=== PATIENT | male | born 1950 | race Caucasian/White ===

== ENCOUNTER 2017-11-21 12:42 | Inpatient (IN) | payer MEDICARE ==
[2017-11-21] VITALS (9 sets, daily range): BP systolic 96–111; BP diastolic 55–67; PULSE 65–100; RESP 16–19; TEMP 97–98.9; O2SAT 97–100
[~2017-11-21] VITALS: Ht 175.3 cm; Wt 94.5 kg
[2017-11-21] MEDS ORDERED: ATOR20TA15 PO (12:55)
[2017-11-21] MEDS ORDERED: HYDR25TA5 PO (12:55)
[2017-11-21] MEDS ORDERED: PRAZ2CAP PO (12:55)
[2017-11-21] MEDS ORDERED: ENAL20TA PO (12:55)
[2017-11-21] MEDS ORDERED: [UNRECOGNIZED DRUG - CODE] PO (12:55)
[2017-11-21] MEDS ORDERED: LOSA100T PO (12:55)
[2017-11-21] MEDS ORDERED: ASPI-516 CHEW (12:55)
[2017-11-21] MEDS ORDERED: ONDANSETRON HCL 4 MG/2 ML VIAL IV ONE (13:00)
[2017-11-21] MEDS ORDERED: SODIUM CHLOR 0.9% 1000 ML INJ 1,000 ML IV ONE (13:00)
--- NOTE | 2017-11-21 13:16 | PD ---
HPI Chief Complaint: Abnormal Results Time Seen by Provider: 12:49 Travel History International Travel<30 days: No Contact w/Intl Traveler<30days: No Traveled to known affect area: No History of Present Illness HPI This patient complains of lightheadedness and generalized weakness. He normally has history of hypertension and takes 4 separate antihypertensives. However his blood pressures have been running on the low side. He took his medications yesterday but not today. Denies fever or vomiting or diarrhea. He is a diet controlled diabetic, Accu-Chek 203. Not having any chest pain or shortness of breath. Severity is moderate. No alleviating factors. Symptoms exacerbated by lower than normal blood pressures PFSH Past Medical History Cardiovascular Problems: Yes High Cholesterol: Yes Diabetes: Yes Patient Takes Glucophage: No Diminished Hearing: No Hypertension: Yes Tetanus Vaccination: > 5 Years Influenza Vaccination: Yes Past Surgical History Genitourinary Surgery: Yes (prostate) Social History Alcohol Use: No (quit) Tobacco Use: No Substance Use: No Allergies-Medications (Allergen,Severity, Reaction): Coded Allergies: No Known Allergies (Unverified , 11/21/17) Reported Meds & Prescriptions Reported Meds & Active Scripts Active Reported Stendra (Avanafil) 100 Mg Tab 100 Mg PO DAILY PRN Take approximately 15 minutes before sexual intercourse, no more than once per day. Prazosin (Prazosin HCl) 2 Mg Cap 2 Mg PO DAILY Losartan (Losartan Potassium) 100 Mg Tab 100 Mg PO DAILY Hydrochlorothiazide 25 Mg Tab 25 Mg PO DAILY Enalapril (Enalapril Maleate) 20 Mg Tab 20 Mg PO DAILY Atorvastatin (Atorvastatin Calcium) 20 Mg Tab 20 Mg PO HS Aspirin 81 Mg Chew 81 Mg CHEW DAILY Review of Systems General / Constitutional: No: Fever Eyes: No: Visual changes HENT: Positive: Lightheadedness, No: Headaches Cardiovascular: No: Chest Pain or Discomfort Respiratory: No: Shortness of Breath Gastrointestinal: Positive: Nausea, No: Abdominal Pain Genitourinary: No: Dysuria Musculoskeletal: Positive: Weakness, No: Pain Skin: No Rash Neurologic: Positive: Weakness, Dizziness Psychiatric: No: Depression Endocrine: No: Polydipsia Hematologic/Lymphatic: No: Easy Bruising Physical Exam Narrative GENERAL: Well-nourished, well-developed patient in no apparent distress. SKIN: Focused skin assessment reveals no rash and nodules. Skin is Warm and dry. HEAD: Atraumatic. Normocephalic. EYES: Pupils equal and round. No scleral icterus. No injection or drainage. ENT: No nasal bleeding or discharge. Mucous membranes pink and moist. NECK: Trachea midline. No JVD. CARDIOVASCULAR: Regular rate and rhythm. No murmur appreciated. RESPIRATORY: No accessory muscle use. Clear to auscultation. Breath sounds equal bilaterally. GASTROINTESTINAL: Abdomen soft, non-tender, nondistended. Hepatic and splenic margins not palpable. MUSCULOSKELETAL: No obvious deformities. No clubbing. No cyanosis. No edema. NEUROLOGICAL: Awake and alert. No obvious cranial nerve deficits. Motor grossly within normal limits. Normal speech. PSYCHIATRIC: Appropriate mood and affect; insight and judgment normal. Data Data Last Documented VS Vital Signs Date Time Temp Pulse Resp B/P (MAP) Pulse Ox O2 Delivery O2 Flow Rate FiO2 11/21/17 13:57 90 18 101/56 (71) 97 Room Air 11/21/17 12:44 98.6 Orders Orders Sodium Chlor 0.9% 1000 Ml Inj (Ns 1000 M (11/21/17 13:00) Ondansetron Inj (Zofran Inj) (11/21/17 13:00) Complete Blood Count With Diff (11/21/17 12:58) Basic Metabolic Panel (Bmp) (11/21/17 12:58) Diversified Crops Farmer / Telemetry ADDISON.Q8H (11/21/17 12:58) Electrocardiogram (11/21/17 ) Troponin I (11/21/17 12:58) Ckmb (Isoenzyme) Profile (11/21/17 12:58) Labs Laboratory Tests Test 11/21/17 13:00 White Blood Count 25.2 TH/MM3 Red Blood Count 2.72 MIL/MM3 Hemoglobin 6.9 GM/DL Hematocrit 21.6 % Mean Corpuscular Volume 79.5 FL Mean Corpuscular Hemoglobin 25.4 PG Mean Corpuscular Hemoglobin Concent 32.0 % Red Cell Distribution Width 14.4 % Platelet Count 295 TH/MM3 Mean Platelet Volume 9.0 FL Neutrophils (%) (Auto) 88.3 % Lymphocytes (%) (Auto) 5.7 % Monocytes (%) (Auto) 5.2 % Eosinophils (%) (Auto) 0.6 % Basophils (%) (Auto) 0.2 % Neutrophils # (Auto) 22.2 TH/MM3 Lymphocytes # (Auto) 1.4 TH/MM3 Monocytes # (Auto) 1.3 TH/MM3 Eosinophils # (Auto) 0.2 TH/MM3 Basophils # (Auto) 0.1 TH/MM3 CBC Comment AUTO DIFF Differential Comment Blood Urea Nitrogen 26 MG/DL Creatinine 1.11 MG/DL Random Glucose 177 MG/DL Calcium Level 8.2 MG/DL Sodium Level 129 MEQ/L Potassium Level 4.0 MEQ/L Chloride Level 94 MEQ/L Carbon Dioxide Level 25.1 MEQ/L Anion Gap 10 MEQ/L Estimat Glomerular Filtration Rate 66 ML/MIN Total Creatine Kinase 23 U/L Troponin I LESS THAN 0.02 NG/ML MDM Medical Decision Making Medical Screen Exam Complete: Yes Emergency Medical Condition: Yes Medical Record Reviewed: Yes Differential Diagnosis Medication side effect, vasovagal episode, cardiac arrhythmia Narrative Course I have reviewed the patient's electronic medical record. IV placed CBC shows hemoglobin of 6.9 Metabolic profile shows some hyponatremia I reviewed his EKG which shows sinus rhythm without ST elevation or ectopy Extended cardiac monitoring reveals sinus rhythm without ectopy CK is normal Troponin is normal I gave him 1 L normal saline IV and IV Zofran Blood pressure reassessment after IV fluid is 101 systolic Rectal exam reveals no stool in the vault. Mucus is Hemoccult negative but not a good sample Patient has history of alcoholism but quit drinking 3 months ago. He had a colonoscopy 1 year ago he reports as normal other than a couple of polyps He denies any melena or rectal bleeding However he is lightheaded and hypotensive with symptomatic anemia I discussed with the medical residents . He will require admission and transfusion and further evaluation HemaPrompt Point of Care Internal Pos. & Neg. Controls: Passed Fecal Specimen Occult Blood: Negative Diagnosis Primary Impression: Symptomatic anemia Additional Impression: Hypotension Qualified Codes: I95.9 - Hypotension, unspecified Admitting Information Admitting Physician Requests: Admit Kyle Navarrete MD Nov 21, 2017 13:16
[2017-11-21 13:20] LABS: AUTOMATED NEUTROPHIL # 22.2 TH/MM3 (1.8-7.7); BASOPHIL # 0.1 TH/MM3 (0-0.2); BASOPHIL % 0.2 % (0.0-2.0); EOSINOPHIL # 0.2 TH/MM3 (0-0.4); EOSINOPHIL % 0.6 % (0.0-4.0); LYMPH % 5.7 % (9.0-44.0); LYMPHOCYTE # 1.4 TH/MM3 (1.0-4.8); MEAN CELL VOLUME 79.5 FL (80.0-100.0); MEAN CORPUSCULAR HEMOGLOBIN 25.4 PG (27.0-34.0); MONO % 5.2 % (0.0-8.0); MONOCYTE # 1.3 TH/MM3 (0-0.9); NEUT % 88.3 % (16.0-70.0); PLATELET COUNT 295 TH/MM3 (150-450); RED BLOOD COUNT 2.72 MIL/MM3 (4.50-5.90); RED CELL DISTRIBUTION WIDTH 14.4 % (11.6-17.2); WHITE BLOOD COUNT 25.2 TH/MM3 (4.0-11.0)
[2017-11-21 13:36] LABS: BICARBONATE 25.1 MEQ/L (21.0-32.0); BLOOD UREA NITROGEN 26 MG/DL (7-18); CALCIUM 8.2 MG/DL (8.5-10.1); CHLORIDE 94 MEQ/L (98-107); CREATININE 1.11 MG/DL (0.60-1.30); GLOMERULAR FILTRATION RATE 66 ML/MIN (>89); GLUCOSE,RANDOM 177 MG/DL (74-106); SODIUM (NA) 129 MEQ/L (136-145)
[2017-11-21 13:37] LABS: HEMATOCRIT 21.6 % (39.0-51.0); HEMOGLOBIN 6.9 GM/DL (13.0-17.0)
[2017-11-21 13:40] LABS: TROPONIN I LESS THAN 0.02 NG/ML (0.02-0.05)
--- NOTE | 2017-11-21 15:48 | HHI.HP ---
HPI Service Family Medicine Primary Care Physician No Primary Care Physician Admission Diagnosis symptomatic anemia,hypotension,gen weakness Diagnoses: International Travel<30 Days: No Contact w/Intl Traveler<30days: No Known Affected Area: No History of Present Illness 67 y/o M , hx of DM, prostate cancer and alcoholism, presents complaining of generalized fatigue, weakness, and lightheadedness since September 2017. He states he has felt increasingly fatigued over the last few months and has had a decreased appetite. He has lost 30 pounds within this time frame. He has had occasional nausea and vomiting. Which was worse in September. When all these symptoms began in September he quit drinking. He also complains of GERD and he thinks this may have contributed to his nausea and vomiting. Over the last week he has felt constantly nauseous and has been producing some phlegm which he thinks is acid. The patient states Prilosec has helped his symptoms. He continues to complain of chronic constipation and abdominal pain along with his constipation. He had abdominal pain yesterday before a bowel movement. Otherwise he does not currently have any abdominal pain or any pain elsewhere. On review of systems patient admits to pain in the rectal area and rectal itching. He does think he has been told he has hemorrhoids before. For his history of prostate cancer, status post prostatectomy, he has been following with a doctor at the [facility] in [place] and he recently had a PET scan which was negative for metastases. (Kely Noriega MD R2) Review of Systems Constitutional: DENIES: Weight gain Eyes: COMPLAINS OF: Blurred vision (+ blurred vision) Ears, nose, mouth, throat: COMPLAINS OF: Vertigo (+ vertigo), Throat pain ( trouble swalling food, dysphagia) Respiratory: DENIES: Wheezing, Sputum production Cardiovascular: COMPLAINS OF: Orthopnea (sometimes yes), DENIES: Syncope Gastrointestinal: DENIES: Black stools, Bloody stools Genitourinary: DENIES: Hematuria Musculoskeletal: DENIES: Muscle aches, Stiffness Integumentary: DENIES: Nail changes, Rash Neurologic: DENIES: Headache, Paresthesias Psychiatric: DENIES: Confusion, Mood changes (Kely Noriega MD R2) Past Family Social History Past Medical History Diabetes (diet controlled) - BS 200-350 HTN Saw PCP in 07/2017 Saw oncologist as mentioned in history of present illness Past Surgical History Prostectomy (5 years ago) Knee surgery (6 years ago) (Kely Noriega MD R2) Allergies: Coded Allergies: No Known Allergies (Unverified , 11/21/17) Family History parents - mom : lung ca - dad: bone and brain, lung ca grandparents - prostate ca - unknown ca Social History Here in [facility] until 05/02, [employer] vet Both him and his retired, active generally smoking before 1971, was a heavy beer drinker (20 + beers/day) until 10/01, marijuana occasional (Kely Noriega MD R2) Physical Exam Vital Signs Vital Signs Date Time Temp Pulse Resp B/P (MAP) Pulse Ox O2 Delivery O2 Flow Rate FiO2 11/21/17 13:57 90 18 101/56 (71) 97 Room Air 11/21/17 13:01 100 17 96/59 (71) 97 Room Air 11/21/17 12:59 101 97 Room Air 11/21/17 12:44 98.6 98 16 107/55 (72) 99 Physical Exam GENERAL: This is a well-nourished, well-developed patient, in no apparent distress. SKIN: No rashes, ecchymoses or lesions. Cool and dry. HEAD: Atraumatic. Normocephalic. No temporal or scalp tenderness. EYES: Pupils equal round and reactive. Extraocular motions intact. No scleral icterus. No injection or drainage. ENT: Nose without bleeding, purulent drainage or septal hematoma. Throat without erythema, tonsillar hypertrophy or exudate. Uvula midline. Airway patent. NECK: Trachea midline. No JVD or lymphadenopathy. Supple, nontender, no meningeal signs. CARDIOVASCULAR: Regular rate and rhythm without murmurs, gallops, or rubs. RESPIRATORY: Mild wheezing and coarse breath sounds, Breath sounds equal bilaterally. No wheezes, rales, or rhonchi. GASTROINTESTINAL: non-tender, slightly distended. No hepato-splenomegaly, or palpable masses. No guarding. MUSCULOSKELETAL: Extremities without clubbing, cyanosis, or edema. No joint tenderness, effusion, or edema noted. No calf tenderness. Negative Homans sign bilaterally. NEUROLOGICAL: Awake and alert. Cranial nerves II through XII intact. Motor and sensory grossly within normal limits. Five out of 5 muscle strength in all muscle groups. Normal speech. Laboratory Laboratory Tests Test 11/21/17 13:00 White Blood Count 25.2 Red Blood Count 2.72 Hemoglobin 6.9 Hematocrit 21.6 Mean Corpuscular Volume 79.5 Mean Corpuscular Hemoglobin 25.4 Mean Corpuscular Hemoglobin Concent 32.0 Red Cell Distribution Width 14.4 Platelet Count 295 Mean Platelet Volume 9.0 Neutrophils (%) (Auto) 88.3 Lymphocytes (%) (Auto) 5.7 Monocytes (%) (Auto) 5.2 Eosinophils (%) (Auto) 0.6 Basophils (%) (Auto) 0.2 Neutrophils # (Auto) 22.2 Lymphocytes # (Auto) 1.4 Monocytes # (Auto) 1.3 Eosinophils # (Auto) 0.2 Basophils # (Auto) 0.1 CBC Comment AUTO DIFF Differential Comment Blood Urea Nitrogen 26 Creatinine 1.11 Random Glucose 177 Calcium Level 8.2 Sodium Level 129 Potassium Level 4.0 Chloride Level 94 Carbon Dioxide Level 25.1 Anion Gap 10 Estimat Glomerular Filtration Rate 66 Total Creatine Kinase 23 Troponin I LESS THAN 0.02 (Kely Noriega MD R2) Result Diagram: 11/21/17 1300 11/21/17 1300 Septic Shock Reassessment Septic shock perfusion: reassessment completed (Kely Norigea MD R2) Caprini VTE Risk Assessment Caprini VTE Risk Assessment: No/Low Risk (score <= 1) Caprini Risk Assessment Model Point Value = 1 Point Value = 2 Point Value = 3 Point Value = 5 Age 41-60 Minor surgery BMI > 25 kg/m2 Swollen legs Varicose veins or History of unexplained or recurrent spontaneous Oral contraceptives or hormone replacement Sepsis (< 1 month) Serious lung disease, including pneumonia (< 1 month) Abnormal pulmonary function Acute myocardial infarction Congestive heart failure (< 1 month) History of inflammatory bowel disease Medical patient at bed rest Age 61-74 Arthroscopic surgery Major open surgery (> 45 min) Laparoscopic surgery (> 45 min) Malignancy Confined to bed (> 72 hours) Immobilizing plaster cast Central venous access Age >= 75 History of VTE Family history of VTE Factor V Leiden Prothrombin [id number] Lupus anticoagulant Anticardiolipin antibodies Elevated serum homocysteine Heparin-induced thrombocytopenia Other congenital or acquired thrombophilia Stroke (< 1 month) Elective arthroplasty Hip, pelvis, or leg fracture Acute spinal cord injury (< 1 month) Prophylaxis Regimen Total Risk Factor Score Risk Level Prophylaxis Regimen 0-1 Low Early ambulation 2 Moderate Order ONE of the following: *Sequential Compression Device (SCD) *Heparin 5000 units SQ BID 3-4 Higher Order ONE of the following medications: *Heparin 5000 units SQ TID *Enoxaparin/Lovenox 40 mg SQ daily (WT < 150 kg, CrCl > 30 mL/min) *Enoxaparin/Lovenox 30 mg SQ daily (WT < 150 kg, CrCl > 10-29 mL/min) *Enoxaparin/Lovenox 30 mg SQ BID (WT < 150 kg, CrCl > 30 mL/min) AND/OR *Sequential Compression Device (SCD) 5 or more Highest Order ONE of the following medications: *Heparin 5000 units SQ TID (Preferred with Epidurals) *Enoxaparin/Lovenox 40 mg SQ daily (WT < 150 kg, CrCl > 30 mL/min) *Enoxaparin/Lovenox 30 mg SQ daily (WT < 150 kg, CrCl > 10-29 mL/min) *Enoxaparin/Lovenox 30 mg SQ BID (WT < 150 kg, CrCl > 30 mL/min) AND *Sequential Compression Device (SCD) (Kely Noriega MD R2) Assessment and Plan Assessment and Plan 67-year-old male with history of diabetes, prostate cancer, and generalized fatigue and weight loss 2 months presents for workup. Initial workup reveals anemia. Code Status Full code (Kely Noriega MD R2) Problem List: (1) Symptomatic anemia ICD Codes: D64.9 - Anemia, unspecified Status: Acute Plan: Chronic anemia versus acute anemia/GI bleed Hemoglobin 6.9 on admission Transfuse 1 unit PRBCs stat Follow up posttransfusion H and H and transfuse accordingly at less than 7.0 Continuous pulse ox Vital signs every 4 Follow-up Hemoccult Consider follow-up with GI tomorrow Protonix 40 mg twice a day IV (2) Alcoholism ICD Codes: F10.20 - Alcohol dependence, uncomplicated Status: Chronic Plan: Check LFTs Abdominal ultrasound for cirrhosis (3) Diabetes ICD Codes: E11.9 - Type 2 diabetes mellitus without complications Plan: Poorly controlled per patient Follow-up blood glucose levels before meals at bedtime and alter accordingly Low Dose sliding scale (4) Weight loss ICD Codes: R63.4 - Abnormal weight loss Status: Chronic Plan: Weight loss 2 months, history of prostate cancer Follow-up abdominal ultrasound Pending results consider consultation oncology (5) fen/ppx Status: Acute Plan: Fluids: Continue maintenance fluids Electrolytes: Monitor BMP and supplement accordingly Nutrition: Regular diet Prophylaxis: Protonix twice a day DVT prophylaxis: SCDs, teds (Kely Noriega MD R2) Problem List: (1) Symptomatic anemia ICD Codes: D64.9 - Anemia, unspecified Status: Acute Plan: Chronic anemia versus acute anemia/GI bleed Hemoglobin 6.9 on admission Transfuse 1 unit PRBCs stat Follow up posttransfusion H and H and transfuse accordingly at less than 7.0 Continuous pulse ox Vital signs every 4 Follow-up Hemoccult Consider follow-up with GI tomorrow Protonix 40 mg twice a day IV (2) Alcoholism ICD Codes: F10.20 - Alcohol dependence, uncomplicated Status: Chronic Plan: Check LFTs Abdominal ultrasound for cirrhosis (3) Diabetes ICD Codes: E11.9 - Type 2 diabetes mellitus without complications Plan: Poorly controlled per patient Follow-up blood glucose levels before meals at bedtime and alter accordingly Low Dose sliding scale (4) Weight loss ICD Codes: R63.4 - Abnormal weight loss Status: Chronic Plan: Weight loss 2 months, history of prostate cancer Follow-up abdominal ultrasound Pending results consider consultation oncology (5) fen/ppx Status: Acute Plan: Fluids: Continue maintenance fluids Electrolytes: Monitor BMP and supplement accordingly Nutrition: Regular diet Prophylaxis: Protonix twice a day DVT prophylaxis: SCDs, teds See the residents documentation for details. I saw and evaluated the patient regarding the mercado portions of this evaluation and agree with the residents findings and plans as written. Parts of this note were created using [employer] voice recognition software program. While efforts were made to correct any mistakes made by this software, some mistakes, errors, and omissions may remain in the final note that were not caught when the note was originally created. Plan of care was discussed and agreed upon with the patient as specifically documented in the above note. An opportunity to ask questions with explanation was provided. Patient voiced understanding on all information reviewed and discussed. (Jimmy Mccurdy MD) Physician Certification 2 Midnight Certification Type: Admission for Inpatient Services Order for Inpatient Services The services are ordered in accordance with Medicare regulations or non- Medicare payer requirements, as applicable. In the case of services not specified as inpatient-only, they are appropriately provided as inpatient services in accordance with the 2-midnight benchmark. Estimated LOS (days): 2 days is the estimated time the patient will need to remain in the hospital, assuming treatment plan goals are met and no additional complications. Post-Hospital Plan: Home (Kely Noriega MD R2) Kely Noriega MD R2 Nov 21, 2017 15:48 Jimmy Mccurdy MD Nov 23, 2017 16:19
[2017-11-21] MEDS ORDERED: NALOXONE HCL 0.4 MG/ML AMP IV PUSH PRN (16:30)
[2017-11-21] MEDS ORDERED: MAGNESIUM HYDROXIDE SUSP 30 ML CUP PO PRN (16:30)
[2017-11-21] MEDS ORDERED: ONDANSETRON HCL 4 MG/2 ML VIAL IVP PRN (16:30)
[2017-11-21] MEDS ORDERED: SENNOSIDES 8.6 MG TAB PO PRN (16:30)
[2017-11-21] MEDS ORDERED: BISACODYL 10 MG SUPP RECTAL PRN (16:30)
[2017-11-21] MEDS ORDERED: LACTULOSE SYRUP 20 GM/30 ML CUP PO PRN (16:30)
[2017-11-21] MEDS ORDERED: SODIUM CHLORIDE 0.9% FLUSH 10 ML FLUSH IV FLUSH PRN ×2 (16:30)
[2017-11-21] MEDS ORDERED: SODIUM CHLOR 0.9% 250 ML INJ 250 ML IV ONE (16:45)
[2017-11-21 17:28] LABS: INTERNATIONAL NORMALIZED RATIO 1.2 RATIO; PROTHROMBIN TIME - PATIENT 11.9 SEC (9.8-11.6)
--- NOTE | 2017-11-21 17:45 | RADRPT ---
EXAM DATE/TIME: 11/21/2017 16:23 [facility] COMPARISON: No previous studies available for comparison. INDICATIONS : Cough, lightheaded, and dizzy. MEDICAL HISTORY : Hypertension. SURGICAL HISTORY : None. ENCOUNTER: Initial ACUITY: 2 months PAIN SCORE: 0/10 LOCATION: Bilateral chest FINDINGS: PA and lateral views of the chest demonstrate the lungs to be symmetrically aerated without evidence of mass, infiltrate or effusion. The cardiomediastinal contours are unremarkable. Osseous structure s are intact. Calcified granuloma is present in the right lung. CONCLUSION: 1. No acute cardiopulmonary disease. Mata Jaeger MD on November 21, 2017 at 17:42 Board Certified Radiologist. This report was verified electronically.
[2017-11-21] MEDS: SODIUM CHLOR 0.9% 1000 ML INJ 1,000 ML IV SCH (17:55)
[2017-11-21] MEDS: SODIUM CHLORIDE 0.9% FLUSH 10 ML FLUSH IV FLUSH SCH ×2 (21:00)
--- NOTE | 2017-11-21 21:08 | RADRPT ---
EXAM DATE/TIME: 11/21/2017 20:14 [facility] COMPARISON: No previous studies available for comparison. INDICATIONS : Abdominal pain. MEDICAL HISTORY : Hypercholesterolemia. Hypertension. SURGICAL HISTORY : Prostate surgery. Right knee surgery. ENCOUNTER: Initial ACUITY: 2 days PAIN SCORE: 3/10 LOCATION: Abdomen. MEASUREMENTS: LIVER: 26.6 cm length COMMON DUCT: 5 mm RIGHT KIDNEY: 12.5 x 5.8 x 6.0 cm LEFT KIDNEY: 11.5 x 6.2 x 6.3 cm SPLEEN: 15.4 cm length AORTA: 2.7cm maximal FINDINGS: LIVER: The liver is markedly enlarged and has a heterogeneous texture. There is several space-occupying lesi ons especially in the right hepatic lobe which range in size up to 2.8 cm. Portal vein is patent. The re is no evidence of biliary duct dilatation. COMMON DUCT: No intraluminal mass or stone visualized. GALLBLADDER: Debris is identified within the gallbladder. Gallbladder wall is thickened PANCREAS: The visualized portions are within normal limits. RIGHT KIDNEY: No hydronephrosis, stone or mass. LEFT KIDNEY: No hydronephrosis, stone or mass. SPLEEN: No focal lesion. AORTA: Non aneurysmal. IVC: Within normal limits. CONCLUSION: 1. Hepatomegaly with multiple complex space-occupying lesions. Metastatic disease needs to be exclude d. 2. Gallbladder wall thickening associated with debris in the gallbladder. 3. No evidence of biliary obstructive disease. Roc Martinez MD on November 21, 2017 at 21:00 Board Certified Radiologist. This report was verified electronically.
[2017-11-21 21:39] LABS: HEMOGLOBIN 5.7 GM/DL (13.0-17.0)
[2017-11-21] MEDS: DOCUSATE SODIUM 50 MG/SENNA 8.6 MG TAB PO SCH (22:17)
[2017-11-21] MEDS: ATORVASTATIN 20 MG TAB PO SCH (22:17)
[2017-11-21] MEDS: PANTOPRAZOLE SODIUM 40 MG VIAL IV PUSH SCH (22:17)
[2017-11-21] MEDS: ACETAMINOPHEN 325 MG TAB PO PRN (22:32)
[2017-11-21 23:43] LABS: ALBUMIN 1.7 GM/DL (3.4-5.0); DIRECT BILIRUBIN ADULT 0.2 MG/DL (0.0-0.2)
[2017-11-21 23:45] LABS: INDIRECT BILIRUBIN 0.1 MG/DL (0.0-0.8); TOTAL BILIRUBIN ADULT 0.3 MG/DL (0.2-1.0)
[2017-11-22] VITALS (12 sets, daily range): BP systolic 98–117; BP diastolic 55–71; PULSE 67–86; RESP 16–18; TEMP 96.6–97.5; O2SAT 95–99
[2017-11-22] MEDS: ACETAMINOPHEN 325 MG TAB PO PRN ×4 (03:11→20:58)
[2017-11-22] MEDS ORDERED: GLUCAGON 1 MG/ML VIAL OTHER PRN (04:00)
[2017-11-22] MEDS ORDERED: DEXTROSE 50% IN WATER 50 ML VIAL(D50) IV PUSH PRN (04:00)
[2017-11-22] MEDS: INSULIN ASPART SUPPLEMENTAL SCALE SQ SCH ×4 (08:00→21:01)
[2017-11-22] MEDS: PANTOPRAZOLE SODIUM 40 MG VIAL IV PUSH SCH ×2 (08:15→21:01)
[2017-11-22] MEDS: DOCUSATE SODIUM 50 MG/SENNA 8.6 MG TAB PO SCH ×2 (08:15→21:00)
[2017-11-22] MEDS: SODIUM CHLORIDE 0.9% FLUSH 10 ML FLUSH IV FLUSH SCH ×3 (08:16→21:01)
[2017-11-22] MEDS: SODIUM CHLOR 0.9% 1000 ML INJ 1,000 ML IV SCH ×2 (08:30→16:30)
[2017-11-22] MEDS ORDERED: ASPIRIN 81 MG CHEW TAB CHEW SCH (09:00)
--- NOTE | 2017-11-22 09:24 | HHI.FPPN ---
Subjective Remarks Pt seen and examined this morning. Pt has been afebrile, vital signs have been stable. Pt completed transfusion of 3 units of RBCs. Denies any active bleeding. No recent hematemesis, he denies black or blood stools. No acute abdominal pain. He has been constipated, no diarrhea. PET scan in September showed abnormality of lymph nodes of the groin, but was otherwise normal per patient and his . His notes that his abdomen does appear to be distended. Pt was to transferred to the ICU due to acutely low hemoglobin with no bleeding source identified, concern for acute GI bleed. Case was discussed with the computer salesperson retail and the decision was made to keep the patient on a med/surg floor with close monitoring. Assistant Baseball Coach is to be notified if there are any acute changes in pts status. (Rochelle Aburto MD R3) Objective Vitals Vital Signs Date Time Temp Pulse Resp B/P (MAP) Pulse Ox O2 Delivery O2 Flow Rate FiO2 11/22/17 07:50 96.9 82 18 114/68 97 11/22/17 05:10 97.3 80 17 108/62 99 11/22/17 04:55 97.3 79 18 113/66 97 11/22/17 04:15 97.0 82 18 106/70 98 11/22/17 01:31 97.4 72 18 110/60 99 11/22/17 01:16 97.5 67 18 109/66 98 11/22/17 00:52 97.0 70 17 98/55 98 11/22/17 00:21 81 11/21/17 22:21 97.0 84 18 104/56 97 11/21/17 22:06 97.1 84 18 105/59 100 11/21/17 21:31 65 11/21/17 20:10 98.9 91 18 111/60 (77) 98 11/21/17 18:30 11/21/17 18:00 82 19 111/67 (82) 97 Room Air 11/21/17 17:00 80 18 111/56 (74) 97 Room Air 11/21/17 13:57 90 18 101/56 (71) 97 Room Air 11/21/17 13:01 100 17 96/59 (71) 97 Room Air 11/21/17 12:59 101 97 Room Air 11/21/17 12:44 98.6 98 16 107/55 (07) 99 I/O 11/21/17 11/21/17 11/21/17 11/22/17 11/22/17 11/22/17 07:00 15:00 23:00 07:00 15:00 23:00 Intake Total 1000 ml 240 ml 691 ml 400 ml Output Total 350 ml Balance 1000 ml 240 ml 341 ml 400 ml Intake Oral 240 ml 0 ml IV Total 1000 ml Packed Cells 691 ml 400 ml Output Urine Total 350 ml (Rochelle Aburto MD R3) Result Diagram: 11/21/17195811/21/17 1300 Objective Remarks GENERAL: This is a well-developed patient, in no acute cardiopulmonary distress. SKIN: No rashes, ecchymoses or lesions. Cool and dry. HEAD: Atraumatic. Normocephalic. No temporal or scalp tenderness. EYES: Extraocular motions intact. No scleral icterus. No injection or drainage. ENT: Nose without bleeding, purulent drainage or septal hematoma. Uvula midline. Airway patent. NECK: Trachea midline. CARDIOVASCULAR: Regular rate and rhythm. RESPIRATORY: Mild wheezing and coarse breath sounds, more pronounced in the left lower lung field. Good air movement. GASTROINTESTINAL: Non-tender, distended. No guarding. MUSCULOSKELETAL: Extremities without clubbing, cyanosis, or edema. No joint tenderness, effusion, or edema noted. No calf tenderness. Negative Homans sign bilaterally. NEUROLOGICAL: Awake and alert. Cranial nerves II through XII intact. Motor and sensory grossly within normal limits. Normal speech. (Rochelle Aburto MD R3) A/P Assessment and Plan 67-year-old male with history of diabetes, prostate cancer, and generalized fatigue and weight loss 2 months presents for workup. Initial workup reveals anemia. Discharge Planning Anticipate discharge once H&H remains stable, pt has been evaluated by GI and oncology, timeframe unclear. (Rochelle Aburto MD R3) Problem List: (1) Symptomatic anemia ICD Codes: D64.9 - Anemia, unspecified Status: Acute Plan: At time of admission pt with hemoglobin of 6.9, no bleeding source identified. Continue to monitor H&H Q6H Patient transfused a total of 3 units of packed red blood cells, hemodynamically stable, vitals within normal limits. Post transfusion H&H 8.3 GI bleed scan significant for probable sigmoid colon hemorrhage. Hemorrhage of the bladder cannot be excluded. Stat H&H ordered Stat UA ordered to evaluate for possible hematuria Hemoccult performed in the ED negative Follow-up results of stool Hemoccult GI consulted. Patient discussed with Dr. Nassar, appreciate recommendations and intervention. Abdomen/Pelvis CT ordered, priority changed to STAT Protonix 40mg IV BID (2) History of prostate cancer ICD Codes: Z85.46 - Personal history of malignant neoplasm of prostate Plan: Patient with history of prostate cancer reports that his PSA has recently been increasing. PET scan completed in September of this year significant for abnormal lymph node findings of the groin. There were no indications of metastasis. -We'll further evaluate with a CT of the abdomen/pelvis as well as a chest CT -Oncology consulted Imagin11/21/16: Abdomen ultrasound significant for hepatomegaly with multiple complex space-occupying lesions. Metastatic disease needs to be excluded. Gallbladder wall thickening associated with debris in the gallbladder. No evidence of biliary obstructive disease. (3) Diabetes ICD Codes: E11.9 - Type 2 diabetes mellitus without complications Plan: Poorly controlled per patient Change to monitor blood glucose levels Low Dose sliding scale (4) fen/ppx Status: Acute Plan: Fluids: Continue maintenance fluids Electrolytes: Monitor BMP and supplement accordingly Nutrition: NPO Prophylaxis: Protonix DVT prophylaxis: SCDs, teds, holds chemoprophylaxis due to acute bleeding (Rochelle Aburto MD R3) Problem List: (1) Symptomatic anemia ICD Codes: D64.9 - Anemia, unspecified Status: Acute Plan: At time of admission pt with hemoglobin of 6.9, no bleeding source identified. Continue to monitor H&H Q6H Patient transfused a total of 3 units of packed red blood cells, hemodynamically stable, vitals within normal limits. Post transfusion H&H 8.3 GI bleed scan significant for probable sigmoid colon hemorrhage. Hemorrhage of the bladder cannot be excluded. Stat H&H ordered Stat UA ordered to evaluate for possible hematuria Hemoccult performed in the ED negative Follow-up results of stool Hemoccult GI consulted. Patient discussed with Dr. Nassar, appreciate recommendations and intervention. Abdomen/Pelvis CT ordered, priority changed to STAT Protonix 40mg IV BID (2) History of prostate cancer ICD Codes: Z85.46 - Personal history of malignant neoplasm of prostate Plan: Patient with history of prostate cancer reports that his PSA has recently been increasing. PET scan completed in November of this year significant for abnormal lymph node findings of the groin. There were no indications of metastasis. -We'll further evaluate with a CT of the abdomen/pelvis as well as a chest CT -Oncology consulted Imagin11/21/16: Abdomen ultrasound significant for hepatomegaly with multiple complex space-occupying lesions. Metastatic disease needs to be excluded. Gallbladder wall thickening associated with debris in the gallbladder. No evidence of biliary obstructive disease. (3) Diabetes ICD Codes: E11.9 - Type 2 diabetes mellitus without complications Plan: Poorly controlled per patient Change to monitor blood glucose levels Low Dose sliding scale (4) fen/ppx Status: Acute Plan: Fluids: Continue maintenance fluids Electrolytes: Monitor BMP and supplement accordingly Nutrition: NPO Prophylaxis: Protonix DVT prophylaxis: SCDs, teds, holds chemoprophylaxis due to acute bleeding See the residents documentation for details. I saw and evaluated the patient regarding the mercado portions of this evaluation and agree with the residents findings and plans as written. Parts of this note were created using [employer] voice recognition software program. While efforts were made to correct any mistakes made by this software, some mistakes, errors, and omissions may remain in the final note that were not caught when the note was originally created. Plan of care was discussed and agreed upon with the patient as specifically documented in the above note. An opportunity to ask questions with explanation was provided. Patient voiced understanding on all information reviewed and discussed. (Jimmy Mccurdy MD) Rochelle Aburto MD R3 Nov 22, 2017 09:24 Jimmy Mccurdy MD Nov 23, 2017 16:25
[2017-11-22] MEDS ORDERED: DIATRIZOATE MEGLUM/DIATRIZOATE SOD 9 ML CUP PO ONE (11:00)
[2017-11-22 11:16] LABS: BASOPHIL # 0.1 TH/MM3 (0-0.2); BASOPHIL % 0.3 % (0.0-2.0); EOSINOPHIL # 0.2 TH/MM3 (0-0.4); EOSINOPHIL % 1.1 % (0.0-4.0); HEMATOCRIT 24.9 % (39.0-51.0); HEMOGLOBIN 8.3 GM/DL (13.0-17.0); LYMPH % 4.7 % (9.0-44.0); LYMPHOCYTE # 1.1 TH/MM3 (1.0-4.8); MEAN CELL VOLUME 80.2 FL (80.0-100.0); MEAN CORPUSCULAR HEMOGLOBIN 26.6 PG (27.0-34.0); MEAN CORPUSCULAR HGB CONC 33.2 % (32.0-36.0); MEAN PLATELET VOLUME 8.6 FL (7.0-11.0); MONO % 5.9 % (0.0-8.0); MONOCYTE # 1.3 TH/MM3 (0-0.9); PLATELET COUNT 243 TH/MM3 (150-450); RED BLOOD COUNT 3.11 MIL/MM3 (4.50-5.90); RED CELL DISTRIBUTION WIDTH 14.6 % (11.6-17.2); RETIC # 46.5 MIL/L (20.0-150.0); RETIC % 1.5 % (0.4-3.0); WHITE BLOOD COUNT 22.7 TH/MM3 (4.0-11.0)
[2017-11-22 12:12] LABS: ALBUMIN 1.5 GM/DL (3.4-5.0); ALT (GPT) 12 U/L (12-78); AST (GOT) 20 U/L (15-37); IRON (FE) 36 MCG/DL (65-175); LIPASE 76 U/L (73-393)
[2017-11-22 12:38] LABS: ALKALINE PHOSPHATASE 150 U/L (45-117); FERRITIN 1298 NG/ML (26-388); FOLATE 3.4 NG/ML (3.1-17.5); INDIRECT BILIRUBIN 0.8 MG/DL (0.0-0.8); LDH SERUM 232 U/L (87-241); TOTAL BILIRUBIN ADULT 1.8 MG/DL (0.2-1.0); TOTAL IRON BINDING CAPACITY 157 MCG/DL (250-450); TOTAL PROTEIN 6.2 GM/DL (6.4-8.2)
--- NOTE | 2017-11-22 14:13 | PD.CONS ---
HPI History of Present Illness This is a 67 year old male who came into the hospital on 11/21/17 with generalized fatigue, decreased appetite to the point that he had lost 30 pounds , nausea vomiting, and abdominal pain. Patient has a history of prostate cancer and was evaluated at the [facility] approximately 1 month ago and received a hormone shot. Patient also complains of dyspepsia and a full feeling when he is trying to eat or drink anything. On 2016 he did show an abnormal PET scan with lymph nodes enlarged in the groin area. Patient denies any fever, does note some mild rectal itching but states that he has had hemorrhoids before. Patient's abdominal pain is right upper quadrant, semi- firm to touch. Patient's initial hemoglobin was 6.9, decreased to 5.7, patient received 3 units packed RBCs, hemoglobin now 8.3. Alkaline phosphatase 150, bilirubin 1.8, normal LFTs (Leanna Mann) PFSH Past Medical History EtOH usage up until 2 months ago Previous tobacco user quit 1972 Prostate cancer Diabetes Hypertension Past Surgical History Prostatectomy 5-6 years ago Knee surgery (Leanna Mann) Coded Allergies: No Known Allergies (Unverified , 11/21/17) Medications Administered Medications Medications (Trade) Dose Ordered Sig/Tiffany Route PRN Reason Start Time Stop Time Status Last Admin Dose Admin Atorvastatin Calcium (Lipitor) 20 mg HS PO 11/21/17 21:00 11/21/17 22:17 Sodium Chloride 1,000 ml @ 125 mls/hr Q8H IV 11/21/17 16:30 11/21/17 17:55 Acetaminophen (Tylenol) 650 mg Q4H PRN PO TEMP > 100.4 11/21/17 16:30 11/22/17 08:24 Senna/Docusate Sodium (Tina-Colace) 1 tab BID PO 11/21/17 21:00 11/22/17 08:15 Pantoprazole Sodium (Protonix Inj) 40 mg BID IV PUSH 11/21/17 21:00 11/22/17 08:15 Family History Positive family history mom lung cancer dad long bone and brain cancer Grandparent prostate cancer Social History EtOH up until 2 months ago, according to the record 20 beers a day occasional marijuana (Leanna Mann) Review of Systems Constitutional: COMPLAINS OF: Fatigue, Weight loss (30 pounds) Gastrointestinal: COMPLAINS OF: Abdominal pain, Nausea, Vomiting, Anorexia ( Leanna Mann) GI Exam Vitals I&O Vital Signs Date Time Temp Pulse Resp B/P (MAP) Pulse Ox O2 Delivery O2 Flow Rate FiO2 11/22/17 10:21 97 11/22/17 08:00 96.9 82 18 114/68 (83) 97 11/22/17 07:50 96.9 82 18 114/68 97 11/22/17 05:10 97.3 80 17 108/62 99 11/22/17 04:55 97.3 79 18 113/66 97 11/22/17 04:15 97.0 82 18 106/70 98 11/22/17 01:31 97.4 72 18 110/60 99 11/22/17 01:16 97.5 67 18 109/66 98 11/22/17 00:52 97.0 70 17 98/55 98 11/22/17 00:21 81 11/21/17 22:21 97.0 84 18 104/56 97 11/21/17 22:06 97.1 84 18 105/59 100 11/21/17 21:31 65 11/21/17 20:10 98.9 91 18 111/60 (77) 98 11/21/17 18:30 11/21/17 18:00 82 19 111/67 (82) 97 Room Air 11/21/17 17:00 80 18 111/56 (74) 97 Room Air I/O 11/21/17 11/21/17 11/21/17 11/22/17 11/22/17 11/22/17 07:00 15:00 23:00 07:00 15:00 23:00 Intake Total 1000 ml 240 ml 691 ml 400 ml Output Total 350 ml Balance 1000 ml 240 ml 341 ml 400 ml Intake Oral 240 ml 0 ml IV Total 1000 ml Packed Cells 691 ml 400 ml Output Urine Total 350 ml Imaging Last Impressions Abdomen Ultrasound 11/21/17 0484 Signed Impressions: Service Date/Time: Tuesday, November 21, 2017 20:14 - CONCLUSION: 1. Hepatomegaly with multiple complex space-occupying lesions. Metastatic disease needs to be excluded. 2. Gallbladder wall thickening associated with debris in the gallbladder. 3. No evidence of biliary obstructive disease. Roc Martinez MD Chest X-Ray 11/21/17 1604 Signed Impressions: Service Date/Time: Tuesday, November 21, 2017 16:23 - CONCLUSION: 1. No acute cardiopulmonary disease. Mata Jaeger MD Laboratory Test 11/21/17 17:00 11/21/17 19:59 11/22/17 10:36 Prothrombin Time 11.9 SEC Prothromb Time International Ratio 1.2 RATIO Activated Partial Thromboplast Time 31.7 SEC Fibrinogen 586 mg/dL Hemoglobin 5.7 GM/DL 8.3 GM/DL Hematocrit 18.0 % 24.9 % White Blood Count 22.7 TH/MM3 Red Blood Count 3.11 MIL/MM3 Mean Corpuscular Volume 80.2 FL Mean Corpuscular Hemoglobin 26.6 PG Mean Corpuscular Hemoglobin Concent 33.2 % Red Cell Distribution Width 14.6 % Platelet Count 243 TH/MM3 Mean Platelet Volume 8.6 FL Neutrophils (%) (Auto) 88.0 % Lymphocytes (%) (Auto) 4.7 % Monocytes (%) (Auto) 5.9 % Eosinophils (%) (Auto) 1.1 % Basophils (%) (Auto) 0.3 % Neutrophils # (Auto) 20.0 TH/MM3 Lymphocytes # (Auto) 1.1 TH/MM3 Monocytes # (Auto) 1.3 TH/MM3 Eosinophils # (Auto) 0.2 TH/MM3 Basophils # (Auto) 0.1 TH/MM3 CBC Comment DIFF FINAL Differential Comment Reticulocyte Count 1.5 % Absolute Reticulocyte Count 46.5 MIL/L Iron Level 36 MCG/DL Total Iron Binding Capacity 157 MCG/DL Percent Iron Saturation 23.0 % Ferritin 1298 NG/ML Total Bilirubin 1.8 MG/DL Direct Bilirubin 1.0 MG/DL Indirect Bilirubin 0.8 MG/DL Aspartate Amino Transf (AST/SGOT) 20 U/L Alanine Aminotransferase (ALT/SGPT) 12 U/L Alkaline Phosphatase 150 U/L Lactate Dehydrogenase 232 U/L C-Reactive Protein 18.90 MG/DL Total Protein 6.2 GM/DL Albumin 1.5 GM/DL Lipase 76 U/L Tumor Marker Alpha Fetoprotein 1.2 NG/ML Vitamin B12 Level GREATER THAN 2000 PG/ML Folate 3.4 NG/ML Physical Examination HEENT: Pupils round and reactive to light; normocephalic; atraumatic; oral cavity dry NECK: Neck is supple CHEST: Chest is clear no audible rhonchi CARDIAC: Regular rate ABDOMEN: Soft left upper and lower quadrant, right lower quadrant, right upper quadrant semifirm bowel sounds are present in all four quadrants. EXTREMITIES: No edema. SKIN: Normal; no rash; possible mild jaundice. 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 Urinary, dark tea-colored urine (Leanna Mann) Assessment and Plan Assessment: (1) Nausea & vomiting ICD Codes: R11.2 - Nausea with vomiting, unspecified (2) Right upper quadrant abdominal pain ICD Codes: R10.11 - Right upper quadrant pain (3) Anemia ICD Codes: D64.9 - Anemia, unspecified (4) Weight loss ICD Codes: R63.4 - Abnormal weight loss Status: Chronic Plan Abdominal ultrasound shows the liver is markedly enlarged and has a heterogeneous texture. There is several space-occupying lesions especially in the right hepatic lobe which range in size up to 2.8 cm. Portal vein is patent. There is no evidence of biliary duct dilatation. Bleeding scan completed 11/22/17 shows sigmoid hemorrhage. No obvious rectal bleeding for now. CT abdomen, chest pending, NPO for now pending more testing. Patient wetting his mouth with a few ice chips otherwise nothing by mouth PPI IV Probable colonoscopy in the morning, will discuss with Dr. Nassar TBA Consider IR for liver biopsy Bowel regimen meds as needed, stool softener, laxative Further testing will be based on findings, and symptoms This patient was seen by myself and Dr. Nassar, note was done on her behalf (Leanna Mann) Physician Comments Seen, examined agree with above rectal exam done, large external hemorrhoid -we will give him hemorrhoidal cream rectal exam-painful, enlarged prostate, stool brown, no blood seen-possible false positive test vs bleeding from bladder source possible egd/colonoscopy in am , pending ct report, if active bleeding- endoscopy on emergency last colonoscopy last year-few polyps removed recent constipation-last bowel movement today am -as per normal color, large amount (Carmen Nassar MD) Leanna Mann Nov 22, 2017 14:13 Carmen Nassar MD Nov 22, 2017 16:38
--- NOTE | 2017-11-22 14:55 | RADRPT ---
EXAM DATE/TIME: 11/22/2017 11:41 [facility] COMPARISON: No previous studies available for comparison. INDICATIONS : Rectal bleeding. DOSE: 20.1 mCi Tc99m Ultratag labeled red blood cells IV IMAGIN hrs MEDICAL HISTORY : Carcinoma, prostate. Diabetes mellitus type 2. SURGICAL HISTORY : Prostatectomy. Right knee surgery ENCOUNTER: Initial ACUITY: 1 day PAIN SCALE: 4/10 LOCATION: Bilateral Abdomen. TECHNIQUE: Following the modified in vitro labeling of autologous red cells, dynamic continuous images were acqu ired for the specified interval. FINDINGS: BIODISTRIBUTION: There is a very good labeling of red cells without significant uptake in the gastric wall. There is good delineation of the blood pool of the spleen and abdominal vessels. BLEEDING: There is apparent gastrointestinal hemorrhage involving the sigmoid colon,. On several views there i s suggestion of contrast in the bladder but none in the kidneys. CONCLUSION: Probable sigmoid colon hemorrhage. Cannot exclude hemorrhage in the bladder. Sammy Ortiz MD FACR on November 22, 2017 at 14:50 Board Certified Radiologist. This report was verified electronically.
--- NOTE | 2017-11-22 16:36 | HHI.HP ---
[facility] Service Family Medicine Primary Care Physician No Primary Care Physician Admission Diagnosis symptomatic anemia,hypotension,gen weakness Diagnoses: (1) Symptomatic anemia (2) History of prostate cancer (3) Diabetes (4) fen/ppx International Travel<30 Days: No Contact w/Intl Traveler<30days: No Known Affected Area: No History of Present Illness Patient was seen and examined at bedside today. His was present. Denied any rectal bleeding at this time. Denied any complaint of chest pain, lightheadedness, shortness of breath. Overall stated that he was feeling better. Stated feeling improved after blood transfusion. Denied any symptoms of fever or chills. Denied any side effects from the medications. Review of Systems Constitutional: COMPLAINS OF: Fatigue, Weight loss, Change in appetite, DENIES : Fever, Weight gain, Chills, Dizziness Gastrointestinal: COMPLAINS OF: Constipation, DENIES: Abdominal pain, Black stools, Bloody stools, Diarrhea, Nausea, Vomiting, Difficulty Swallowing Genitourinary: DENIES: Urinary frequency, Urinary incontinence, Urgency, Hematuria Other REVIEW OF SYSTEMS: General: Recent weight loss greater than 30 pounds Skin: Denies rash. HEENT: No diplopia. No epistaxis. No headache. Head: Denies head injury. Respiratory: No cough. Denies shortness of breath. Cardiovascular: No chest pain. No reduced exercise tolerance. Gastrointestinal: No abdominal pain. Constipation. No hematemesis and rectal bleeding. Genitourinary: No abnormal urination. Hematologic: No easy bruisability. Psychiatric: Denies problems. Past Family Social History Past Medical History Diabetes (diet controlled) - BS 200-350 HTN Saw PCP in 07/2017 Saw oncologist as mentioned in history of present illness Past Surgical History Prostectomy (5 years ago) Knee surgery (6 years ago) Allergies: Coded Allergies: No Known Allergies (Unverified , 11/21/17) Family History parents - mom : lung ca - dad: bone and brain, lung ca grandparents - prostate ca - unknown ca Social History Here in [facility] until 05/02, [employer] vet Both him and his retired, active generally smoking before 1971, was a heavy beer drinker (20 + beers/day) until 10/01, marijuana occasional Physical Exam Vital Signs Vital Signs Date Time Temp Pulse Resp B/P (MAP) Pulse Ox O2 Delivery O2 Flow Rate FiO2 11/22/17 10:21 97 11/22/17 08:00 96.9 82 18 114/68 (83) 97 11/22/17 07:50 96.9 82 18 114/68 97 11/22/17 05:10 97.3 80 17 108/62 99 11/22/17 04:55 97.3 79 18 113/66 97 11/22/17 04:15 97.0 82 18 106/70 98 11/22/17 01:31 97.4 72 18 110/60 99 11/22/17 01:16 97.5 67 18 109/66 98 11/22/17 00:52 97.0 70 17 98/55 98 11/22/17 00:21 81 11/21/17 22:21 97.0 84 18 104/56 97 11/21/17 22:06 97.1 84 18 105/59 100 11/21/17 21:31 65 11/21/17 20:10 98.9 91 18 111/60 (77) 98 11/21/17 18:30 11/21/17 18:00 82 19 111/67 (82) 97 Room Air 11/21/17 17:00 80 18 111/56 (74) 97 Room Air Physical Exam GENERAL: This is a well-nourished, well-developed patient, in no apparent distress. SKIN: No rashes, ecchymoses or lesions. Cool and dry. HEAD: Atraumatic. Normocephalic. No temporal or scalp tenderness. EYES: Pupils equal round and reactive. Extraocular motions intact. No scleral icterus. No injection or drainage. ENT: Nose without bleeding, purulent drainage or septal hematoma. Throat without erythema, tonsillar hypertrophy or exudate. Uvula midline. Airway patent. NECK: Trachea midline. No JVD or lymphadenopathy. Supple, nontender, no meningeal signs. CARDIOVASCULAR: Regular rate and rhythm without murmurs, gallops, or rubs. RESPIRATORY: Clear to auscultation. Breath sounds equal bilaterally. Bilateral wheezing GASTROINTESTINAL: Abdomen soft, mildly tender to palpation over her lower abdomen , mildly distended. No hepato-splenomegaly, or palpable masses. No guarding. MUSCULOSKELETAL: Extremities without clubbing, cyanosis, or edema. No joint tenderness, effusion, or edema noted. No calf tenderness. Negative Homans sign bilaterally. NEUROLOGICAL: Awake and alert. Cranial nerves II through XII intact. Motor and sensory grossly within normal limits. Five out of 5 muscle strength in all muscle groups. Normal speech. Laboratory Laboratory Tests Test 11/21/17 17:00 11/21/17 19:59 11/22/17 10:36 Prothrombin Time 11.9 Prothromb Time International Ratio 1.2 Activated Partial Thromboplast Time 31.7 Fibrinogen 586 Hemoglobin 5.7 8.3 Hematocrit 18.0 24.9 White Blood Count 22.7 Red Blood Count 3.11 Mean Corpuscular Volume 80.2 Mean Corpuscular Hemoglobin 26.6 Mean Corpuscular Hemoglobin Concent 33.2 Red Cell Distribution Width 14.6 Platelet Count 243 Mean Platelet Volume 8.6 Neutrophils (%) (Auto) 88.0 Lymphocytes (%) (Auto) 4.7 Monocytes (%) (Auto) 5.9 Eosinophils (%) (Auto) 1.1 Basophils (%) (Auto) 0.3 Neutrophils # (Auto) 20.0 Lymphocytes # (Auto) 1.1 Monocytes # (Auto) 1.3 Eosinophils # (Auto) 0.2 Basophils # (Auto) 0.1 CBC Comment DIFF FINAL Differential Comment Reticulocyte Count 1.5 Absolute Reticulocyte Count 46.5 Iron Level 36 Total Iron Binding Capacity 157 Percent Iron Saturation 23.0 Ferritin 1298 Total Bilirubin 1.8 Direct Bilirubin 1.0 Indirect Bilirubin 0.8 Aspartate Amino Transf (AST/SGOT) 20 Alanine Aminotransferase (ALT/SGPT) 12 Alkaline Phosphatase 150 Lactate Dehydrogenase 232 C-Reactive Protein 18.90 Total Protein 6.2 Albumin 1.5 Lipase 76 Tumor Marker Alpha Fetoprotein 1.2 Vitamin B12 Level GREATER THAN 2000 Folate 3.4 Result Diagram: 11/22/17 1036 11/21/17 1300 Caprini VTE Risk Assessment Caprini VTE Risk Assessment: No/Low Risk (score <= 1) Caprini Risk Assessment Model Point Value = 1 Point Value = 2 Point Value = 3 Point Value = 5 Age 41-60 Minor surgery BMI > 25 kg/m2 Swollen legs Varicose veins or History of unexplained or recurrent spontaneous Oral contraceptives or hormone replacement Sepsis (< 1 month) Serious lung disease, including pneumonia (< 1 month) Abnormal pulmonary function Acute myocardial infarction Congestive heart failure (< 1 month) History of inflammatory bowel disease Medical patient at bed rest Age 61-74 Arthroscopic surgery Major open surgery (> 45 min) Laparoscopic surgery (> 45 min) Malignancy Confined to bed (> 72 hours) Immobilizing plaster cast Central venous access Age >= 75 History of VTE Family history of VTE Factor V Leiden Prothrombin [id number] Lupus anticoagulant Anticardiolipin antibodies Elevated serum homocysteine Heparin-induced thrombocytopenia Other congenital or acquired thrombophilia Stroke (< 1 month) Elective arthroplasty Hip, pelvis, or leg fracture Acute spinal cord injury (< 1 month) Prophylaxis Regimen Total Risk Factor Score Risk Level Prophylaxis Regimen 0-1 Low Early ambulation 2 Moderate Order ONE of the following: *Sequential Compression Device (SCD) *Heparin 5000 units SQ BID 3-4 Higher Order ONE of the following medications: *Heparin 5000 units SQ TID *Enoxaparin/Lovenox 40 mg SQ daily (WT < 150 kg, CrCl > 30 mL/min) *Enoxaparin/Lovenox 30 mg SQ daily (WT < 150 kg, CrCl > 10-29 mL/min) *Enoxaparin/Lovenox 30 mg SQ BID (WT < 150 kg, CrCl > 30 mL/min) AND/OR *Sequential Compression Device (SCD) 5 or more Highest Order ONE of the following medications: *Heparin 5000 units SQ TID (Preferred with Epidurals) *Enoxaparin/Lovenox 40 mg SQ daily (WT < 150 kg, CrCl > 30 mL/min) *Enoxaparin/Lovenox 30 mg SQ daily (WT < 150 kg, CrCl > 10-29 mL/min) *Enoxaparin/Lovenox 30 mg SQ BID (WT < 150 kg, CrCl > 30 mL/min) AND *Sequential Compression Device (SCD) Assessment and Plan Assessment and Plan 67-year-old male with history of diabetes, prostate cancer, and generalized fatigue and weight loss 2 months presents for workup. Initial workup reveals anemia. Problem List: (1) Symptomatic anemia ICD Codes: D64.9 - Anemia, unspecified Status: Acute Plan: Status post transfusion Apparent negative Hemoccult Bleeding scan does show possible bleed Stat consult for GI GI on the case H&H, close observation of status Large-bore IVs Spoke to the patient and at length about his current condition. (2) History of prostate cancer ICD Codes: Z85.46 - Personal history of malignant neoplasm of prostate Plan: Discussed with him about findings on his ultrasound We'll need to acquire patient's record from our hospital Possible need for biopsy of liver (3) Diabetes ICD Codes: E11.9 - Type 2 diabetes mellitus without complications Plan: Patient placed on sliding scale We'll continue to monitor his blood sugar Spoke about the importance of better blood sugar control (4) fen/ppx Status: Acute Plan: Fluids: Continue maintenance fluids Electrolytes: Monitor BMP and supplement accordingly Nutrition: NPO Prophylaxis: Protonix DVT prophylaxis: SCDs, teds, holds chemoprophylaxis due to acute bleeding See the residents documentation for details. I saw and evaluated the patient regarding the mercado portions of this evaluation and agree with the residents findings and plans as written. Parts of this note were created using [employer] voice recognition software program. While efforts were made to correct any mistakes made by this software, some mistakes, errors, and omissions may remain in the final note that were not caught when the note was originally created. Plan of care was discussed and agreed upon with the patient as specifically documented in the above note. An opportunity to ask questions with explanation was provided. Patient voiced understanding on all information reviewed and discussed. Physician Certification 2 Midnight Certification Type: Admission for Inpatient Services Order for Inpatient Services The services are ordered in accordance with Medicare regulations or non- Medicare payer requirements, as applicable. In the case of services not specified as inpatient-only, they are appropriately provided as inpatient services in accordance with the 2-midnight benchmark. Estimated LOS (days): 2 days is the estimated time the patient will need to remain in the hospital, assuming treatment plan goals are met and no additional complications. Post-Hospital Plan: Home Jimmy Mccurdy MD Nov 22, 2017 16:36
[2017-11-22 17:20] LABS: HEMATOCRIT 26.5 % (39.0-51.0); HEMOGLOBIN 8.8 GM/DL (13.0-17.0)
[2017-11-22 17:49] LABS: BILIRUBIN, URINE NEG (NEG); BLOOD, URINE NEG (NEG); GLUCOSE,URINE NEG (NEG); KETONE, URINE 10 mg/dL (NEG); MUCUS URINE FEW /lpf (OCC); NITRITE,URINE NEG (NEG); URINE COLOR YELLOW (YELLW/STRAW); URINE LEUKOCYTE ESTERASE NEG (NEG)
--- NOTE | 2017-11-22 18:11 | EKG ---
Date Performed: 11/21/2017 Time Performed: 13:06:20 PTAGE: 67 years EKG: Sinus rhythm LOW QRS VOLTAGE IN EXTREMITY LEADS MODERATE INTRAVENTRICULAR CONDUCTION DELAY NONSPECIFIC T-WAVE ABN ORMALITY ABNORMAL ECG NO PREVIOUS TRACING DOCTOR: Gwen Hines Interpretating Date/Time 11/22/2017 18:10:26
[2017-11-22] MEDS ORDERED: IOHEXOL 350 MG/ML 10 ML VIAL (for RAD DIAG) IVCONTRAST ONE (18:19)
--- NOTE | 2017-11-22 18:34 | RADRPT ---
EXAM DATE/TIME: 11/22/2017 18:02 [facility] COMPARISON: No previous studies available for comparison. INDICATIONS : Staging for metastases, history of prostate cancer. IV CONTRAST: 90 cc Omnipaque 350 (iohexol) IV ; Cumulative dose for multiple exams. RADIATION DOSE: 5.88 CTDIvol (mGy) ; Combined studies - Thorax/Abdomen/Pelvis MEDICAL HISTORY : Hypertension. Diabetes mellitus type 1. Carcinoma, prostate. SURGICAL HISTORY : Prostatectomy. ENCOUNTER: Initial ACUITY: 1 day PAIN SCALE: 0/10 LOCATION: chest TECHNIQUE: Volumetric scanning of the chest was performed. Using automated exposure control and adjustment of t he mA and/or kV according to patient size, radiation dose was kept as low as reasonably achievable to obtain optimal diagnostic quality images. DICOM format image data is available electronically for review and comparison. Follow-up recommendations for detected pulmonary nodules are based at a minimum on nodule size and pa tient risk factors according to Fleischner Society Guidelines. FINDINGS: LUNGS: There is no consolidation or pneumothorax. No concerning pulmonary nodule is visualized. Calcified g ranuloma right lung PLEURA: There is no pleural thickening or pleural effusion. MEDIASTINUM: The heart and great vessels demonstrate no acute abnormality. There is no mediastinal or hilar lymph adenopathy. Low density thyroid nodule on the right AXILLAE: Within normal limits. No lymphadenopathy. SKELETAL: Within normal limits for patient age. MISCELLANEOUS: Significant hypodensity scattered throughout the liver concerning for metastatic disease. CT abdomen is planned.. CONCLUSION: Significant hypodensity throughout the liver consistent metastatic disease. I don't see definite meta static disease to the lungs or the bones. There are number of left-sided healed rib fractures. Benji Mckenna MD on November 22, 2017 at 18:30 Board Certified Radiologist. This report was verified electronically.
[2017-11-22] MEDS ORDERED: LIDOCAINE HCL 5% OINT 37 GM TUBE TOPICAL PRN (18:45)
[2017-11-22] MEDS ORDERED: HYDROCORTISONE/PRAMOXINE RECTAL FOAM 10 GM CAN RECTAL PRN (18:45)
--- NOTE | 2017-11-22 18:46 | RADRPT ---
EXAM DATE/TIME: 11/22/2017 18:02 [facility] COMPARISON: No previous studies available for comparison. INDICATIONS : Staging for metastases, history of prostate cancer. IV CONTRAST: 90 cc Omnipaque 350 (iohexol) IV ; Cumulative dose for multiple exams. ORAL CONTRAST: Prescribed oral contrast ingested. RADIATION DOSE: <See CT chest> CTDIvol (mGy) ; Combined studies - Thorax/Abdomen/Pelvis MEDICAL HISTORY : Carcinoma, prostate. Hypertension. Diabetes mellitus type 1. SURGICAL HISTORY : Prostatectomy. ENCOUNTER: Initial ACUITY: 1 day PAIN SCALE: 0/10 LOCATION: abdomen TECHNIQUE: Volumetric scanning of the abdomen and pelvis was performed. Using automated exposure control and ad justment of the mA and/or kV according to patient size, radiation dose was kept as low as reasonably achievable to obtain optimal diagnostic quality images. DICOM format image data is available electro nically for review and comparison. FINDINGS: LOWER LUNGS: The visualized lower lungs are clear. LIVER: There are innumerable hypodensities scattered throughout the liver probably in the right lobe of the liver inferiorly. This can be seen the patient is septic emboli from a diverticulitis or an abscess. The left liver in the in anterior superior right lobe liver is relatively clear. Is not a typical pat tern of prostate cancer. The gallbladder I believe surgically absent and there is marked dilatation o f the common bile duct with a small retained stone distally SPLEEN: Normal size without lesion. PANCREAS: Within normal limits. KIDNEYS: Normal in size and shape. There is no mass, stone or hydronephrosis. ADRENAL GLANDS: Within normal limits. VASCULAR: There is no aortic aneurysm. BOWEL/MESENTERY: The stomach, small bowel, and colon demonstrate no acute abnormality. There is no free intraperitone al air or fluid. ABDOMINAL WALL: Within normal limits. RETROPERITONEUM: There is no lymphadenopathy. BLADDER: No wall thickening or mass. There is no free fluid in the pelvis REPRODUCTIVE: Within normal limits. INGUINAL: There is no lymphadenopathy or hernia. MUSCULOSKELETAL: Within normal limits for patient age. CONCLUSION: Numerous hypodense solid masses scattered throughout the dependent portion of the liver. The pattern is often seen in patients with diverticular abscess and septic emboli. I don't see any definite diver ticulitis on this exam. Metastatic disease would also be in the differential. The common bile duct is dilated with retained stone in the duct. Mild free fluid in the pelvis. Benji Mckenna MD on November 22, 2017 at 18:41 Board Certified Radiologist. This report was verified electronically.
--- NOTE | 2017-11-22 19:48 | MB ---
cc: MISTI SALAZAR MD DATE OF CONSULTATION: 11/22/2017 DATE OF : 1950 REQUESTING PHYSICIAN: Family medicine service. REASON FOR CONSULTATION: 1. Critical anemia with microcytosis. 2. Prostate carcinoma with biochemical relapse currently on androgen deprivation therapy with Lupron. (First dose was delivered on 10/02/2017). CHIEF COMPLAINT: Mr. Baltazar reports feeling dizzy and tired. He reports these symptoms have been progressive since early September of 2017. HISTORY OF PRESENT ILLNESS Mr. Baltazar is a 67-year-old male who is a resident of [facility]. He and his spend their winter months in the [facility]. The patient reports being diagnosed with carcinoma of the prostate about five years ago. He underwent prostatectomy in [place]. Several months ago he was noted to have a biochemical failure with his PSA arising up to 2.5; after the prostatectomy, his PSA level had gone down to zero and had remained at zero for years until its recent increase. The patient's original pathology including risk stratification i.e., Eliana score and PSA at the time of diagnosis is not known. The patient was recommended by his urologist in [place] to see Dr. Araya of uro-oncology at the [facility]. Dr. Araya recommended a PET CT scan which was performed on 10/12/2017 at the [facility]. Findings indicated mildly enlarged and mildly hypermetabolic lymph nodes involving the right common iliac and external iliac lymph node chains. Intermediate small nodes were also noted in the retroperitoneum. Radiopaque density was noted in the rectosigmoid junction which is intermediate. It should be noted that the PET CT scan used the F18 fluciclovine radiotracer and was not the standard FDG (radioactive glucose) PET. The patient was admitted to [facility] on 11/21/2016 after presenting to the emergency department with progressive fatigue and difficulty breathing. Blood work indicated a hemoglobin of 6.9 gm/dl and hematocrit of 21.6%. Six hours later his hemoglobin dropped to 5.7 gm/dl and 18% hematocrit. He was transfused three units of packed red blood cells and this morning his hemoglobin is up to 8.3 gm/dl, and has since then held steady. The patient denies having overt GI losses and specifically denies hematochezia. He denies hematuria as well, though he tells me his urine and stool have both been dark. He has been evaluated by gastroenterology and the patient has been recommended CT scan of the abdomen and pelvis. The oncology/hematology service has been asked to see him for optimization of management of his anemia, to help identify the etiology of the anemia, as well as for further management and if needed workup of prostate carcinoma. PAST MEDICAL HISTORY: 1. Carcinoma of the prostate diagnosed five years ago. 2. Type 2 diabetes, diagnosed in 1995. 3. Hypertension. 4. Hyperlipidemia. 5. Heavy alcohol abuse which he stopped in September of 2017. PAST SURGICAL HISTORY: 1. Right total knee replacement six years ago. 2. Radical prostatectomy about five years ago. SOCIAL HISTORY: The patient is from [facility]. He has one son and one daughter. They are both adults. He has one son who lives locally here in [place], and a daughter who lives in [place]. 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 He reports formerly being a smoker but quit in the 1970s. He is a [place] of the [employer] and served during the [employer] area. 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 ALLERGIES: NO KNOWN DRUG ALLERGIES. FAMILY HISTORY: Father of metastatic lung cancer. He was a smoker. Mother of metastatic lung cancer. She was also a smoker. CURRENT INPATIENT MEDICATIONS: 1. Normal saline 125 cc/hour. 2. Tylenol 650 mg p.o. q4 hours as needed for fever. 3. Atorvastatin 20 mcg p.o. q hs. 4. Tina-Colace one tablet p.o. b.i.d. 5. Lactulose 30 mL p.o. daily as needed for constipation. 6. NovoLog siding scale per protocol. 7. Magnesium hydroxide 30 mL p.o. q12 hours as needed for constipation. 8. Zofran 4 milligrams IV q6 hours as needed for nausea and vomiting. 9. Pantoprazole 40 milligrams IV b.i.d. 10. Senna 17.2 milligrams p.o. q12 hours as needed for moderate constipation. 11. Ambien 5 milligrams p.o. q hs, as needed for insomnia. REVIEW OF SYSTEMS: 13 point review of systems is obtained from the patient. Constitutional: The patient reports having fatigue, weakness, loss of appetite. He denies having had fevers, chills or night sweats. HEENT: Denies headaches, blurry vision, denies difficulty swallowing. Respiratory: Reports exertional dyspnea, denies cough or hemoptysis. Denies pleuritic chest pain. Cardiovascular: Denies angina-like chest pain, PND, orthopnea GI: Reports having had acute nausea and vomiting which was transient in September 2017. He has not had this since. He reports his stool has been darker but not frankly melanotic. He denies hematochezia. He denies constipation. : The urine has been darker but denies gross hematuria. 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 Musculoskeletal: Reports chronic musculoskeletal aches and pains. PHYSICAL EXAMINATION: Vital signs: Temperature 97 degrees Fahrenheit, heart rate 82 beats a minute, respiratory rate 18, blood pressure 114/68, O2 sat is 97% on room air. General appearance: Mr. Baltazar is a middle-aged male. He is tall and of moderate built. He appears to be in no acute distress and has a pleasant disposition. His is at bedside. HEENT: Head atraumatic, normocephalic, conjunctive are pale, sclerae are without obvious icterus. Oral exam: no pharyngeal erythema. Neck: No palpable cervical or supraclavicular lymphadenopathy. Respiratory exam: Good air movement bilaterally. Cardiovascular: Regular rate and rhythm, S1-S2. No obvious murmurs, rubs or gallops. Abdomen: Protuberant belly, soft and nontender, nondistended, no palpable organ enlargement. No hepatosplenomegaly noted. No inguinal lymphadenopathy. Lower extremities: No pretibial edema or calf tenderness. Musculoskeletal: Adequate muscle mass, tone and strength. Skin: His skin is tanned, no obvious malignant appearing lesions identified. No bruising or petechiae. LABORATORY FINDINGS: Blood work dated 11/21/2017, sodium 129, potassium 4, chloride 94, bicarb 25, BUN 26, creatinine 1.1, EGFR 66, random glucose 177, calcium 8.2, iron level is 36 (low). TIBC 157 (low). Percent iron saturation 22%, ferritin level 1298, total bilirubin 1.8, direct bilirubin 1, indirect bilirubin 0.8. AST 20, ALT 12, alkaline phosphatase 150, albumin is 1.5. CRP elevated 18.9. Folic acid level 3.4, vitamin B12 level 2000. CBC dated 11/22/2017: WBC count 22.7, hemoglobin 8.3 gm/dl, hematocrit 25%, MCV 80, platelet count 243, absolute neutrophil count is 20. IMAGING STUDIES: Ultrasound of the abdomen indicates hepatomegaly with multiple complex space occupying lesions, concern for metastatic disease. Gallbladder wall thickening is noted. No evidence of biliary obstruction is identified. ASSESSMENT: Mr. Baltazar is a 67-year-old man with a previous history of prostate carcinoma diagnosed about five years ago and treated with surgical resection. Three months ago he was noted to have biochemical failure with elevation in his PSA levels up to 2.5. A sodium fluoride PET CT scan performed on 10/12/2017 at [facility], indicated no definite evidence of metastatic disease though he was found to have slight hypermetabolism associated with inguinal and iliac lymph node chains as well as retroperitoneal lymph node chains. He has been initiated on palliative androgen blockade with Lupron. The patient presents to the hospital with complaints of increasing difficulty breathing, fatigue and dizziness. He was noted to have a hemoglobin of 6.7 gm/dl at admission and within 6 hours of admission his hemoglobin dropped down to 5.7 gm/dl. He did have microcytosis with an MCV of 79. His serum iron studies indicate a mixed picture with elevated ferritin levels, low TIBC and low iron levels. Findings most consistent with anemia of chronic disease. Gross hematochezia or melena was not appreciated. The urinalysis is pending to assess for hematuria. The patient has been evaluated by gastroenterology and a colonoscopy is planned for tomorrow. Plans for EGD are not known. CT imaging of the chest, abdomen and pelvis with IV contrast is also been ordered and this will be performed later tonight. RECOMMENDATIONS 1. Anemia: Will review peripheral smear, obtain haptoglobin and LVH to rule out hemolysis. Await GI workup for a culprit upper / lower GI lesion. I would like to comment on the PET CT findings which indicated a radiopaque density in the rectosigmoid junction as well as the nuclear medicine bleeding scan which localized the bleeding to the rectosigmoid region. It should be noted the patient had a full colonoscopy about a year ago in [place] which reportedly was clear. 2. Prostate carcinoma: I have repeated a PSA level. I suspect he likely has limited disease burden and he has of note been initiated on androgen blockade with Lupron delivered in late September. This should be sufficient in controlling his systemic disease burden. Findings of complex space-occupying lesions were noted on ultrasound. I would like to add that no such lesions were identified on the PET CT scan performed in September. It would be unusual for such an aggressive disease process to evolve over a period of six weeks. I will await the results of the CT imaging. MD MALCOLM Dunn/RAI /5:38 PM /6:31 PM
[2017-11-22] MEDS ORDERED: MAGNESIUM CITRATE SOLN 300 ML BTL PO ONE (20:30)
[2017-11-22] MEDS: ATORVASTATIN 20 MG TAB PO SCH (21:00)
[2017-11-22] MEDS ORDERED: LACTATED RINGER'S 1000 ML IV PRN (22:15)
[2017-11-22] MEDS ORDERED: CHLORHEXIDINE GLUCONATE 2 % 1 PACK (2 CLOTHS) TOPICAL PRN (22:30)
[2017-11-22] MEDS ORDERED: POVIDONE IODINE 5% (ANTISEPSIS KIT) 4 APPLICATIONS EACH NARE PRN (22:30)
[2017-11-22] MEDS ORDERED: METOPROLOL TARTRATE 25 MG TAB PO PRN (22:30)
[2017-11-22] MEDS ORDERED: SODIUM CHLORID 0.9% 500 ML IV PRN (22:30)
[2017-11-22 23:43] LABS: HEMATOCRIT 23.3 % (39.0-51.0); HEMOGLOBIN 7.7 GM/DL (13.0-17.0)
[2017-11-23] VITALS (9 sets, daily range): BP systolic 100–134; BP diastolic 60–74; PULSE 74–96; RESP 16–18; TEMP 96.1–97.9; O2SAT 95–100
[2017-11-23] MEDS: SODIUM CHLOR 0.9% 1000 ML INJ 1,000 ML IV SCH ×3 (00:46→16:30)
[2017-11-23 04:26] LABS: HEMATOCRIT 24.6 % (39.0-51.0); HEMOGLOBIN 7.9 GM/DL (13.0-17.0)
[2017-11-23 04:37] LABS: BICARBONATE 26.8 MEQ/L (21.0-32.0); CALCIUM 7.8 MG/DL (8.5-10.1); CREATININE 0.97 MG/DL (0.60-1.30)
[2017-11-23] MEDS: INSULIN ASPART SUPPLEMENTAL SCALE SQ SCH ×4 (08:00→20:46)
[2017-11-23] MEDS: DOCUSATE SODIUM 50 MG/SENNA 8.6 MG TAB PO SCH ×3 (09:00→20:45)
[2017-11-23] MEDS: SODIUM CHLORIDE 0.9% FLUSH 10 ML FLUSH IV FLUSH SCH ×2 (09:01→20:45)
--- NOTE | 2017-11-23 09:01 | PD.ONC.PN ---
Subjective Subjective Remarks Patient seen and examined, vital signs, labs and medications reviewed. Imaging studies including CT scan of the chest abdomen and pelvis with IV and oral contrast performed on the evening of 11/22/2017 were reviewed independently. Patient was found to have a solitary calcified right lung pulmonary nodule. CT abdomen indicated multifocal space occupying lesions within the liver. Subjectively; the patient denies acute complaints, in fact feels better after multiple units of red cell transfusions. He did go through bowel prep for colonoscopy today. Objective Data Date Time Temp Pulse Resp B/P (MAP) Pulse Ox O2 Delivery O2 Flow Rate FiO2 11/23/17 08:00 96.1 87 18 134/74 (94) 100 11/23/17 04:40 96.7 94 17 127/60 (82) 97 11/23/17 00:10 97.2 74 17 121/62 (81) 97 11/23/17 00:00 76 11/22/17 21:45 97.0 81 17 117/71 (86) 95 11/22/17 16:00 96.6 86 18 110/64 (79) 95 11/22/17 10:21 97 11/23/17 11/23/17 11/23/17 07:00 15:00 23:00 Intake Total 120 ml Balance 120 ml Result Diagram: 11/23/17 0336 11/23/17 0336 Laboratory Results Laboratory Tests Test 11/22/17 10:36 11/22/17 16:30 11/22/17 16:35 11/22/17 21:18 White Blood Count 22.7 TH/MM3 Red Blood Count 3.11 MIL/MM3 Hemoglobin 8.3 GM/DL 8.8 GM/DL Hematocrit 24.9 % 26.5 % Mean Corpuscular Volume 80.2 FL Mean Corpuscular Hemoglobin 26.6 PG Mean Corpuscular Hemoglobin Concent 33.2 % Red Cell Distribution Width 14.6 % Platelet Count 243 TH/MM3 Mean Platelet Volume 8.6 FL Neutrophils (%) (Auto) 88.0 % Lymphocytes (%) (Auto) 4.7 % Monocytes (%) (Auto) 5.9 % Eosinophils (%) (Auto) 1.1 % Basophils (%) (Auto) 0.3 % Neutrophils # (Auto) 20.0 TH/MM3 Lymphocytes # (Auto) 1.1 TH/MM3 Monocytes # (Auto) 1.3 TH/MM3 Eosinophils # (Auto) 0.2 TH/MM3 Basophils # (Auto) 0.1 TH/MM3 CBC Comment DIFF FINAL Differential Comment Reticulocyte Count 1.5 % Absolute Reticulocyte Count 46.5 MIL/L Haptoglobin 489 MG/DL Iron Level 36 MCG/DL Total Iron Binding Capacity 157 MCG/DL Percent Iron Saturation 23.0 % Ferritin 1298 NG/ML Total Bilirubin 1.8 MG/DL Direct Bilirubin 1.0 MG/DL Indirect Bilirubin 0.8 MG/DL Aspartate Amino Transf (AST/SGOT) 20 U/L Alanine Aminotransferase (ALT/SGPT) 12 U/L Alkaline Phosphatase 150 U/L Lactate Dehydrogenase 265 U/L C-Reactive Protein 18.90 MG/DL Total Protein 6.2 GM/DL Albumin 1.5 GM/DL Lipase 76 U/L Tumor Marker Alpha Fetoprotein 1.2 NG/ML Vitamin B12 Level GREATER THAN 2000 PG/ML Folate 3.4 NG/ML Urine Color YELLOW Urine Turbidity CLEAR Urine pH 6.0 Urine Specific Blairs 1.019 Urine Protein 30 mg/dL Urine Glucose (UA) NEG mg/dL Urine Ketones 10 mg/dL Urine Occult Blood NEG Urine Nitrite NEG Urine Bilirubin NEG Urine Urobilinogen 8.0 MG/DL Urine Leukocyte Esterase NEG Urine RBC 1 /hpf Urine WBC 1 /hpf Urine Mucus FEW /lpf Microscopic Urinalysis Comment CULT NOT INDICATED Prostate Specific Antigen Screen 0.13 NG/ML Test 11/22/17 23:05 11/23/17 03:36 Hemoglobin 7.7 GM/DL 7.9 GM/DL Hematocrit 23.3 % 24.6 % Blood Urea Nitrogen 12 MG/DL Creatinine 0.97 MG/DL Random Glucose 98 MG/DL Calcium Level 7.8 MG/DL Sodium Level 135 MEQ/L Potassium Level 3.7 MEQ/L Chloride Level 99 MEQ/L Carbon Dioxide Level 26.8 MEQ/L Anion Gap 9 MEQ/L Estimat Glomerular Filtration Rate 77 ML/MIN Imaging Studies Last [address] 11/22/17 1515 Signed Impressions: Service Date/Time: Wednesday, November 22, 2017 18:02 - CONCLUSION: Significant hypodensity throughout the liver consistent metastatic disease. I don't see definite metastatic disease to the lungs or the bones. There are number of left-sided healed rib fractures. Benji Mckenna MD Abdomen/Pelvis CT 11/22/17 1515 Signed Impressions: Service Date/Time: Wednesday, November 22, 2017 18:02 - CONCLUSION: Numerous hypodense solid masses scattered throughout the dependent portion of the liver. The pattern is often seen in patients with diverticular abscess and septic emboli. I don't see any definite diverticulitis on this exam. Metastatic disease would also be in the differential. The common bile duct is dilated with retained stone in the duct. Mild free fluid in the pelvis. Benji Mckenna MD Administered Medications Medications (Trade) Dose Ordered Sig/Tiffany Route PRN Reason Start Time Stop Time Status Last Admin Dose Admin Atorvastatin Calcium (Lipitor) 20 mg HS PO 11/21/17 21:00 11/22/17 21:00 Sodium Chloride 1,000 ml @ 125 mls/hr Q8H IV 11/21/17 16:30 11/23/17 00:46 Acetaminophen (Tylenol) 650 mg Q4H PRN PO TEMP > 100.4 11/21/17 16:30 11/22/17 20:58 Senna/Docusate Sodium (Tina-Colace) 1 tab BID PO 11/21/17 21:00 11/22/17 08:15 Sodium Chloride (NS Flush) 2 ml BID IV FLUSH 11/21/17 21:00 11/22/17 21:01 Pantoprazole Sodium (Protonix Inj) 40 mg BID IV PUSH 11/21/17 21:00 11/22/17 21:01 Insulin Aspart (NovoLOG SUPPLEMENTAL SCALE) 1 ACHS SLIDING SCALE SQ 11/22/17 08:00 11/22/17 21:01 Lactated Ringer's 1,000 ml @ 30 mls/hr Q24H PRN IV SEE LABEL COMMENTS 11/22/17 22:15 11/25/17 22:14 11/23/17 05:27 Objective Remarks General appearance: Mr. Baltazar is a middle-aged male. He is tall and of moderate built. He appears to be in no acute distress and has a pleasant disposition. His is at bedside. HEENT: Head atraumatic, normocephalic, conjunctive are pale, sclerae are without obvious icterus. Oral exam: no pharyngeal erythema. Neck: No palpable cervical or supraclavicular lymphadenopathy. Respiratory exam: Good air movement bilaterally. Cardiovascular: Regular rate and rhythm, S1-S2. No obvious murmurs, rubs or gallops. Abdomen: Protuberant belly, soft and nontender, nondistended, no palpable organ enlargement. No hepatosplenomegaly noted. No inguinal lymphadenopathy. Lower extremities: No pretibial edema or calf tenderness. Musculoskeletal: Adequate muscle mass, tone and strength. Skin: His skin is tanned, no obvious malignant appearing lesions identified. No bruising or petechiae. Assessment/Plan Assessment Mr. Baltazar is a 67-year-old man with a previous history of prostate carcinoma diagnosed about five years ago and treated with surgical resection. Three months ago he was noted to have biochemical failure with elevation in his PSA levels up to 2.5. A sodium fluoride PET CT scan performed on 10/12/2017 at [facility], indicated no definite evidence of metastatic disease though he was found to have slight hypermetabolism associated with inguinal and iliac lymph node chains as well as retroperitoneal lymph node chains. He has been initiated on palliative androgen blockade with Lupron. The patient presents to the hospital with complaints of increasing difficulty breathing, fatigue and dizziness. He was noted to have a hemoglobin of 6.7 gm/ dl at admission and within 6 hours of admission his hemoglobin dropped down to 5.7 gm/dl. He did have microcytosis with an MCV of 79. His serum iron studies indicate a mixed picture with elevated ferritin levels, low TIBC and low iron levels. Findings most consistent with anemia of chronic disease. Gross hematochezia or melena was not appreciated. The urinalysis is pending to assess for hematuria. The patient has been evaluated by gastroenterology and a colonoscopy is planned for tomorrow. Plans for EGD are not known. Plan 1. Multifocal space occupying lesions within the liver: Obtain CT-guided biopsy on 11/24/2017. The primary concern is for underlying malignancy either primary to the liver or metastatic from elsewhere. 2. Microcytic anemia: Without definite evidence of iron deficiency; await results of EGD and colonoscopy which are scheduled for later today. 3. Patient, his and son were updated on the results of CT scan at bedside. His had brought in pathology results from the patient's colonoscopy from September 2016, copies of this were made and placed in the chart. The patient underwent biopsy and removal of 4 separate polyps within the colon at that time, all of the polyps are presented tubulous adenomas. There was no evidence of malignancy at that time. 4. Prostate carcinoma: PSA level drawn on 11/22/2017 was 0.13; this represents a good response to systemic androgen deprivation therapy which was initiated in late September 2017, as per the patient his PSA prior to treatment was 2.5. Beau Harrison MD Nov 23, 2017 09:01
[2017-11-23] MEDS: PANTOPRAZOLE SODIUM 40 MG VIAL IV PUSH SCH ×2 (09:02→20:45)
[2017-11-23 11:43] LABS: HEMATOCRIT 27.4 % (39.0-51.0); HEMOGLOBIN 8.9 GM/DL (13.0-17.0)
[2017-11-23] MEDS ORDERED: LIDOCAINE HCL 1% PF 5 ML SYRINGE OTHER ONE (12:00)
[2017-11-23] MEDS ORDERED: PROPOFOL 200 MG/20 ML AMP IV ONE (12:00)
--- NOTE | 2017-11-23 12:25 | HHI.FPPN ---
Subjective Remarks Patient seen and examined bedside this morning. Patient had no acute events overnight. He is scheduled to get his colonoscopy/EGD any minute now. He took the colonoscopy laxative and had a bowel movement yesterday. He had soup broth last night without any difficulties. He has hungry and asking when he can eat. Denies any fever/chills. Denies any chest pain/shortness breath/dizziness. (Kely Noriega MD R2) Objective Vitals Vital Signs Date Time Temp Pulse Resp B/P (MAP) Pulse Ox O2 Delivery O2 Flow Rate FiO2 11/23/17 10:00 81 11/23/17 08:00 96.1 87 18 134/74 (94) 100 11/23/17 04:40 96.7 94 17 127/60 (82) 97 11/23/17 00:10 97.2 74 17 121/62 (81) 97 11/23/17 00:00 76 11/22/17 21:45 97.0 81 17 117/71 (86) 95 11/22/17 16:00 96.6 86 18 110/64 (79) 95 I/O 11/22/17 11/22/17 11/22/17 11/23/17 11/23/17 11/23/17 07:00 15:00 23:00 07:00 15:00 23:00 Intake Total 691 ml 400 ml 480 ml 120 ml Output Total 350 ml Balance 341 ml 400 ml 480 ml 120 ml Intake Oral 0 ml 480 ml 120 ml Packed Cells 691 ml 400 ml Output Urine Total 350 ml # Voids 3 2 2 # Bowel Movements 2 2 2 (Kely Noriega MD R2) Result Diagram: 11/23/17 1125 11/23/17 0336 Objective Remarks GENERAL: This is a well-developed patient, in no acute cardiopulmonary distress. SKIN: No rashes, ecchymoses or lesions. Cool and dry. HEAD: Atraumatic. Normocephalic. No temporal or scalp tenderness. EYES: Extraocular motions intact. No scleral icterus. No injection or drainage. ENT: Nose without bleeding, purulent drainage or septal hematoma. Uvula midline. Airway patent. NECK: Trachea midline. CARDIOVASCULAR: Regular rate and rhythm. RESPIRATORY: Mild wheezing and coarse breath sounds, more pronounced in the left lower lung field. Good air movement. GASTROINTESTINAL: Non-tender, distended. No guarding. MUSCULOSKELETAL: Extremities without clubbing, cyanosis, or edema. No joint tenderness, effusion, or edema noted. No calf tenderness. Negative Homans sign bilaterally. NEUROLOGICAL: Awake and alert. Cranial nerves II through XII intact. Motor and sensory grossly within normal limits. Normal speech. (Kely Noriega MD R2) A/P Assessment and Plan 67-year-old male with history of diabetes, prostate cancer, and generalized fatigue and weight loss 2 months presents for workup. Initial workup reveals anemia. Discharge Planning Anticipate discharge once H&H remains stable, pt has been evaluated by GI and oncology, timeframe unclear. (Kely Noriega MD R2) Problem List: (1) Symptomatic anemia ICD Codes: D64.9 - Anemia, unspecified Status: Acute Plan: Hemoglobin 8.9 today, from 7.9 yesterday, hemoglobin on admission 6.9, status post 3 units PRBCs Apparent negative Hemoccult - f/u H&H Abdominal ultrasound shows the liver is markedly enlarged and has a heterogeneous texture. There is several space-occupying lesions especially in the right hepatic lobe which range in size up to 2.8 cm. Portal vein is patent. There is no evidence of biliary duct dilatation. Bleeding scan completed 11/22/17 shows sigmoid hemorrhage. No obvious rectal bleeding for now. CT abdomen: Numerous hypodense solid masses scattered in the liver. Metastatic disease in the differential. Pattern is also seen with patients with diverticular abscess and septic emboli GI is following - NPO for colonoscopy/EGD - Cont PPI IV - Plan for IR liver biopsy tomorrow - Follow up results of colonoscopy/EGD (2) History of prostate cancer ICD Codes: Z85.46 - Personal history of malignant neoplasm of prostate Plan: See recommendations of GI as above Follow-up recommendations of oncology as follows - CT-guided biopsy on 11/24/2017. The primary concern is for underlying malignancy either primary to the liver or metastatic from elsewhere - Prostate carcinoma: PSA level drawn on 11/22/2017 was 0.13; this represents a good response to systemic androgen deprivation therapy which was initiated in late September 2017, as per the patient his PSA prior to treatment was 2.5. (3) Diabetes ICD Codes: E11.9 - Type 2 diabetes mellitus without complications Plan: Patient placed on sliding scale We'll continue to monitor his blood sugar Spoke about the importance of better blood sugar control (4) fen/ppx Status: Acute Plan: Fluids: Continue maintenance fluids Electrolytes: Monitor BMP and supplement accordingly Nutrition: NPO Prophylaxis: Protonix DVT prophylaxis: SCDs, teds, holds chemoprophylaxis due to acute bleeding (Kely Noriega MD R2) Problem List: (1) Symptomatic anemia ICD Codes: D64.9 - Anemia, unspecified Status: Acute Plan: Hemoglobin 8.9 today, from 7.9 yesterday, hemoglobin on admission 6.9, status post 3 units PRBCs Apparent negative Hemoccult - f/u H&H Abdominal ultrasound shows the liver is markedly enlarged and has a heterogeneous texture. There is several space-occupying lesions especially in the right hepatic lobe which range in size up to 2.8 cm. Portal vein is patent. There is no evidence of biliary duct dilatation. Bleeding scan completed 11/22/17 shows sigmoid hemorrhage. No obvious rectal bleeding for now. CT abdomen: Numerous hypodense solid masses scattered in the liver. Metastatic disease in the differential. Pattern is also seen with patients with diverticular abscess and septic emboli GI is following - NPO for colonoscopy/EGD - Cont PPI IV - Plan for IR liver biopsy tomorrow - Follow up results of colonoscopy/EGD (2) History of prostate cancer ICD Codes: Z85.46 - Personal history of malignant neoplasm of prostate Plan: See recommendations of GI as above Follow-up recommendations of oncology as follows - CT-guided biopsy on 11/24/2017. The primary concern is for underlying malignancy either primary to the liver or metastatic from elsewhere - Prostate carcinoma: PSA level drawn on 11/22/2017 was 0.13; this represents a good response to systemic androgen deprivation therapy which was initiated in late September 2017, as per the patient his PSA prior to treatment was 2.5. (3) Diabetes ICD Codes: E11.9 - Type 2 diabetes mellitus without complications Plan: Patient placed on sliding scale We'll continue to monitor his blood sugar Spoke about the importance of better blood sugar control (4) fen/ppx Status: Acute Plan: Fluids: Continue maintenance fluids Electrolytes: Monitor BMP and supplement accordingly Nutrition: NPO Prophylaxis: Protonix DVT prophylaxis: SCDs, teds, holds chemoprophylaxis due to acute bleeding See the residents documentation for details. I saw and evaluated the patient regarding the mercado portions of this evaluation and agree with the residents findings and plans as written. Parts of this note were created using [employer] voice recognition software program. While efforts were made to correct any mistakes made by this software, some mistakes, errors, and omissions may remain in the final note that were not caught when the note was originally created. Plan of care was discussed and agreed upon with the patient as specifically documented in the above note. An opportunity to ask questions with explanation was provided. Patient voiced understanding on all information reviewed and discussed. (Jimmy Mccurdy MD) Kely Noriega MD R2 Nov 23, 2017 12:25 Jimmy Mccurdy MD Nov 23, 2017 16:40
--- NOTE | 2017-11-23 14:46 | GIPROC ---
[facility] [address] [facility]. [facility], [address] COLONOSCOPY PROCEDURE REPORT EXAM DATE: 11/23/2017 PATIENT NAME: Sudheer Baltazar MR #: [id number] BIRTHDATE: 1950 ENDOSCOPIST: Carmen Nassar MD ORDER #: [id number] CERAMICS TEST ENGINEER: Katrin Ricardo and Floresita Irvin STATUS: inpatient INDICATIONS: The patient is a 67 yr old male here for a colonoscopy due to anemia, gi bleeding PROCEDURE PERFORMED: Colonoscopy, diagnostic MEDICATIONS: None and Per Anesthesia. PREP QUALITY: good PREP TYPE:Other: ESTIMATED BLOOD LOSS: None CONSENT: The patient understands the risks and benefits of the procedure and understands that these risks include, but are not limited to: sedation, allergic reaction, infection, perforation and/or bleeding. Alternative means of evaluation and treatment include, among others: physical exam, x-rays, and/or surgical intervention. The patient elects to proceed with this endoscopic procedure. medical equipment was checked for proper function. Hand hygiene and appropriate measures for infection prevention was taken. After the risks, benefits and alternatives of the procedure were thoroughly explained, Informed consent was verified, confirmed and timeout was successfully executed by the treatment team. A digital exam revealed external thrombosed hemorrhoids The Pentax EC-[id number] endoscope was introduced through the anus and advanced to the cecum, which was identified by both the appendix and ileocecal valve. The instrument was then slowly withdrawn as the colon was fully examined. COLON FINDINGS: Diverticulosis sigmoid, descending. Retroflexed views revealed internal hemorrhoids and Retroflexed views revealed medium internal hemorrhoids The scope was then completely withdrawn from the patient and the procedure terminated. PROCEDURE WITHDRAWAL TIME:6minutes ADVERSE EVENTS: There were no complications. IMPRESSIONS: 1. Diverticulosis sigmoid, descending 2. Retroflexed views revealed internal hemorrhoids 3. Retroflexed views revealed medium internal hemorrhoids 4. Revealed external thrombosed hemorrhoids RECOMMENDATIONS: 1. Benefiber 2 tsp daily 2. Probiotics from any [employer] or health food store 3. Consult colorectal for thrombosed hemorrhoids RECALL: Return 5 years Colonoscopy Carmen Nassar MD eSigned: Carmen Nassar MD 11/23/2017 2:45 PM cc:
--- NOTE | 2017-11-23 14:48 | GIPROC ---
[facility] [address] [facility]. [facility], [address] EGD PROCEDURE REPORT EXAM DATE: 11/23/2017 PATIENT NAME: Sudheer Baltazar MR #: [id number] BIRTHDATE: 1950 ATTENDING: Carmen Nassar MD ORDER #: [id number] FEED PREPARATION OPERATOR: Katrin Ricardo and Floresita Irvin STATUS: inpatient INDICATIONS: The patient is a 67 yr old male here for an EGD due to anemia, gi bleeding, abnormal ct PROCEDURE PERFORMED: EGD w/ biopsy MEDICATIONS: None and Per Anesthesia. TOPICAL ANESTHETIC: none CONSENT: The patient understands the risks and benefits of the procedure and understands that these risks include, but are not limited to: sedation, allergic reaction, infection, perforation and/or bleeding. Alternative means of evaluation and treatment include, among others: physical exam, x-rays, and/or surgical intervention. The patient elects to proceed with this endoscopic procedure. medical equipment was checked for proper function. Hand hygiene and appropriate measures for infection prevention was taken. After the risks, benefits and alternatives of the procedure were thoroughly explained, Informed consent was verified, confirmed and timeout was successfully executed by the treatment team. The patient was anesthetized with topical anesthesia and the EC-[id number] (Pedi C) endoscope was introduced through the mouth and advanced to the second portion of the duodenum. Retroflexed views revealed a hiatal hernia The gastroscope was then slowly withdrawn and removed. Duodenum normal-biopsy to r/o celiac disease gastritis antrum-biopsy. ADVERSE EVENTS: There were no complications. IMPRESSIONS: 1. Duodenum normal-biopsy to r/o celiac disease gastritis antrum-biopsy 2. Retroflexed views revealed a hiatal hernia RECOMMENDATIONS: 1. Await biopsy results. Biopsy results will not be ready for 7-10 days. If you don't hear from us in two weeks, call our office for biopsy results. 2. Anti-reflux regimen 3. Start PPI PATIENT CONDITION: stable DISPOSITION: Inpatient REPEAT EXAM: Return 2 years EGD ercp in 1-2 days after liver biopsy-cbd stone Carmen Nassar MD eSigned: Carmen Nassar MD 11/23/2017 2:48 PM cc:
[2017-11-23] MEDS ORDERED: RESP: ALBUTEROL 2.5 MG/IPRATROPIUM 0.5 MG NEB (PRN) NEB (16:15)
[2017-11-23 17:39] LABS: HEMATOCRIT 27.7 % (39.0-51.0); HEMOGLOBIN 8.8 GM/DL (13.0-17.0)
[2017-11-23] MEDS: ZOLPIDEM TARTRATE 5 MG TAB PO PRN (20:44)
[2017-11-23] MEDS: ATORVASTATIN 20 MG TAB PO SCH (20:44)
[2017-11-23] MEDS: ACETAMINOPHEN 325 MG TAB PO PRN (20:45)
[2017-11-23 23:08] LABS: HEMATOCRIT 22.7 % (39.0-51.0); HEMOGLOBIN 7.3 GM/DL (13.0-17.0)
[2017-11-24] VITALS (11 sets, daily range): BP systolic 101–127; BP diastolic 55–77; PULSE 77–112; RESP 16–19; TEMP 96.3–100; O2SAT 93–99
[2017-11-24] MEDS: SODIUM CHLOR 0.9% 1000 ML INJ 1,000 ML IV SCH ×2 (01:22→08:30)
[2017-11-24] MEDS: DOCUSATE SODIUM 50 MG/SENNA 8.6 MG TAB PO SCH ×2 (07:40→20:20)
[2017-11-24] MEDS: INSULIN ASPART SUPPLEMENTAL SCALE SQ SCH ×4 (08:00→21:00)
[2017-11-24] MEDS: PANTOPRAZOLE SODIUM 40 MG VIAL IV PUSH SCH ×2 (09:23→20:19)
[2017-11-24] MEDS: SODIUM CHLORIDE 0.9% FLUSH 10 ML FLUSH IV FLUSH SCH ×2 (09:23→20:20)
[2017-11-24] MEDS: ACETAMINOPHEN 325 MG TAB PO PRN ×2 (09:23→22:12)
--- NOTE | 2017-11-24 12:26 | HHI.FPPN ---
Subjective Remarks Patient seen and examined overnight. No acute events overnight. Pt denies SOB, and CP. Endorses good appetite. Pt is passing flatus. He reports mild Right mid abdominal pain. No other concerns. Objective Vitals Vital Signs Date Time Temp Pulse Resp B/P (MAP) Pulse Ox O2 Delivery O2 Flow Rate FiO2 11/24/17 11:59 97 11/24/17 10:23 16 11/24/17 08:00 100.0 93 16 118/65 (82) 97 11/24/17 04:10 97.9 85 17 119/67 (84) 96 11/24/17 00:10 97.6 77 17 127/70 (89) 93 11/23/17 20:40 97.1 88 16 110/63 (79) 95 11/23/17 18:40 96 11/23/17 16:00 97.5 95 18 116/64 (81) 97 11/23/17 14:40 97.6 81 18 104/66 (79) 96 Room Air I/O 11/23/17 11/23/17 11/23/17 11/24/17 11/24/17 11/24/17 07:00 15:00 23:00 07:00 15:00 23:00 Intake Total 1545 ml 360 ml 750 ml Output Total 450 ml 500 ml Balance 1545 ml 360 ml 300 ml -500 ml Intake Oral 240 ml 360 ml 0 ml IV Total 1205 ml 750 ml Other 100 ml Output Urine Total 450 ml 500 ml # Voids 5 1 1 # Bowel Movements 3 0 0 2 Result Diagram: 11/23/17 2249 11/23/17 0336 Objective Remarks GENERAL: This is a well-developed patient, in no acute cardiopulmonary distress. SKIN: No rashes, ecchymoses or lesions. Cool and dry. HEAD: Atraumatic. Normocephalic. No temporal or scalp tenderness. EYES: Extraocular motions intact. No scleral icterus. No injection or drainage. ENT: Nose without bleeding, purulent drainage or septal hematoma. Uvula midline. Airway patent. NECK: Trachea midline. CARDIOVASCULAR: Normal S1 and S2. Regular rate and rhythm. RESPIRATORY:CTA BL. Good air movement. GASTROINTESTINAL: Non-tender, distended. No guarding. MUSCULOSKELETAL: Extremities without clubbing, cyanosis, or edema. No joint tenderness, effusion, or edema noted. No calf tenderness. Negative Homans sign bilaterally. NEUROLOGICAL: Awake and alert. Cranial nerves II through XII intact. Motor and sensory grossly within normal limits. Normal speech. A/P Assessment and Plan 67-year-old male with history of diabetes, prostate cancer, and generalized fatigue and weight loss 2 months presents for workup. Initial workup reveals anemia. Discharge Planning Anticipate discharge once H&H remains stable, pt has been evaluated by GI and oncology, timeframe unclear. Problem List: (1) Symptomatic anemia ICD Codes: D64.9 - Anemia, unspecified Status: Acute Plan: Hemoglobin 7.7 today, from 7.3 yesterday, hemoglobin on admission 6.9, status post 3 units PRBCs Apparent negative Hemoccult Abdominal ultrasound shows the liver is markedly enlarged and has a heterogeneous texture. There is several space-occupying lesions especially in the right hepatic lobe which range in size up to 2.8 cm. Portal vein is patent. There is no evidence of biliary duct dilatation. Bleeding scan completed 11/22/17 shows sigmoid hemorrhage. No obvious rectal bleeding for now. CT abdomen: Numerous hypodense solid masses scattered in the liver. Metastatic disease in the differential. Pattern is also seen with patients with diverticular abscess and septic emboli GI is following - s/p colonoscopy/EGD, pending bx results -colorectal surgery was consulted by GI to evaluate possible removal of thrombosed internal hemorrhoids found on colonoscopy - s/p IR liver biopsy today - Follow up results of colonoscopy/EGD (2) History of prostate cancer ICD Codes: Z85.46 - Personal history of malignant neoplasm of prostate Plan: See recommendations of GI as above Follow-up recommendations of oncology as follows - CT-guided biopsy on 11/24/2017. The primary concern is for underlying malignancy either primary to the liver or metastatic from elsewhere - Prostate carcinoma: PSA level drawn on 11/22/2017 was 0.13; this represents a good response to systemic androgen deprivation therapy which was initiated in late September 2017, as per the patient his PSA prior to treatment was 2.5. (3) Diabetes ICD Codes: E11.9 - Type 2 diabetes mellitus without complications Plan: Patient placed on sliding scale We'll continue to monitor his blood sugar Spoke about the importance of better blood sugar control (4) fen/ppx Status: Acute Plan: Fluids: Continue maintenance fluids Electrolytes: Monitor BMP and supplement accordingly Nutrition: NPO Prophylaxis: Protonix DVT prophylaxis: SCDs, teds, holds chemoprophylaxis due to acute bleeding See the residents documentation for details. I saw and evaluated the patient regarding the mercado portions of this evaluation and agree with the residents findings and plans as written. Parts of this note were created using [employer] voice recognition software program. While efforts were made to correct any mistakes made by this software, some mistakes, errors, and omissions may remain in the final note that were not caught when the note was originally created. Plan of care was discussed and agreed upon with the patient as specifically documented in the above note. An opportunity to ask questions with explanation was provided. Patient voiced understanding on all information reviewed and discussed. Ernesto Hope MD, R1 Nov 24, 2017 12:26
[2017-11-24] MEDS ORDERED: MIDAZOLAM HCL 2 MG/2 ML VIAL ONE (12:38)
[2017-11-24] MEDS ORDERED: LIDOCAINE HCL 1% 20 ML VIAL ONE (13:05)
[2017-11-24 13:56] LABS: HEMATOCRIT 23.2 % (39.0-51.0); HEMOGLOBIN 7.7 GM/DL (13.0-17.0); MEAN CORPUSCULAR HEMOGLOBIN 26.7 PG (27.0-34.0); MEAN PLATELET VOLUME 8.2 FL (7.0-11.0); PLATELET COUNT 220 TH/MM3 (150-450); RED BLOOD COUNT 2.87 MIL/MM3 (4.50-5.90); RED CELL DISTRIBUTION WIDTH 15.3 % (11.6-17.2); WHITE BLOOD COUNT 16.7 TH/MM3 (4.0-11.0)
[2017-11-24 14:35] LABS: BICARBONATE 25.8 MEQ/L (21.0-32.0); CALCIUM 7.8 MG/DL (8.5-10.1); CREATININE 0.53 MG/DL (0.60-1.30)
--- NOTE | 2017-11-24 14:42 | PD.RAD ---
Post CT Procedure Prog Note Pre Procedure Diagnosis: (1) Liver metastases Post Procedure Diagnosis: (1) Liver metastases Procedure Date: Nov 24, 2017 Supervising Radiologist: Joseph Petty Proceduralist/Assist: sin hicks Estimated blood loss: none Anesthesia: Conscious Sedation Plan of Activity Patient to Unit: ROPU Patient Condition: Good See PACS Report for procedural detail/treatment Joseph Petty MD Nov 24, 2017 14:42
[2017-11-24] MEDS ORDERED: POTASSIUM CHLORIDE 10 MEQ CONTROLLED RELEASE TAB PO ONE (15:30)
--- NOTE | 2017-11-24 15:34 | RADRPT ---
EXAM DATE/TIME: 11/24/2017 14:12 [place] COMPARISON: No previous studies available for comparison. INDICATIONS : Liver mass. SEDATION TIME: 30 minutes BIOPSY SITE: Right MEDICATION(S): 1.) 3 mg midazolam (Versed) IV 2.) 150 mcg fentanyl (Sublimaze) IV DEVICE(S): 1.) 18 gauge Temno core biopsy needle MEDICAL HISTORY : Hypertension. Cardiovascular disease. Diabetes mellitus type 2. SURGICAL HISTORY : None. ENCOUNTER: Initial ACUITY: 1 day PAIN SCORE: 0/10 LOCATION: Right A total of three core specimen(s) were obtained and sent to the laboratory for pathologic evaluation. PROCEDURE: 1. CT guided liver biopsy. 2. Conscious sedation with continuous EKG and oximetry monitoring. 3. EKG and oximetry remained stable throughout the procedure. Prior to the procedure informed consent was obtained. Any appropriate prior imaging studies were rev iewed. Using automated exposure control and adjustment of the mA and/or kV according to patient size, radiat ion dose was kept as low as reasonably achievable to obtain optimal diagnostic quality images. DICOM format image data is available electronically for review and comparison. The site was prepped in a sterile fashion. Full sterile technique was used, including cap, mask, tala rile gloves and gown and a large sterile sheet. Hand hygiene and 2% chlorhexidine and/or betadine/al cohol prep was utilized per protocol for cutaneous antisepsis. The skin and subcutaneous tissues wer e infiltrated with local anesthetic solution. With CT guidance the previously identified target was localized. Biopsy was performed using the presc ribed needle as above. Adequate hemostasis was obtained with compression at the puncture site. Follow-up CT scan reveals no hemorrhage. The patient tolerated the procedure well and there were no complications. The patient was returned to the Radiology Outpatient Unit in stable condition. CONCLUSION: Uncomplicated CT guided biopsy of liver masses. Joseph Petty MD on November 24, 2017 at 15:31 Board Certified Radiologist. This report was verified electronically.
[2017-11-24] MEDS: NS + KCL 20 MEQ INJ 1,000 ML IV SCH (17:35)
[2017-11-24] MEDS: ATORVASTATIN 20 MG TAB PO SCH (20:20)
[2017-11-24 20:29] LABS: ALBUMIN 1.5 GM/DL (3.4-5.0); BICARBONATE 26.1 MEQ/L (21.0-32.0); CALCIUM 7.8 MG/DL (8.5-10.1); CREATININE 0.62 MG/DL (0.60-1.30)
[2017-11-24 20:33] LABS: DIRECT BILIRUBIN ADULT 0.4 MG/DL (0.0-0.2); INDIRECT BILIRUBIN 0.2 MG/DL (0.0-0.8); TOTAL BILIRUBIN ADULT 0.6 MG/DL (0.2-1.0); TOTAL PROTEIN 6.4 GM/DL (6.4-8.2)
[2017-11-24] MEDS: ZOLPIDEM TARTRATE 5 MG TAB PO PRN (22:12)
[2017-11-25] VITALS (8 sets, daily range): BP systolic 102–135; BP diastolic 62–80; PULSE 74–88; RESP 17–19; TEMP 96–98.2; O2SAT 95–98
[2017-11-25 02:19] LABS: AUTOMATED NEUTROPHIL # 13.1 TH/MM3 (1.8-7.7); BASOPHIL # 0.1 TH/MM3 (0-0.2); BASOPHIL % 0.4 % (0.0-2.0); EOSINOPHIL # 0.3 TH/MM3 (0-0.4); EOSINOPHIL % 1.8 % (0.0-4.0); HEMATOCRIT 23.5 % (39.0-51.0); HEMOGLOBIN 7.8 GM/DL (13.0-17.0); LYMPH % 6.8 % (9.0-44.0); LYMPHOCYTE # 1.1 TH/MM3 (1.0-4.8); MEAN CELL VOLUME 81.2 FL (80.0-100.0); MEAN CORPUSCULAR HEMOGLOBIN 26.8 PG (27.0-34.0); MONO % 6.3 % (0.0-8.0); NEUT % 84.7 % (16.0-70.0); PLATELET COUNT 209 TH/MM3 (150-450); RED CELL DISTRIBUTION WIDTH 15.4 % (11.6-17.2); WHITE BLOOD COUNT 15.4 TH/MM3 (4.0-11.0)
[2017-11-25 02:35] LABS: BICARBONATE 27.2 MEQ/L (21.0-32.0); CALCIUM 7.5 MG/DL (8.5-10.1); CREATININE 0.59 MG/DL (0.60-1.30)
[2017-11-25] MEDS: NS + KCL 20 MEQ INJ 1,000 ML IV SCH ×3 (05:43→21:52)
[2017-11-25] MEDS: ACETAMINOPHEN 325 MG TAB PO PRN ×3 (05:45→21:23)
[2017-11-25] MEDS: INSULIN ASPART SUPPLEMENTAL SCALE SQ SCH ×4 (07:35→21:00)
--- NOTE | 2017-11-25 09:12 | HHI.PR ---
Subjective Remarks C/R Surg Chart reviewed c/o swelling/pain around rectum X2 weeks No BRB stools OK Objective - Vital Signs Date Time Temp Pulse Resp B/P (MAP) Pulse Ox O2 Delivery O2 Flow Rate FiO2 11/25/17 08:00 98.2 86 19 114/77 (89) 97 11/25/17 07:28 Room Air 11/24/17 17:46 21 Result Diagram: 11/25/1715311/25/17153 Objective Remarks PE alert Abd - full, palp liver Rectal - lg thrombosed hemorrhoid, no edema, or ulceration A/P Assessment and Plan Imp: lg thrombosed hemorrhoid, more than 2 weks old with w/u in progress, treat topically, could excise if needed at any time Preet Wilson MD Nov 25, 2017 09:12
[2017-11-25] MEDS: DOCUSATE SODIUM 50 MG/SENNA 8.6 MG TAB PO SCH ×2 (10:17→21:00)
[2017-11-25] MEDS: PANTOPRAZOLE SODIUM 40 MG VIAL IV PUSH SCH ×2 (10:17→21:24)
[2017-11-25] MEDS: POTASSIUM CHLORIDE 10 MEQ CONTROLLED RELEASE TAB PO SCH (10:17)
[2017-11-25] MEDS: SODIUM CHLORIDE 0.9% FLUSH 10 ML FLUSH IV FLUSH SCH ×2 (10:17→21:25)
--- NOTE | 2017-11-25 11:04 | HHI.FPPN ---
Subjective Remarks Patient seen and examined at bedside. present at bedside. Pt states he is doing well. No acute events overnight. No complaints. Pt has been NPO since midnight and is awaiting ERCP procedure to be done by GI today. Objective Vitals Vital Signs Date Time Temp Pulse Resp B/P (MAP) Pulse Ox O2 Delivery O2 Flow Rate FiO2 11/25/17 10:22 97 11/25/17 09:52 82 11/25/17 08:00 98.2 86 19 114/77 (89) 97 11/25/17 07:28 Room Air 11/25/17 04:50 97.5 88 19 125/65 (85) 95 11/25/17 00:45 97.5 74 19 102/62 (75) 95 11/24/17 20:50 98.9 112 19 112/72 (85) 98 11/24/17 17:46 94 21 11/24/17 16:00 99.0 90 16 126/77 (93) 98 11/24/17 16:00 81 18 108/65 (79) 94 11/24/17 15:30 83 18 101/55 (70) 93 11/24/17 15:00 82 18 108/65 (79) 93 11/24/17 14:45 97.5 81 18 108/58 (75) 93 11/24/17 12:00 96.3 87 16 115/69 (84) 99 11/24/17 11:59 97 I/O 11/24/17 11/24/17 11/24/17 11/25/17 11/25/17 11/25/17 07:00 15:00 23:00 07:00 15:00 23:00 Intake Total 750 ml 360 ml 0 ml Output Total 450 ml 500 ml Balance 300 ml -500 ml 360 ml 0 ml Intake Oral 0 ml 360 ml 0 ml IV Total 750 ml Output Urine Total 450 ml 500 ml # Voids 3 1 1 # Bowel Movements 0 2 1 0 Result Diagram: 11/25/1715311/25/17153 Objective Remarks GENERAL: This is a well-developed patient, in no acute cardiopulmonary distress. SKIN: No rashes, ecchymoses or lesions. Cool and dry. HEAD: Atraumatic. Normocephalic. No temporal or scalp tenderness. EYES: Extraocular motions intact. No scleral icterus. No injection or drainage. ENT: Nose without bleeding, purulent drainage or septal hematoma. Uvula midline. Airway patent. NECK: Trachea midline. CARDIOVASCULAR: Normal S1 and S2. Regular rate and rhythm. RESPIRATORY:CTA BL. Good air movement. GASTROINTESTINAL: Non-tender, distended. No guarding. MUSCULOSKELETAL: Extremities without clubbing, cyanosis, or edema. No joint tenderness, effusion, or edema noted. No calf tenderness. Negative Homans sign bilaterally. NEUROLOGICAL: Awake and alert. Cranial nerves II through XII intact. Motor and sensory grossly within normal limits. Normal speech. A/P Assessment and Plan 67-year-old male with history of diabetes, prostate cancer, and generalized fatigue and weight loss 2 months presents for workup. Initial workup reveals anemia. Discharge Planning Anticipate discharge once H&H remains stable, pt has been evaluated by GI and oncology, timeframe unclear. Problem List: (1) Symptomatic anemia ICD Codes: D64.9 - Anemia, unspecified Status: Acute Plan: Hemoglobin 7.8 today, from 7.7 yesterday, hemoglobin on admission 6.9, status post 3 units PRBCs negative Hemoccult Abdominal ultrasound shows the liver is markedly enlarged and has a heterogeneous texture. There is several space-occupying lesions especially in the right hepatic lobe which range in size up to 2.8 cm. Portal vein is patent. There is no evidence of biliary duct dilatation. Bleeding scan completed 11/22/17 shows sigmoid hemorrhage. No obvious rectal bleeding for now. CT abdomen: Numerous hypodense solid masses scattered in the liver. Metastatic disease in the differential. Pattern is also seen with patients with diverticular abscess and septic emboli GI is following - s/p colonoscopy/EGD, bx results were normal -colorectal surgery was consulted by GI to evaluate possible removal of thrombosed internal hemorrhoids found on colonoscopy. Plan to treat thrombosed hemorrhoids topically and will excise if needed. - s/p IR liver biopsy 11/24 -ERCP planned for today (11/25) (2) History of prostate cancer ICD Codes: Z85.46 - Personal history of malignant neoplasm of prostate Plan: See recommendations of GI as above Follow-up recommendations of oncology as follows - CT-guided biopsy on 11/24/2017. The primary concern is for underlying malignancy either primary to the liver or metastatic from elsewhere - Prostate carcinoma: PSA level drawn on 11/22/2017 was 0.13; this represents a good response to systemic androgen deprivation therapy which was initiated in late September 2017, as per the patient his PSA prior to treatment was 2.5. (3) Diabetes ICD Codes: E11.9 - Type 2 diabetes mellitus without complications Plan: Patient placed on sliding scale We'll continue to monitor his blood sugar Spoke about the importance of better blood sugar control (4) fen/ppx Status: Acute Plan: Fluids: Continue maintenance fluids Electrolytes: Monitor BMP and supplement accordingly Nutrition: NPO Prophylaxis: Protonix DVT prophylaxis: SCDs, teds, holds chemoprophylaxis due to acute bleeding See the residents documentation for details. I saw and evaluated the patient regarding the mercado portions of this evaluation and agree with the residents findings and plans as written. Parts of this note were created using [employer] voice recognition software program. While efforts were made to correct any mistakes made by this software, some mistakes, errors, and omissions may remain in the final note that were not caught when the note was originally created. Plan of care was discussed and agreed upon with the patient as specifically documented in the above note. An opportunity to ask questions with explanation was provided. Patient voiced understanding on all information reviewed and discussed. Ernesto Hope MD, R1 Nov 25, 2017 11:04
--- NOTE | 2017-11-25 11:43 | PD.ONC.PN ---
Subjective Subjective Remarks Afebrile overnight. Patient resting in room. Hungry as he is NPO. Denies dizziness or shortness of breath. at bedside. Objective Data Date Time Temp Pulse Resp B/P (MAP) Pulse Ox O2 Delivery O2 Flow Rate FiO2 11/25/17 10:22 97 11/25/17 09:52 82 11/25/17 08:00 98.2 86 19 114/77 (89) 97 11/25/17 07:28 Room Air 11/25/17 04:50 97.5 88 19 125/65 (85) 95 11/25/17 00:45 97.5 74 19 102/62 (75) 95 11/24/17 20:50 98.9 112 19 112/72 (85) 98 11/24/17 17:46 94 21 11/24/17 16:00 99.0 90 16 126/77 (93) 98 11/24/17 16:00 81 18 108/65 (79) 94 11/24/17 15:30 83 18 101/55 (70) 93 11/24/17 15:00 82 18 108/65 (79) 93 11/24/17 14:45 97.5 81 18 108/58 (75) 93 11/24/17 12:00 96.3 87 16 115/69 (84) 99 11/24/17 11:59 97 11/25/17 11/25/17 11/25/17 07:00 15:00 23:00 Intake Total 0 ml Balance 0 ml Result Diagram: 11/25/17 0154 11/25/17 0154 Laboratory Results Laboratory Tests Test 11/24/17 13:32 11/24/17 13:46 11/24/17 19:30 11/25/17 01:54 Blood Urea Nitrogen 9 MG/DL 10 MG/DL 11 MG/DL Creatinine 0.53 MG/DL 0.62 MG/DL 0.59 MG/DL Random Glucose 106 MG/DL 111 MG/DL 130 MG/DL Calcium Level 7.8 MG/DL 7.8 MG/DL 7.5 MG/DL Sodium Level 136 MEQ/L 135 MEQ/L 139 MEQ/L Potassium Level 2.8 MEQ/L 3.1 MEQ/L 3.5 MEQ/L Chloride Level 100 MEQ/L 99 MEQ/L 104 MEQ/L Carbon Dioxide Level 25.8 MEQ/L 26.1 MEQ/L 27.2 MEQ/L Anion Gap 10 MEQ/L 10 MEQ/L 8 MEQ/L Estimat Glomerular Filtration Rate 156 ML/MIN 130 ML/MIN 137 ML/MIN White Blood Count 16.7 TH/MM3 15.4 TH/MM3 Red Blood Count 2.87 MIL/MM3 2.90 MIL/MM3 Hemoglobin 7.7 GM/DL 7.8 GM/DL Hematocrit 23.2 % 23.5 % Mean Corpuscular Volume 81.0 FL 81.2 FL Mean Corpuscular Hemoglobin 26.7 PG 26.8 PG Mean Corpuscular Hemoglobin Concent 33.0 % 33.0 % Red Cell Distribution Width 15.3 % 15.4 % Platelet Count 220 TH/MM3 209 TH/MM3 Mean Platelet Volume 8.2 FL 8.0 FL Total Protein 6.4 GM/DL Albumin 1.5 GM/DL Alkaline Phosphatase 165 U/L Aspartate Amino Transf (AST/SGOT) 16 U/L Alanine Aminotransferase (ALT/SGPT) 10 U/L Total Bilirubin 0.6 MG/DL Direct Bilirubin 0.4 MG/DL Indirect Bilirubin 0.2 MG/DL Neutrophils (%) (Auto) 84.7 % Lymphocytes (%) (Auto) 6.8 % Monocytes (%) (Auto) 6.3 % Eosinophils (%) (Auto) 1.8 % Basophils (%) (Auto) 0.4 % Neutrophils # (Auto) 13.1 TH/MM3 Lymphocytes # (Auto) 1.1 TH/MM3 Monocytes # (Auto) 1.0 TH/MM3 Eosinophils # (Auto) 0.3 TH/MM3 Basophils # (Auto) 0.1 TH/MM3 CBC Comment DIFF FINAL Differential Comment Administered Medications Medications (Trade) Dose Ordered Sig/Tiffany Route PRN Reason Start Time Stop Time Status Last Admin Dose Admin Atorvastatin Calcium (Lipitor) 20 mg HS PO 11/21/17 21:00 11/24/17 20:20 Acetaminophen (Tylenol) 650 mg Q4H PRN PO TEMP > 100.4 11/21/17 16:30 11/25/17 10:23 Zolpidem Tartrate (Ambien) 5 mg HS PRN PO INSOMNIA 11/21/17 21:00 11/24/17 22:12 Senna/Docusate Sodium (Tina-Colace) 1 tab BID PO 11/21/17 21:00 11/25/17 10:17 Sodium Chloride (NS Flush) 2 ml BID IV FLUSH 11/21/17 21:00 11/25/17 10:17 Pantoprazole Sodium (Protonix Inj) 40 mg BID IV PUSH 11/21/17 21:00 11/25/17 10:17 Insulin Aspart (NovoLOG SUPPLEMENTAL SCALE) 1 ACHS SLIDING SCALE SQ 11/22/17 08:00 11/23/17 20:46 Hydrocortisone/ Pramoxine (Proctofoam Hc Rectal Foam) 1 applic Q8H PRN RECTAL hemorrhods 11/22/17 18:45 11/23/17 20:52 Potassium Chloride/Sodium Chloride 1,000 ml @ 125 mls/hr Q8H IV 11/24/17 15:00 11/25/17 05:43 Potassium Chloride (KCl) 40 meq DAILY PO 11/25/17 09:00 11/25/17 10:17 Objective Remarks GENERAL: Pleasant middle aged male, lying in bed in nad. SKIN: Warm and dry. HEAD: Normocephalic. EYES: No injection or drainage. NECK: Supple, trachea midline. CARDIOVASCULAR: +S1/S2 RESPIRATORY: anterior cortez with occasional rhonchi. GASTROINTESTINAL: Abdomen soft, non-tender, nondistended. EXTREMITIES: No cyanosis NEUROLOGICAL: awake and alert, normal speech. Assessment/Plan Assessment 67y/o male with h/o prostate cancer, admitted with dyspnea. Awaiting results of CT guided liver biopsy (from initial HPI, brought forward for continuity of care:)Mr. Baltazar is a 67- year-old man with a previous history of prostate carcinoma diagnosed about five years ago and treated with surgical resection. Three months ago he was noted to have biochemical failure with elevation in his PSA levels up to 2.5. A sodium fluoride PET CT scan performed on 10/12/2017 at [facility] , indicated no definite evidence of metastatic disease though he was found to have slight hypermetabolism associated with inguinal and iliac lymph node chains as well as retroperitoneal lymph node chains. He has been initiated on palliative androgen blockade with Lupron. The patient presents to the hospital with complaints of increasing difficulty breathing, fatigue and dizziness. He was noted to have a hemoglobin of 6.7 gm/ dl at admission and within 6 hours of admission his hemoglobin dropped down to 5.7 gm/dl. He did have microcytosis with an MCV of 79. His serum iron studies indicate a mixed picture with elevated ferritin levels, low TIBC and low iron levels. Findings most consistent with anemia of chronic disease. Gross hematochezia or melena was not appreciated. The urinalysis is pending to assess for hematuria. The patient has been evaluated by gastroenterology and a colonoscopy showed diverticulosis and thrombosed hemorrhoids. Plan 1. Multifocal space occupying lesions within the liver: s/p CT liver biopsy on 11/24, awaiting results. 2. Microcytic anemia: colonoscopy showed no definite bleeding. hgb 7.8 today. patient asymptomatic, will hold off on blood transfusion. 3. Prostate carcinoma: most recent PSA level 0.13 shows good response to Lupron given in 2016--pretreatment level was 2.5 Silvana Macedo Nov 25, 2017 11:43
[2017-11-25] MEDS ORDERED: LACTATED RINGER'S 1000 ML INJ 1,000 ML IV ONE (12:00)
[2017-11-25] MEDS: SILVER SULFADIAZINE/LIDOCAINE CREAM 60 GM JAR RECTAL SCH ×3 (12:00→21:25)
[2017-11-25] MEDS ORDERED: PROPOFOL 200 MG/20 ML AMP IV ONE (12:00)
[2017-11-25] MEDS ORDERED: PROPOFOL 500 MG/50 ML INJ 50 ML ONE (15:12)
[2017-11-25] MEDS ORDERED: DO NOT ADM ANY ANTICOAGULANT DRUGS PRN (17:11)
--- NOTE | 2017-11-25 17:22 | PD.PROCEDR ---
GI Procedure PROCEDURE PERFORMED ERCP, sphincterotomy, sweeping the duct with the balloon INDICATION FOR PROCEDURE Common bile duct stone on CT scan PROCEDURE: The procedure, risks and benefits were discussed with Mr. Baltazar and informed consent was obtained. Anesthesia sedated him with Diprivan. He was placed in the left lateral decubitus position. ERCP: Patient was placed in a prone position. The Pentax videoscope was introduced through the oropharynx and advanced to the second portion of the duodenum where the ampula was identified. Cannulation of the duct was performed cholangiogram was done and gastric duct was normal , bile duct with questionable filling defect. Sphincterotomy was performed. Sweeping the duct with a balloon size 8 mm an 11.5 mm did not show any filling defect or retrieve any stone. End of case included cholangiogram without any filling defect, FINDINGS: Normal pancreatic duct. No stones seen in the common bile duct, ESTIMATED BLOOD LOSS: None SPECIMENS REMOVED: None COMPLICATIONS: Immediate complication IMPRESSION: Normal ERCP no stones was seen PLAN: Nothing by mouth until tomorrow morning Liver function test in a.m. Plan per primary team Colten Lewis MD Nov 25, 2017 17:22
[2017-11-25] MEDS ORDERED: IOHEXOL 350 MG/ML 50 ML BTL (for RAD DIAG) OTHER ONE (17:29)
--- NOTE | 2017-11-25 17:56 | RADRPT ---
EXAM DATE/TIME: 11/25/2017 16:19 [facility] COMPARISON: CT ABDOMEN & PELVIS W CONTRAST, November 22, 2017, 18:02. INDICATIONS : Obstruction FLUORO TIME: 1.56 minutes IMAGE COUNT: 4 CONTRAST: Instilled by Ordering Physician MEDICAL HISTORY : Hypertension. Cardiovascular disease. Diabetes mellitus type 2. SURGICAL HISTORY : None. ENCOUNTER: Initial ACUITY: 2 days PAIN SCORE: Non-responsive. LOCATION: Abdomen FINDINGS: An ERCP was performed by the ordering physician. The images demonstrate a wire and the common bile duct terminating in a central intrahepatic duct. Th ere is a balloon retracted through the common bile duct distally. Common bile duct is not significant ly distended. Filling defect in the distal CBD corresponds to the balloon markers and may reflect the balloon. CONCLUSION: ERCP as above. Raymond Kerns MD on November 25, 2017 at 17:50 Board Certified Radiologist. This report was verified electronically.
[2017-11-25] MEDS: ATORVASTATIN 20 MG TAB PO SCH (21:24)
[2017-11-25] MEDS: ZOLPIDEM TARTRATE 5 MG TAB PO PRN (22:06)
[2017-11-26] VITALS (7 sets, daily range): BP systolic 117–144; BP diastolic 69–78; PULSE 75–117; RESP 17–18; TEMP 95.6–99.7; O2SAT 95–100
[2017-11-26] MEDS: NS + KCL 20 MEQ INJ 1,000 ML IV SCH ×2 (07:00→22:13)
[2017-11-26 07:33] LABS: ALBUMIN 1.3 GM/DL (3.4-5.0); DIRECT BILIRUBIN ADULT 0.3 MG/DL (0.0-0.2)
[2017-11-26 07:35] LABS: INDIRECT BILIRUBIN 0.3 MG/DL (0.0-0.8); TOTAL BILIRUBIN ADULT 0.6 MG/DL (0.2-1.0); TOTAL PROTEIN 5.9 GM/DL (6.4-8.2)
[2017-11-26] MEDS: INSULIN ASPART SUPPLEMENTAL SCALE SQ SCH ×4 (08:00→21:00)
[2017-11-26] MEDS: POTASSIUM CHLORIDE 10 MEQ CONTROLLED RELEASE TAB PO SCH (08:45)
[2017-11-26] MEDS: PANTOPRAZOLE SODIUM 40 MG VIAL IV PUSH SCH ×2 (08:45→20:16)
[2017-11-26] MEDS: SODIUM CHLORIDE 0.9% FLUSH 10 ML FLUSH IV FLUSH SCH ×2 (09:00→21:00)
[2017-11-26] MEDS: DOCUSATE SODIUM 50 MG/SENNA 8.6 MG TAB PO SCH ×2 (09:00→20:17)
[2017-11-26 09:41] LABS: AUTOMATED NEUTROPHIL # 19.8 TH/MM3 (1.8-7.7); BASOPHIL # 0.1 TH/MM3 (0-0.2); BASOPHIL % 0.3 % (0.0-2.0); EOSINOPHIL # 0.1 TH/MM3 (0-0.4); EOSINOPHIL % 0.7 % (0.0-4.0); HEMATOCRIT 26.7 % (39.0-51.0); HEMOGLOBIN 8.5 GM/DL (13.0-17.0); LYMPH % 3.3 % (9.0-44.0); LYMPHOCYTE # 0.7 TH/MM3 (1.0-4.8); MEAN CELL VOLUME 82.4 FL (80.0-100.0); MEAN CORPUSCULAR HEMOGLOBIN 26.1 PG (27.0-34.0); MEAN CORPUSCULAR HGB CONC 31.7 % (32.0-36.0); MEAN PLATELET VOLUME 8.2 FL (7.0-11.0); MONO % 5.6 % (0.0-8.0); MONOCYTE # 1.2 TH/MM3 (0-0.9); NEUT % 90.1 % (16.0-70.0); PLATELET COUNT 238 TH/MM3 (150-450); RED BLOOD COUNT 3.24 MIL/MM3 (4.50-5.90); RED CELL DISTRIBUTION WIDTH 15.8 % (11.6-17.2)
[2017-11-26 10:12] LABS: BICARBONATE 24.2 MEQ/L (21.0-32.0); CREATININE 0.55 MG/DL (0.60-1.30)
--- NOTE | 2017-11-26 12:40 | HHI.FPPN ---
Subjective Remarks Patient seen and examined at bedside. Pt tolerating diet well. Pt underwent ERCP procedure yesterday. This morning pt complaints of mild abdominal pain. Pt is passing flatus. Objective Vitals Vital Signs Date Time Temp Pulse Resp B/P (MAP) Pulse Ox O2 Delivery O2 Flow Rate FiO2 11/26/17 11:35 99.7 117 18 143/73 (96) 100 11/26/17 07:46 95.6 108 18 144/73 (96) 97 11/26/17 04:45 96.7 98 17 136/76 (96) 97 11/26/17 00:35 96.8 75 17 117/69 (85) 95 11/25/17 20:50 96.7 82 17 132/76 (94) 97 11/25/17 18:27 98 21 11/25/17 17:45 89 15 110/68 (82) 98 11/25/17 17:30 87 18 108/69 (82) 98 Nasal Cannula 2 11/25/17 17:15 85 20 123/74 (90) 100 11/25/17 17:11 97.5 87 12 125/73 (90) 100 I/O 11/25/17 11/25/17 11/25/17 11/26/17 11/26/17 11/26/17 07:00 15:00 23:00 07:00 15:00 23:00 Intake Total 0 ml 0 ml 900 ml 0 ml Balance 0 ml 0 ml 900 ml 0 ml Intake Oral 0 ml 0 ml 0 ml 0 ml Other 900 ml # Voids 1 3 1 1 # Bowel Movements 0 1 0 0 Result Diagram: 11/26/1792511/26/17925 Objective Remarks GENERAL: This is a well-developed patient, in no acute cardiopulmonary distress. SKIN: No rashes, ecchymoses or lesions. Cool and dry. HEAD: Atraumatic. Normocephalic. No temporal or scalp tenderness. EYES: Extraocular motions intact. No scleral icterus. No injection or drainage. ENT: Nose without bleeding, purulent drainage or septal hematoma. Uvula midline. Airway patent. NECK: Trachea midline. CARDIOVASCULAR: Normal S1 and S2. Regular rate and rhythm. RESPIRATORY:CTA BL. Good air movement. GASTROINTESTINAL: Non-tender, distended. No guarding. MUSCULOSKELETAL: Extremities without clubbing, cyanosis, or edema. No joint tenderness, effusion, or edema noted. No calf tenderness. Negative Homans sign bilaterally. NEUROLOGICAL: Awake and alert. Cranial nerves II through XII intact. Motor and sensory grossly within normal limits. Normal speech. A/P Assessment and Plan 67-year-old male with history of diabetes, prostate cancer, and generalized fatigue and weight loss 2 months presents for workup. Initial workup reveals anemia. Discharge Planning Anticipate discharge once H&H remains stable, pt has been evaluated by GI and oncology, timeframe unclear. Problem List: (1) Symptomatic anemia ICD Codes: D64.9 - Anemia, unspecified Status: Acute Plan: H/H stable, hemoglobin on admission 6.9, status post 3 units PRBCs negative Hemoccult Abdominal ultrasound shows the liver is markedly enlarged and has a heterogeneous texture. There is several space-occupying lesions especially in the right hepatic lobe which range in size up to 2.8 cm. Portal vein is patent. There is no evidence of biliary duct dilatation. Bleeding scan completed 11/22/17 shows sigmoid hemorrhage. No obvious rectal bleeding for now. CT abdomen: Numerous hypodense solid masses scattered in the liver. Metastatic disease in the differential. Pattern is also seen with patients with diverticular abscess and septic emboli GI is following - s/p colonoscopy/EGD, bx results were normal -colorectal surgery was consulted by GI to evaluate possible removal of thrombosed internal hemorrhoids found on colonoscopy. Plan to treat thrombosed hemorrhoids topically and will excise if needed. - s/p IR liver biopsy 11/24, bx results pending -ERCP planned for (11/25), no stones found in CBD (2) History of prostate cancer ICD Codes: Z85.46 - Personal history of malignant neoplasm of prostate Plan: See recommendations of GI as above Follow-up recommendations of oncology as follows - CT-guided biopsy on 11/24/2017. The primary concern is for underlying malignancy either primary to the liver or metastatic from elsewhere - Prostate carcinoma: PSA level drawn on 11/22/2017 was 0.13; this represents a good response to systemic androgen deprivation therapy which was initiated in late September 2017, as per the patient his PSA prior to treatment was 2.5. (3) Diabetes ICD Codes: E11.9 - Type 2 diabetes mellitus without complications Plan: Patient placed on sliding scale We'll continue to monitor his blood sugar Spoke about the importance of better blood sugar control (4) fen/ppx Status: Acute Plan: Fluids: Continue maintenance fluids Electrolytes: Monitor BMP and supplement accordingly Nutrition: diabetic Prophylaxis: Protonix DVT prophylaxis: SCDs, teds, holds chemoprophylaxis due to acute bleeding See the residents documentation for details. I saw and evaluated the patient regarding the mercado portions of this evaluation and agree with the residents findings and plans as written. Parts of this note were created using [employer] voice recognition software program. While efforts were made to correct any mistakes made by this software, some mistakes, errors, and omissions may remain in the final note that were not caught when the note was originally created. Plan of care was discussed and agreed upon with the patient as specifically documented in the above note. An opportunity to ask questions with explanation was provided. Patient voiced understanding on all information reviewed and discussed. Ernesto Hope MD, R1 Nov 26, 2017 12:40
--- NOTE | 2017-11-26 12:44 | HHI.GIFU ---
Subjective Remarks Lightly dosing but arouses to verbal stimuli Still having some mild right upper and lower abdominal pain, abdomen taut on right side Mild fever 99.7 Tachycardia noted with increased activity Denies any nausea or vomiting Loose bowel movement today (Leanna Mann) Objective Vitals I&O Vital Signs Date Time Temp Pulse Resp B/P (MAP) Pulse Ox O2 Delivery O2 Flow Rate FiO2 11/26/17 11:35 99.7 117 18 143/73 (96) 100 11/26/17 07:46 95.6 108 18 144/73 (96) 97 11/26/17 04:45 96.7 98 17 136/76 (96) 97 11/26/17 00:35 96.8 75 17 117/69 (85) 95 11/25/17 20:50 96.7 82 17 132/76 (94) 97 11/25/17 18:27 98 21 11/25/17 17:45 89 15 110/68 (82) 98 11/25/17 17:30 87 18 108/69 (82) 98 Nasal Cannula 2 11/25/17 17:15 85 20 123/74 (90) 100 11/25/17 17:11 97.5 87 12 125/73 (90) 100 I/O 11/25/17 11/25/17 11/25/17 11/26/17 11/26/17 11/26/17 07:00 15:00 23:00 07:00 15:00 23:00 Intake Total 0 ml 0 ml 900 ml 0 ml Balance 0 ml 0 ml 900 ml 0 ml Intake Oral 0 ml 0 ml 0 ml 0 ml Other 900 ml # Voids 1 3 1 1 # Bowel Movements 0 1 0 0 Laboratory Laboratory Tests Test 11/26/17 06:28 11/26/17 09:26 Total Bilirubin 0.6 Direct Bilirubin 0.3 Indirect Bilirubin 0.3 Aspartate Amino Transf (AST/SGOT) 19 Alanine Aminotransferase (ALT/SGPT) 11 Alkaline Phosphatase 149 Total Protein 5.9 Albumin 1.3 White Blood Count 22.0 Red Blood Count 3.24 Hemoglobin 8.5 Hematocrit 26.7 Mean Corpuscular Volume 82.4 Mean Corpuscular Hemoglobin 26.1 Mean Corpuscular Hemoglobin Concent 31.7 Red Cell Distribution Width 15.8 Platelet Count 238 Mean Platelet Volume 8.2 Neutrophils (%) (Auto) 90.1 Lymphocytes (%) (Auto) 3.3 Monocytes (%) (Auto) 5.6 Eosinophils (%) (Auto) 0.7 Basophils (%) (Auto) 0.3 Neutrophils # (Auto) 19.8 Lymphocytes # (Auto) 0.7 Monocytes # (Auto) 1.2 Eosinophils # (Auto) 0.1 Basophils # (Auto) 0.1 CBC Comment DIFF FINAL Differential Comment Blood Urea Nitrogen 11 Creatinine 0.55 Random Glucose 122 Calcium Level 8.0 Sodium Level 137 Potassium Level 3.8 Chloride Level 102 Carbon Dioxide Level 24.2 Anion Gap 11 Estimat Glomerular Filtration Rate 149 Imaging Last Impressions GI Procedure 11/25/17 0000 Signed Impressions: Service Date/Time: November 16:19 - CONCLUSION: ERCP as above. Raymond Kerns MD Liver Biopsy CT 11/24/17 0000 Signed Impressions: Service Date/Time: Friday, November 24, 2017 14:12 - CONCLUSION: Uncomplicated CT guided biopsy of liver masses. Joseph Petty MD Chest CT 11/22/17 1515 Signed Impressions: Service Date/Time: Wednesday, November 22, 2017 18:02 - CONCLUSION: Significant hypodensity throughout the liver consistent metastatic disease. I don't see definite metastatic disease to the lungs or the bones. There are number of left-sided healed rib fractures. Benji Mckenna MD Abdomen/Pelvis CT 11/22/17 1515 Signed Impressions: Service Date/Time: Wednesday, November 22, 2017 18:02 - CONCLUSION: Numerous hypodense solid masses scattered throughout the dependent portion of the liver. The pattern is often seen in patients with diverticular abscess and septic emboli. I don't see any definite diverticulitis on this exam. Metastatic disease would also be in the differential. The common bile duct is dilated with retained stone in the duct. Mild free fluid in the pelvis. Benji Mckenna MD GI Bleed Scan Nuclear Medicine 11/22/17 0000 Signed Impressions: Service Date/Time: Wednesday, November 22, 2017 11:41 - CONCLUSION: Probable sigmoid colon hemorrhage. Cannot exclude hemorrhage in the bladder. Sammy Ortiz MD FACR Abdomen Ultrasound 11/21/17 5905 Signed Impressions: Service Date/Time: Tuesday, November 21, 2017 20:14 - CONCLUSION: 1. Hepatomegaly with multiple complex space-occupying lesions. Metastatic disease needs to be excluded. 2. Gallbladder wall thickening associated with debris in the gallbladder. 3. No evidence of biliary obstructive disease. Roc Martinez MD Chest X-Ray 11/21/17 1604 Signed Impressions: Service Date/Time: Tuesday, November 21, 2017 16:23 - CONCLUSION: 1. No acute cardiopulmonary disease. Mata Jaeger MD Physical Exam HEENT: PERRLA; normocephalic; atraumatic NECK: Neck is supple, CHEST: Chest is clear without rhonchi, deep breathing on command CARDIAC: Regular rate and rhythm with some tachycardia noted ABDOMEN: Taut right upper quadrant right lower quadrant, some tenderness right upper quadrant right lower quadrant, bowel sounds soft EXTREMITIES: No LE edema. SKIN: Normal; no rash; no obvious HEALTH ASSISTANT: No focal deficits; alert and oriented times three., Speech clear (Leanna Mann) Assessment and Plan Assessment: (1) Nausea & vomiting ICD Codes: R11.2 - Nausea with vomiting, unspecified (2) Right upper quadrant abdominal pain ICD Codes: R10.11 - Right upper quadrant pain (3) Anemia ICD Codes: D64.9 - Anemia, unspecified (4) Weight loss ICD Codes: R63.4 - Abnormal weight loss Status: Chronic Plan Abdominal ultrasound shows the liver is markedly enlarged and has a heterogeneous texture. There is several space-occupying lesions especially in the right hepatic lobe which range in size up to 2.8 cm. Portal vein is patent. There is no evidence of biliary duct dilatation. Bleeding scan completed 11/22/17 shows sigmoid hemorrhage. No obvious rectal bleeding for now. CT abdomen, chest pending, EGD and colonoscopy on 11/23/17, shows gastritis, hiatal hernia, diverticulosis , internal and external and thrombosed hemorrhoids, colorectal consult done ERCP on 11/25/17, no complications noted, sphincterotomy, sweeping the duct with the balloon Anemia hemoglobin now 8.5, alkaline phosphatase level mild decrease 149 Fever low-grade 99.7 with some tachycardia today, WBC count trending up Possible underlying malignancy either primary or secondary liver. Being followed by oncology. Patient is hoping to go home tomorrow Supportive care PPI IV, anti reflux regimen Consider IR for liver biopsy Bowel regimen meds as needed, Call GI for any acute bleeding Monitor labs Further testing will be based on findings, and symptoms This patient was seen by myself and Dr. Nassar, note was done on her behalf (Leanna Mann) Physician Comments seen, examined agree with above consider capsule endoscopy op for anemia large external hemorrhoid-thrombosed -colorectal following await liver biopsy report (Carmen Nassar MD) Leanna Mann Nov 26, 2017 12:44 Carmen Nassar MD Nov 26, 2017 22:06
[2017-11-26] MEDS ORDERED: ACETAMINOPHEN/HYDROcodone 325 MG/5 MG TAB PO PRN (12:45)
--- NOTE | 2017-11-26 15:37 | RADRPT ---
EXAM DATE/TIME: 11/26/2017 13:07 [facility] COMPARISON: CHEST PA & LAT, November 21, 2017, 16:23. INDICATIONS : Coughing with phlegm. MEDICAL HISTORY : Carcinoma, prostate. Hypertension. Diabetes mellitus type 1. SURGICAL HISTORY : Prostatectomy. ENCOUNTER: Subsequent ACUITY: 4 - 6 days PAIN SCORE: 0/10 LOCATION: Bilateral chest FINDINGS: Frontal and lateral views of the chest demonstrate a normal-sized cardiac silhouette. Lungs are mildl y underinflated. There is a calcified adenoma overlying the right upper lobe. No effusion, consolidat ion, or pneumothorax is identified. The bones and soft tissues demonstrate no acute finding. CONCLUSION: No acute cardiopulmonary abnormality is identified. Vijay Ly MD on November 26, 2017 at 15:34 Board Certified Radiologist. This report was verified electronically.
[2017-11-26 18:02] LABS: AUTOMATED NEUTROPHIL # 15.7 TH/MM3 (1.8-7.7); BASOPHIL # 0.1 TH/MM3 (0-0.2); BASOPHIL % 0.3 % (0.0-2.0); EOSINOPHIL # 0.1 TH/MM3 (0-0.4); EOSINOPHIL % 0.7 % (0.0-4.0); HEMATOCRIT 22.3 % (39.0-51.0); HEMOGLOBIN 7.3 GM/DL (13.0-17.0); LYMPHOCYTE # 1.3 TH/MM3 (1.0-4.8); MEAN CELL VOLUME 81.9 FL (80.0-100.0); MEAN CORPUSCULAR HEMOGLOBIN 26.8 PG (27.0-34.0); MEAN CORPUSCULAR HGB CONC 32.7 % (32.0-36.0); MEAN PLATELET VOLUME 8.5 FL (7.0-11.0); MONOCYTE # 1.1 TH/MM3 (0-0.9); PLATELET COUNT 175 TH/MM3 (150-450); RED BLOOD COUNT 2.72 MIL/MM3 (4.50-5.90); RED CELL DISTRIBUTION WIDTH 15.8 % (11.6-17.2); WHITE BLOOD COUNT 18.3 TH/MM3 (4.0-11.0)
[2017-11-26] MEDS: SILVER SULFADIAZINE/LIDOCAINE CREAM 60 GM JAR RECTAL SCH (20:00)
[2017-11-26] MEDS: ATORVASTATIN 20 MG TAB PO SCH (20:16)
[2017-11-26] MEDS: ZOLPIDEM TARTRATE 5 MG TAB PO PRN (20:34)
[2017-11-26] MEDS: ACETAMINOPHEN/HYDROcodone 325 MG/5 MG TAB PO SCH (20:34)
[2017-11-27 00:03] VITALS: BP 107/69; PULSE 94; RESP 18; TEMP 97.4; O2SAT 98
[2017-11-27] MEDS: ACETAMINOPHEN/HYDROcodone 325 MG/5 MG TAB PO SCH ×5 (00:15→18:28)
[2017-11-27] MEDS: SILVER SULFADIAZINE/LIDOCAINE CREAM 60 GM JAR RECTAL SCH ×5 (04:00→16:00)
[2017-11-27 04:10] VITALS: BP 130/77; PULSE 89; RESP 18; TEMP 97.1; O2SAT 98
[2017-11-27 08:00] VITALS: BP 133/78; PULSE 93; RESP 18; TEMP 96.6; O2SAT 96
[2017-11-27] MEDS: INSULIN ASPART SUPPLEMENTAL SCALE SQ SCH ×3 (08:00→17:00)
[2017-11-27 08:41] LABS: AUTOMATED NEUTROPHIL # 17.6 TH/MM3 (1.8-7.7); BASOPHIL # 0.1 TH/MM3 (0-0.2); BASOPHIL % 0.4 % (0.0-2.0); EOSINOPHIL # 0.3 TH/MM3 (0-0.4); EOSINOPHIL % 1.4 % (0.0-4.0); HEMATOCRIT 25.4 % (39.0-51.0); HEMOGLOBIN 7.9 GM/DL (13.0-17.0); MEAN CELL VOLUME 81.9 FL (80.0-100.0); MEAN CORPUSCULAR HEMOGLOBIN 25.5 PG (27.0-34.0); MEAN CORPUSCULAR HGB CONC 31.1 % (32.0-36.0); MONO % 5.9 % (0.0-8.0); MONOCYTE # 1.2 TH/MM3 (0-0.9); NEUT % 87.3 % (16.0-70.0); PLATELET COUNT 196 TH/MM3 (150-450); RED CELL DISTRIBUTION WIDTH 15.8 % (11.6-17.2); WHITE BLOOD COUNT 20.2 TH/MM3 (4.0-11.0)
[2017-11-27] MEDS: DOCUSATE SODIUM 50 MG/SENNA 8.6 MG TAB PO SCH (09:00)
[2017-11-27 09:02] LABS: BICARBONATE 25.5 MEQ/L (21.0-32.0); CALCIUM 7.9 MG/DL (8.5-10.1); CREATININE 0.65 MG/DL (0.60-1.30)
[2017-11-27] MEDS: PANTOPRAZOLE SODIUM 40 MG VIAL IV PUSH SCH (10:18)
[2017-11-27] MEDS: SODIUM CHLORIDE 0.9% FLUSH 10 ML FLUSH IV FLUSH SCH (10:19)
[2017-11-27] MEDS: POTASSIUM CHLORIDE 10 MEQ CONTROLLED RELEASE TAB PO SCH (10:19)
[2017-11-27] MEDS: NS + KCL 20 MEQ INJ 1,000 ML IV SCH ×2 (10:34→15:00)
[2017-11-27 12:00] VITALS: BP 124/71; PULSE 98; RESP 18; TEMP 98.5; O2SAT 99
--- NOTE | 2017-11-27 12:55 | PD.ONC.PN ---
Subjective Subjective Remarks Afebrile Patient reports he knows the liver biopsy was not good Overall he feels much better and stronger since admission Objective Data Date Time Temp Pulse Resp B/P (MAP) Pulse Ox O2 Delivery O2 Flow Rate FiO2 11/27/17 08:00 96.6 93 18 133/78 (96) 96 11/27/17 04:10 97.1 89 18 130/77 (94) 98 11/27/17 00:03 97.4 94 18 107/69 (82) 98 11/26/17 20:05 97.0 95 18 141/78 (99) 99 11/26/17 18:40 99 21 11/26/17 14:05 100 11/27/17 11/27/17 11/27/17 06:59 14:59 22:59 Intake Total 360 ml Balance 360 ml Result Diagram: 11/27/17 0829 11/27/17 08 Laboratory Results Laboratory Tests Test 11/26/17 16:34 11/27/17 08:29 White Blood Count 18.3 TH/MM3 20.2 TH/MM3 Red Blood Count 2.72 MIL/MM3 3.10 MIL/MM3 Hemoglobin 7.3 GM/DL 7.9 GM/DL Hematocrit 22.3 % 25.4 % Mean Corpuscular Volume 81.9 FL 81.9 FL Mean Corpuscular Hemoglobin 26.8 PG 25.5 PG Mean Corpuscular Hemoglobin Concent 32.7 % 31.1 % Red Cell Distribution Width 15.8 % 15.8 % Platelet Count 175 TH/MM3 196 TH/MM3 Mean Platelet Volume 8.5 FL 8.0 FL Neutrophils (%) (Auto) 86.0 % 87.3 % Lymphocytes (%) (Auto) 7.0 % 5.0 % Monocytes (%) (Auto) 6.0 % 5.9 % Eosinophils (%) (Auto) 0.7 % 1.4 % Basophils (%) (Auto) 0.3 % 0.4 % Neutrophils # (Auto) 15.7 TH/MM3 17.6 TH/MM3 Lymphocytes # (Auto) 1.3 TH/MM3 1.0 TH/MM3 Monocytes # (Auto) 1.1 TH/MM3 1.2 TH/MM3 Eosinophils # (Auto) 0.1 TH/MM3 0.3 TH/MM3 Basophils # (Auto) 0.1 TH/MM3 0.1 TH/MM3 CBC Comment DIFF FINAL DIFF FINAL Differential Comment Blood Urea Nitrogen 10 MG/DL Creatinine 0.65 MG/DL Random Glucose 110 MG/DL Calcium Level 7.9 MG/DL Sodium Level 135 MEQ/L Potassium Level 3.6 MEQ/L Chloride Level 102 MEQ/L Carbon Dioxide Level 25.5 MEQ/L Anion Gap 8 MEQ/L Estimat Glomerular Filtration Rate 123 ML/MIN Culture Results Microbiology Date/Time Source Procedure Growth Status 11/26/17 16:34 Blood Peripheral Aerobic Blood Culture - Preliminary NO GROWTH IN 1 DAY Resulted 11/26/17 16:34 Blood Peripheral Anaerobic Blood Culture - Preliminary NO GROWTH IN 1 DAY Resulted 11/26/17 16:27 Blood Peripheral Aerobic Blood Culture - Preliminary NO GROWTH IN 1 DAY Resulted 11/26/17 16:27 Blood Peripheral Anaerobic Blood Culture - Preliminary NO GROWTH IN 1 DAY Resulted Administered Medications Medications (Trade) Dose Ordered Sig/Tiffany Route PRN Reason Start Time Stop Time Status Last Admin Dose Admin Atorvastatin Calcium (Lipitor) 20 mg HS PO 11/21/17 21:00 11/26/17 20:16 Acetaminophen (Tylenol) 650 mg Q4H PRN PO TEMP > 100.4 11/21/17 16:30 11/25/17 21:23 Zolpidem Tartrate (Ambien) 5 mg HS PRN PO INSOMNIA 11/21/17 21:00 11/26/17 20:34 Senna/Docusate Sodium (Tina-Colace) 1 tab BID PO 11/21/17 21:00 11/25/17 10:17 Sodium Chloride (NS Flush) 2 ml BID IV FLUSH 11/21/17 21:00 11/27/17 10:19 Pantoprazole Sodium (Protonix Inj) 40 mg BID IV PUSH 11/21/17 21:00 11/27/17 10:18 Insulin Aspart (NovoLOG SUPPLEMENTAL SCALE) 1 ACHS SLIDING SCALE SQ 11/22/17 08:00 11/23/17 20:46 Hydrocortisone/ Pramoxine (Proctofoam Hc Rectal Foam) 1 applic Q8H PRN RECTAL hemorrhods 11/22/17 18:45 11/23/17 20:52 Potassium Chloride/Sodium Chloride 1,000 ml @ 125 mls/hr Q8H IV 11/24/17 15:00 11/27/17 10:34 Potassium Chloride (KCl) 40 meq DAILY PO 11/25/17 09:00 11/27/17 10:19 Compound Med (Ritters Cream) 1 applic Q4HR RECTAL 11/25/17 12:00 11/27/17 10:20 Acetaminophen/ Hydrocodone Bitart ([place] 5-325 Mg) 1 tab Q4H PO 11/26/17 21:00 12/04/17 20:59 11/27/17 10:19 Objective Remarks GENERAL: Pleasant middle aged male, lying in bed in no distress with at bedside SKIN: Warm and dry. HEAD: Normocephalic. + H0H EYES: No injection or drainage. NECK: Supple, trachea midline. CARDIOVASCULAR: +S1/S2 RESPIRATORY: Clear anteriorly. Breathing unlabored at rest. GASTROINTESTINAL: + Hepatomegaly. Nontender to palpation. EXTREMITIES: No cyanosis. No edema NEUROLOGICAL: Normal speech. Moving all extremities. No obvious focal deficit. Assessment/Plan Assessment 67y/o male with h/o prostate cancer, admitted with dyspnea; pathology from recent liver biopsy shows metastatic poorly differentiated non-small cell carcinoma (from initial HPI, brought forward for continuity of care:)Mr. Baltazar is a 67- year-old man with a previous history of prostate carcinoma diagnosed about five years ago and treated with surgical resection. Three months ago he was noted to have biochemical failure with elevation in his PSA levels up to 2.5. A sodium fluoride PET CT scan performed on 10/12/2017 at [facility] , indicated no definite evidence of metastatic disease though he was found to have slight hypermetabolism associated with inguinal and iliac lymph node chains as well as retroperitoneal lymph node chains. He has been initiated on palliative androgen blockade with Lupron. The patient presents to the hospital with complaints of increasing difficulty breathing, fatigue and dizziness. He was noted to have a hemoglobin of 6.7 gm/ dl at admission and within 6 hours of admission his hemoglobin dropped down to 5.7 gm/dl. He did have microcytosis with an MCV of 79. His serum iron studies indicate a mixed picture with elevated ferritin levels, low TIBC and low iron levels. Findings most consistent with anemia of chronic disease. Gross hematochezia or melena was not appreciated. The urinalysis is pending to assess for hematuria. The patient has been evaluated by gastroenterology and a colonoscopy showed diverticulosis and thrombosed hemorrhoids. Plan 1. Liver biopsy shows poorly differentiated metastatic non-small cell carcinoma 2. This appears to be a second cancer as the immunohistochemical chemical staining did not appear to be from the prostate 3. Discussed at length with patient possible treatment 4. Will request molecular markers in hopes to give targeted therapy 5. Okay for discharge from oncology standpoint once hemoglobin stable 6. Follow-up with Dr. Harrison in clinic Attending Statement The exam, history, and the medical decision-making described in the above note were completed with the assistance of the mid-level provider. I reviewed and agree with the findings presented. I attest that I had a [id number] encounter with the patient on the same day, and personally performed and documented my assessment and findings in the medical record Hx of prostate ca s/p prostatectomy psa elevated on presentation seen at [place] in 09/2017 on lupron progressive weakness Hb 6.9 s/p transfusion GI w/u ---> diverticulosis/hemorrhoids CT abdomen---> liver lesions bx ---> poorly differentiated non-small cell ca//lung vs urothelia likely secondary primary f/u with Dr. Harrison o/p molecular markers ordered Cristina Valladares Nov 27, 2017 12:55 Epi Tarango MD Nov 27, 2017 16:21
--- NOTE | 2017-11-27 14:21 | HHI.FPPN ---
Subjective Remarks Patient seen and examined this morning bedside. Patient pathology has recently resulted and it was discussed with the patient and family at length. Patient denies any current pain. Patient denies any fever/chills. Patient denies any chest pain/shortness of breath/dizziness. Patient states that he would like to go home if he can. (Kely Noriega MD R2) Objective Vitals Vital Signs Date Time Temp Pulse Resp B/P (MAP) Pulse Ox O2 Delivery O2 Flow Rate FiO2 11/27/17 12:00 98.5 98 18 124/71 (88) 99 11/27/17 08:00 96.6 93 18 133/78 (96) 96 11/27/17 04:10 97.1 89 18 130/77 (94) 98 11/27/17 00:03 97.4 94 18 107/69 (82) 98 11/26/17 20:05 97.0 95 18 141/78 (99) 99 11/26/17 18:40 99 21 I/O 11/26/17 11/26/17 11/26/17 11/27/17 11/27/17 11/27/17 07:00 15:00 23:00 07:00 15:00 23:00 Intake Total 0 ml 750 ml 1240 ml 360 ml Output Total 300 ml 300 ml Balance 0 ml 450 ml 940 ml 360 ml Intake Oral 0 ml 750 ml 240 ml 360 ml IV Total 1000 ml Output Urine Total 300 ml 300 ml # Voids 1 2 4 # Bowel Movements 0 1 0 3 (Kely Noriega MD R2) Result Diagram: 11/27/17 0829 11/27/17 0829 Objective Remarks GENERAL: This is a well-developed patient, in no acute cardiopulmonary distress. SKIN: No rashes, ecchymoses or lesions. Cool and dry. HEAD: Atraumatic. Normocephalic. No temporal or scalp tenderness. EYES: Extraocular motions intact. No scleral icterus. No injection or drainage. ENT: Nose without bleeding, purulent drainage or septal hematoma. Uvula midline. Airway patent. NECK: Trachea midline. CARDIOVASCULAR: Normal S1 and S2. Regular rate and rhythm. RESPIRATORY:CTA BL. Good air movement. GASTROINTESTINAL: Non-tender, distended. No guarding. MUSCULOSKELETAL: Extremities without clubbing, cyanosis, or edema. No joint tenderness, effusion, or edema noted. No calf tenderness. Negative Homans sign bilaterally. NEUROLOGICAL: Awake and alert. Cranial nerves II through XII intact. Motor and sensory grossly within normal limits. Normal speech. (Kely Noriega MD R2) A/P Assessment and Plan 67-year-old male with history of diabetes, prostate cancer, and generalized fatigue and weight loss 2 months presents for workup. Liver biopsy reveals non- small cell carcinoma, metastatic Discharge Planning Anticipate discharge once H&H remains stable, pt has been evaluated by GI and oncology, timeframe unclear. (Kely Noriega MD R2) Problem List: (1) Symptomatic anemia ICD Codes: D64.9 - Anemia, unspecified Status: Acute Plan: H/H stable, hemoglobin on admission 6.9, status post 3 units PRBCs negative Hemoccult Abdominal ultrasound shows the liver is markedly enlarged and has a heterogeneous texture. There is several space-occupying lesions especially in the right hepatic lobe which range in size up to 2.8 cm. Portal vein is patent. There is no evidence of biliary duct dilatation. Bleeding scan completed 11/22/17 shows sigmoid hemorrhage. No obvious rectal bleeding for now. CT abdomen: Numerous hypodense solid masses scattered in the liver. Metastatic disease in the differential. Pattern is also seen with patients with diverticular abscess and septic emboli GI is following - s/p colonoscopy/EGD, bx results were normal -colorectal surgery was consulted by GI to evaluate possible removal of thrombosed internal hemorrhoids found on colonoscopy. Plan to treat thrombosed hemorrhoids topically and will excise if needed. - s/p IR liver biopsy 11/24, bx results: Non-small cell carcinoma, metastases -ERCP planned for (11/25), no stones found in CBD (2) History of prostate cancer ICD Codes: Z85.46 - Personal history of malignant neoplasm of prostate Plan: See recommendations of GI as above Follow-up recommendations of oncology as follows - CT-guided biopsy on 11/24/2017. The primary concern is for underlying malignancy either primary to the liver or metastatic from elsewhere - Prostate carcinoma: PSA level drawn on 11/22/2017 was 0.13; this represents a good response to systemic androgen deprivation therapy which was initiated in late September 2017, as per the patient his PSA prior to treatment was 2.5. (3) Diabetes ICD Codes: E11.9 - Type 2 diabetes mellitus without complications Plan: Patient placed on sliding scale We'll continue to monitor his blood sugar Spoke about the importance of better blood sugar control (4) fen/ppx Status: Acute Plan: Fluids: Continue maintenance fluids Electrolytes: BMP WNL Nutrition: diabetic Prophylaxis: Protonix DVT prophylaxis: SCDs, teds, holds chemoprophylaxis due to acute bleeding (Kely Noriega MD R2) Problem List: (1) Symptomatic anemia ICD Codes: D64.9 - Anemia, unspecified Status: Acute Plan: H/H stable, hemoglobin on admission 6.9, status post 3 units PRBCs negative Hemoccult Abdominal ultrasound shows the liver is markedly enlarged and has a heterogeneous texture. There is several space-occupying lesions especially in the right hepatic lobe which range in size up to 2.8 cm. Portal vein is patent. There is no evidence of biliary duct dilatation. Bleeding scan completed 11/22/17 shows sigmoid hemorrhage. No obvious rectal bleeding for now. CT abdomen: Numerous hypodense solid masses scattered in the liver. Metastatic disease in the differential. Pattern is also seen with patients with diverticular abscess and septic emboli GI is following - s/p colonoscopy/EGD, bx results were normal -colorectal surgery was consulted by GI to evaluate possible removal of thrombosed internal hemorrhoids found on colonoscopy. Plan to treat thrombosed hemorrhoids topically and will excise if needed. - s/p IR liver biopsy 11/24, bx results: Non-small cell carcinoma, metastases -ERCP planned for (11/25), no stones found in CBD (2) History of prostate cancer ICD Codes: Z85.46 - Personal history of malignant neoplasm of prostate Plan: See recommendations of GI as above Follow-up recommendations of oncology as follows - CT-guided biopsy on 11/24/2017. The primary concern is for underlying malignancy either primary to the liver or metastatic from elsewhere - Prostate carcinoma: PSA level drawn on 11/22/2017 was 0.13; this represents a good response to systemic androgen deprivation therapy which was initiated in late September 2017, as per the patient his PSA prior to treatment was 2.5. (3) Diabetes ICD Codes: E11.9 - Type 2 diabetes mellitus without complications Plan: Patient placed on sliding scale We'll continue to monitor his blood sugar Spoke about the importance of better blood sugar control (4) fen/ppx Status: Acute Plan: Fluids: Continue maintenance fluids Electrolytes: BMP WNL Nutrition: diabetic Prophylaxis: Protonix DVT prophylaxis: SCDs, teds, holds chemoprophylaxis due to acute bleeding See the residents documentation for details. I saw and evaluated the patient regarding the mercado portions of this evaluation and agree with the residents findings and plans as written. Parts of this note were created using [employer] voice recognition software program. While efforts were made to correct any mistakes made by this software, some mistakes, errors, and omissions may remain in the final note that were not caught when the note was originally created. Plan of care was discussed and agreed upon with the patient as specifically documented in the above note. An opportunity to ask questions with explanation was provided. Patient voiced understanding on all information reviewed and discussed. (Jimmy Mccurdy MD) Kely Noriega MD R2 Nov 27, 2017 14:21 Jimmy Mccurdy MD Nov 28, 2017 10:52
[2017-11-27] MEDS ORDERED: PROCHCT RECTAL (14:27)
--- NOTE | 2017-11-27 14:28 | HHI.DCPOC ---
Discharge Care Plan Diagnosis: (1) Liver metastases (2) Anemia Goals to Promote Your Health * To prevent worsening of your condition and complications * To maintain your health at the optimal level Directions to Meet Your Goals Take your medications as prescribed Follow your dietary instruction Follow activity as directed Keep your appointments as scheduled Take your immunizations and boosters as scheduled If your symptoms worsen call your PCP, if no PCP go to Urgent Care Center or Emergency Room Smoking is Dangerous to Your Health. Avoid second hand smoke Call the 24-hour hour crisis hotline for domestic abuse at Kely Noriega MD R2 Nov 27, 2017 14:27
[2017-11-27 14:45] VITALS: PULSE 107
[2017-11-27 16:00] VITALS: BP 137/75; PULSE 108; RESP 18; O2SAT 95
== END 2017-11-27 19:55 | disposition home or self-care (01) | DRG 436 ==
LOC: NEPC 12:42 → NEDA 14:10 → N06B 18:54
PROVIDERS: ADMIT Family Medicine; ATTEND Family Medicine
PROC: 30233N1 Transfusion of Nonautologous Red Blood Cells into Peripheral Vein, Percutaneous Approach (ICD-10-PCS; principal; 2017-11-21)
PROC: 0DJD8ZZ Inspection of Lower Intestinal Tract, Via Natural or Artificial Opening Endoscopic (ICD-10-PCS; 2017-11-23)
PROC: 0DB68ZX Excision of Stomach, Via Natural or Artificial Opening Endoscopic, Diagnostic (ICD-10-PCS; 2017-11-23)
PROC: 0FB13ZX Excision of Right Lobe Liver, Percutaneous Approach, Diagnostic (ICD-10-PCS; 2017-11-24)
PROC: 0F798ZZ Dilation of Common Bile Duct, Via Natural or Artificial Opening Endoscopic (ICD-10-PCS; 2017-11-25)
PROC: BF101ZZ Fluoroscopy of Bile Ducts using Low Osmolar Contrast (ICD-10-PCS; 2017-11-25)
DX: C78.7 Secondary malignant neoplasm of liver and intrahepatic bile duct (principal); E87.1 Hypo-osmolality and hyponatremia; I95.9 Hypotension, unspecified; K92.2 Gastrointestinal hemorrhage, unspecified; K80.50 Calculus of bile duct without cholangitis or cholecystitis without obstruction; C80.1 Malignant (primary) neoplasm, unspecified; D63.8 Anemia in other chronic diseases classified elsewhere; R91.1 Solitary pulmonary nodule; E78.5 Hyperlipidemia, unspecified; E11.9 Type 2 diabetes mellitus without complications; I10 Essential (primary) hypertension; Z85.46 Personal history of malignant neoplasm of prostate; F10.20 Alcohol dependence, uncomplicated; K21.9 Gastro-esophageal reflux disease without esophagitis; K59.09 Other constipation; R63.4 Abnormal weight loss; F12.90 Cannabis use, unspecified, uncomplicated; K64.9 Unspecified hemorrhoids; R06.00 Dyspnea, unspecified; Z96.651 Presence of right artificial knee joint; F10.21 Alcohol dependence, in remission; K29.70 Gastritis, unspecified, without bleeding; K44.9 Diaphragmatic hernia without obstruction or gangrene; K57.30 Diverticulosis of large intestine without perforation or abscess without bleeding; K64.4 Residual hemorrhoidal skin tags; K64.8 Other hemorrhoids; N40.0 Benign prostatic hyperplasia without lower urinary tract symptoms; R00.0 Tachycardia, unspecified; K64.5 Perianal venous thrombosis; Z87.891 Personal history of nicotine dependence; Z80.8 Family history of malignant neoplasm of other organs or systems; Z80.1 Family history of malignant neoplasm of trachea, bronchus and lung; Z80.42 Family history of malignant neoplasm of prostate; Z86.010 Personal history of colon polyps; Z90.79 Acquired absence of other genital organ(s)
CPT/HCPCS: 36430; 47000; 71046; 71260; 74177; 74330; 76700; 77012; 78278; 80048; 80076; 81001; 82105; 82550; 82607; 82728; 82746; 82948; 83010; 83540; 83550; 83615; 83690; 84484; 85014; 85018; 85025; 85027; 85044; 85384; 85610; 85730; 86140; 86850; 86900; 86901; 86920; 87040; 87641; 88305; 88307; 88312; 88341; 88342; 88360; 88377; 93005; 96361; 96374; A9560; C1769; C9113; G0103; J1642; J1815; J2250; J2405; J3010; J3480; J7030; J7050; J7120; P9016; Q9963; Q9967

== ENCOUNTER 2017-11-30 12:35 | Emergency (ER) | payer MEDICARE ==
[~2017-11-30] VITALS: Ht 175.3 cm; Wt 94.5 kg
[~2017-11-30 12:35] MED LIST: ASPI-516 CHEW; ATOR20TA15 PO; ENAL20TA PO; HYDR25TA5 PO; LOSA100T PO; PRAZ2CAP PO; PROCHCT RECTAL; [UNRECOGNIZED DRUG - CODE] PO
[2017-11-30 12:37] VITALS: BP 152/69; PULSE 112; RESP 16; TEMP 97.7; O2SAT 98
[2017-11-30 13:32] LABS: AUTOMATED NEUTROPHIL # 20.4 TH/MM3 (1.8-7.7); BASOPHIL # 0.1 TH/MM3 (0-0.2); BASOPHIL % 0.5 % (0.0-2.0); EOSINOPHIL # 0.2 TH/MM3 (0-0.4); EOSINOPHIL % 0.9 % (0.0-4.0); HEMATOCRIT 23.8 % (39.0-51.0); HEMOGLOBIN 7.5 GM/DL (13.0-17.0); LYMPHOCYTE # 1.2 TH/MM3 (1.0-4.8); MEAN CELL VOLUME 81.7 FL (80.0-100.0); MEAN CORPUSCULAR HEMOGLOBIN 25.6 PG (27.0-34.0); MEAN CORPUSCULAR HGB CONC 31.3 % (32.0-36.0); MEAN PLATELET VOLUME 8.1 FL (7.0-11.0); MONO % 6.3 % (0.0-8.0); MONOCYTE # 1.5 TH/MM3 (0-0.9); NEUT % 87.3 % (16.0-70.0); PLATELET COUNT 273 TH/MM3 (150-450); RED BLOOD COUNT 2.92 MIL/MM3 (4.50-5.90); RED CELL DISTRIBUTION WIDTH 16.3 % (11.6-17.2); WHITE BLOOD COUNT 23.4 TH/MM3 (4.0-11.0)
[2017-11-30 13:42] LABS: INTERNATIONAL NORMALIZED RATIO 1.3 RATIO; PROTHROMBIN TIME - PATIENT 13.4 SEC (9.8-11.6)
[2017-11-30 13:55] LABS: ALBUMIN 1.4 GM/DL (3.4-5.0); ALT (GPT) 11 U/L (12-78); AST (GOT) 24 U/L (15-37); BICARBONATE 27.1 MEQ/L (21.0-32.0); BLOOD UREA NITROGEN 7 MG/DL (7-18); CHLORIDE 96 MEQ/L (98-107); CREATININE 0.48 MG/DL (0.60-1.30); GLOMERULAR FILTRATION RATE 174 ML/MIN (>89); GLUCOSE,RANDOM 127 MG/DL (74-106); LIPASE 69 U/L (73-393); SODIUM (NA) 134 MEQ/L (136-145)
[2017-11-30 13:58] LABS: ALKALINE PHOSPHATASE 204 U/L (45-117); TOTAL BILIRUBIN ADULT 0.6 MG/DL (0.2-1.0); TOTAL PROTEIN 6.3 GM/DL (6.4-8.2)
--- NOTE | 2017-11-30 13:58 | RADRPT ---
EXAM DATE/TIME: 11/30/2017 13:39 [facility] COMPARISON: No previous studies available for comparison. INDICATIONS : Constipation. MEDICAL HISTORY : Hypertension. Cardiovascular disease. Diabetes mellitus type II. liver cancer SURGICAL HISTORY : liver biopsy ENCOUNTER: Initial ACUITY: 3 days PAIN SCORE: 3/10 LOCATION: Bilateral abdomen FINDINGS: 3 frontal supine views of the abdomen demonstrate air within bowel in a nonobstructive pattern. No or ganomegaly or concerning calcifications are identified. The bones and lower lung zones demonstrate no acute finding. There is mild levoscoliosis of the lumbar spine with multilevel degenerative change. Also, there is severe right hip joint osteoarthritis. CONCLUSION: No acute abdominal abnormality is identified. No significant stool is visualized. Vijay Ly MD on November 30, 2017 at 13:54 Board Certified Radiologist. This report was verified electronically.
[2017-11-30 14:38] LABS: BANDS 16 % (0-6); LYMPHOCYTES 5 % (9-44); METAMYELOCYTES 1 % (0-1); MONOCYTES 3 % (0-8); NEUTROPHIL # MANUAL DIFF 21.1 TH/MM3 (1.8-7.7); POLYS (SEG NEUTROPHILS) 73 % (16-70)
--- NOTE | 2017-11-30 16:17 | PD ---
HPI Chief Complaint: GI Complaint Time Seen by Provider: 16:02 Travel History International Travel<30 days: No Contact w/Intl Traveler<30days: No Traveled to known affect area: No History of Present Illness HPI 67-year-old male presents emergency department complaining of abdominal cramping , nausea, lightheadedness, and fatigue since Wednesday. Patient states that he has discharged from this hospital November 27 with a diagnosis of metastatic liver cancer with unknown primary. In addition, patient states that he has gained 2 pounds in 2 days which has abnormal for him. Patient states his last bowel movement was yesterday and was brown, nonbloody. Patient denies hematemesis, melena, hematochezia. Describes his abdominal pain as right upper quadrant pain, nonradiating, constant, achy, moderate. states that his abdomen appears more distended than normal. Patient denies chronic cardiac or pulmonary issues. PFSH Past Medical History Autoimmune Disease: No Cancer: Yes (PROSTATE) Cardiovascular Problems: Yes High Cholesterol: Yes Diabetes: Yes Diminished Hearing: No Endocrine: No Genitourinary: Yes Hypertension: Yes Immune Disorder: No Musculoskeletal: No Neurologic: No Psychiatric: No Respiratory: No Thyroid Disease: No Past Surgical History Genitourinary Surgery: Yes (prostate) Social History Alcohol Use: No (quit) Tobacco Use: No Substance Use: No Allergies-Medications (Allergen,Severity, Reaction): Coded Allergies: No Known Allergies (Unverified , 11/30/17) Reported Meds & Prescriptions Reported Meds & Active Scripts Active Oxycodone (Oxycodone HCl) 5 Mg Cap 5 Mg PO Q6H PRN 3 Days Zofran (Ondansetron HCl) 4 Mg Tab 4 Mg PO Q8HR PRN 5 Days Alprazolam 0.25 Mg Tab 0.25 Mg PO ONCE PRN 10 Days Proctofoam Hc Rectal (Hydrocortisone/Pramoxine) 1-1% Foam 1 Applic RECTAL Q8H PRN Reported [Ritters Cream] Tramadol (Tramadol HCl) 50 Mg Tab 50 Mg PO Q6H PRN [Benadryl] 50 Mg PO HS Stendra (Avanafil) 100 Mg Tab 100 Mg PO DAILY PRN Take approximately 15 minutes before sexual intercourse, no more than once per day. Prazosin (Prazosin HCl) 2 Mg Cap 2 Mg PO DAILY Losartan (Losartan Potassium) 100 Mg Tab 100 Mg PO DAILY Hydrochlorothiazide 25 Mg Tab 25 Mg PO DAILY Enalapril (Enalapril Maleate) 20 Mg Tab 20 Mg PO DAILY Atorvastatin (Atorvastatin Calcium) 20 Mg Tab 20 Mg PO HS Aspirin 81 Mg Chew 81 Mg CHEW DAILY Review of Systems Except as stated in HPI: all other systems reviewed are Neg Physical Exam Narrative GENERAL: Well-developed well-nourished in no apparent distress SKIN: Focused skin assessment warm/dry. HEAD: Atraumatic. Normocephalic. EYES: Pupils equal and round. No scleral icterus. No injection or drainage. PERRLA ENT: No nasal bleeding or discharge. Mucous membranes pink and moist. NECK: Trachea midline. No JVD. No lymphadenopathy CARDIOVASCULAR: Regular rate and rhythm. No murmur appreciated. RESPIRATORY: No accessory muscle use. Clear to auscultation. Breath sounds equal bilaterally. GASTROINTESTINAL: Abdomen distended, right upper quadrant tenderness without rebound tenderness with hepatomegaly, MUSCULOSKELETAL: No obvious deformities. No clubbing. No cyanosis. No edema. NEUROLOGICAL: Awake and alert. No obvious cranial nerve deficits. Motor grossly within normal limits. Normal speech. PSYCHIATRIC: Appropriate mood and affect; insight and judgment normal. Data Data Last Documented VS Vital Signs Date Time Temp Pulse Resp B/P (MAP) Pulse Ox O2 Delivery O2 Flow Rate FiO2 11/30/17 19:31 85 19 108/63 (78) 95 11/30/17 16:49 Room Air 11/30/17 12:37 97.7 Orders Orders Complete Blood Count With Diff (11/30/17 12:58) Comprehensive Metabolic Panel (11/30/17 12:58) Lipase (11/30/17 12:58) Prothrombin Time / Inr (Pt) (11/30/17 12:58) Act Partial Throm Time (Ptt) (11/30/17 12:58) Abdomen, Kub Only (11/30/17 12:58) Ammonia (11/30/17 12:58) Iv Access Insert/Monitor (11/30/17 16:17) Ecg Monitoring (11/30/17 16:17) Oximetry (11/30/17 16:17) NPO (11/30/17 16:17) Ondansetron Inj (Zofran Inj) (11/30/17 16:30) Electrocardiogram (11/30/17 16:17) Us Leg Venous Doppler Bilat (11/30/17 ) Morphine Inj (Morphine Inj) (11/30/17 16:45) Ed Discharge Order (11/30/17 18:52) Labs Laboratory Tests Test 11/30/17 13:15 White Blood Count 23.4 TH/MM3 Red Blood Count 2.92 MIL/MM3 Hemoglobin 7.5 GM/DL Hematocrit 23.8 % Mean Corpuscular Volume 81.7 FL Mean Corpuscular Hemoglobin 25.6 PG Mean Corpuscular Hemoglobin Concent 31.3 % Red Cell Distribution Width 16.3 % Platelet Count 273 TH/MM3 Mean Platelet Volume 8.1 FL Neutrophils (%) (Auto) 87.3 % Lymphocytes (%) (Auto) 5.0 % Monocytes (%) (Auto) 6.3 % Eosinophils (%) (Auto) 0.9 % Basophils (%) (Auto) 0.5 % Neutrophils # (Auto) 20.4 TH/MM3 Lymphocytes # (Auto) 1.2 TH/MM3 Monocytes # (Auto) 1.5 TH/MM3 Eosinophils # (Auto) 0.2 TH/MM3 Basophils # (Auto) 0.1 TH/MM3 CBC Comment AUTO DIFF Differential Total Cells Counted 100 Neutrophils % (Manual) 73 % Band Neutrophils % 16 % Lymphocytes % 5 % Monocytes % 3 % Eosinophils % 2 % Neutrophils # (Manual) 21.1 TH/MM3 Metamyelocytes 1 % Differential Comment FINAL DIFF MANUAL Platelet Estimate NORMAL Platelet Morphology Comment NORMAL Prothrombin Time 13.4 SEC Prothromb Time International Ratio 1.3 RATIO Activated Partial Thromboplast Time 33.4 SEC Blood Urea Nitrogen 7 MG/DL Creatinine 0.48 MG/DL Random Glucose 127 MG/DL Total Protein 6.3 GM/DL Albumin 1.4 GM/DL Calcium Level 8.0 MG/DL Alkaline Phosphatase 204 U/L Aspartate Amino Transf (AST/SGOT) 24 U/L Alanine Aminotransferase (ALT/SGPT) 11 U/L Total Bilirubin 0.6 MG/DL Sodium Level 134 MEQ/L Potassium Level 3.1 MEQ/L Chloride Level 96 MEQ/L Carbon Dioxide Level 27.1 MEQ/L Anion Gap 11 MEQ/L Estimat Glomerular Filtration Rate 174 ML/MIN Ammonia 24 MCMOL/L Lipase 69 U/L [facility] Medical Decision Making Medical Screen Exam Complete: Yes Emergency Medical Condition: Yes Differential Diagnosis Nausea, vomiting, hepatomegaly, acute abdomen, Narrative Course 67-year-old male presents emergency department complaining of abdominal cramping , nausea, lightheadedness, and fatigue since Wednesday. Patient states that he has discharged from this hospital November 27 with a diagnosis of metastatic liver cancer with unknown primary. In addition, patient states that he has gained 2 pounds in 2 days which has abnormal for him. Patient states his last bowel movement was yesterday and was brown, nonbloody. Patient denies hematemesis, melena, hematochezia. Describes his abdominal pain as right upper quadrant pain, nonradiating, constant, achy, moderate. states that his abdomen appears more distended than normal. Patient denies chronic cardiac or pulmonary issues. Vital signs mildly tachycardic, blood pressure stable. Laboratory Tests Test 11/30/17 13:15 White Blood Count 23.4 TH/MM3 Red Blood Count 2.92 MIL/MM3 Hemoglobin 7.5 GM/DL Hematocrit 23.8 % Mean Corpuscular Volume 81.7 FL Mean Corpuscular Hemoglobin 25.6 PG Mean Corpuscular Hemoglobin Concent 31.3 % Red Cell Distribution Width 16.3 % Platelet Count 273 TH/MM3 Mean Platelet Volume 8.1 FL Neutrophils (%) (Auto) 87.3 % Lymphocytes (%) (Auto) 5.0 % Monocytes (%) (Auto) 6.3 % Eosinophils (%) (Auto) 0.9 % Basophils (%) (Auto) 0.5 % Neutrophils # (Auto) 20.4 TH/MM3 Lymphocytes # (Auto) 1.2 TH/MM3 Monocytes # (Auto) 1.5 TH/MM3 Eosinophils # (Auto) 0.2 TH/MM3 Basophils # (Auto) 0.1 TH/MM3 CBC Comment AUTO DIFF Differential Total Cells Counted 100 Neutrophils % (Manual) 73 % Band Neutrophils % 16 % Lymphocytes % 5 % Monocytes % 3 % Eosinophils % 2 % Neutrophils # (Manual) 21.1 TH/MM3 Metamyelocytes 1 % Differential Comment FINAL DIFF MANUAL Platelet Estimate NORMAL Platelet Morphology Comment NORMAL Prothrombin Time 13.4 SEC Prothromb Time International Ratio 1.3 RATIO Activated Partial Thromboplast Time 33.4 SEC Blood Urea Nitrogen 7 MG/DL Creatinine 0.48 MG/DL Random Glucose 127 MG/DL Total Protein 6.3 GM/DL Albumin 1.4 GM/DL Calcium Level 8.0 MG/DL Alkaline Phosphatase 204 U/L Aspartate Amino Transf (AST/SGOT) 24 U/L Alanine Aminotransferase (ALT/SGPT) 11 U/L Total Bilirubin 0.6 MG/DL Sodium Level 134 MEQ/L Potassium Level 3.1 MEQ/L Chloride Level 96 MEQ/L Carbon Dioxide Level 27.1 MEQ/L Anion Gap 11 MEQ/L Estimat Glomerular Filtration Rate 174 ML/MIN Ammonia 24 MCMOL/L Lipase 69 U/L Last Impressions Abdomen X-Ray 11/30/17 1258 Signed Impressions: Service Date/Time: Thursday, November 30, 2017 13:39 - CONCLUSION: No acute abdominal abnormality is identified. No significant stool is visualized. Vijay Ly MD Lower Extremity Ultrasound 11/30/17 0000 Signed Impressions: Service Date/Time: Thursday, November 30, 2017 16:47 - CONCLUSION: Negative examination for DVT. Emery's cyst left popliteal fossa posterior to the knee Yonas Stroud MD Please see my attending, Dr. Tripathi's note as well regarding this patient. We have asked the residents come evaluate patient as they are familiar with her. Dr. Guzman advised he could discuss this case with Dr. Najera regarding patient' s bandemia, WBCs. According Dr. Guzman, Dr. Najera believes this bandemia is secondary to his metastatic disease and that based off of the information he has received today, this is not a reason to admit the patient. Patient be discharged with hydrocodone, alprazolam, and Zofran. After further discussion Dr. Tripathi, we decided to change the hydrocodone to oxycodone as to avoid further injury to the liver. I discussed this change with the , Daisy Baltazar in she agreed to not fill hydrocodone and pick up attendant the oxycodone prescription tomorrow. She states understanding and will comply. States she has leftover Tramadol from the previous hospital stay. Diagnosis Primary Impression: Right upper quadrant abdominal pain Referrals: Oncologist Primary Care Physician Additional Instructions: Follow up with your primary care physician within 2-3 days. If your symptoms persist or worsen, return to the emergency department. Take your medications as prescribed. If you develop increased abdominal pain, nausea, vomiting return to the emergency department. Scripts Oxycodone (Oxycodone) 5 Mg Cap 5 MG PO Q6H Y for PAIN for 3 Days, #12 CAP 0 Refills Prov: Kiley Turner 11/30/17 Ondansetron (Zofran) 4 Mg Tab 4 MG PO Q8HR Y for NAUSEA OR VOMITING for 5 Days, TAB 0 Refills Prov: Deepa Tripathi MD 11/30/17 Alprazolam (Alprazolam) 0.25 Mg Tab 0.25 MG PO ONCE Y for SLEEP for 10 Days, #10 TAB 0 Refills Prov: Deepa Tripathi MD 11/30/17 Disposition: 01 DISCHARGE HOME Condition: Stable Kiley Turner Nov 30, 2017 16:17
[2017-11-30] MEDS ORDERED: TRAM50TA PO (16:20)
[2017-11-30] MEDS ORDERED: BENADRYL PO (16:20)
[2017-11-30] MEDS ORDERED: [UNRECOGNIZED DRUG - OTHER] (16:20)
[2017-11-30] MEDS ORDERED: ONDANSETRON HCL 4 MG/2 ML VIAL IVP ONE (16:30)
[2017-11-30] MEDS ORDERED: MORPHINE SULFATE 2 MG/ML INJ IV PUSH ONE (16:45)
[2017-11-30 16:49] VITALS: BP 99/59; PULSE 93; RESP 22; O2SAT 96
--- NOTE | 2017-11-30 17:22 | RADRPT ---
EXAM DATE/TIME: 11/30/2017 16:47 [facility] COMPARISON: No previous studies available for comparison. INDICATIONS : Bilateral leg swelling. MEDICAL HISTORY : Hypercholesterolemia. Hypertension. SURGICAL HISTORY : Prostate surgery. Right knee surgery. ENCOUNTER: Initial ACUITY: 4 - 6 days PAIN SCORE: 3/10 LOCATION: Bilateral legs. TECHNIQUE: Venous ultrasound of the left and right leg was performed from the inguinal ligament to the proximal calf. Real-time, color Doppler and spectral tracing, compression and augmentation techniques were us ed. FINDINGS: RIGHT LEG: There is normal compressibility of the deep venous system from the inguinal region to the proximal ca lf. No echogenic clot is seen in the lumen of the common femoral, femoral, popliteal, and posterior tibial veins. There is a normal response of the venous system to proximal and distal augmentation an d respiration. LEFT LEG: There is normal compressibility of the deep venous system from the inguinal region to the proximal ca lf. No echogenic clot is seen in the lumen of the common femoral, femoral, popliteal, and posterior tibial veins. There is a normal response of the venous system to proximal and distal augmentation an d respiration. Elongated Emery's cyst in the left popliteal fossa posterior to the up to 6 cm in siz e. CONCLUSION: Negative examination for DVT. Emery's cyst left popliteal fossa posterior to the knee Yonas Stroud MD on November 30, 2017 at 17:18 Board Certified Radiologist. This report was verified electronically.
[2017-11-30] MEDS ORDERED: NORC5TAB PO (18:45)
[2017-11-30] MEDS ORDERED: ZOFR4TAB PO (18:45)
[2017-11-30] MEDS ORDERED: ALPR0.25 PO (18:45)
--- NOTE | 2017-11-30 18:53 | PD ---
Data Data Last Documented VS Vital Signs Date Time Temp Pulse Resp B/P (MAP) Pulse Ox O2 Delivery O2 Flow Rate FiO2 11/30/17 16:49 93 22 99/59 (72) 96 Room Air 11/30/17 12:37 97.7 Orders Orders Complete Blood Count With Diff (11/30/17 12:58) Comprehensive Metabolic Panel (11/30/17 12:58) Lipase (11/30/17 12:58) Prothrombin Time / Inr (Pt) (11/30/17 12:58) Act Partial Throm Time (Ptt) (11/30/17 12:58) Abdomen, Kub Only (11/30/17 12:58) Ammonia (11/30/17 12:58) Iv Access Insert/Monitor (11/30/17 16:17) Ecg Monitoring (11/30/17 16:17) Oximetry (11/30/17 16:17) NPO (11/30/17 16:17) Ondansetron Inj (Zofran Inj) (11/30/17 16:30) Electrocardiogram (11/30/17 16:17) Us Leg Venous Doppler Bilat (11/30/17 ) Morphine Inj (Morphine Inj) (11/30/17 16:45) Ed Discharge Order (11/30/17 18:52) Labs Laboratory Tests Test 11/30/17 13:15 White Blood Count 23.4 TH/MM3 Red Blood Count 2.92 MIL/MM3 Hemoglobin 7.5 GM/DL Hematocrit 23.8 % Mean Corpuscular Volume 81.7 FL Mean Corpuscular Hemoglobin 25.6 PG Mean Corpuscular Hemoglobin Concent 31.3 % Red Cell Distribution Width 16.3 % Platelet Count 273 TH/MM3 Mean Platelet Volume 8.1 FL Neutrophils (%) (Auto) 87.3 % Lymphocytes (%) (Auto) 5.0 % Monocytes (%) (Auto) 6.3 % Eosinophils (%) (Auto) 0.9 % Basophils (%) (Auto) 0.5 % Neutrophils # (Auto) 20.4 TH/MM3 Lymphocytes # (Auto) 1.2 TH/MM3 Monocytes # (Auto) 1.5 TH/MM3 Eosinophils # (Auto) 0.2 TH/MM3 Basophils # (Auto) 0.1 TH/MM3 CBC Comment AUTO DIFF Differential Total Cells Counted 100 Neutrophils % (Manual) 73 % Band Neutrophils % 16 % Lymphocytes % 5 % Monocytes % 3 % Eosinophils % 2 % Neutrophils # (Manual) 21.1 TH/MM3 Metamyelocytes 1 % Differential Comment FINAL DIFF MANUAL Platelet Estimate NORMAL Platelet Morphology Comment NORMAL Prothrombin Time 13.4 SEC Prothromb Time International Ratio 1.3 RATIO Activated Partial Thromboplast Time 33.4 SEC Blood Urea Nitrogen 7 MG/DL Creatinine 0.48 MG/DL Random Glucose 127 MG/DL Total Protein 6.3 GM/DL Albumin 1.4 GM/DL Calcium Level 8.0 MG/DL Alkaline Phosphatase 204 U/L Aspartate Amino Transf (AST/SGOT) 24 U/L Alanine Aminotransferase (ALT/SGPT) 11 U/L Total Bilirubin 0.6 MG/DL Sodium Level 134 MEQ/L Potassium Level 3.1 MEQ/L Chloride Level 96 MEQ/L Carbon Dioxide Level 27.1 MEQ/L Anion Gap 11 MEQ/L Estimat Glomerular Filtration Rate 174 ML/MIN Ammonia 24 MCMOL/L Lipase 69 U/L MDM Supervised Visit with AISHWARYA: Yes Narrative Course The history, exam, and medical decision-making in the associated midlevel provider note were completed with my assistance. I reviewed and agree with the findings presented. I attest that I had a [id number] encounter with the patient on the same day, and personally performed and documented my assessment and findings in the medical record. *My assessment and Findings: This was a 67-year-old male who was newly diagnosed with liver cancer who presents to the emergency department with multiple complaints. He says he has worsening right upper quadrant abdominal pain, anxiety, increasing lower extremity swelling, anxiety, increasing lower extremity swelling, and weakness. The patient was just hospitalized and had an extensive evaluation including a biopsy and blood transfusion. He was placed on a monitor here and an IV was established. Hemoglobin is stable from discharge. He has leukocytosis with a bandemia which is similar to his leukocytosis from when he was in the hospital and he has been afebrile. We spoke to oncology and they agreed that this is likely secondary to his malignancy and in the absence of fever or localization of infectious symptoms antibiotics would not be indicated. Ultrasound was obtained which was negative for DVT. I suspect the patient's lower extremity swelling is secondary to hypoalbuminemia. Patient was seen by the resident team as well as by me. The family had many questions which were answered. I think primarily the patient required reassurance. They will follow-up with Dr. Harrison and return to the emergency department if symptoms worsen or if he develops fever. Diagnosis Primary Impression: Right upper quadrant abdominal pain Scripts Ondansetron (Zofran) 4 Mg Tab 4 MG PO Q8HR Y for NAUSEA OR VOMITING for 5 Days, TAB 0 Refills Prov: Deepa Tripathi MD 11/30/17 Hydrocodone-Acetaminophen ([place]) 5 Mg-325 Mg Tab 1 TAB PO Q6H Y for PAIN, #12 TAB 0 Refills Prov: Deepa Tripathi MD 11/30/17 Alprazolam (Alprazolam) 0.25 Mg Tab 0.25 MG PO ONCE Y for SLEEP for 10 Days, #10 TAB 0 Refills Prov: Deepa Tripathi MD 11/30/17 Condition: Stable Deepa Tripathi MD Nov 30, 2017 18:53
--- NOTE | 2017-11-30 19:18 | HHI.FPPN ---
Addendum to progress note ADDENDUM Reason for addendum: Additonal documentation Additional information Mr. Baltazar is a pleasant 67-year-old male, presenting with increasing abdominal pain. He was recently discharged from the hospital on 11/27. That hospitalization he was diagnosed with metastatic liver cancer. Oncology showed non-small cell adenocarcinoma. A CT of his chest showed a right calcified pulmonary nodule. He does have a history of prostate cancer, status post resection, and a PET scan at [facility] on 10/12/2017 showed no metastatic disease per the patient. He was discharged home with follow-up care with oncology, Dr. Harrison. Unfortunately, they were unable to make a follow-up appointment. The patient was evaluated by Dr. Tripathi in the emergency department, and she thought a large portion of his presentation to the emergency department was due to anxiety, and inability to establish care as an outpatient. She thought that he was in stable condition and would do well with follow-up as an outpatient. She did not think that admission was necessary. She contacted the resident team , to speak with the family and for second opinion. Myself and Dr. Hope went down at 1800 hrs. on 11/30/2017, and spoke with Mr. Baltazar and his . At that time, he reported that he has been having some increased epigastric abdominal pain, fluid retention mainly in his lower extremities and around his abdomen, and some increasing fatigue. He also reports night sweats, but denies a fever in the home. He says that he is breathing comfortably at rest. He denied any chest pain. The reports that he has not been getting good sleep, despite melatonin. She also reports that he has been "dry heaving" and not taking in good by mouth intake. She was also concerned that with the lower extremity swelling, that he may have a blood clot Vital Signs Date Time Temp Pulse Resp B/P (MAP) Pulse Ox O2 Delivery O2 Flow Rate FiO2 11/30/17 16:49 93 22 99/59 (72) 96 Room Air 11/30/17 12:37 97.7 Ultrasound of lower extremities was negative for DVT. Gen.: No acute distress, speaking full sentences, afebrile. Cardiovascular: Regular rate and rhythm, 93 bpm. GI: Distended abdomen, tympanic to percussion, no rebound or guarding. Soft. Extremities: 2+ pitting edema to his shins bilaterally. No calf tenderness. Assessment and plan: #1. Increasing fatigue Likely secondary to metastatic cancer. Spoke with Dr. Najera, the contingents supervisor system administration advisor/oncologist. He was in agreement that the patient did not require an inpatient hospitalization, given that he was not having fevrs and his leukocytosis with bandemia can be explained by metastatic cancer. He explains to me that this is very common with this level of disease. We will call Dr. Harrison's office tomorrow 12/01/2017, to establish care. This was explained to the patient, and they were in agreement. They were counseled on signs and symptoms to monitor for at home, which includes but are not limited to fevers, night sweats, chest pain, shortness of breath, confusion, persistent vomiting/ nausea, any bleeding. They know to call 911 if any of these symptoms develop. #2. Abdominal pain Likely secondary to liver biopsy/status post ERCP. Total bili was not elevated in the emergency department. All of his LFTs are grossly within normal limits. Lipase WNL. Abdominal x-ray WNL. Patient was given tramadol for discharge, and this has not been adequately treating his pain. Will increase his pain medication. #3. Insomnia Will treat with benzodiazepine as needed for anxiety as well as his insomnia. We'll leave this up to the discretion of the ER physician. Brian Guzman MD, R3 Nov 30, 2017 19:18
[2017-11-30 19:31] VITALS: BP 108/63
[2017-11-30] MEDS ORDERED: OXYC1CAP PO (19:57)
--- NOTE | 2017-12-01 09:53 | EKG ---
Date Performed: 11/30/2017 Time Performed: 18:01:31 PTAGE: 67 years EKG: Sinus rhythm MODERATE INTRAVENTRICULAR CONDUCTION DELAY NONSPECIFIC T-WAVE ABNORMALITY ABNORMAL ECG PREVIOUS TRACING : 11/30/2017 16.34 DOCTOR: Benji Rocha Interpretating Date/Time 12/01/2017 09:52:58
--- NOTE | 2017-12-01 10:13 | EKG ---
Date Performed: 11/30/2017 Time Performed: 16:34:27 PTAGE: 67 years EKG: Sinus rhythm NONSPECIFIC T-WAVE ABNORMALITY BORDERLINE ECG PREVIOUS TRACING : 11/21/2017 13.06 DOCTOR: Benji Rocha Interpretating Date/Time 12/01/2017 10:12:12
[2017-12-04] MEDS ORDERED: DIPH50CA PO (10:40)
== END 2017-11-30 19:15 | disposition home or self-care (01) ==
LOC: NEPC 12:35
DX: C78.7 Secondary malignant neoplasm of liver and intrahepatic bile duct (principal); C80.1 Malignant (primary) neoplasm, unspecified; R10.11 Right upper quadrant pain; I10 Essential (primary) hypertension; E78.00 Pure hypercholesterolemia, unspecified; M79.89 Other specified soft tissue disorders
CPT/HCPCS: 74018; 80053; 82140; 83690; 85007; 85027; 85610; 85730; 93005; 93970; 96374; 96375; 99285; J2270; J2405

== ENCOUNTER 2017-12-13 12:47 | Day surgery (SDC) | payer MEDICARE ==
[~2017-12-13 12:47] MED LIST changes: +ALPR0.25 PO; +DIPH50CA PO; +OXYC1CAP PO; +TRAM50TA PO; +ZOFR4TAB PO; +[UNRECOGNIZED DRUG - OTHER]
[2017-12-13 13:09] VITALS: BP 109/69; PULSE 96; RESP 20; TEMP 98.1; O2SAT 97
[2017-12-13 13:55] VITALS: BP 94/55; PULSE 84; RESP 18; TEMP 98; O2SAT 93
[2017-12-13] MEDS ORDERED: OXYC1CAP PO (16:23)
[2017-12-13] MEDS ORDERED: ALPR0.25 PO (16:23)
--- NOTE | 2017-12-13 16:24 | PD.RAD ---
Radiology Post PICC Prog Note Pre Procedure Diagnosis: (1) Liver metastases Post Procedure Diagnosis: (1) Liver metastases Procedure: Right PICC line placement Procedure Date: Dec 13, 2017 Supervising Radiologist Ovi Carrillo JR Proceduralist/Assist: Debbie Thompson RT(R)() Device Side: Right Serbian: 4 single lumen cm: 39 Catheter: Power PICC Plan of Activity Patient to Unit: ROPU Patient Condition: Good PICC line can be used immediately Jr. Carrillo Thomas Justin MD Dec 13, 2017 16:24
[2017-12-13] MEDS ORDERED: SODIUM CHLORIDE 0.9% FLUSH 10 ML FLUSH IVF PRN ×2 (16:30)
--- NOTE | 2017-12-13 18:40 | RADRPT ---
EXAM DATE/TIME: 12/13/2017 14:50 [facility] COMPARISON: No previous studies available for comparison. INDICATIONS : Patient with a history of bile duct cancer. MEDICAL HISTORY : iron deficiency anemia prostate cancer CAD Diabetes Hemorrhoids Cirrhosis Hyperlipidemia Liver CA SURGICAL HISTORY : Liver biopsy Prostatectomy Knee surgery ENCOUNTER: Initial ACUITY: 2 months PAIN SCORE: 0/10 FLUORO TIME: 0.20 minutes IMAGE SERIES: 1 ACCESS: Right basilic vein DEVICE(S): 1.) 4 [place] single lumen 39 cm Power PICC PROCEDURE : 1. Ultrasound guidance for venous catheterization. 2. Fluoroscopic guidance. 3. Ultrasound & fluoroscopic guided central venous Power PICC line placement. The risks, benefits and alternatives to the procedure were explained and verbal and written consent w as obtained. The site was prepped in sterile fashion. Full sterile technique was used, including ca p, mask, sterile gloves and gown and a large sterile sheet. Hand hygiene and 2% chlorhexidine prep w as utilized per protocol for cutaneous antisepsis with appropriate dry time for site. Sterile gel a nd sterile probe cover were utilized for ultrasound guidance. The skin and subcutaneous tissues wer e infiltrated with local anesthetic solution. Under direct ultrasound guidance, a suitable vein was accessed and a measuring guidewire was introduc ed and positioned in the central venous system. The ultrasound images depicting access guidance were saved and stored to PACS for permanent record. A Power Injectable PICC line was cut to prescribed length and introduced, positioned with tip at the cavoatrial junction level. The line was flushed and secured per protocol. CONCLUSION: 1. Uncomplicated central venous Power PICC line placement. 2. The PICC line can be used immediately. Ovi Carrillo Jr., MD on December 13, 2017 at 18:37 Board Certified Radiologist. This report was verified electronically.
[2017-12-14] MEDS ORDERED: SODIUM CHLORIDE 0.9% FLUSH 10 ML FLUSH IVF SCH (09:00)
== END 2017-12-13 14:18 | disposition home or self-care (01) ==
LOC: HROP 12:47 → HRIP 12:50 → HROP 14:18
PROVIDERS: ATTEND Internal Medicine Hematology & Oncology
DX: Z45.2 Encounter for adjustment and management of vascular access device (principal); C78.7 Secondary malignant neoplasm of liver and intrahepatic bile duct; K74.60 Unspecified cirrhosis of liver; I25.10 Atherosclerotic heart disease of native coronary artery without angina pectoris; E78.5 Hyperlipidemia, unspecified; E11.9 Type 2 diabetes mellitus without complications; D50.9 Iron deficiency anemia, unspecified
CPT/HCPCS: 36569; 76937; 77001; C1751; J1642

== ENCOUNTER 2017-12-15 22:16 | Inpatient (IN) | payer MEDICARE ==
[~2017-12-15] VITALS: Ht 175.3 cm; Wt 101.5 kg
[~2017-12-15 22:16] MED LIST changes: -HYDR25TA5 PO
[2017-12-15 22:20] VITALS: BP 99/58; PULSE 145; RESP 22; TEMP 99.5; O2SAT 98
[2017-12-15] MEDS ORDERED: SODIUM CHLORID 0.9% 500 ML INJ 500 ML IV ONE ×2 (22:45→23:30)
[2017-12-15] MEDS ORDERED: CEFEPIME INJ 2,000 MG in SODIUM CHLORIDE 0.9% INJ 100 ML IV ONE (22:45)
[2017-12-15] MEDS ORDERED: VANCOMYCIN INJ 1,000 MG in SODIUM CHLOR 0.9% 250 ML INJ 250 ML IV ONE (22:45)
[2017-12-15] MEDS ORDERED: SODIUM CHLORIDE 0.9% FLUSH 10 ML FLUSH IVF PRN (22:45)
--- NOTE | 2017-12-15 22:57 | PD ---
HPI Chief Complaint: GI Complaint Time Seen by Provider: 22:34 Travel History International Travel<30 days: No Contact w/Intl Traveler<30days: No Traveled to known affect area: No History of Present Illness HPI 67-year-old male presents to the emergency department by private transportation in the care of her spouse for evaluation of shaking chills and generalized weakness and vomiting times one. No bilious emesis no coffee-ground emesis no hematemesis. No known fever. Patient does have shortness of breath. Patient has history of hypertension dyslipidemia and type 2 diabetes with prostate cancer receiving palliative androgen deprivation; the beginning of November patient presented to the hospital with abdominal distention and shortness of breath was identified to have an abnormal CT which is consistent with multifocal intrahepatic malignancy he underwent image guided biopsies that were consistent with poorly differentiated adenocarcinoma and a PET scan showed no evidence of additional extrahepatic primary site he also underwent EGD and colonoscopy. 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 It was recommended that he begin palliative systemic therapy. Patient has history of adenocarcinoma/ intrahepatic cholangiocarcinoma prostate carcinoma diagnosed 2011 CAD diabetes hepatic cirrhosis dyslipidemia hypertension I deficiency anemia prior history of heavy alcohol consumption vasectomy colonoscopy endoscopy CT-guided biopsy of liver mass radical prostatectomy and knee surgery. Patient started chemotherapy yesterday for the first time leucovorin and oxaliplatin. Patient has had no other chemotherapeutic agents. Patient noted symptoms within the last several hours. No near-syncope or syncope no chest pain or pleuritic chest pain. Patient's oncologist is Dr. Harrison has recommended low dose FOLFOX with follow up 12/16/17. FORMERLY [facility], [facility] Past Medical History Narrative Medical adenocarcinoma/intrahepatic cholangiocarcinoma prostate carcinoma diagnosed 2011 CAD diabetes hepatic cirrhosis dyslipidemia hypertension I deficiency anemia prior history of heavy alcohol consumption vasectomy colonoscopy endoscopy CT-guided biopsy of liver mass radical prostatectomy and knee surgery ; nursing notes reviewed Autoimmune Disease: No Cancer: Yes (PROSTATE; LIVER) Cardiovascular Problems: Yes High Cholesterol: Yes Diabetes: Yes Patient Takes Glucophage: No Diminished Hearing: No Endocrine: No Genitourinary: Yes Hypertension: Yes Immune Disorder: No Musculoskeletal: No Neurologic: No Psychiatric: No Respiratory: No Thyroid Disease: No ?: Not Past Surgical History Genitourinary Surgery: Yes (prostate) Other Surgery: Yes Social History Alcohol Use: No (quit) Tobacco Use: No Substance Use: No Allergies-Medications (Allergen,Severity, Reaction): Coded Allergies: No Known Allergies (Unverified , 12/13/17) Reported Meds & Prescriptions Reported Meds & Active Scripts Active Oxycodone (Oxycodone HCl) 5 Mg Cap 5 Mg PO Q6H PRN 3 Days Alprazolam 0.25 Mg Tab 0.25 Mg PO ONCE PRN 10 Days Zofran (Ondansetron HCl) 4 Mg Tab 4 Mg PO Q8HR PRN 5 Days Proctofoam Hc Rectal (Hydrocortisone/Pramoxine) 1-1% Foam 1 Applic RECTAL Q8H PRN Reported Oxaliplatin Inj (Oxaliplatin) 50 Mg/10 Ml (5 Mg/Ml) Inj Unknown Dose Leucovorin (Leucovorin Calcium) 5 Mg Tab Unknown Dose Diphenhydramine HCl 50 Mg Cap 50 Mg PO HS [Ritters Cream] Tramadol (Tramadol HCl) 50 Mg Tab 50 Mg PO Q6H PRN Atorvastatin (Atorvastatin Calcium) 20 Mg Tab 20 Mg PO HS Review of Systems Except as stated in HPI: all other systems reviewed are Neg Physical Exam Narrative GENERAL: Well-developed well-nourished obese male in mild respiratory distress; T: 99.5F; HR: 145; RR: 22; O2sat ra: 99%; BP: 99/58 SKIN: Warm and dry. HEAD: Normocephalic. EYES: No scleral icterus. No injection or drainage. NECK: Supple, trachea midline. No JVD or lymphadenopathy. CARDIOVASCULAR: Increased Regular rate and rhythm without murmurs, gallops, or rubs. RESPIRATORY: Breath sounds equal bilaterally. No accessory muscle use. GASTROINTESTINAL: Abdomen soft, non-tender, distended with fluid wave, hepatomegaly. MUSCULOSKELETAL: No cyanosis, bilateral lower leg edema. BACK: Nontender without obvious deformity. No CVA tenderness. Data Data Last Documented VS Vital Signs Date Time Temp Pulse Resp B/P (MAP) Pulse Ox O2 Delivery O2 Flow Rate FiO2 12/16/17 00:00 119 18 81/48 (59) 97 Nasal Cannula 3.00 12/15/17 22:20 99.5 Orders Orders Complete Blood Count With Diff (12/15/17 22:34) Comprehensive Metabolic Panel (12/15/17 22:34) B-Type Natriuretic Peptide (12/15/17 22:34) Act Partial Throm Time (Ptt) (12/15/17 22:34) Prothrombin Time / Inr (Pt) (12/15/17 22:34) Magnesium (Mg) (12/15/17 22:34) Ckmb (Isoenzyme) Profile (12/15/17 22:34) Troponin I (12/15/17 22:34) Urinalysis - C+S If Indicated (12/15/17 22:34) Blood Culture (12/15/17 22:34) Iv Access Insert/Monitor (12/15/17 22:34) Electrocardiogram (12/15/17 22:34) Ecg Monitoring (12/15/17 22:34) Oximetry (12/15/17 22:34) Oxygen Administration (12/15/17 22:34) Chest, Single Ap (12/15/17 22:34) Sodium Chloride 0.9% Flush (Ns Flush) (12/15/17 22:45) Lactic Acid Sepsis Protocol (12/15/17 22:34) Cefepime Inj (Maxipime Inj) (12/15/17 22:45) Vancomycin Inj (Vancomycin Inj) (12/15/17 22:45) Sodium Chlorid 0.9% 500 Ml Inj (Ns 500 M (12/15/17 22:45) Type And Screen (12/15/17 22:37) Sodium Chlorid 0.9% 500 Ml Inj (Ns 500 M (12/15/17 23:30) Ct Abd/Pel W Iv Contrast(Rout) (12/16/17 ) Sodium Chlor 0.9% 1000 Ml Inj (Ns 1000 M (12/16/17 00:00) Admit Order (Ed Use Only) (12/16/17 ) Irrigator Head / Telemetry ADDISON.Q8H (12/16/17 00:04) Diet Npo (12/16/17 Breakfast) Activity Bed Rest (12/16/17 00:04) Notify Dr: Other (12/16/17 00:04) Labs Laboratory Tests Test 12/15/17 22:40 White Blood Count 33.9 TH/MM3 Red Blood Count 3.57 MIL/MM3 Hemoglobin 8.7 GM/DL Hematocrit 28.7 % Mean Corpuscular Volume 80.2 FL Mean Corpuscular Hemoglobin 24.3 PG Mean Corpuscular Hemoglobin Concent 30.3 % Red Cell Distribution Width 16.8 % Platelet Count 408 TH/MM3 Mean Platelet Volume 8.2 FL Neutrophils (%) (Auto) 95.0 % Lymphocytes (%) (Auto) 3.2 % Monocytes (%) (Auto) 1.5 % Eosinophils (%) (Auto) 0.2 % Basophils (%) (Auto) 0.1 % Neutrophils # (Auto) 32.2 TH/MM3 Lymphocytes # (Auto) 1.1 TH/MM3 Monocytes # (Auto) 0.5 TH/MM3 Eosinophils # (Auto) 0.1 TH/MM3 Basophils # (Auto) 0.0 TH/MM3 CBC Comment AUTO DIFF Differential Total Cells Counted 100 Neutrophils % (Manual) 83 % Band Neutrophils % 14 % Lymphocytes % 2 % Neutrophils # (Manual) 33.2 TH/MM3 Myelocytes 1 % Differential Comment FINAL DIFF MANUAL Toxic Granulation 1+ Toxic Vacuolation PRESENT Platelet Estimate NORMAL Platelet Morphology Comment NORMAL Ovalocytes 1+ Prothrombin Time 14.3 SEC Prothromb Time International Ratio 1.4 RATIO Activated Partial Thromboplast Time 27.4 SEC Blood Urea Nitrogen 27 MG/DL Creatinine 1.11 MG/DL Random Glucose 167 MG/DL Total Protein 6.4 GM/DL Albumin 1.4 GM/DL Calcium Level 8.5 MG/DL Magnesium Level 1.5 MG/DL Alkaline Phosphatase 189 U/L Aspartate Amino Transf (AST/SGOT) 25 U/L Alanine Aminotransferase (ALT/SGPT) 9 U/L Total Bilirubin 0.3 MG/DL Sodium Level 135 MEQ/L Potassium Level 3.6 MEQ/L Chloride Level 98 MEQ/L Carbon Dioxide Level 21.1 MEQ/L Anion Gap 16 MEQ/L Estimat Glomerular Filtration Rate 66 ML/MIN Lactic Acid Level 7.7 mmol/L Total Creatine Kinase 21 U/L Troponin I LESS THAN 0.02 NG/ML B-Type Natriuretic Peptide 141 PG/ML MDM Medical Decision Making Medical Screen Exam Complete: Yes Emergency Medical Condition: Yes Medical Record Reviewed: Yes Interpretation(s) EKG: Sinus tachycardia rate [address] elevation or injury pattern Is noted septally Differential Diagnosis Dyspnea, sepsis, anemia, CHF, ACS, PE Narrative Course Patient placed on cardiac tech with continuous pulse oximetry IV access obtained sepsis protocol initiated patient treated with cefepime 2 g and vancomycin 1 g along with 500 cc bolus of normal saline Sepsis Criteria SIRS Criteria (2 or more): Heart rate over 90, RR > 20 or PaCO2 < 32, WBC > 28312, < 4000 or > 10% bands Sepsis Criteria (SIRS+source): Infect source susp/known Severe Sepsis (+one): Acute Oliguria/Renal Failure Septic Shock Criteria: Unresponsive to 30ml/kg fluid bolus, Lactic acid >=4 Physician Communication Physician Communication discussed with Dr Weber for admission Diagnosis Primary Impression: Sepsis Qualified Codes: A41.9 - Sepsis, unspecified organism Additional Impression: Liver metastases Admitting Information Admitting Physician Requests: Admit Chetna Cuevas MD Dec 15, 2017 22:57
[2017-12-15 23:00] VITALS: BP 99/60; PULSE 125; RESP 24; O2SAT 97
[2017-12-15 23:03] LABS: AUTOMATED NEUTROPHIL # 32.2 TH/MM3 (1.8-7.7); BASOPHIL % 0.1 % (0.0-2.0); EOSINOPHIL # 0.1 TH/MM3 (0-0.4); EOSINOPHIL % 0.2 % (0.0-4.0); HEMATOCRIT 28.7 % (39.0-51.0); HEMOGLOBIN 8.7 GM/DL (13.0-17.0); LYMPH % 3.2 % (9.0-44.0); LYMPHOCYTE # 1.1 TH/MM3 (1.0-4.8); MEAN CELL VOLUME 80.2 FL (80.0-100.0); MEAN CORPUSCULAR HEMOGLOBIN 24.3 PG (27.0-34.0); MEAN CORPUSCULAR HGB CONC 30.3 % (32.0-36.0); MEAN PLATELET VOLUME 8.2 FL (7.0-11.0); MONO % 1.5 % (0.0-8.0); MONOCYTE # 0.5 TH/MM3 (0-0.9); PLATELET COUNT 408 TH/MM3 (150-450); RED BLOOD COUNT 3.57 MIL/MM3 (4.50-5.90); RED CELL DISTRIBUTION WIDTH 16.8 % (11.6-17.2); WHITE BLOOD COUNT 33.9 TH/MM3 (4.0-11.0)
[2017-12-15 23:11] LABS: INTERNATIONAL NORMALIZED RATIO 1.4 RATIO; PROTHROMBIN TIME - PATIENT 14.3 SEC (9.8-11.6)
[2017-12-15] MEDS ORDERED: LEUC5TAB (23:17)
[2017-12-15] MEDS ORDERED: OXAL50IN (23:17)
[2017-12-15 23:18] LABS: ALBUMIN 1.4 GM/DL (3.4-5.0); AST (GOT) 25 U/L (15-37); BICARBONATE 21.1 MEQ/L (21.0-32.0); BLOOD UREA NITROGEN 27 MG/DL (7-18); CALCIUM 8.5 MG/DL (8.5-10.1); CHLORIDE 98 MEQ/L (98-107); CREATININE 1.11 MG/DL (0.60-1.30); GLOMERULAR FILTRATION RATE 66 ML/MIN (>89); GLUCOSE,RANDOM 167 MG/DL (74-106); MAGNESIUM 1.5 MG/DL (1.5-2.5); SODIUM (NA) 135 MEQ/L (136-145)
[2017-12-15 23:19] LABS: ALT (GPT) 9 U/L (12-78)
[2017-12-15 23:23] LABS: ALKALINE PHOSPHATASE 189 U/L (45-117); TOTAL BILIRUBIN ADULT 0.3 MG/DL (0.2-1.0); TOTAL PROTEIN 6.4 GM/DL (6.4-8.2); TROPONIN I LESS THAN 0.02 NG/ML (0.02-0.05)
[2017-12-15 23:49] LABS: LACTIC ACID SEPSIS PROTOCOL 7.7 mmol/L (0.4-2.0)
[2017-12-16] VITALS (22 sets, daily range): BP systolic 81–144; BP diastolic 48–77; PULSE 61–119; RESP 12–20; TEMP 97.6–99.3; O2SAT 96–100
[2017-12-16 00:02] LABS: BANDS 14 % (0-6); LYMPHOCYTES 2 % (9-44); MYELOCYTES 1 % (0-0); NEUTROPHIL # MANUAL DIFF 33.2 TH/MM3 (1.8-7.7); POLYS (SEG NEUTROPHILS) 83 % (16-70)
[2017-12-16 00:04] LABS: TOXIC GRANULATION 1+ (NORMAL); TOXIC VACUOLATION PRESENT (NONE SEEN)
[2017-12-16 00:09] LABS: OVALOCYTES 1+ (NORMAL)
--- NOTE | 2017-12-16 00:29 | RADRPT ---
EXAM DATE/TIME: 12/15/2017 23:18 [facility] COMPARISON: CHEST PA & LAT, November 21, 2017, 16:23. INDICATIONS : General illness as a result of undergoing chemotherapy for liver cancer. MEDICAL HISTORY : Hypercholesterolemia. Hypertension Liver CA SURGICAL HISTORY : Right knee surgery ENCOUNTER: Initial ACUITY: 1 day PAIN SCORE: 0/10 LOCATION: Bilateral chest FINDINGS: A single view of the chest demonstrates the lungs to be symmetrically aerated without evidence of mas s, infiltrate or effusion. The cardiomediastinal contours are unremarkable. The right PICC line tip in superior vena cava. Osseous structures are intact. CONCLUSION: 1. No acute findings. Right PICC line in superior vena cava. Leonidas Redeer MD on December 16, 2017 at 0:26 Board Certified Radiologist. This report was verified electronically.
[2017-12-16] MEDS ORDERED: SODIUM CHLOR 0.9% 1000 ML INJ 1,000 ML IV ONE ×4 (00:30→00:44)
[2017-12-16] MEDS ORDERED: SODIUM CHLOR 0.9% 1000 ML INJ 100 ML IV ONE (00:44)
[2017-12-16] MEDS ORDERED: CHLORHEXIDINE GLUCONATE 2 % 1 PACK (2 CLOTHS) TOP PRN (00:45)
[2017-12-16] MEDS ORDERED: ALPRAZolam 0.25 MG TAB PO PRN (00:45)
[2017-12-16] MEDS ORDERED: SENNOSIDES 8.6 MG TAB PO PRN (00:45)
[2017-12-16] MEDS ORDERED: RESP: ALBUTEROL 2.5 MG/IPRATROPIUM 0.5 MG NEB (PRN) INH (00:45)
[2017-12-16] MEDS ORDERED: BISACODYL 10 MG SUPP RECTAL PRN (00:45)
[2017-12-16] MEDS ORDERED: LACTULOSE SYRUP 20 GM/30 ML CUP PO PRN (00:45)
[2017-12-16] MEDS ORDERED: MAGNESIUM HYDROXIDE SUSP 30 ML CUP PO PRN (00:45)
[2017-12-16] MEDS ORDERED: SODIUM CHLORIDE 0.9% FLUSH 10 ML FLUSH IV FLUSH PRN (00:45)
[2017-12-16] MEDS ORDERED: MISCELLANEOUS NURSING INFORMATION XX SCH (00:45)
[2017-12-16] MEDS ORDERED: IOHEXOL 350 MG/ML 10 ML VIAL (for RAD DIAG) IVCONTRAST ONE (00:49)
[2017-12-16] MEDS ORDERED: Vancomycin Consult Pharmacy 1 EA OTHER SCH (01:00)
[2017-12-16] MEDS: CHLORHEXIDINE GLUCONATE 2 % 1 PACK (2 CLOTHS) TOP SCH (01:08)
--- NOTE | 2017-12-16 01:12 | RADRPT ---
EXAM DATE/TIME: 12/16/2017 00:34 [facility] COMPARISON: No previous studies available for comparison. INDICATIONS : Abdominal pain, general weakness and vomiting. IV CONTRAST: 100 cc Omnipaque 350 (iohexol) IV ORAL CONTRAST: No oral contrast ingested. RADIATION DOSE: 14.61 CTDIvol (mGy) MEDICAL HISTORY : Hypertension. Carcinoma, prostate. Metastatic, liver.Chemo. SURGICAL HISTORY : Prostate surgery. ENCOUNTER: Initial ACUITY: 2 days PAIN SCALE: 6/10 LOCATION: Abdomen. TECHNIQUE: Volumetric scanning of the abdomen and pelvis was performed. Using automated exposure control and ad justment of the mA and/or kV according to patient size, radiation dose was kept as low as reasonably achievable to obtain optimal diagnostic quality images. DICOM format image data is available electro nically for review and comparison. FINDINGS: Lung bases are clear. No effusions. There is widespread metastatic disease throughout the liver which is enlarged to 28.2 cm compared with 26.1 cm in November. There is increasing fluid around the liver compared with prior exam and also increasing fluid around the spleen and along the paracolic gutters and pelvis. No focal abnormalities in the spleen, adrenals, kidneys or pancreas. Small calcified gallstone in the gallbladder. No biliary ductal dilatation. No bowel obstruction or free air. No acute bony abnormalities. CONCLUSION: 1. Worsening of metastatic disease to the liver with mild ascites, increased from November 22. No bowel obstruction or free air. 2. Gallstones in gallbladder. Leonidas Reeder MD on December 16, 2017 at 1:04 Board Certified Radiologist. This report was verified electronically.
[2017-12-16] MEDS: ENOXAPARIN SODIUM 30 MG/0.3 ML SYRINGE SQ SCH (01:42)
[2017-12-16] MEDS: ONDANSETRON HCL 4 MG/2 ML VIAL IV PUSH PRN ×2 (01:43→14:17)
[2017-12-16] MEDS: SODIUM CHLORIDE 0.9% FLUSH 10 ML FLUSH IV FLUSH PRN (01:43)
[2017-12-16] MEDS ORDERED: VANCOMYCIN INJ 800 MG in SODIUM CHLOR 0.9% 250 ML INJ 250 ML IV SCH (02:00)
--- NOTE | 2017-12-16 03:20 | HHI.HP ---
[facility] Service Critical Care Medicine Primary Care Physician Rochelle Aburto MD Admission Diagnosis sepsis; intrahepatic cholangiocarcinoma Diagnosis: Travel History International Travel<30 Days: No Contact w/Intl Traveler <30 Da: No Traveled to Known Affected Are: No History of Present Illness 67-year-old male with a history of prostate carcinoma which is currently under treatment with palliative androgen deprivation, recently diagnosed with an advanced intrahepatic cholangiocarcinoma which is nonresectable, has been started palliative systemic therapy yesterday, presents today for an evaluation of shaking chills and generalized weakness and vomiting times one. No bilious emesis no coffee-ground emesis no hematemesis. No known fever. Patient does have some shortness of breath. Review of Systems Constitutional: COMPLAINS OF: Fatigue, Chills, Dizziness, Change in appetite, DENIES: Diaphoretic episodes, Fever, Weight gain, Weight loss, Night Sweats Endocrine: DENIES: Heat/cold intolerance, Polydipsia, Polyuria, Polyphagia Eyes: DENIES: Blurred vision, Diplopia, Eye inflammation, Eye pain, Vision loss , Photosensitivity, Double Vision Ears, nose, mouth, throat: DENIES: Tinnitus, Hearing loss, Vertigo, Nasal discharge, Oral lesions, Throat pain, Hoarseness, Ear Pain, Running Nose, Epistaxis, Sinus Pain, Toothache, Odynophagia Respiratory: DENIES: Apneas, Cough, Snoring, Wheezing, Hemoptysis, Sputum production, Shortness of breath Cardiovascular: DENIES: Chest pain, Palpitations, Syncope, Dyspnea on Exertion , PND, Lower Extremity Edema, Orthopnea, Claudication Gastrointestinal: COMPLAINS OF: Nausea, Vomiting, DENIES: Abdominal pain, Black stools, Bloody stools, Constipation, Diarrhea, Difficulty Swallowing, Anorexia Genitourinary: DENIES: Sexual dysfunction, Urinary frequency, Urinary incontinence, Urgency, Hematuria, Dysuria, Nocturia, Penile Discharge, Testicular Pain, Testicular Swelling Musculoskeletal: DENIES: Joint pain, Muscle aches, Stiffness, Joint Swelling, Back pain, Neck pain Integumentary: DENIES: Abnormal pigmentation, Nail changes, Pruritus, Rash Hematologic/lymphatic: DENIES: Bruising, Lymphadenopathy Immunologic/allergic: DENIES: Eczema, Urticaria Neurologic: DENIES: Abnormal gait, Headache, Localized weakness, Paresthesias, Seizures, Speech Problems, Tremor, Poor Balance Psychiatric: DENIES: Anxiety, Confusion, Mood changes, Depression, Hallucinations, Agitation, Suicidal Ideation, Homicidal Ideation, Delusions Past Family Social History Allergies: Coded Allergies: No Known Allergies (Unverified , 12/13/17) Past Medical History Adenocarcinoma with extensive hepatic involvement (Suspected intrahepatic cholangiocarcinoma.) Carcinoma of the Prostate (Initially diagnosed in 2011.) Cardiovascular Disease Diabetes Type II Hemorrhoids Hepatic Cirrhosis Hyperlipidemia Hypertension Iron Deficiency Anemia Personal history of heavy alcohol consumption Pneumonia in 2009 Past Surgical History Prostate biopsy Vasectomy Colonoscopy in 2017 CT-guided biopsy of hepatic mass in 2017 EGD in 2018 Radical Prostatectomy in 2011 Knee surgery in 2010 Reported Medications Reported Meds & Active Scripts Active Oxycodone (Oxycodone HCl) 5 Mg Cap 5 Mg PO Q6H PRN 3 Days Alprazolam 0.25 Mg Tab 0.25 Mg PO ONCE PRN 10 Days Zofran (Ondansetron HCl) 4 Mg Tab 4 Mg PO Q8HR PRN 5 Days Proctofoam Hc Rectal (Hydrocortisone/Pramoxine) 1-1% Foam 1 Applic RECTAL Q8H PRN Reported Oxaliplatin Inj (Oxaliplatin) 50 Mg/10 Ml (5 Mg/Ml) Inj Unknown Dose Leucovorin (Leucovorin Calcium) 5 Mg Tab Unknown Dose Diphenhydramine HCl 50 Mg Cap 50 Mg PO HS [Ritters Cream] Tramadol (Tramadol HCl) 50 Mg Tab 50 Mg PO Q6H PRN Atorvastatin (Atorvastatin Calcium) 20 Mg Tab 20 Mg PO HS Active Ordered Medications Current Medications Medications (Trade) Dose Ordered Sig/Tiffany Route PRN Reason Start Time Stop Time Status Last Admin Dose Admin Atorvastatin Calcium (Lipitor) 20 mg HS PO 12/16/17 21:00 Diphenhydramine HCl (Benadryl) 50 mg HS PO 12/16/17 21:00 Oxycodone HCl (Roxicodone) 5 mg Q6H PRN PO PAIN 12/16/17 00:45 12/16/17 01:43 Tramadol HCl (Ultram) 50 mg Q6H PRN PO PAIN 12/16/17 00:45 Sodium Chloride 1,000 ml @ 184 mls/hr Q5H27M IV 12/16/17 00:44 Sodium Chloride (NS Flush) 2 ml UNSCH PRN IV FLUSH FLUSH AFTER USING IV ACCESS 12/16/17 00:45 12/16/17 01:43 Sodium Chloride (NS Flush) 2 ml BID IV FLUSH 12/16/17 09:00 Acetaminophen (Tylenol) 650 mg Q6H PRN PO PAIN 1-10 AND/OR FEVER >101F 12/16/17 00:45 Famotidine (Pepcid) 20 mg Q12HR PO 12/16/17 09:00 Ondansetron HCl (Zofran Inj) 4 mg Q6H PRN IV PUSH NAUSEA OR VOMITING 12/16/17 00:45 12/16/17 01:43 Temazepam (Restoril) 15 mg HS PRN PO INSOMNIA 12/16/17 00:45 Albuterol/ Ipratropium (Duoneb Neb) 1 ampule Q2HR NEB PRN INH WHEEZING 12/16/17 00:45 Enoxaparin Sodium (Lovenox Inj) 30 mg Q24H SQ 12/16/17 00:45 12/16/17 01:42 Miscellaneous Information 1 Q361D XX 12/16/17 00:45 12/16/17 00:45 Chlorhexidine Gluconate (Chlorhexidine 2% Cloth) 3 pack Taper DAILY@04 TOP 12/16/17 04:00 12/12/18 03:59 12/16/17 01:08 Chlorhexidine Gluconate (Chlorhexidine 2% Cloth) 3 pack UNSCH PRN TOP HYGIENIC CARE 12/16/17 00:45 Senna/Docusate Sodium (Tina-Colace) 1 tab BID PO 12/16/17 09:00 Magnesium Hydroxide (Milk Of Magnesia Liq) 30 ml Q12H PRN PO Mild constipation 12/16/17 00:45 Sennosides (Senokot) 17.2 mg Q12H PRN PO Moderate constipation 12/16/17 00:45 Bisacodyl (Dulcolax Supp) 10 mg DAILY PRN RECTAL SEVERE CONSITIPATION/ IF NPO 12/16/17 00:45 Lactulose (Lactulose Liq) 30 ml DAILY PRN PO SEVERE CONSITIPATION/ IF PO 12/16/17 00:45 Cefepime HCl 2000 mg/Sodium Chloride 100 ml @ 200 mls/hr Q8H IV 12/16/17 08:00 Pharmacy Profile Note 0 ml @ 0 mls/hr UNSCH OTHER 12/16/17 01:00 Vancomycin HCl 800 mg/Sodium Chloride 258 ml @ 250 mls/hr DAILY@0200 IV 12/16/17 02:00 12/16/17 06:00 12/16/17 02:38 Family History Reviewed and no family history of diabetes or coronary artery disease Social History 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 Quit smoking 44 years ago. He is a former drinker who had consumed 6 drinks/day 7 days/week. He has indicated exposure to the following products: cigarettes and beer. Physical Exam Vital Signs Vital Signs Date Time Temp Pulse Resp B/P (MAP) Pulse Ox O2 Delivery O2 Flow Rate FiO2 12/16/17 02:00 96 12/16/17 01:30 98.2 110 19 103/58 (73) 98 12/16/17 01:03 12/16/17 01:02 105 18 93/50 (64) 99 Nasal Cannula 3.00 12/16/17 00:19 99.3 12/16/17 00:15 113 18 90/55 (67) 97 Nasal Cannula 3.00 12/16/17 00:00 119 18 81/48 (59) 97 Nasal Cannula 3.00 12/15/17 23:00 125 24 99/60 (73) 97 Nasal Cannula 2.00 12/15/17 22:49 100 Nasal Cannula 2.00 12/15/17 22:20 99.5 145 22 99/58 (72) 98 Physical Exam GENERAL: Well-nourished, well-developed patient. In moderate distress SKIN: Warm and dry. HEAD: Normocephalic. EYES: No scleral icterus. No injection or drainage. NECK: Supple, trachea midline. No JVD or lymphadenopathy. CARDIOVASCULAR: Regular rate and rhythm without murmurs, gallops, or rubs. RESPIRATORY: Breath sounds equal bilaterally. No accessory muscle use. GASTROINTESTINAL: Abdomen soft, non-tender, somehow distended. MUSCULOSKELETAL: No cyanosis, or edema. BACK: Nontender without obvious deformity. NEURO EXAM: GCS: 15 Mental Status: The patient is alert and oriented to person, place, and time with normal speech. Laboratory Laboratory Tests Test 12/15/17 22:40 12/16/17 01:00 White Blood Count 33.9 Red Blood Count 3.57 Hemoglobin 8.7 Hematocrit 28.7 Mean Corpuscular Volume 80.2 Mean Corpuscular Hemoglobin 24.3 Mean Corpuscular Hemoglobin Concent 30.3 Red Cell Distribution Width 16.8 Platelet Count 408 Mean Platelet Volume 8.2 Neutrophils (%) (Auto) 95.0 Lymphocytes (%) (Auto) 3.2 Monocytes (%) (Auto) 1.5 Eosinophils (%) (Auto) 0.2 Basophils (%) (Auto) 0.1 Neutrophils # (Auto) 32.2 Lymphocytes # (Auto) 1.1 Monocytes # (Auto) 0.5 Eosinophils # (Auto) 0.1 Basophils # (Auto) 0.0 CBC Comment AUTO DIFF Differential Total Cells Counted 100 Neutrophils % (Manual) 83 Band Neutrophils % 14 Lymphocytes % 2 Neutrophils # (Manual) 33.2 Myelocytes 1 Differential Comment FINAL DIFF MANUAL Toxic Granulation 1+ Toxic Vacuolation PRESENT Platelet Estimate NORMAL Platelet Morphology Comment NORMAL Ovalocytes 1+ Prothrombin Time 14.3 Prothromb Time International Ratio 1.4 Activated Partial Thromboplast Time 27.4 Blood Urea Nitrogen 27 Creatinine 1.11 Random Glucose 167 Total Protein 6.4 Albumin 1.4 Calcium Level 8.5 Magnesium Level 1.5 Alkaline Phosphatase 189 Aspartate Amino Transf (AST/SGOT) 25 Alanine Aminotransferase (ALT/SGPT) 9 Total Bilirubin 0.3 Sodium Level 135 Potassium Level 3.6 Chloride Level 98 Carbon Dioxide Level 21.1 Anion Gap 16 Estimat Glomerular Filtration Rate 66 Lactic Acid Level 7.7 5.0 Total Creatine Kinase 21 Troponin I LESS THAN 0.02 B-Type Natriuretic Peptide 141 Date/Time Source Procedure Growth Status 12/15/17 22:40 Blood Peripheral Aerobic Blood Culture Pending Received 12/15/17 22:40 Blood Peripheral Anaerobic Blood Culture Pending Received Result Diagram: 12/15/17223912/15/17 2240 Imaging Last 24 hours Impressions Abdomen/Pelvis CT 12/16/17 0000 Signed Impressions: Service Date/Time: December 00:34 - CONCLUSION: 1. Worsening of metastatic disease to the liver with mild ascites, increased from November 22. No bowel obstruction or free air. 2. Gallstones in gallbladder. Leonidas Reeder MD Chest X-Ray 12/15/174 Signed Impressions: Service Date/Time: Friday, December 15, 2017 23:18 - CONCLUSION: 1. No acute findings. Right PICC line in superior vena cava. Leonidas Reeder MD Septic Shock Reassessment Septic shock perfusion: reassessment completed Caprini VTE Risk Assessment Caprini VTE Risk Assessment: Mod/High Risk (score >= 2) Caprini Risk Assessment Model Point Value = 1 Point Value = 2 Point Value = 3 Point Value = 5 Age 41-60 Minor surgery BMI > 25 kg/m2 Swollen legs Varicose veins or History of unexplained or recurrent spontaneous Oral contraceptives or hormone replacement Sepsis (< 1 month) Serious lung disease, including pneumonia (< 1 month) Abnormal pulmonary function Acute myocardial infarction Congestive heart failure (< 1 month) History of inflammatory bowel disease Medical patient at bed rest Age 61-74 Arthroscopic surgery Major open surgery (> 45 min) Laparoscopic surgery (> 45 min) Malignancy Confined to bed (> 72 hours) Immobilizing plaster cast Central venous access Age >= 75 History of VTE Family history of VTE Factor V Leiden Prothrombin [id number] Lupus anticoagulant Anticardiolipin antibodies Elevated serum homocysteine Heparin-induced thrombocytopenia Other congenital or acquired thrombophilia Stroke (< 1 month) Elective arthroplasty Hip, pelvis, or leg fracture Acute spinal cord injury (< 1 month) Prophylaxis Regimen Total Risk Factor Score Risk Level Prophylaxis Regimen 0-1 Low Early ambulation 2 Moderate Order ONE of the following: *Sequential Compression Device (SCD) *Heparin 5000 units SQ BID 3-4 Higher Order ONE of the following medications: *Heparin 5000 units SQ TID *Enoxaparin/Lovenox 40 mg SQ daily (WT < 150 kg, CrCl > 30 mL/min) *Enoxaparin/Lovenox 30 mg SQ daily (WT < 150 kg, CrCl > 10-29 mL/min) *Enoxaparin/Lovenox 30 mg SQ BID (WT < 150 kg, CrCl > 30 mL/min) AND/OR *Sequential Compression Device (SCD) 5 or more Highest Order ONE of the following medications: *Heparin 5000 units SQ TID (Preferred with Epidurals) *Enoxaparin/Lovenox 40 mg SQ daily (WT < 150 kg, CrCl > 30 mL/min) *Enoxaparin/Lovenox 30 mg SQ daily (WT < 150 kg, CrCl > 10-29 mL/min) *Enoxaparin/Lovenox 30 mg SQ BID (WT < 150 kg, CrCl > 30 mL/min) AND *Sequential Compression Device (SCD) Assessment and Plan Assessment and Plan Neutropenic sepsis - Broad-spectrum antibiotic - IV fluid resuscitation - Infectious disease consultation - Blood culture urine culture - De-escalate antibiotics per sensitivity Prostate cancer Cholangiocarcinoma - Hold current immunotherapy - Supportive care Dyslipidemia - Atorvastatin Insomnia - Diphenhydramine when necessary - Temazepam DVT GI prophylaxis - Teds SCDs - Lovenox - Pepcid Critical Care: The total critical care time was 35 minutes. Time to perform other separately billable procedures was not included in the critical care time. Vicente Weber MD Dec 16, 2017 3:20 am
[2017-12-16] MEDS: SODIUM CHLOR 0.9% 1000 ML INJ 1,000 ML IV SCH ×3 (03:36→04:41)
[2017-12-16 04:08] LABS: AUTOMATED NEUTROPHIL # 17.7 TH/MM3 (1.8-7.7); BASOPHIL # 0.1 TH/MM3 (0-0.2); BASOPHIL % 0.4 % (0.0-2.0); EOSINOPHIL # 0.1 TH/MM3 (0-0.4); EOSINOPHIL % 0.3 % (0.0-4.0); LYMPH % 5.4 % (9.0-44.0); MEAN CELL VOLUME 80.5 FL (80.0-100.0); MEAN PLATELET VOLUME 8.1 FL (7.0-11.0); MONO % 1.5 % (0.0-8.0); MONOCYTE # 0.3 TH/MM3 (0-0.9); NEUT % 92.4 % (16.0-70.0); PLATELET COUNT 236 TH/MM3 (150-450); RED BLOOD COUNT 2.44 MIL/MM3 (4.50-5.90); RED CELL DISTRIBUTION WIDTH 16.3 % (11.6-17.2); WHITE BLOOD COUNT 19.1 TH/MM3 (4.0-11.0)
[2017-12-16] MEDS: TEMAZEPAM 15 MG CAP PO PRN ×2 (04:41→20:57)
[2017-12-16 05:00] LABS: ALBUMIN 1.1 GM/DL (3.4-5.0); BICARBONATE 25.7 MEQ/L (21.0-32.0); CALCIUM 7.2 MG/DL (8.5-10.1); CALCIUM-PROTEIN CORRECTED 8.3 MG/DL (8.5-10.1); CREATININE 0.96 MG/DL (0.60-1.30); TOTAL BILIRUBIN ADULT 0.3 MG/DL (0.2-1.0)
[2017-12-16 05:05] LABS: HEMATOCRIT 19.6 % (39.0-51.0); HEMOGLOBIN 6.1 GM/DL (13.0-17.0)
[2017-12-16 06:17] LABS: BILIRUBIN, URINE NEG (NEG); BLOOD, URINE NEG (NEG); GLUCOSE,URINE NEG (NEG); KETONE, URINE NEG (NEG); MUCUS URINE FEW /lpf (OCC); NITRITE,URINE NEG (NEG); SQUAMOUS EPITHELIAL CELL URINE <1 /hpf (0-5); URINE COLOR YELLOW (YELLW/STRAW); URINE LEUKOCYTE ESTERASE NEG (NEG)
--- NOTE | 2017-12-16 08:12 | EKG ---
Date Performed: 12/15/2017 Time Performed: 22:56:19 PTAGE: 67 years EKG: SINUS TACHYCARDIA LOW QRS VOLTAGE IN EXTREMITY LEADS NONSPECIFIC ST & T-WAVE ABNORMALITY AB NORMAL ECG Compared to prior electrocardiogram, rate has increased and Nonspecific ST and T wave abno rmalities are now present PREVIOUS TRACING : 11/30/2017 18.01 DOCTOR: Rian Quintana Interpretating Date/Time 12/16/2017 08:11:43
[2017-12-16] MEDS: CEFEPIME INJ 2,000 MG in SODIUM CHLORIDE 0.9% INJ 100 ML IV SCH ×2 (08:34→15:39)
[2017-12-16] MEDS: ACETAMINOPHEN 325 MG TAB PO PRN (08:41)
[2017-12-16] MEDS: FAMOTIDINE 20 MG TAB PO SCH ×2 (08:42→20:57)
[2017-12-16] MEDS: DOCUSATE SODIUM 50 MG/SENNA 8.6 MG TAB PO SCH ×2 (08:42→20:57)
[2017-12-16] MEDS: SODIUM CHLORIDE 0.9% FLUSH 10 ML FLUSH IV FLUSH SCH ×2 (08:42→20:56)
[2017-12-16] MEDS ORDERED: SODIUM CHLORIDE 0.9% FLUSH 10 ML FLUSH IV FLUSH SCH (09:00)
--- NOTE | 2017-12-16 10:18 | PD.CONS ---
Consult Service Palliative Care . Consult Requested By Dr. Weber . Primary Care Physician Non-Staff . Reason for Consultation a. To assist with evaluation and management of symptoms including: nausea, pain, constipation b. To assist medical decision maker(s) with: better understanding of current medical conditions; weighing benefits/burdens of medical treatment options; making medical treatment decisions. . HPI History of Present Illness Mr. Baltazar is a 67-year-old male who presented to [facility] ED on 2017 with chills, generalized weakness and one episode of vomiting. Patient received his first chemotherapy treatment the day before with leucovorin and oxaliplatin. Patient has had no previously chemotherapeutic agents. No bilious emesis; no coffee-ground emesis; no hematemesis. No known fever. The patient has a known history of prostate carcinoma that was diagnosed approximately 5 years ago and underwent a radical prostatectomy. Several months ago the patient was noted to have biochemical failure with his PSA increasing to 2.5 (PSA was at 0 s/p prostatectomy). A recent PET scan at the [facility] in [place] showed no definite evidence of metastatic disease. However hypermetabolism associated with inguinal and iliac lymph node chains as well as a retroperitoneal lymph node chain was noted, and the patient was started on palliative androgen blockade with Lupron. On 11/21/2017 the patient was admitted to [facility] with abdominal distention and shortness of breath. CT abdomen was consistent with multifocal intrahepatic malignancy. Patient underwent CT-guided biopsy which revealed poorly differentiated adenocarcinoma, and a PET scan showed no evidence of additional extrahepatic primary site Patient also underwent EGD and colonoscopy which revealed diverticulosis and thrombosed hemorrhoids. 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 Additional diagnostic data while in the ED: * Pulse 135, respirations 22, BP 99/58, oxygen saturation 100% on 2 L via nasal cannula, temperature 99.5 * WBC 33.7, hemoglobin 8.7, hematocrit 28.7, platelets 408, neutrophils 95.0% * Sodium: 135, potassium 3.6, chloride 98, carbon dioxide 21.1, glucose 167, calcium 8.5, magnesium 1.5 * BUN: 27, creatinine 1.11, GFR 66 * Total bilirubin: 0.3, AST 25, ALT 9, alkaline phosphatase 189 * Total creatine kinase: 21 troponin: <0.02 * Total protein: 6.4, albumin 1.4 * PT: 14.3, INR 1.4, 8 PTT 27.4 * Urinalysis- normal * Lactic acid: 7.7 * BNP: 141 * Chest x-ray showed no acute findings * EKG showed sinus tachycardia with a rate of 1:30; no acute ST elevation or injury pattern was noted septally. Sepsis protocol was initiated in the ED, and the patient received cefepime and vancomycin IV in addition to 500mL bolus of normal saline. He was admitted for further evaluation and medical management. Urine and blood cultures are pending , and infectious disease was consulted for recommendations. Patient with intrahepatic cholangiocarcinoma complaining of abdominal pain rated 4 out of 5 status post pain medication. Patient H/H down to 6.1/19.6 this morning; currently transfused with 3rd unit RBCs. GI consult pending. Palliative Care was consulted to assist with symptom management and to discuss with the patient/family the benefits and burdens of his current illnesses and the options regarding future care. . Function/Cognitive Trajectory Patient progressively increased fatigue and decreased appetite over the past few months. He has lost 30+ pounds within this time frame. He has had occasional nausea and vomiting. Patient has a history of EtOH abuse but when the symptoms began in September, he quit drinking. . Review of Systems Constitutional: COMPLAINS OF: Fatigue, Weight loss (30+ poubd weight loss reported in the past few months.), Change in appetite (Decreased appetite), Generalized weakness Respiratory: COMPLAINS OF: Shortness of breath Cardiovascular: COMPLAINS OF: Lower Extremity Edema Gastrointestinal: COMPLAINS OF: Abdominal pain, Nausea Hematologic/Lymphatics: COMPLAINS OF: History of transfusions Psychiatric: COMPLAINS OF: Anxiety Past Family Social History Coded Allergies: No Known Allergies (Unverified , 12/13/17) Past Medical History Adenocarcinoma with extensive hepatic involvement (Suspected intrahepatic cholangiocarcinoma.) Carcinoma of the Prostate (Initially diagnosed in 2011.) Cardiovascular Disease Diabetes Type II Hemorrhoids Hepatic Cirrhosis Hyperlipidemia Hypertension Iron Deficiency Anemia Personal history of heavy alcohol consumption Pneumonia in 2009 . Past Surgical History Prostate biopsy Vasectomy Colonoscopy in 2018 CT-guided biopsy of hepatic mass in 2018 EGD in 2018 Radical Prostatectomy in 2011 Knee replacement in 2010 . Reported Medications Oxaliplatin Inj (Oxaliplatin) 50 Mg/10 Ml (5 Mg/Ml) Inj Unknown Dose Leucovorin (Leucovorin Calcium) 5 Mg Tab Unknown Dose Diphenhydramine HCl 50 Mg Cap 50 Mg PO HS Tramadol (Tramadol HCl) 50 Mg Tab 50 Mg PO Q6H PRN Atorvastatin (Atorvastatin Calcium) 20 Mg Tab 20 Mg PO HS . Current Medications Medications (Trade) Dose Ordered Sig/Tiffany Route Start Time Stop Time Status Last Admin (Lipitor) 20 mg HS PO 12/16/17 21:00 (Benadryl) 50 mg HS PO 12/16/17 21:00 (Roxicodone) 5 mg Q6H PRN PO 12/16/17 00:45 12/16/17 08:42 (Ultram) 50 mg Q6H PRN PO 12/16/17 00:45 Sodium Chloride 1,000 ml @ 184 mls/hr Q5H27M IV 12/16/17 00:44 12/16/17 04:41 (NS Flush) 2 ml UNSCH PRN IV FLUSH 12/16/17 00:45 12/16/17 01:43 (NS Flush) 2 ml BID IV FLUSH 12/16/17 09:00 12/16/17 08:42 (Tylenol) 650 mg Q6H PRN PO 12/16/17 00:45 12/16/17 08:41 (Pepcid) 20 mg Q12HR PO 12/16/17 09:00 12/16/17 08:42 (Zofran Inj) 4 mg Q6H PRN IV PUSH 12/16/17 00:45 12/16/17 01:43 (Restoril) 15 mg HS PRN PO 12/16/17 00:45 12/16/17 04:41 (Duoneb Neb) 1 ampule Q2HR NEB PRN INH 12/16/17 00:45 (Lovenox Inj) 30 mg Q24H SQ 12/16/17 00:45 12/16/17 01:42 Miscellaneous Information 1 Q361D XX 12/16/17 00:45 12/16/17 00:45 (Chlorhexidine 2% Cloth) 3 pack Taper DAILY@04 TOP 12/16/17 04:00 12/12/18 03:59 12/16/17 01:08 (Chlorhexidine 2% Cloth) 3 pack UNSCH PRN TOP 12/16/17 00:45 (Tina-Colace) 1 tab BID PO 12/16/17 09:00 12/16/17 08:42 (Milk Of Magnesia Liq) 30 ml Q12H PRN PO 12/16/17 00:45 (Senokot) 17.2 mg Q12H PRN PO 12/16/17 00:45 (Dulcolax Supp) 10 mg DAILY PRN RECTAL 12/16/17 00:45 (Lactulose Liq) 30 ml DAILY PRN PO 12/16/17 00:45 Cefepime HCl 2000 mg/Sodium Chloride 100 ml @ 200 mls/hr Q8H IV 12/16/17 08:00 12/16/17 08:34 Pharmacy Profile Note 0 ml @ 0 mls/hr UNSCH OTHER 12/16/17 01:00 Vancomycin HCl 2000 mg/Sodium Chloride 520 ml @ 250 mls/hr Q18H IV 12/16/17 18:00 Miscellaneous Information SPECIFIC LAB TO BE DRAWN:VANCOMYCIN TROUGH DATE TO... ONCE ONCE .XX 12/18/17 05:45 12/18/17 05:46 . Family History Parents were smokers; both from metastatic lung cancer. . Substance Use Tobacco: Former smoker, quit in the 1970s Alcohol: History heavy EtOH abuse (patient stopped drinking in 09/2017) Prescription med abuse: None known Illicits: None known . Psychosocial History Mr. Baltazar is from [facility]. He and his spend the winter months in [facility]. He has 2 adult children, one daughter and one son. His son lives locally in [place], and his daughter lives in [place]. 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 He is a of the [employer] and was stationed on any relationship [place] the [place] of [place] during the [place] era. . Living Will: Completed, but not made available Health Care Surrogate: Copy in medical record Durable Power of Cloud Physicist: Completed, but not made available Date completed: 12/16/2017 . Health Care Surrogate(s): Patient's (Daisy Baltazar) is designated as the healthcare surrogate decision maker. His 2 children (Neda Lang and Kevyn Baltazar) have been designated as the alternate health care surrogate. . Documented care wishes: Patient's states written advanced directives have been completed but are at home in [place]. Healthcare surrogate form was completed here today on 2017. Living will information was provided to the patient and his . . Today's verbally stated goals: Awaiting conversation/recommendations from Dr. Harrison (oncology). . Family/friends goals: Patient's is asking questions about hospice, but she also would like to hear recommendations from oncology before making any changes in medical treatment goals. . Ethical and Legal Issues No known ethical or legal issues at this time. . Physical Exam Vital Signs Date Time Temp Pulse Resp B/P (MAP) Pulse Ox O2 Delivery O2 Flow Rate FiO2 12/16/17 08:45 97.6 77 15 111/53 99 12/16/17 08:30 97.6 75 16 125/77 98 12/16/17 08:00 97.6 75 17 125/77 (93) 97 12/16/17 07:58 98 Nasal Cannula 2.00 12/16/17 06:10 97.7 83 16 95/50 100 12/16/17 06:00 81 12/16/17 05:45 97.6 80 12 87/52 100 12/16/17 04:00 97.9 89 20 110/60 (77) 96 12/16/17 04:00 89 12/16/17 02:00 96 12/16/17 01:30 98.2 110 19 103/58 (73) 98 12/16/17 01:03 12/16/17 01:02 105 18 93/50 (64) 99 Nasal Cannula 3.00 12/16/17 00:19 99.3 12/16/17 00:15 113 18 90/55 (67) 97 Nasal Cannula 3.00 12/16/17 00:00 119 18 81/48 (59) 97 Nasal Cannula 3.00 12/15/17 23:00 125 24 99/60 (73) 97 Nasal Cannula 2.00 12/15/17 22:49 100 Nasal Cannula 2.00 12/15/17 22:20 99.5 145 22 99/58 (72) 98 . 12/16/17 12/17/17 19:00 07:00 Intake Total 415 ml Output Total 175 ml Balance 240 ml Packed Cells 400 ml Blood Product IV Normal Saline Flush 15 ml Output Urine Total 175 ml . Exam CONSTITUTIONAL/GENERAL: This is an adequately nourished, male patient, in no apparent distress. TUBES/LINES/DRAINS: PICC, PIV x 2 SKIN: No jaundice, rashes, or lesions. Ecchymoses on upper extremities. Skin temperature appropriate. Not diaphoretic. HEAD: Atraumatic. Normocephalic. EYES: Pupils equal and round and reactive. Extraocular motions intact. No scleral icterus. No injection or drainage. Fundi not examined. ENT: Hearing grossly normal. Nose without bleeding or purulent drainage. Throat without visible erythema, exudates, masses, or lesions. NECK: Trachea midline. CARDIOVASCULAR: Regular rate and rhythm without murmurs, gallops, or rubs. No JVD. RESPIRATORY/CHEST: Respirations unlabored on 2 L via nasal cannula Breath sounds equal bilaterally. No wheezes, rales, or rhonchi. GASTROINTESTINAL: Abdomen soft, non-tender, slightly distended. Hypoactive bowel sounds appreciated. GENITOURINARY: Without palpable bladder distension. MUSCULOSKELETAL: Extremities without clubbing, cyanosis or mottling. 1+ edema in feet bilaterally. LYMPHATICS: No palpable cervical or supraclavicular adenopathy. NEUROLOGICAL: Lethargic. Arouses easily to verbal stimuli. Able to answer questions and follow commands. Moves all extremities. PSYCHIATRIC: No obvious anxiety/depression. no apparent hallucinations or other psychotic thought process. . . Diagnostic Tests Laboratory Laboratory Tests Test 12/15/17 22:40 12/16/17 01:00 12/16/17 01:15 12/16/17 03:45 White Blood Count 33.9 TH/MM3 (4.0-11.0) 19.1 TH/MM3 (4.0-11.0) Red Blood Count 3.57 MIL/MM3 (4.50-5.90) 2.44 MIL/MM3 (4.50-5.90) Hemoglobin 8.7 GM/DL (13.0-17.0) 6.1 GM/DL (13.0-17.0) Hematocrit 28.7 % (39.0-51.0) 19.6 % (39.0-51.0) Mean Corpuscular Volume 80.2 FL (80.0-100.0) 80.5 FL (80.0-100.0) Mean Corpuscular Hemoglobin 24.3 PG (27.0-34.0) 25.0 PG (27.0-34.0) Mean Corpuscular Hemoglobin Concent 30.3 % (32.0-36.0) 31.0 % (32.0-36.0) Red Cell Distribution Width 16.8 % (11.6-17.2) 16.3 % (11.6-17.2) Platelet Count 408 TH/MM3 (150-450) 236 TH/MM3 (150-450) Mean Platelet Volume 8.2 FL (7.0-11.0) 8.1 FL (7.0-11.0) Neutrophils (%) (Auto) 95.0 % (16.0-70.0) 92.4 % (16.0-70.0) Lymphocytes (%) (Auto) 3.2 % (9.0-44.0) 5.4 % (9.0-44.0) Monocytes (%) (Auto) 1.5 % (0.0-8.0) 1.5 % (0.0-8.0) Eosinophils (%) (Auto) 0.2 % (0.0-4.0) 0.3 % (0.0-4.0) Basophils (%) (Auto) 0.1 % (0.0-2.0) 0.4 % (0.0-2.0) Neutrophils # (Auto) 32.2 TH/MM3 (1.8-7.7) 17.7 TH/MM3 (1.8-7.7) Lymphocytes # (Auto) 1.1 TH/MM3 (1.0-4.8) 1.0 TH/MM3 (1.0-4.8) Monocytes # (Auto) 0.5 TH/MM3 (0-0.9) 0.3 TH/MM3 (0-0.9) Eosinophils # (Auto) 0.1 TH/MM3 (0-0.4) 0.1 TH/MM3 (0-0.4) Basophils # (Auto) 0.0 TH/MM3 (0-0.2) 0.1 TH/MM3 (0-0.2) CBC Comment AUTO DIFF DIFF FINAL Differential Total Cells Counted 100 Neutrophils % (Manual) 83 % (16-70) Band Neutrophils % 14 % (0-6) Lymphocytes % 2 % (9-44) Neutrophils # (Manual) 33.2 TH/MM3 (1.8-7.7) Myelocytes 1 % (0-0) Differential Comment FINAL DIFF MANUAL Toxic Granulation 1+ (NORMAL) Toxic Vacuolation PRESENT (NONE SEEN) Platelet Estimate NORMAL (NORMAL) Platelet Morphology Comment NORMAL (NORMAL) Ovalocytes 1+ (NORMAL) Prothrombin Time 14.3 SEC (9.8-11.6) Prothromb Time International Ratio 1.4 RATIO Activated Partial Thromboplast Time 27.4 SEC (24.3-30.1) Blood Urea Nitrogen 27 MG/DL (7-18) 25 MG/DL (7-18) Creatinine 1.11 MG/DL (0.60-1.30) 0.96 MG/DL (0.60-1.30) Random Glucose 167 MG/DL (74-106) 145 MG/DL (74-106) Total Protein 6.4 GM/DL (6.4-8.2) 5.0 GM/DL (6.4-8.2) Albumin 1.4 GM/DL (3.4-5.0) 1.1 GM/DL (3.4-5.0) Calcium Level 8.5 MG/DL (8.5-10.1) 7.2 MG/DL (8.5-10.1) Magnesium Level 1.5 MG/DL (1.5-2.5) Alkaline Phosphatase 189 U/L (45-117) 137 U/L (45-117) Aspartate Amino Transf (AST/SGOT) 25 U/L (15-37) 26 U/L (15-37) Alanine Aminotransferase (ALT/SGPT) 9 U/L (12-78) 7 U/L (12-78) Total Bilirubin 0.3 MG/DL (0.2-1.0) 0.3 MG/DL (0.2-1.0) Sodium Level 135 MEQ/L (136-145) 139 MEQ/L (136-145) Potassium Level 3.6 MEQ/L (3.5-5.1) 3.2 MEQ/L (3.5-5.1) Chloride Level 98 MEQ/L (98-107) 105 MEQ/L (98-107) Carbon Dioxide Level 21.1 MEQ/L (21.0-32.0) 25.7 MEQ/L (21.0-32.0) Anion Gap 16 MEQ/L (5-15) 8 MEQ/L (5-15) Estimat Glomerular Filtration Rate 66 ML/MIN (>89) 78 ML/MIN (>89) Lactic Acid Level 7.7 mmol/L (0.4-2.0) 5.0 mmol/L (0.4-2.0) 1.9 mmol/L (0.4-2.0) Total Creatine Kinase 21 U/L (39-308) Troponin I LESS THAN 0.02 NG/ML B-Type Natriuretic Peptide 141 PG/ML (0-100) Nasal Screen MRSA (PCR) MRSA NOT DETECTED (NOT Protein Corrected Calcium 8.3 MG/DL (8.5-10.1) Test 12/16/17 04:45 Urine Color YELLOW (YELLW/STRAW) Urine Turbidity CLEAR (CLEAR) Urine pH 5.0 (5.0-8.5) Urine Specific Carpenter 1.033 (1.002-1.035) Urine Protein TRACE mg/dL (NEG-TRACE) Urine Glucose (UA) NEG mg/dL (NEG) Urine Ketones NEG mg/dL (NEG) Urine Occult Blood NEG (NEG) Urine Nitrite NEG (NEG) Urine Bilirubin NEG (NEG) Urine Urobilinogen LESS THAN 2.0 MG/DL (LESS Urine Leukocyte Esterase NEG (NEG) Urine RBC LESS THAN 1 /hpf (0-3) Urine WBC 3 /hpf (0-5) Urine Squamous Epithelial Cells <1 /hpf (0-5) Urine Mucus FEW /lpf (OCC) Microscopic Urinalysis Comment CULT NOT INDICATED . . Result Diagram: 12/16/17 0345 12/16/17 0345 Microbiology Microbiology Date/Time Source Procedure Growth Status 12/15/17 22:40 Blood Peripheral Aerobic Blood Culture Pending Received 12/15/17 22:40 Blood Peripheral Anaerobic Blood Culture Pending Received 12/15/17 22:35 Blood Peripheral Aerobic Blood Culture Pending Received 12/15/17 22:35 Blood Peripheral Anaerobic Blood Culture Pending Received 12/16/17 04:45 Urine Catheterized Urine Urine Culture Pending Received Imaging Last 72 hours Impressions Abdomen/Pelvis CT 12/16/17 0000 Signed Impressions: Service Date/Time: December 00:34 - CONCLUSION: 1. Worsening of metastatic disease to the liver with mild ascites, increased from November 22. No bowel obstruction or free air. 2. Gallstones in gallbladder. Leonidas Reeder MD Chest X-Ray 12/15/17 3310 Signed Impressions: Service Date/Time: Friday, December 15, 2017 23:18 - CONCLUSION: 1. No acute findings. Right PICC line in superior vena cava. Leonidas Reeder MD . Patient/Family Conference Present at Family Conference: Met with patient and son at bedside. Later met with as well-both at bedside and family conference room. . Family Conference Location: Bedside, Consult Room Issues Discussed: * Palliative care role, purpose, approach * Additional medical, psychosocial, and spiritual history * Patients general health, functional status, and cognitive changes in the months leading up to the current hospitalization * Patient/family understanding of the current medical problems * Patient/family understanding of prognosis * Patients goals of care as best understood from advance directives and/or conversations and/or values * Current medical treatment options and benefits/burdens of those options * Likely scenarios comparing ongoing aggressive care with a transition to comfort measures only * Questions answered to the best of my ability * Palliative care contact information provided . Assessment and Plan Disease Oriented Problem List: (1) Intrahepatic cholangiocarcinoma (2) Hypertension (3) Hemorrhoids (4) Hypoalbuminemia (5) Normocytic anemia (6) Leukocytosis (7) History of prostate cancer (8) Sepsis Symptom Scale: (1) Pain 0-10 Scale: 4 (2) Nausea 0-10 Scale: Unable to quantify (3) Constipation 0-10 Scale: Unable to quantify Pertinent Non-Medical Issues Psychosocial: Spiritual: Legal: Ethical issues impacting care: Important Contacts Daisy Baltazar, spouse: [phone] Kevyn Baltazar, son: [phone] Neda, daughter: [phone] . Prognosis Patient with a history of prostate cancer; recently diagnosed new onset, nonresectable intrahepatic cholangiocarcinoma who has been declining over the past several months. Currently hospitalized with sepsis. Given patient's multiple comorbid conditions including recently diagnosed nonresectable CA in addition to his overall deconditioned functional status. His overall prognosis would be poor. Patient would be hospice appropriate if/when his medical treatment goals become comfort oriented. . Code Status: Full Code Plan * FULL CODE * Patient's states written advanced directives have been completed but are at home in [place]. Healthcare surrogate form was completed here today on 2017. Living will information was provided to the patient and his . * Decision-making: Patient currently demonstrates appropriate insight and judgment related to his current medical conditions. Patient's (Daisy Baltazar) is designated as the healthcare surrogate decision maker. His 2 children (Neda Lang and Kevyn Baltazar) have been designated as the alternate health care surrogate. * Discussed patient with bedside nurse (Brenda) and Dr. Acevedo. * GOALS: Patient's and son are considering transitioning to comfort focused care. They would like to speak to oncology (Dr. Harrison) anterior his recommendations prior to making any changes in medical treatment goals. * Oncology consult pending * Symptom management: == Pain: Multi factorial. Patient with a history of prostate cancer , now with newly diagnosed intrahepatic cholangiocarcinoma. Currently complaining of abdominal pain rated 4 out of 10. Additional contributing factors include edema, abdominal distention, hemorrhoids, invasive lines. Current orders for Tramadol 50 mg PO every 6 hours PRN and oxycodone 5 mg PO q6 hours PRN. 12 hour PRN requirement= oxycodone 5 mg 1; tramadol 50 mg 1. Dexamethasone may also assist in management of pain and provide overall sense of well-being. == Nausea: Patient reporting intermittent nausea with associated abdominal pain. Possible contributing factors could include abdominal distention, intrahepatic cholangiocarcinoma, anxiety, electrolyte disturbances, hepatomegaly etc. GI consult pending. PRN Zofran 4mg IV is available q6 hours and has been administered twice in the past 12 hours. If nausea persists, may consider starting the patient on PRN lorazepam or dexamethasone 2mg PO/IV daily. Dexamethasone may also assist in management of pain and provide overall sense of well-being. == Constipation: Risk for constipation secondary to reduced mobility , inadequate fluid/dietary fiber intake, possible tumor impingement and increasing narcotic requirements. Current orders for Senokot, Dulcolax and lactulose PRN. LBM: 12/15/17 * Palliative care contact information provided to patient and family. * Palliative care will continue to follow this patient throughout his hospitalization to establish trust, assist with symptom management and clarification of medical treatment goals. Thank you for the opportunity to participate in the care of Mr. Baltazar. . Attestation To help prompt me to consider important information that might be impacting today's encounter and assessment, information from prior notes written by myself or my colleagues may have been "brought forward" into today's note. My signature on this note, however, is an attestation that I personally performed the exam, history, and/or decision-making noted today, and, unless otherwise indicated, the interactions with patient, family, and staff as well as the review of records all occurred today. I also attest that the listed assessment and stated plan reflect my best clinical judgment today based on the combination of historical information, prior notes, and today's exam/ interactions. When time spent is documented, it refers only to time spent today by the signer, or if indicated, combined time spent today by collaborating physician/nurse practitioner. . Mai Drummond Dec 16, 2017 10:18
[2017-12-16] MEDS ORDERED: FUROSEMIDE 20 MG/2 ML VIAL IV PUSH SCH (13:15)
[2017-12-16] MEDS ORDERED: POTASSIUM CHLORIDE 20 MEQ CONTROLLED RELEASE TAB PO ONE (13:15)
[2017-12-16] MEDS: traMADol HCL 50 MG TAB PO PRN (13:16)
--- NOTE | 2017-12-16 13:17 | HHI.CCPN ---
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 No bilious emesis no coffee-ground emesis no hematemesis. No known fever. Patient does have some shortness of breath. Subjective 12/16: Afebrile. Abdominal pain is currently 3-4 out of 10. Transfused [address] abdomen/pelvis revealed small consult by gallstones with enlarging liver carcinoma. Objective Vital Signs Date Time Temp Pulse Resp B/P (MAP) Pulse Ox O2 Delivery O2 Flow Rate FiO2 12/16/17 08:45 97.6 77 15 111/53 99 12/16/17 07:58 Nasal Cannula 2.00 Intake and Output 12/16/17 12/16/17 12/17/17 08:00 16:00 00:00 Intake Total 7058 ml 415 ml Output Total 435 ml 175 ml Balance 6623 ml 240 ml Result Diagram: 12/16/17 0345 12/16/17 0345 Other Results Microbiology Date/Time Source Procedure Growth Status 12/15/17 22:40 Blood Peripheral Aerobic Blood Culture - Preliminary NO GROWTH IN 1 DAY Resulted 12/15/17 22:40 Blood Peripheral Anaerobic Blood Culture - Preliminary NO GROWTH IN 1 DAY Resulted 12/16/17 04:45 Urine Catheterized Urine Urine Culture Pending Received Imaging Last Impressions Abdomen/Pelvis CT 12/16/17 0000 Signed Impressions: Service Date/Time: December 00:34 - CONCLUSION: 1. Worsening of metastatic disease to the liver with mild ascites, increased from November 22. No bowel obstruction or free air. 2. Gallstones in gallbladder. Leonidas Reeder MD Chest X-Ray 12/15/17 [id number] Signed Impressions: Service Date/Time: Friday, December 15, 2017 23:18 - CONCLUSION: 1. No acute findings. Right PICC line in superior vena cava. Leonidas Reeder MD Objective Remarks GENERAL: 67-year-old male currently resting in bed in no acute distress SKIN: Warm and dry. Well perfused. No rash HEAD: Normocephalic. EYES: No scleral icterus. No injection or drainage. NECK: Supple, trachea midline. No JVD or lymphadenopathy. CARDIOVASCULAR: Regular rate and rhythm without murmurs, gallops, or rubs. RESPIRATORY: Clear to auscultation bilaterally without wheezes rales or rhonchi GASTROINTESTINAL: Abdomen soft, non-tender, somehow distended. Hypoactive bowel sounds are appreciated. Liver is palpated below the costophrenic margin MUSCULOSKELETAL: 1+ lower extremity edema below the knees.. NEURO EXAM: Cranial nerves II through XII grossly intact. Strength is equal symmetric. Normal sensation Urinary Catheter: No Assessment to: Continue Vascular Central Line Catheter: Yes Assessment to: Continue Date of Insertion: Dec 14, 2017 Line: PICC Side: Right Location: Antecubital A/P Assessment and Plan Neuro/Psych: Chronic pain syndrome Insomnia Home pain medications oxycodone Contin milligrams every 6 hours when necessary tramadol 50 mg every 6 hours when necessary pain. Alprazolam 0.25 mg as needed anxiety Diphenhydramine 50 mg at night when necessary insomnia resumed CV: ASVD History of hypertension Dyslipidemia Lactic acidosis - resolved Currently on atorvastatin 20 mg by mouth daily On normal saline at 100 cc an hour. Currently not on any hypertensives Resp: Nasal cannula to maintain saturations greater than 92% Incentive spirometry while awake GI: History of hemorrhoids Hypoalbuminemia CT abdomen/pelvis 12/16 revealed revealed 28.2 cm enlarging liver metastases. Small calcified gallstones in gallbladder. Moderate ascites. Received albumin 1 today for hypotension Heart healthy diet Famotidine 20 mg twice a day Docusate sodium/senna 1 tablet twice a day for bowel regimen Consult gastroenterology/Dr. Nassar : [place] catheter in place for accurate I's and O's in a critically ill patient Endo: Diabetes mellitus type 2 Check cortisol level Sliding-scale insulin with Accu-Cheks before meals/at bedtime to maintain euglycemia Renal: Monitor urine output Accurate I's and Os Recheck BMP in a.m. Heme: Unresectable intrahepatic cholangiocarcinoma History of prostate cancer Leukocytosis Normocytic anemia/history of iron deficiency Oxaliplatin/Leucovorin stop date today per infusion pump. Consultation Dr. Harrison/oncology Transfused 3 units PRBCs today. Currently on enoxaparin for DVT prophylaxis ID: Currently on vancomycin/cefepime day #1 Infectious disease consultation Blood cultures 2, UA all pending FEN: Hypopotassemia Hypocalcemia Replace electrolytes as clinically indicated per ICU electrolyte protocol MSK: PT evaluate and treat Access - Right antecubital PICC Prophylaxis - GI - famotidine - DVT - SCD/enoxaparin 35 additional critical care minutes Kota Baldwin MD Dec 16, 2017 13:17
[2017-12-16] MEDS ORDERED: POTASSIUM PHOSPHATE MONOBASIC 500 MG TAB PO/TUBE PRN (13:30)
[2017-12-16] MEDS ORDERED: MAGNESIUM OXIDE 400 MG TAB PO PRN (13:30)
[2017-12-16] MEDS ORDERED: SODIUM PHOSPHATE INJ 30 MMOL in SODIUM CHLOR 0.9% 250 ML INJ 240 ML IV PRN (13:30)
[2017-12-16] MEDS ORDERED: POTASSIUM CHLORIDE 25 MEQ EFFERVESCENT TAB PO PRN (13:30)
[2017-12-16] MEDS ORDERED: POTASSIUM CHLOR 20 MEQ PREMIX 100 ML IV PRN (13:30)
[2017-12-16] MEDS ORDERED: MAGNESIUM SULFATE INJ 4 GM in SODIUM CHLORIDE 0.9% INJ 92 ML IV PRN (13:30)
[2017-12-16] MEDS ORDERED: MAGNESIUM SULFATE INJ 2 GM in SODIUM CHLORIDE 0.9% INJ 96 ML IV PRN (13:30)
[2017-12-16] MEDS ORDERED: RESP: ALBUTEROL 2.5 MG/3 ML NEB (PRN) NEB (13:30)
[2017-12-16] MEDS ORDERED: POTASSIUM PHOSPHATE MONOBASIC 500 MG TAB PO PRN (13:30)
[2017-12-16] MEDS ORDERED: POTASSIUM PHOSPHATE INJ 30 MMOL in SODIUM CHLOR 0.9% 250 ML INJ 250 ML IV PRN (13:30)
[2017-12-16] MEDS ORDERED: DEXTROSE 50% IN WATER 50 ML VIAL(D50) IV PUSH PRN (13:30)
[2017-12-16] MEDS ORDERED: GLUCAGON 1 MG/ML VIAL OTHER PRN (13:30)
[2017-12-16] MEDS ORDERED: POTASSIUM CHLOR 40 MEQ PREMIX 100 ML IV PRN (13:30)
--- NOTE | 2017-12-16 13:36 | MB ---
cc: MAMIE CULVER MD DATE OF CONSULTATION 12/16/[address] Weber REASON Neutropenic sepsis. 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 The patient is felt to likely have cholangiocarcinoma. He had a PICC line inserted on December 13 and chemotherapy was started. The patient developed shaking chills and fever and presented to the emergency department on 12/15. He was also noted to have some vomiting and generalized weakness. He was also noted to have some shortness of breath as well. In the emergency department his temperature was 99.5, heart rate was 119 and blood pressure was 81/48 and white count was 33.9, lactic acid level was 7.7. He was started on IV antibiotics and blood cultures have been taken and also urinalysis was performed and showed three white cells. Chest x-ray showed no acute findings. CT scan of the abdomen showed worsening of metastatic disease to the liver with mild ascites which is increased from November 22. Gallstones were noted in the gallbladder. Blood culture has no growth in one day. The patient notes that he had pain in the abdomen yesterday. He states that he feels well today and has no abdominal pain. He is awake and alert. He is receiving blood transfusions for a low hemoglobin of 6.1. He denies dysuria, back pain or diarrhea. He is awake and has no headache. PAST MEDICAL HISTORY 1. History of hypertension. 2. Hyperlipidemia. 3. Diabetes mellitus type 2. 4. Hemorrhoids . 5. Iron-deficiency anemia. 6. Cancer of the prostate diagnosed in 2011. 7. Prostate biopsy. 8. Vasectomy. 9. Colonoscopy. 10. Radical prostatectomy in 2011. 11. Knee surgery. 12. Recent diagnosis of metastatic carcinoma on liver biopsy November 24, 2017. ALLERGIES No known drug allergies. MEDICATIONS 1. Vancomycin. 2. Cefepime. 3. Lipitor. 4. Pepcid. 5. Tina-Colace. 6. Oxycodone. 7. Ultram. 8. Tylenol. 9. Restoril. 10. Lovenox. SOCIAL HISTORY No tobacco. Prior alcohol use. The patient quit alcohol. No illicit drugs. FAMILY HISTORY Noncontributory. REVIEW OF SYSTEMS Pertinent mentioned above in History of Present Illness. Otherwise negative. PHYSICAL EXAMINATION GENERAL: This is a well-developed male who is awake and alert. He is in no acute distress. VITAL SIGNS: Temperature 97.6, BP 111/53, respirations 15, heart rate 77. HEENT: Head atraumatic. Extraocular movements grossly intact, pupils reactive to light without icterus. Oropharynx - Moist mucosa without lesions. NECK: Supple without adenopathy or swelling. LUNGS: Clear bilateral breath sounds. HEART: Regular S1 and S2, without murmurs, rubs or gallops. ABDOMEN: Obese, soft. Positive bowel sounds, nontender. RECTAL: Not performed. EXTREMITIES: 1+ edema at the feet. No clubbing or cyanosis. SKIN: No discrete rash. The patient has hyperemia of the face. NEUROLOGICAL: No gross focal findings. PSYCHIATRIC: The patient is calm and cooperative. LABORATORY DATA WBC 19.1, platelets 236, hemoglobin 6.1. 92% neutrophils. Creatinine 0.96, BUN 25, sodium 139, AST 26, ALT 7, alk phos 137. IMPRESSION 1. Sepsis on admission. 2. Leukocytosis. 3. Metastatic carcinoma. Patient with advanced intrahepatic cholangiocarcinoma. 4. The source of sepsis is unclear at this time. The patient appears to have improved over yesterday and the white blood cell count is lower. RECOMMENDATIONS 1. Continue vancomycin. 2. Continue cefepime. 3. Monitor urine culture. 4. Monitor blood culture. 5. Follow the white blood cell count. 6. Continue to monitor the patient's clinical status. Thank you for this consultation. The patient's progress will be monitored. Mamie Culver MD FD/NEHEMIAS /12:00 PM /12:38 PM
--- NOTE | 2017-12-16 14:54 | OTSOAPIP ---
TIME SESSION COMPLETED: 1315 TREATMENT TIME: 0 MINS. CHART REVIEWED. ATTEMPTED TO SEE FOR OT EVALUATION. SPOKE WITH NURSE. PATIENT REQUESTED TO START TOMORROW HE WASN'T UP TO PARTICIPATING TODAY. Therapist: KENIA DEL CASTILLO OT/L Signature on file
--- NOTE | 2017-12-16 15:28 | PD.CONS ---
HPI History of Present Illness This is a 67 year old male with hx prostate ca s/p prostatectomy, recent dx non resectable intrahepatic cholangio carcinoma who presented with chills, shaking, weakness, n/v. Onset 2d ago after he started his chemo pump, undergoing palliative chemotherapy. His hgb dropped from 8.7 yesterday to 6.1 today. No obvious bleeding. No blood or coffee grounds in emesis, blood in stool or black tarry stool. Admits RUQ pain that is not new. Visualized dark green emesis. CT showed worsening metastatic disease to liver, worsening mild ascites , gallstones. + recent occasional use Aleve but not daily. No prior hx GIB. Had EGD and colonoscopy [facility]2017 findings gastritis, hiatal hernia, diverticulosis, thrombosed hemorrhoids. He had ERCP and sphincterotomy at [facility] no stones found. Hx obtained from EMR and pts , pt relatively noncontributory. (Maricel Juan) PFSH Past Medical History Adenocarcinoma with extensive hepatic involvement (Suspected intrahepatic cholangiocarcinoma.) Carcinoma of the Prostate (Initially diagnosed in 2011.) Cardiovascular Disease Diabetes Type II Hemorrhoids Hepatic Cirrhosis Hyperlipidemia Hypertension Iron Deficiency Anemia Personal history of heavy alcohol consumption Pneumonia in 2009 . Past Surgical History Prostate biopsy Vasectomy Colonoscopy in 2017 CT-guided biopsy of hepatic mass in 2018 EGD in 2018 Radical Prostatectomy in 2011 Knee replacement in 2010 . (Maricel Juan) Coded Allergies: No Known Allergies (Unverified , 12/13/17) Family History Parents were smokers; both from metastatic lung cancer. . Social History former heavy drinker, quit 09/2017 occasional cigars no illicit drug use (Maricel Juan) Review of Systems Constitutional: COMPLAINS OF: Chills Eyes: DENIES: Blurred vision Ears, nose, mouth, throat: DENIES: Hearing loss Respiratory: DENIES: Hemoptysis Gastrointestinal: COMPLAINS OF: Abdominal pain, Nausea, Vomiting, DENIES: Black stools, Bloody stools, Hematemesis Musculoskeletal: DENIES: Joint Swelling Integumentary: DENIES: Pruritus, Jaundice Psychiatric: DENIES: Confusion (Maricel Juan) GI Exam Vitals I&O Vital Signs Date Time Temp Pulse Resp B/P (MAP) Pulse Ox O2 Delivery O2 Flow Rate FiO2 12/16/17 08:45 97.6 77 15 111/53 99 12/16/17 08:30 97.6 75 16 125/77 98 12/16/17 08:00 97.6 75 17 125/77 (93) 97 12/16/17 07:58 98 Nasal Cannula 2.00 12/16/17 06:10 97.7 83 16 95/50 100 12/16/17 06:00 81 12/16/17 05:45 97.6 80 12 87/52 100 12/16/17 04:00 97.9 89 20 110/60 (77) 96 12/16/17 04:00 89 12/16/17 02:00 96 12/16/17 01:30 98.2 110 19 103/58 (73) 98 12/16/17 01:03 12/16/17 01:02 105 18 93/50 (64) 99 Nasal Cannula 3.00 12/16/17 00:19 99.3 12/16/17 00:15 113 18 90/55 (67) 97 Nasal Cannula 3.00 12/16/17 00:00 119 18 81/48 (59) 97 Nasal Cannula 3.00 12/15/17 23:00 125 24 99/60 (73) 97 Nasal Cannula 2.00 12/15/17 22:49 100 Nasal Cannula 2.00 12/15/17 22:20 99.5 145 22 99/58 (72) 98 I/O 12/15/17 12/15/17 12/15/17 12/16/17 12/16/17 12/16/17 07:00 15:00 23:00 07:00 15:00 23:00 Intake Total 6658 ml 830 ml Output Total 435 ml 175 ml Balance 6223 ml 655 ml Intake Oral 40 ml IV Total 6608 ml Packed Cells 800 ml Blood Product IV Normal Saline Flush 10 ml 30 ml Output Urine Total 435 ml 175 ml # Bowel Movements 1 Imaging Last Impressions Abdomen/Pelvis CT 12/16/17 0000 Signed Impressions: Service Date/Time: December 00:34 - CONCLUSION: 1. Worsening of metastatic disease to the liver with mild ascites, increased from November 22. No bowel obstruction or free air. 2. Gallstones in gallbladder. Leonidas Reeder MD Chest X-Ray 12/15/17 [id number] Signed Impressions: Service Date/Time: Friday, December 15, 2017 23:18 - CONCLUSION: 1. No acute findings. Right PICC line in superior vena cava. Leonidas Reeder MD Laboratory Test 12/15/17 22:40 12/16/17 01:00 12/16/17 01:15 12/16/17 03:45 White Blood Count 33.9 TH/MM3 19.1 TH/MM3 Red Blood Count 3.57 MIL/MM3 2.44 MIL/MM3 Hemoglobin 8.7 GM/DL 6.1 GM/DL Hematocrit 28.7 % 19.6 % Mean Corpuscular Volume 80.2 FL 80.5 FL Mean Corpuscular Hemoglobin 24.3 PG 25.0 PG Mean Corpuscular Hemoglobin Concent 30.3 % 31.0 % Red Cell Distribution Width 16.8 % 16.3 % Platelet Count 408 TH/MM3 236 TH/MM3 Mean Platelet Volume 8.2 FL 8.1 FL Neutrophils (%) (Auto) 95.0 % 92.4 % Lymphocytes (%) (Auto) 3.2 % 5.4 % Monocytes (%) (Auto) 1.5 % 1.5 % Eosinophils (%) (Auto) 0.2 % 0.3 % Basophils (%) (Auto) 0.1 % 0.4 % Neutrophils # (Auto) 32.2 TH/MM3 17.7 TH/MM3 Lymphocytes # (Auto) 1.1 TH/MM3 1.0 TH/MM3 Monocytes # (Auto) 0.5 TH/MM3 0.3 TH/MM3 Eosinophils # (Auto) 0.1 TH/MM3 0.1 TH/MM3 Basophils # (Auto) 0.0 TH/MM3 0.1 TH/MM3 CBC Comment AUTO DIFF DIFF FINAL Differential Total Cells Counted 100 Neutrophils % (Manual) 83 % Band Neutrophils % 14 % Lymphocytes % 2 % Neutrophils # (Manual) 33.2 TH/MM3 Myelocytes 1 % Differential Comment FINAL DIFF MANUAL Toxic Granulation 1+ Toxic Vacuolation PRESENT Platelet Estimate NORMAL Platelet Morphology Comment NORMAL Ovalocytes 1+ Prothrombin Time 14.3 SEC Prothromb Time International Ratio 1.4 RATIO Activated Partial Thromboplast Time 27.4 SEC Blood Urea Nitrogen 27 MG/DL 25 MG/DL Creatinine 1.11 MG/DL 0.96 MG/DL Random Glucose 167 MG/DL 145 MG/DL Total Protein 6.4 GM/DL 5.0 GM/DL Albumin 1.4 GM/DL 1.1 GM/DL Calcium Level 8.5 MG/DL 7.2 MG/DL Magnesium Level 1.5 MG/DL Alkaline Phosphatase 189 U/L 137 U/L Aspartate Amino Transf (AST/SGOT) 25 U/L 26 U/L Alanine Aminotransferase (ALT/SGPT) 9 U/L 7 U/L Total Bilirubin 0.3 MG/DL 0.3 MG/DL Sodium Level 135 MEQ/L 139 MEQ/L Potassium Level 3.6 MEQ/L 3.2 MEQ/L Chloride Level 98 MEQ/L 105 MEQ/L Carbon Dioxide Level 21.1 MEQ/L 25.7 MEQ/L Anion Gap 16 MEQ/L 8 MEQ/L Estimat Glomerular Filtration Rate 66 ML/MIN 78 ML/MIN Lactic Acid Level 7.7 mmol/L 5.0 mmol/L 1.9 mmol/L Total Creatine Kinase 21 U/L Troponin I LESS THAN 0.02 NG/ML B-Type Natriuretic Peptide 141 PG/ML Nasal Screen MRSA (PCR) MRSA NOT DETECTED Protein Corrected Calcium 8.3 MG/DL Test 12/16/17 04:45 Urine Color YELLOW Urine Turbidity CLEAR Urine pH 5.0 Urine Specific [place] 1.033 Urine Protein TRACE mg/dL Urine Glucose (UA) NEG mg/dL Urine Ketones NEG mg/dL Urine Occult Blood NEG Urine Nitrite NEG Urine Bilirubin NEG Urine Urobilinogen LESS THAN 2.0 MG/DL Urine Leukocyte Esterase NEG Urine RBC LESS THAN 1 /hpf Urine WBC 3 /hpf Urine Squamous Epithelial Cells <1 /hpf Urine Mucus FEW /lpf Microscopic Urinalysis Comment CULT NOT INDICATED Date/Time Source Procedure Growth Status 12/15/17 22:40 Blood Peripheral Aerobic Blood Culture - Preliminary NO GROWTH IN 1 DAY Resulted 12/15/17 22:40 Blood Peripheral Anaerobic Blood Culture - Preliminary NO GROWTH IN 1 DAY Resulted 12/16/17 04:45 Urine Catheterized Urine Urine Culture Pending Received Physical Examination HEENT: PERRL; normocephalic; atraumatic; no jaundice. CHEST: CTA CARDIAC: RRR ABDOMEN: Semifirm, distended, dull, RUQ TTP, bowel sounds faint. vomiting green emesis EXTREMITIES: No clubbing, cyanosis, or edema. SKIN: Normal; no rash; no jaundice. INTERNSHIP COORDINATOR: No focal deficits; alert and oriented times three. (Yessica,Maricel S FIREARMS SPECIALIST) Assessment and Plan Plan ASSESSMENT - n/v - could be chemo related, onset c/w start of chemo pump - anemia with drop in hgb - drop from 8.7 to 6.1 likely multifactorial no obvious GIB. blood transfusing. had EGD/colonoscopy 11/23/17 found gastritis, hiatal hernia, diverticulosis, thrombosed hemorrhoids. CT showed worsening metastatic dz liver with worsening mild ascites, gallstones - unresectable intrahepatic cholangiocarcinoma - on palliative chemo. med oncology consult pending. palliative care following PLAN - check stool occult blood - if active bleeding stat bleed scan - notify GI of active bleeding - monitor labs - transfuse as needed - await oncology consult - supportive care - further recs as case unfolds pt seen by myself and Dr Steven and this note is written on his behalf (Maricel Juan) Physician Comments Seen and examined with FIREARMS SPECIALIST, no evidence of bleeding. CT reviewed. Recent gi espinal noted. Transfuse as needed. Symptoms related to recent chemotherapy. Will follow. Thank you (Sariah Steven MD) Maricel Juan Dec 16, 2017 15:28 Sariah Steven MD Dec 16, 2017 17:15
[2017-12-16] MEDS: INSULIN ASPART SUPPLEMENTAL SCALE SQ SCH ×2 (17:00→20:59)
[2017-12-16] MEDS: VANCOMYCIN INJ 2,000 MG in SODIUM CHLORID 0.9% 500 ML INJ 500 ML IV SCH (18:56)
[2017-12-16] MEDS: ATORVASTATIN 20 MG TAB PO SCH (20:57)
[2017-12-16] MEDS: diphenhydrAMINE HCL 50 MG CAP PO SCH (20:58)
[2017-12-17] VITALS (13 sets, daily range): BP systolic 121–153; BP diastolic 58–74; PULSE 58–94; RESP 10–16; TEMP 98.1–99; O2SAT 96–100
[2017-12-17] MEDS: SODIUM CHLOR 0.9% 1000 ML INJ 1,000 ML IV SCH ×3 (00:39→20:52)
[2017-12-17] MEDS: CEFEPIME INJ 2,000 MG in SODIUM CHLORIDE 0.9% INJ 100 ML IV SCH ×4 (00:41→23:51)
[2017-12-17] MEDS: CHLORHEXIDINE GLUCONATE 2 % 1 PACK (2 CLOTHS) TOP SCH (00:41)
[2017-12-17] MEDS: ENOXAPARIN SODIUM 30 MG/0.3 ML SYRINGE SQ SCH ×2 (00:41→23:50)
[2017-12-17] MEDS ORDERED: ALTEPLASE RECOMBINANT 2 MG VIAL INTRACATH SCH (03:45)
--- NOTE | 2017-12-17 04:37 | RADRPT ---
EXAM DATE/TIME: 12/17/2017 04:01 [facility] COMPARISON: CHEST SINGLE AP, December 15, 2017, 23:18. INDICATIONS : Evaluate for respiratory disease. MEDICAL HISTORY : Hypercholesterolemia. Hypertension. Liver CA. SURGICAL HISTORY : Right knee surgery. ENCOUNTER: Subsequent ACUITY: 1 month PAIN SCORE: Non-responsive. LOCATION: chest FINDINGS: Cardiomegaly. Clear lungs. Osseous structures are intact. CONCLUSION: No acute disease. Wali Soto MD on December 17, 2017 at 4:34 Board Certified Radiologist. This report was verified electronically.
[2017-12-17 05:00] LABS: AUTOMATED NEUTROPHIL # 19.5 TH/MM3 (1.8-7.7); BASOPHIL # 0.1 TH/MM3 (0-0.2); BASOPHIL % 0.3 % (0.0-2.0); EOSINOPHIL # 0.3 TH/MM3 (0-0.4); EOSINOPHIL % 1.5 % (0.0-4.0); HEMOGLOBIN 8.7 GM/DL (13.0-17.0); LYMPHOCYTE # 0.8 TH/MM3 (1.0-4.8); MEAN CELL VOLUME 81.8 FL (80.0-100.0); MEAN CORPUSCULAR HEMOGLOBIN 26.4 PG (27.0-34.0); MEAN CORPUSCULAR HGB CONC 32.3 % (32.0-36.0); MEAN PLATELET VOLUME 8.3 FL (7.0-11.0); MONO % 0.9 % (0.0-8.0); MONOCYTE # 0.2 TH/MM3 (0-0.9); NEUT % 93.3 % (16.0-70.0); PLATELET COUNT 204 TH/MM3 (150-450); RED CELL DISTRIBUTION WIDTH 16.9 % (11.6-17.2); WHITE BLOOD COUNT 20.9 TH/MM3 (4.0-11.0)
[2017-12-17] MEDS: ONDANSETRON HCL 4 MG/2 ML VIAL IV PUSH PRN ×2 (05:00→11:52)
[2017-12-17 05:32] LABS: ALBUMIN 1.2 GM/DL (3.4-5.0); ALKALINE PHOSPHATASE 152 U/L (45-117); ALT (GPT) 12 U/L (12-78); AST (GOT) 30 U/L (15-37); BICARBONATE 24.6 MEQ/L (21.0-32.0); BLOOD UREA NITROGEN 17 MG/DL (7-18); CALCIUM 7.6 MG/DL (8.5-10.1); CHLORIDE 102 MEQ/L (98-107); CREATININE 0.72 MG/DL (0.60-1.30); GLOMERULAR FILTRATION RATE 109 ML/MIN (>89); GLUCOSE,RANDOM 86 MG/DL (74-106); MAGNESIUM 1.5 MG/DL (1.5-2.5); PHOSPHORUS 3.4 MG/DL (2.5-4.9); SODIUM (NA) 137 MEQ/L (136-145); TOTAL BILIRUBIN ADULT 0.6 MG/DL (0.2-1.0); TOTAL PROTEIN 5.5 GM/DL (6.4-8.2)
[2017-12-17] MEDS: POTASSIUM CHLOR 40 MEQ PREMIX 100 ML IV PRN ×2 (06:36→08:49)
--- NOTE | 2017-12-17 07:15 | MB ---
cc: MISTI SALAZAR DATE OF CONSULTATION 12/16/2017 TIME OF CONSULTATION 7:10 p.m. CONSULT REQUESTED BY Critical Care Service. REASON FOR CONSULTATION 1. Patient with a diagnosis of multifocal nonresectable intrahepatic cholangiocarcinoma. 2. Patient with history of prostate carcinoma with biochemical recurrence. CURRENT TREATMENT Patient completed his first dose of dose-modified FOLFOX earlier today. CHIEF COMPLAINT The patient reports symptoms of generalized fatigue, weakness, chills and fevers which started 24 hours ago. He was on his chemotherapy infusion with 5-FU pump when the fevers occurred. The chemotherapy was being delivered via a right upper extremity PICC line. The PICC line was placed four days ago. HISTORY OF PRESENT ILLNESS Ms. Baltazar is a 67-year-old male who is well-known to me from my outpatient and inpatient practice. He is a [place] of [place] and spends his winter months here in [place]. Mr. Baltazar has a diagnosis of prostate carcinoma which was initially diagnosed about four years ago and treated with surgical resection of the prostate. He had biochemical recurrence in late 2017 and was initiated on androgen deprivation. About three weeks ago he presented to [facility] with complaints of abdominal pain and breathlessness. He was found to have critical anemia related to iron deficiency. The patient underwent imaging studies of the abdomen was noted to have extensive hepatic metastasis and hepatomegaly. He underwent GI evaluation which included EGD and colonoscopy, he was found to have no culprit lesions within the upper or the lower GI tract visualized. Image-guided biopsy of one of the liver lesions was performed at [facility] at last admission with findings of a poorly differentiated adenocarcinoma identified. The patient under CT imaging as an outpatient and was found to have no additional areas of concern for metastatic disease. His disease was entirely limited due to the liver. An assessment of intrahepatic cholangiocarcinoma was made and the patient was recommended combination palliative systemic therapy with oxaliplatin and 5-FU. Prior to starting palliative systemic chemotherapy, we had an extensive discussion regarding possible hospice level of care. After much consideration the patient and his agreed and elected to pursue an aggressive disease-directed approach. PAST MEDICAL HISTORY 1. Intrahepatic cholangiocarcinoma. 2. Carcinoma of the prostate. 3. Diabetes. 4. Hypertension. 5. Hyperlipidemia. 6. Personal history of heavy alcohol abuse/consumption. PAST SURGICAL HISTORY 1. Right total knee replacement. 2. Radical prostatectomy. 3. Image-guided biopsy of the liver. 4. EGD and colonoscopy in November 2016. SOCIAL HISTORY Originally from [facility]. He lives at home with his . He has one son and one daughter. 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 He is a of the [employer] and served during the [place] era but did not serve overseas. ALLERGIES No known drug allergies. FAMILY HISTORY Father of metastatic lung cancer. Mother of metastatic lung cancer as well. CURRENT INPATIENT MEDICATIONS 1. Cefepime 2 grams IV q.8. 2. Magnesium replacement per protocol. 3. Potassium replacement per protocol. 4. Normal saline 100 cc/hour. 5. Sodium phosphate replacement. 6. Vancomycin per pharmacy dosing. 7. Tylenol 650 mg p.o. q.6 hours as needed for pain/fever. 8. Albuterol 2.5 mg by nebulizer every 2 hours as needed for dyspnea. 9. Atorvastatin 20 mg p.o. q.h.s. 10. Dulcolax 10 mg per rectum daily as needed for history of constipation. 11. Senna Colace 1 tablet p.o. b.i.d. 12. Lovenox 30 mg subcu q.24 hours. 13. Famotidine 20 mg p.o. q.12 hours. 14. Low-dose insulin by sliding scale. 15. Magnesium oxide. 16. Ondansetron 4 mg IV q. 6 hours. 17. Zofran 5 mg p.o. q.6 hours. 18. Tramadol 50 mg p.o. q.6 hours as needed for pain. 19. Temazepam 15 mg p.o. q.h.s. as needed for insomnia. REVIEW OF SYSTEMS A 13-point review of systems was obtained to include the following pertinent positives and negatives: CONSTITUTIONAL: The patient reports fatigue, weakness, loss of appetite, fevers and chills. HEENT: Denies headaches, blurry vision, difficulty swallowing. RESPIRATORY: Reports exertional dyspnea, shortness of breath at rest and with exertion. CARDIOVASCULAR: Denies angina-like chest pain, PND, orthopnea. He reports lower extremity edema. GI: Reports abdominal distension, nausea. Denies vomiting, denies hemoptysis. Denies hematochezia or melena. ASSOCIATE MEDICAL DIRECTOR: He reports no focal sensory or motor deficits but reports feeling generally weak and tired. SKIN: No complaints. PHYSICAL EXAMINATION VITAL SIGNS: Temperature 98.1 degrees Fahrenheit, heart rate ranging between 70 and 90 beats/minute, respiratory rate 20, blood pressure 116/55, O2 sat 99% on room air. GENERAL PHYSICAL APPEARANCE: Mr. Baltazar is a pleasant elderly male. He is laying in bed in the ICU. He appears to be in no acute distress. HEENT: Head is atraumatic, normocephalic. Conjunctivae are pale; sclerae are anicteric. EOMI, PERRLA. Oral exam - No pharyngeal erythema. NECK EXAM: No palpable cervical or supraclavicular lymphadenopathy. RESPIRATORY EXAM: Decreased bibasilar breath sounds, good air movement of the upper and middle lung zones. Prolonged expiratory phase. CARDIOVASCULAR: Regular rate and rhythm. S1-S2. No obvious murmurs, rubs or gallops. ABDOMINAL EXAM: Massively enlarged liver, abdominal distension, free fluid in the abdomen noted, tenderness in the right upper quadrant and right periumbilical area. The hepatic surface is irregular and firm. LOWER EXTREMITIES: Trace pretibial edema. No calf tenderness. ASSOCIATE MEDICAL DIRECTOR: Generally weak, no focal sensory or motor deficits. SKIN: Generally pale. Some bruising noted. LABORATORY FINDINGS Blood work dated 12/16/2017: WBC count 19, hemoglobin 16.1 gm/dl, hematocrit 19.6%, MCV 80, platelet count 236, absolute neutrophil count 17.7. Chemistries: Sodium 139, potassium 3.2, chloride 105, bicarb 25.7, BUN 25, creatinine 0.96, EGFR 76, random glucose 145, calcium 7.2, corrected calcium is 8.3, total bilirubin 0.3, AST 26, ALT 7, alkaline phosphatase 137, albumin 1.1. IMAGING STUDIES CT scan of the abdomen and pelvis indicates worsening of metastatic disease to the liver with mild ascites, this is increased from November 20. No bowel obstruction or free air. Gallstones in the gallbladder are identified. ASSESSMENT Mr. 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 He is status post one cycle of palliative modified-dose FOLFOX. He comes into the hospital while on his first cycle of FOLFOX with complaints of chills, sweats and fever. He was noted to be increasingly anemic and was admitted to the hospital with sepsis. He required multiple liters of normal saline to stabilize his blood pressure. He has been initiated on broad-spectrum antibiotics including cefepime and vancomycin. Also during this hospitalization he was transfused multiple units of packed red blood cells for management of anemia. RECOMMENDATIONS 1. Metastatic intrahepatic cholangiocarcinoma: He is status post his first cycle of FOLFOX. He has been from the beginning a borderline candidate for aggressive disease-directed therapy. He has chosen to pursue aggressive treatment options to help salvage his critical illness and to help prolong his survival. At today's visit I talked to the patient about symptom management including pain control. We talked about treatment associated adverse effects as well as supportive care for management of the additional issues including symptomatic anemia as well as sepsis. 2. Anemia: Transfuse to maintain hemoglobin at or above 7.5 mg/dl. 3. Sepsis: Await cultures. Continue vancomycin and cefepime. Should he remain febrile or should he become increasingly septic, his PICC line ought to be discontinued as this may be one of the nidus for infections. The oncology service will follow along with you. At 07:30 p.m. I did call the patient's and left her a message on her phone. MD MALCOLM uDnn/NEHEMIAS /8:50 PM /6:30 AM SONY
[2017-12-17] MEDS: INSULIN ASPART SUPPLEMENTAL SCALE SQ SCH ×4 (07:36→20:53)
[2017-12-17] MEDS: DOCUSATE SODIUM 50 MG/SENNA 8.6 MG TAB PO SCH ×2 (08:49→20:53)
[2017-12-17] MEDS: FAMOTIDINE 20 MG TAB PO SCH ×2 (08:49→20:52)
[2017-12-17] MEDS: traMADol HCL 50 MG TAB PO PRN ×2 (09:21→20:52)
[2017-12-17] MEDS: SODIUM CHLORIDE 0.9% FLUSH 10 ML FLUSH IV FLUSH SCH ×2 (09:23→20:54)
[2017-12-17] MEDS: VANCOMYCIN INJ 2,000 MG in SODIUM CHLORID 0.9% 500 ML INJ 500 ML IV SCH (11:53)
--- NOTE | 2017-12-17 12:16 | HHI.IDPN ---
Note Infectious Disease Note Patient complains of nausea. Received pain meds for abdominal pain earlier. Denies chills. Afebrile. 67-year-old white male recently diagnosed with poorly non-differentiated T-cell adenocarcinoma The patient is felt to likely have cholangiocarcinoma. He had a PICC line inserted on December 13 and chemotherapy was started. The patient developed shaking chills and fever and presented to the emergency department on 12/15. PAST MEDICAL HISTORY 1. History of hypertension. 2. Hyperlipidemia. 3. Diabetes mellitus type 2. 4. Hemorrhoids . 5. Iron-deficiency anemia. 6. Cancer of the prostate diagnosed in 2011. 7. Prostate biopsy. 8. Vasectomy. 9. Colonoscopy. 10. Radical prostatectomy in 2011. 11. Knee surgery. 12. Recent diagnosis of metastatic carcinoma on liver biopsy November 24, 2017. ALLERGIES No known drug allergies. MEDICATIONS 1. Vancomycin. 2. Cefepime. Current Medications Medications (Trade) Dose Ordered Sig/Tiffany Route PRN Reason Start Time Stop Time Status Last Admin Dose Admin Atorvastatin Calcium (Lipitor) 20 mg HS PO 12/16/17 21:00 12/16/17 20:57 Diphenhydramine HCl (Benadryl) 50 mg HS PO 12/16/17 21:00 12/16/17 20:58 Oxycodone HCl (Roxicodone) 5 mg Q6H PRN PO PAIN 12/16/17 00:45 12/17/17 05:00 Tramadol HCl (Ultram) 50 mg Q6H PRN PO PAIN 12/16/17 00:45 12/17/17 09:21 Sodium Chloride 1,000 ml @ 100 mls/hr Q10H IV 12/16/17 00:44 12/17/17 05:00 Sodium Chloride (NS Flush) 2 ml UNSCH PRN IV FLUSH FLUSH AFTER USING IV ACCESS 12/16/17 00:45 12/16/17 01:43 Sodium Chloride (NS Flush) 2 ml BID IV FLUSH 12/16/17 09:00 12/17/17 09:23 Acetaminophen (Tylenol) 650 mg Q6H PRN PO PAIN 1-10 AND/OR FEVER >101F 12/16/17 00:45 12/16/17 08:41 Famotidine (Pepcid) 20 mg Q12HR PO 12/16/17 09:00 12/17/17 08:49 Ondansetron HCl (Zofran Inj) 4 mg Q6H PRN IV PUSH NAUSEA OR VOMITING 12/16/17 00:45 12/17/17 11:52 Temazepam (Restoril) 15 mg HS PRN PO INSOMNIA 12/16/17 00:45 12/16/17 20:57 Enoxaparin Sodium (Lovenox Inj) 30 mg Q24H SQ 12/16/17 00:45 12/17/17 00:41 Miscellaneous Information 1 Q361D XX 12/16/17 00:45 12/16/17 00:45 Chlorhexidine Gluconate (Chlorhexidine 2% Cloth) 3 pack Taper DAILY@04 TOP 12/16/17 04:00 12/12/18 03:59 12/17/17 00:41 Chlorhexidine Gluconate (Chlorhexidine 2% Cloth) 3 pack UNSCH PRN TOP HYGIENIC CARE 12/16/17 00:45 Senna/Docusate Sodium (Tina-Colace) 1 tab BID PO 12/16/17 09:00 12/17/17 08:49 Magnesium Hydroxide (Milk Of Magnesia Liq) 30 ml Q12H PRN PO Mild constipation 12/16/17 00:45 Sennosides (Senokot) 17.2 mg Q12H PRN PO Moderate constipation 12/16/17 00:45 Bisacodyl (Dulcolax Supp) 10 mg DAILY PRN RECTAL SEVERE CONSITIPATION/ IF NPO 12/16/17 00:45 Lactulose (Lactulose Liq) 30 ml DAILY PRN PO SEVERE CONSITIPATION/ IF PO 12/16/17 00:45 Cefepime HCl 2000 mg/Sodium Chloride 100 ml @ 200 mls/hr Q8H IV 12/16/17 08:00 12/17/17 07:34 Pharmacy Profile Note 0 ml @ 0 mls/hr UNSCH OTHER 12/16/17 01:00 Miscellaneous Information SPECIFIC LAB TO BE DRAWN:VANCOMYCIN TROUGH DATE TO... ONCE ONCE .XX 12/18/17 05:45 12/18/17 05:46 Albuterol Sulfate (Albuterol Neb) 2.5 mg Q2HR NEB PRN NEB dyspnea 12/16/17 13:30 Dextrose (D50w (Vial) Inj) 50 ml UNSCH PRN IV PUSH HYPOGLYCEMIA-SEE COMMENTS 12/16/17 13:30 Glucagon (Glucagon Inj) 1 mg UNSCH PRN OTHER HYPOGLYCEMIA-SEE COMMENTS 12/16/17 13:30 Insulin Aspart (NovoLOG SUPPLEMENTAL SCALE) 1 ACHS SLIDING SCALE SQ 12/16/17 17:00 12/17/17 07:36 Potassium Chloride 100 ml @ 50 mls/hr Q2H PRN IV For Potassium 2.8 - 3.2 mEq/L 12/16/17 13:30 12/17/17 08:49 Potassium Chloride 100 ml @ 50 mls/hr Q2H PRN IV For Potassium 2.8 - 3.2 mEq/L 12/16/17 13:30 Potassium Bicarb/ Potassium Chloride (K-Lyte Cl Eff) 50 meq UNSCH PRN PO For Potassium 3.3 - 3.5 mEq/L 12/16/17 13:30 Potassium Chloride 100 ml @ 25 mls/hr UNSCH PRN IV For Potassium 3.3 - 3.5 mEq/L 12/16/17 13:30 Potassium Chloride 100 ml @ 50 mls/hr Q2H PRN IV For Potassium 3.3 - 3.5 mEq/L 12/16/17 13:30 Magnesium Sulfate 4 gm/Sodium Chloride 100 ml @ 50 mls/hr UNSCH PRN IV For Magnesium 0.9 - 1.1 mg/dL 12/16/17 13:30 Magnesium Oxide (Mag-Ox) 800 mg UNSCH PRN PO For Magnesium 1.2 - 1.6 mg/dL 12/16/17 13:30 Magnesium Sulfate 2 gm/Sodium Chloride 100 ml @ 50 mls/hr UNSCH PRN IV For Magnesium 1.2 - 1.6 mg/dL 12/16/17 13:30 Potassium Phosphate (K-Phos) 2,000 mg Q4H PRN PO For Phosphorus < 2.5 mg/dL 12/16/17 13:30 Sodium Phosphate 30 mmol/Sodium Chloride 250 ml @ 42 mls/hr UNSCH PRN IV For Phosphorus < 2.5 mg/dL 12/16/17 13:30 Potassium Phosphate (K-Phos) 2,000 mg UNSCH PRN PO/TUBE SEE LABEL COMMENTS 12/16/17 13:30 Potassium Phosphate 30 mmol/ Sodium Chloride 260 ml @ 42 mls/hr UNSCH PRN IV SEE LABEL COMMENTS 12/16/17 13:30 Vancomycin HCl 1750 mg/Sodium Chloride 517.5 ml @ 250 mls/hr Q12H IV 12/18/17 00:00 Miscellaneous Information SPECIFIC LAB TO BE DRAWN: VANCO TRO... ONCE ONCE .XX 12/18/17 23:45 12/18/17 23:46 IMAGING: Chest X-Ray 12/17/17 0000 Signed Impressions: Service Date/Time: Sunday, December 17, 2017 04:01 - CONCLUSION: No acute disease. Wali Soto MD Abdomen/Pelvis CT 12/16/17 0000 Signed Impressions: Service Date/Time: December 00:34 - CONCLUSION: 1. Worsening of metastatic disease to the liver with mild ascites, increased from November 22. No bowel obstruction or free air. 2. Gallstones in gallbladder. Leonidas Reeder MD PHYSICAL EXAMINATION GENERAL: This is a well-developed male who is awake and alert. No acute distress. HEENT: Head atraumatic. Extraocular movements grossly intact, pupils reactive to light without icterus. Oropharynx - Moist mucosa without lesions. NECK: Supple without adenopathy or swelling. LUNGS: Clear breath sounds. HEART: Regular S1 and S2, without murmurs, rubs or gallops. ABDOMEN: Obese, soft. Positive bowel sounds, nontender. EXTREMITIES: 1+ edema at the feet. No clubbing or cyanosis. SKIN: No rash. The patient has hyperemia of the face. NEUROLOGICAL: No gross focal findings. PSYCHIATRIC: Calm and cooperative. IMPRESSION 1. Sepsis on admission. ? source. 2. Leukocytosis. 3. Metastatic carcinoma. Patient with advanced non resectable intrahepatic cholangiocarcinoma. Post recent chemo12/15 - 12/16/17 RECOMMENDATIONS 1. Continue vancomycin. 2. Continue cefepime. 3. Monitor urine culture. 4. Monitor blood culture. 5. Follow the white blood cell count. 6. Monitor the patient's clinical status. Discussed with patient's . Luis Lyles MD Dec 17, 2017 12:16
--- NOTE | 2017-12-17 12:22 | HHI.HCPN ---
Reason for visit a. To assist with evaluation and management of symptoms including: nausea, pain, constipation, anxiety b. To assist medical decision maker(s) with: better understanding of current medical conditions; weighing benefits/burdens of medical treatment options; making medical treatment decisions. . Subjective/Interval History Patient seen and assessed in room 515 with (Daisy) at bedside. On neutropenic precautions. Patient reporting mild to moderate abdominal pain which is managed current medication regimen. Current orders for Tramadol 50 mg PO every 6 hours PRN and oxycodone 5 mg PO q6 hours PRN. 12 hour PRN requirement = oxycodone 5 mg 2; tramadol 50 mg 2. Patient reporting ongoing nausea . IV Ondansetron 4mg is available every 6 hours; patient has had 3 doses in the past 24 hours. Additionally, reporting anxiety for which alprazolam was ordered - 0.25 mg PO q8 hour. H/H increased to 8.7/27.0 status post being transfused with 3 units of packed RBCs yesterday 12/16/17. No obvious GI bleeding. Hemoccult negative. EGD/ colonoscopy 11/23/17 showed gastritis, hiatal hernia, diverticulosis, thrombosed hemorrhoids. CT abdomen on 12/16/2017 with worsening metastatic disease to liver , mild ascites and gallstones. GI following. Afebrile. WBC: 20.9 Follow chest x-ray this morning showed no acute disease. Blood and urine cultures remain negative to date. Patient remains on vancomycin and cefepime. Infectious disease following. Oncology was consulted and Dr. Harrison met with the patient with metastatic intrahepatic cholangiocarcinoma yesterday (12/16/2016). Patient is status post his first cycle of FOLFOX. Dr. Harrison discussed symptom management and treatment associated adverse affects with the patient as well as supportive care for management of other issues such as symptomatic anemia, sepsis,etc. verbalizing considering risks versus benefits of ongoing aggressive interventions; she is awaiting a phone call from Dr. Harrison to discuss further. . Family/friend interactions Met with patient and at bedside. Update provided on patient's current clinical condition and medical treatment goals. Discussed symptom management of pain, anxiety and nausea. Dr. Harrison met with the patient in the evening yesterday 01/05/2018; is awaiting phone call for update and recommendations. . Advance Directives Living Will: Completed, but not made available Health Care Surrogate: Copy in medical record Durable Power of Le[employer] Matcher: Completed, but not made available Advance Directive Specifics Date completed: 12/16/2017 . Health Care Surrogate(s): Patient's (Daisy Baltazar) is designated as the healthcare surrogate decision maker. His 2 children (Neda Lang and Kevyn Baltazar) have been designated as the alternate health care surrogate. . Documented care wishes: Patient's states written advanced directives have been completed but are at home in [place]. Healthcare surrogate form was completed here today on 2017. Living will information was provided to the patient and his . . Objective Vital Signs Date Time Temp Pulse Resp B/P (MAP) Pulse Ox O2 Delivery O2 Flow Rate FiO2 12/17/17 10:00 60 12/17/17 08:00 98.1 77 16 139/74 (95) 96 12/17/17 08:00 77 12/17/17 06:00 65 12/17/17 04:00 73 12/17/17 04:00 99.0 67 12 153/69 (97) 99 12/17/17 02:00 63 12/17/17 00:00 58 12/17/17 00:00 98.5 58 16 137/71 (93) 97 12/16/17 22:00 66 12/16/17 20:00 98.2 61 16 135/70 (91) 96 12/16/17 20:00 67 12/16/17 18:00 89 12/16/17 16:00 87 12/16/17 16:00 98.1 87 20 116/55 (75) 99 12/16/17 14:00 76 12/16/17 13:30 98.7 82 18 144/70 96 12/16/17 13:30 98.7 82 18 142/70 98 Intake & Output 12/17/17 12/17/17 07:00 19:00 Intake Total 1820 ml Output Total 1850 ml Balance -30 ml Intake Oral 200 ml IV Total 1620 ml Output Urine Total 1850 ml # Bowel Movements 2 . Physical Exam CONSTITUTIONAL/GENERAL: This is an adequately nourished, male patient, in no apparent distress. TUBES/LINES/DRAINS: PICC, PIV x 2 SKIN: No jaundice, rashes, or lesions. Ecchymoses on upper extremities. Skin temperature appropriate. Not diaphoretic. HEAD: Atraumatic. Normocephalic. EYES: Pupils equal and round and reactive. Extraocular motions intact. No scleral icterus. No injection or drainage. Fundi not examined. ENT: Hearing grossly normal. Nose without bleeding or purulent drainage. Throat without visible erythema, exudates, masses, or lesions. NECK: Trachea midline. CARDIOVASCULAR: Regular rate and rhythm without murmurs, gallops, or rubs. No JVD. RESPIRATORY/CHEST: Respirations unlabored on 2 L via nasal cannula Breath sounds equal bilaterally. No wheezes, rales, or rhonchi. GASTROINTESTINAL: Abdomen soft, non-tender, slightly distended. Hypoactive bowel sounds appreciated. GENITOURINARY: Without palpable bladder distension. MUSCULOSKELETAL: Extremities without clubbing, cyanosis or mottling. 1+ edema in feet bilaterally. LYMPHATICS: No palpable cervical or supraclavicular adenopathy. NEUROLOGICAL: Lethargic. Arouses easily to verbal stimuli. Able to answer questions and follow commands. Moves all extremities. PSYCHIATRIC: No obvious anxiety/depression. no apparent hallucinations or other psychotic thought process. . . Diagnostic Tests Laboratory Laboratory Tests Test 12/15/17 22:40 12/16/17 01:00 12/16/17 01:15 12/16/17 03:45 White Blood Count 33.9 TH/MM3 (4.0-11.0) 19.1 TH/MM3 (4.0-11.0) Red Blood Count 3.57 MIL/MM3 (4.50-5.90) 2.44 MIL/MM3 (4.50-5.90) Hemoglobin 8.7 GM/DL (13.0-17.0) 6.1 GM/DL (13.0-17.0) Hematocrit 28.7 % (39.0-51.0) 19.6 % (39.0-51.0) Mean Corpuscular Volume 80.2 FL (80.0-100.0) 80.5 FL (80.0-100.0) Mean Corpuscular Hemoglobin 24.3 PG (27.0-34.0) 25.0 PG (27.0-34.0) Mean Corpuscular Hemoglobin Concent 30.3 % (32.0-36.0) 31.0 % (32.0-36.0) Red Cell Distribution Width 16.8 % (11.6-17.2) 16.3 % (11.6-17.2) Platelet Count 408 TH/MM3 (150-450) 236 TH/MM3 (150-450) Mean Platelet Volume 8.2 FL (7.0-11.0) 8.1 FL (7.0-11.0) Neutrophils (%) (Auto) 95.0 % (16.0-70.0) 92.4 % (16.0-70.0) Lymphocytes (%) (Auto) 3.2 % (9.0-44.0) 5.4 % (9.0-44.0) Monocytes (%) (Auto) 1.5 % (0.0-8.0) 1.5 % (0.0-8.0) Eosinophils (%) (Auto) 0.2 % (0.0-4.0) 0.3 % (0.0-4.0) Basophils (%) (Auto) 0.1 % (0.0-2.0) 0.4 % (0.0-2.0) Neutrophils # (Auto) 32.2 TH/MM3 (1.8-7.7) 17.7 TH/MM3 (1.8-7.7) Lymphocytes # (Auto) 1.1 TH/MM3 (1.0-4.8) 1.0 TH/MM3 (1.0-4.8) Monocytes # (Auto) 0.5 TH/MM3 (0-0.9) 0.3 TH/MM3 (0-0.9) Eosinophils # (Auto) 0.1 TH/MM3 (0-0.4) 0.1 TH/MM3 (0-0.4) Basophils # (Auto) 0.0 TH/MM3 (0-0.2) 0.1 TH/MM3 (0-0.2) CBC Comment AUTO DIFF DIFF FINAL Differential Total Cells Counted 100 Neutrophils % (Manual) 83 % (16-70) Band Neutrophils % 14 % (0-6) Lymphocytes % 2 % (9-44) Neutrophils # (Manual) 33.2 TH/MM3 (1.8-7.7) Myelocytes 1 % (0-0) Differential Comment FINAL DIFF MANUAL Toxic Granulation 1+ (NORMAL) Toxic Vacuolation PRESENT (NONE SEEN) Platelet Estimate NORMAL (NORMAL) Platelet Morphology Comment NORMAL (NORMAL) Ovalocytes 1+ (NORMAL) Prothrombin Time 14.3 SEC (9.8-11.6) Prothromb Time International Ratio 1.4 RATIO Activated Partial Thromboplast Time 27.4 SEC (24.3-30.1) Blood Urea Nitrogen 27 MG/DL (7-18) 25 MG/DL (7-18) Creatinine 1.11 MG/DL (0.60-1.30) 0.96 MG/DL (0.60-1.30) Random Glucose 167 MG/DL (74-106) 145 MG/DL (74-106) Total Protein 6.4 GM/DL (6.4-8.2) 5.0 GM/DL (6.4-8.2) Albumin 1.4 GM/DL (3.4-5.0) 1.1 GM/DL (3.4-5.0) Calcium Level 8.5 MG/DL (8.5-10.1) 7.2 MG/DL (8.5-10.1) Magnesium Level 1.5 MG/DL (1.5-2.5) Alkaline Phosphatase 189 U/L (45-117) 137 U/L (45-117) Aspartate Amino Transf (AST/SGOT) 25 U/L (15-37) 26 U/L (15-37) Alanine Aminotransferase (ALT/SGPT) 9 U/L (12-78) 7 U/L (12-78) Total Bilirubin 0.3 MG/DL (0.2-1.0) 0.3 MG/DL (0.2-1.0) Sodium Level 135 MEQ/L (136-145) 139 MEQ/L (136-145) Potassium Level 3.6 MEQ/L (3.5-5.1) 3.2 MEQ/L (3.5-5.1) Chloride Level 98 MEQ/L (98-107) 105 MEQ/L (98-107) Carbon Dioxide Level 21.1 MEQ/L (21.0-32.0) 25.7 MEQ/L (21.0-32.0) Anion Gap 16 MEQ/L (5-15) 8 MEQ/L (5-15) Estimat Glomerular Filtration Rate 66 ML/MIN (>89) 78 ML/MIN (>89) Lactic Acid Level 7.7 mmol/L (0.4-2.0) 5.0 mmol/L (0.4-2.0) 1.9 mmol/L (0.4-2.0) Total Creatine Kinase 21 U/L (39-308) Troponin I LESS THAN 0.02 NG/ML B-Type Natriuretic Peptide 141 PG/ML (0-100) Nasal Screen MRSA (PCR) MRSA NOT DETECTED (NOT Protein Corrected Calcium 8.3 MG/DL (8.5-10.1) Test 12/16/17 04:45 12/17/17 04:05 Urine Color YELLOW (YELLW/STRAW) Urine Turbidity CLEAR (CLEAR) Urine pH 5.0 (5.0-8.5) Urine Specific [place] 1.033 (1.002-1.035) Urine Protein TRACE mg/dL (NEG-TRACE) Urine Glucose (UA) NEG mg/dL (NEG) Urine Ketones NEG mg/dL (NEG) Urine Occult Blood NEG (NEG) Urine Nitrite NEG (NEG) Urine Bilirubin NEG (NEG) Urine Urobilinogen LESS THAN 2.0 MG/DL (LESS Urine Leukocyte Esterase NEG (NEG) Urine RBC LESS THAN 1 /hpf (0-3) Urine WBC 3 /hpf (0-5) Urine Squamous Epithelial Cells <1 /hpf (0-5) Urine Mucus FEW /lpf (OCC) Microscopic Urinalysis Comment CULT NOT INDICATED White Blood Count 20.9 TH/MM3 (4.0-11.0) Red Blood Count 3.30 MIL/MM3 (4.50-5.90) Hemoglobin 8.7 GM/DL (13.0-17.0) Hematocrit 27.0 % (39.0-51.0) Mean Corpuscular Volume 81.8 FL (80.0-100.0) Mean Corpuscular Hemoglobin 26.4 PG (27.0-34.0) Mean Corpuscular Hemoglobin Concent 32.3 % (32.0-36.0) Red Cell Distribution Width 16.9 % (11.6-17.2) Platelet Count 204 TH/MM3 (150-450) Mean Platelet Volume 8.3 FL (7.0-11.0) Neutrophils (%) (Auto) 93.3 % (16.0-70.0) Lymphocytes (%) (Auto) 4.0 % (9.0-44.0) Monocytes (%) (Auto) 0.9 % (0.0-8.0) Eosinophils (%) (Auto) 1.5 % (0.0-4.0) Basophils (%) (Auto) 0.3 % (0.0-2.0) Neutrophils # (Auto) 19.5 TH/MM3 (1.8-7.7) Lymphocytes # (Auto) 0.8 TH/MM3 (1.0-4.8) Monocytes # (Auto) 0.2 TH/MM3 (0-0.9) Eosinophils # (Auto) 0.3 TH/MM3 (0-0.4) Basophils # (Auto) 0.1 TH/MM3 (0-0.2) CBC Comment DIFF FINAL Differential Comment Blood Urea Nitrogen 17 MG/DL (7-18) Creatinine 0.72 MG/DL (0.60-1.30) Random Glucose 86 MG/DL (74-106) Total Protein 5.5 GM/DL (6.4-8.2) Albumin 1.2 GM/DL (3.4-5.0) Calcium Level 7.6 MG/DL (8.5-10.1) Phosphorus Level 3.4 MG/DL (2.5-4.9) Magnesium Level 1.5 MG/DL (1.5-2.5) Alkaline Phosphatase 152 U/L (45-117) Aspartate Amino Transf (AST/SGOT) 30 U/L (15-37) Alanine Aminotransferase (ALT/SGPT) 12 U/L (12-78) Total Bilirubin 0.6 MG/DL (0.2-1.0) Sodium Level 137 MEQ/L (136-145) Potassium Level 2.8 MEQ/L (3.5-5.1) Chloride Level 102 MEQ/L (98-107) Carbon Dioxide Level 24.6 MEQ/L (21.0-32.0) Anion Gap 10 MEQ/L (5-15) Estimat Glomerular Filtration Rate 109 ML/MIN (>89) Thyroid Stimulating Hormone 3rd Gen 0.638 uIU/ML (0.358-3.740) Random Cortisol 23.9 MCG/DL Result Diagram: 12/17/1740412/17/175 Microbiology Microbiology Date/Time Source Procedure Growth Status 12/17/17 04:05 Blood Peripheral Aerobic Blood Culture Pending Received 12/17/17 04:05 Blood Peripheral Anaerobic Blood Culture Pending Received 12/15/17 22:40 Blood Peripheral Aerobic Blood Culture - Preliminary NO GROWTH IN 2 DAYS Resulted 12/15/17 22:40 Blood Peripheral Anaerobic Blood Culture - Preliminary NO GROWTH IN 2 DAYS Resulted 12/15/17 22:35 Blood Peripheral Aerobic Blood Culture - Preliminary NO GROWTH IN 2 DAYS Resulted 12/15/17 22:35 Blood Peripheral Anaerobic Blood Culture - Preliminary NO GROWTH IN 2 DAYS Resulted 12/17/17 05:35 Stool Stool Stool Occult Blood (LISETTE) - Final HEMOCCULT NEGATIVE Complete 12/16/17 04:45 Urine Catheterized Urine Urine Culture Pending Received Assessment and Plan Disease Oriented Problem List: (1) Intrahepatic cholangiocarcinoma (2) Hypertension (3) Hemorrhoids (4) Hypoalbuminemia (5) Normocytic anemia (6) Leukocytosis (7) History of prostate cancer (8) Sepsis Symptom Scale: (1) Pain 0-10 Scale: 4 (2) Nausea 0-10 Scale: Unable to quantify (3) Constipation 0-10 Scale: Unable to quantify Pertinent Non-Medical Issues Psychosocial: Spiritual: Legal: Ethical issues impacting care: Important Contacts Daisy Baltazar, spouse: [phone] Kevyn Baltazar, son: [phone] Neda, daughter: [phone] . Prognosis Patient with a history of prostate cancer; recently diagnosed new onset, nonresectable intrahepatic cholangiocarcinoma who has been declining over the past several months. Currently hospitalized with sepsis. Given patient's multiple comorbid conditions including recently diagnosed nonresectable CA in addition to his overall deconditioned functional status. His overall prognosis would be poor. Patient would be hospice appropriate if/when his medical treatment goals become comfort oriented. . Code Status: Full Code Plan * FULL CODE * Patient's states written advanced directives have been completed but are at home in [place]. Healthcare surrogate form was completed here today on 2017. Living will information was provided to the patient and his . * Decision-making: Patient currently demonstrates appropriate insight and judgment related to his current medical conditions. Patient's (Daisy Baltazar) is designated as the healthcare surrogate decision maker. His 2 children (Neda Lang and Kevyn Baltazar) have been designated as the alternate health care surrogate. * Discussed patient with bedside nurse (Jennifer). * Aggressive GOALS * Symptom management: == Pain: Multi factorial. Patient with a history of prostate cancer , now with newly diagnosed intrahepatic cholangiocarcinoma. Currently complaining of abdominal pain rated 4 out of 10. Additional contributing factors include edema, abdominal distention, hemorrhoids, invasive lines. Current orders for Tramadol 50 mg PO every 6 hours PRN and oxycodone 5 mg PO q6 hours PRN. 12 hour PRN requirement= oxycodone 5 mg 2; tramadol 50 mg 2. Dexamethasone may also assist in management of pain and provide overall sense of well-being. == Nausea: Patient reporting intermittent nausea with associated abdominal pain. Possible contributing factors could include abdominal distention, intrahepatic cholangiocarcinoma, anxiety, electrolyte disturbances, hepatomegaly etc. GI consult pending. PRN Zofran 4mg IV is available q6 hours and has been administered 3x in the past 24 hours. If nausea persists, may initiating dexamethasone 2mg PO/IV daily. Dexamethasone may also assist in management of pain and provide overall sense of well-being. == Constipation: Risk for constipation secondary to reduced mobility , inadequate fluid/dietary fiber intake, possible tumor impingement and increasing narcotic requirements. Current orders for Senokot, Dulcolax and lactulose PRN. LBM: 12/15/17 == Anxiety: Likely multifactorial. Contributing factors include uncontrolled pain, nausea and recently diagnosed nonresectable intrahepatic cholangiocarcinoma. Alprazolam 0.25 mg q8 hour PO was ordered 12/17/2017 * Palliative care contact information provided to patient and family. * Palliative care will continue to follow this patient throughout his hospitalization to establish trust, assist with symptom management and clarification of medical treatment goals. Mai Drummond Dec 17, 2017 12:22
--- NOTE | 2017-12-17 12:44 | HHI.CCPN ---
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 No bilious emesis no coffee-ground emesis no hematemesis. No known fever. Patient does have some shortness of breath. 2: Afebrile. Abdominal pain is currently 3-4 out of 10. Transfused [address] abdomen/pelvis revealed small consult by gallstones with enlarging liver carcinoma. Subjective 12/17: Afebrile. Pain controlled. Very poor appetite. Hemodynamically stable. Hemoglobin currently 8.7. Objective Vital Signs Date Time Temp Pulse Resp B/P (MAP) Pulse Ox O2 Delivery O2 Flow Rate FiO2 12/17/17 12:00 98.5 63 12 141/70 (93) 100 12/16/17 07:58 Nasal Cannula 2.00 Intake and Output 12/17/17 12/17/17 12/18/17 08:00 16:00 00:00 Intake Total 1820 ml Output Total 1850 ml Balance -30 ml Result Diagram: 12/17/17 0405 12/17/17 0405 Imaging Last Impressions Chest X-Ray 12/17/17 0000 Signed Impressions: Service Date/Time: Sunday, December 17, 2017 04:01 - CONCLUSION: No acute disease. Wali Soto MD Abdomen/Pelvis CT 12/16/17 0000 Signed Impressions: Service Date/Time: December 00:34 - CONCLUSION: 1. Worsening of metastatic disease to the liver with mild ascites, increased from November 22. No bowel obstruction or free air. 2. Gallstones in gallbladder. Leonidas Reeder MD Objective Remarks GENERAL: 67-year-old male currently resting in bed in no acute distress SKIN: Warm and dry. Well perfused. No rash HEAD: Normocephalic. EYES: No scleral icterus. No injection or drainage. NECK: Supple, trachea midline. No JVD or lymphadenopathy. CARDIOVASCULAR: Regular rate and rhythm without murmurs, gallops, or rubs. RESPIRATORY: Clear to auscultation bilaterally without wheezes rales or rhonchi GASTROINTESTINAL: Abdomen soft, non-tender, somehow distended. Hypoactive bowel sounds are appreciated. Liver is palpated below the costophrenic margin MUSCULOSKELETAL: 1+ lower extremity edema below the knees.. NEURO EXAM: Cranial nerves II through XII grossly intact. Strength is equal symmetric. Normal sensation Vascular Central Line Catheter: Yes Assessment to: Continue Date of Insertion: Dec 14, 2017 Line: PICC Side: Right Location: Antecubital A/P Assessment and Plan Neuro/Psych: Chronic pain syndrome Insomnia Home pain medications oxycodone 5 milligrams every 6 hours when necessary tramadol 50 mg every 6 hours when necessary pain. Alprazolam 0.25 mg as every 8 hours as needed anxiety Diphenhydramine 50 mg at night when necessary insomnia resumed CV: ASVD History of hypertension Dyslipidemia Lactic acidosis - resolved Currently on atorvastatin 20 mg by mouth daily On normal saline at 50 cc an hour. Currently not on any antihypertensives Resp: Nasal cannula to maintain saturations greater than 92% Incentive spirometry while awake GI: History of hemorrhoids Hypoalbuminemia CT abdomen/pelvis 12/16 revealed revealed 28.2 cm enlarging liver metastases. Small calcified gallstones in gallbladder. Moderate ascites. Received albumin 1 today for hypotension Heart healthy diet Famotidine 20 mg twice a day Docusate sodium/senna 1 tablet twice a day for bowel regimen Consult gastroenterology/Dr. Nassar : [place] catheter in place for accurate I's and O's in a critically ill patient Endo: Diabetes mellitus type 2 Check cortisol level - 21 Sliding-scale insulin with Accu-Cheks before meals/at bedtime to maintain euglycemia Renal: Monitor urine output Accurate I's and Os Recheck BMP in a.m. Heme: Unresectable intrahepatic cholangiocarcinoma History of prostate cancer Leukocytosis Normocytic anemia/history of iron deficiency Oxaliplatin/Leucovorin stop date today per infusion pump. Consultation Dr. Harrison/oncology Transfused 3 units PRBCs today. Currently on enoxaparin 30 mg every 24 for DVT prophylaxis ID: Currently on vancomycin/cefepime day #2 Infectious disease consultation Blood cultures 2, UA all pending FEN: Hypopotassemia Replace electrolytes as clinically indicated per ICU electrolyte protocol Recheck potassium at 1800 and in a.m. MSK: PT evaluate and treat Access - Right antecubital PICC Prophylaxis - GI - famotidine - DVT - SCD/enoxaparin Level II follow-up Kota Baldwin MD Dec 17, 2017 12:44
[2017-12-17] MEDS ORDERED: POTASSIUM CHLORIDE 10 MEQ CONTROLLED RELEASE TAB PO ONE (13:00)
[2017-12-17] MEDS: MAGNESIUM SULFATE 1 GM PREMIX 100 ML IV SCH ×3 (14:11→15:17)
--- NOTE | 2017-12-17 14:19 | HHI.GIFU ---
Subjective Remarks Pt resting in bed. Not vomiting today. No appetite but his interested was piqued at the mention of a popsicle. (Maricel Juan) Objective Vitals I&O Vital Signs Date Time Temp Pulse Resp B/P (MAP) Pulse Ox O2 Delivery O2 Flow Rate FiO2 12/17/17 12:00 98.5 63 12 141/70 (93) 100 12/17/17 12:00 63 12/17/17 10:00 60 12/17/17 08:00 98.1 77 16 139/74 (95) 96 12/17/17 08:00 77 12/17/17 06:00 65 12/17/17 04:00 73 12/17/17 04:00 99.0 67 12 153/69 (97) 99 12/17/17 02:00 63 12/17/17 00:00 58 12/17/17 00:00 98.5 58 16 137/71 (93) 97 12/16/17 22:00 66 12/16/17 20:00 98.2 61 16 135/70 (91) 96 12/16/17 20:00 67 12/16/17 18:00 89 12/16/17 16:00 87 12/16/17 16:00 98.1 87 20 116/55 (75) 99 I/O 12/16/17 12/16/17 12/16/17 12/17/17 12/17/17 12/17/17 07:00 15:00 23:00 07:00 15:00 23:00 Intake Total 6658 ml 930 ml 815 ml 1820 ml Output Total 435 ml 175 ml 1175 ml 1850 ml Balance 6223 ml 755 ml -360 ml -30 ml Intake Oral 40 ml 300 ml 200 ml IV Total 6608 ml 100 ml 100 ml 1620 ml Packed Cells 800 ml 400 ml Blood Product IV Normal Saline Flush 10 ml 30 ml 15 ml Output Urine Total 435 ml 175 ml 1175 ml 1850 ml # Bowel Movements 2 Laboratory Laboratory Tests Test 12/17/17 04:05 White Blood Count 20.9 Red Blood Count 3.30 Hemoglobin 8.7 Hematocrit 27.0 Mean Corpuscular Volume 81.8 Mean Corpuscular Hemoglobin 26.4 Mean Corpuscular Hemoglobin Concent 32.3 Red Cell Distribution Width 16.9 Platelet Count 204 Mean Platelet Volume 8.3 Neutrophils (%) (Auto) 93.3 Lymphocytes (%) (Auto) 4.0 Monocytes (%) (Auto) 0.9 Eosinophils (%) (Auto) 1.5 Basophils (%) (Auto) 0.3 Neutrophils # (Auto) 19.5 Lymphocytes # (Auto) 0.8 Monocytes # (Auto) 0.2 Eosinophils # (Auto) 0.3 Basophils # (Auto) 0.1 CBC Comment DIFF FINAL Differential Comment Blood Urea Nitrogen 17 Creatinine 0.72 Random Glucose 86 Total Protein 5.5 Albumin 1.2 Calcium Level 7.6 Phosphorus Level 3.4 Magnesium Level 1.5 Alkaline Phosphatase 152 Aspartate Amino Transf (AST/SGOT) 30 Alanine Aminotransferase (ALT/SGPT) 12 Total Bilirubin 0.6 Sodium Level 137 Potassium Level 2.8 Chloride Level 102 Carbon Dioxide Level 24.6 Anion Gap 10 Estimat Glomerular Filtration Rate 109 Thyroid Stimulating Hormone 3rd Gen 0.638 Random Cortisol 23.9 Date/Time Source Procedure Growth Status 12/17/17 04:05 Blood Peripheral Aerobic Blood Culture Pending Received 12/17/17 04:05 Blood Peripheral Anaerobic Blood Culture Pending Received 12/17/17 05:35 Stool Stool Stool Occult Blood (LISETTE) - Final HEMOCCULT NEGATIVE Complete 12/16/17 04:45 Urine Catheterized Urine Urine Culture - Preliminary NO GROWTH IN 24 HOURS. Resulted Imaging Last Impressions Chest X-Ray 12/17/17 0000 Signed Impressions: Service Date/Time: Sunday, December 17, 2017 04:01 - CONCLUSION: No acute disease. Wali Soto MD Abdomen/Pelvis CT 12/16/17 0000 Signed Impressions: Service Date/Time: December 00:34 - CONCLUSION: 1. Worsening of metastatic disease to the liver with mild ascites, increased from November 22. No bowel obstruction or free air. 2. Gallstones in gallbladder. Leonidas Reeder MD Physical Exam HEENT: PERRL; normocephalic; atraumatic; no jaundice. CHEST: CTA CARDIAC: RRR ABDOMEN: firm right quadrant, distended, nontender; + hepatomegaly; bowel sounds soft EXTREMITIES: No clubbing, cyanosis, or edema. SKIN: Normal; no rash; no jaundice. INFORMATION ASSURANCE OFFICER: alert (Maricel Juan) Assessment and Plan Plan ASSESSMENT - n/v - could be chemo related, onset c/w start of chemo pump - anemia with drop in hgb - drop from 8.7 to 6.1 likely multifactorial no obvious GIB. blood transfusing. had EGD/colonoscopy 11/23/17 found gastritis, hiatal hernia, diverticulosis, thrombosed hemorrhoids. CT showed worsening metastatic dz liver with worsening mild ascites, gallstones - unresectable intrahepatic cholangiocarcinoma - on palliative chemo. med oncology consult pending. palliative care following 12/17/17 - n/v somewhat improved. no appetite. stool neg for occult blood. s/p 3 x PRBC. no obvious bleeding. family considering comfort measures, awaiting oncology input palliative care following PLAN - offer popsicles - if active bleeding stat bleed scan - notify GI of active bleeding - monitor labs - transfuse as needed - await oncology follow up - await palliative care follow up - supportive care pt seen by myself and Dr Steven and this note is written on his behalf (Maricel Juan) Physician Comments Seen and examined with MAT LINKER, no gi bleeding reported. No gi interventions planned unless active bleeding. Discussed with at bedside. Will sign off. Thank you (Sariah Steven MD) Maricel Juan Dec 17, 2017 14:19 Sariah Steven MD Dec 17, 2017 16:24
[2017-12-17] MEDS: ALPRAZolam 0.25 MG TAB PO PRN (14:34)
--- NOTE | 2017-12-17 18:40 | PD.ONC.PN ---
Subjective Subjective Remarks Patient seen and examined, vital signs, labs, medications, microbiology, imaging studies were reviewed. Subjectively; patient reports having nausea, vomiting and he reports not wanting to eat. His tells me he has had a little bit of hip popsicle today but nothing other than that. He has been afebrile but did feel some chills earlier this afternoon. He feels his abdomen is more bloated but is not tender. He denies overt blood loss. Objective Data Date Time Temp Pulse Resp B/P (MAP) Pulse Ox O2 Delivery O2 Flow Rate FiO2 12/17/17 16:00 94 12/17/17 16:00 99.0 94 16 121/58 (79) 96 12/17/17 14:00 68 12/17/17 12:00 98.5 63 12 141/70 (93) 100 12/17/17 12:00 63 12/17/17 10:00 60 12/17/17 08:00 98.1 77 16 139/74 (95) 96 12/17/17 08:00 77 12/17/17 06:00 65 12/17/17 04:00 73 12/17/17 04:00 99.0 67 12 153/69 (97) 99 12/17/17 02:00 63 12/17/17 00:00 58 12/17/17 00:00 98.5 58 16 137/71 (93) 97 12/16/17 22:00 66 12/16/17 20:00 98.2 61 16 135/70 (91) 96 12/16/17 20:00 67 12/17/17 12/17/17 12/17/17 07:00 15:00 23:00 Intake Total 1820 ml 1000 ml Output Total 1850 ml Balance -30 ml 1000 ml Result Diagram: 12/17/17 0405 12/17/17 0405 Laboratory Results Laboratory Tests Test 12/17/17 04:05 12/17/17 17:45 White Blood Count 20.9 TH/MM3 Red Blood Count 3.30 MIL/MM3 Hemoglobin 8.7 GM/DL Hematocrit 27.0 % Mean Corpuscular Volume 81.8 FL Mean Corpuscular Hemoglobin 26.4 PG Mean Corpuscular Hemoglobin Concent 32.3 % Red Cell Distribution Width 16.9 % Platelet Count 204 TH/MM3 Mean Platelet Volume 8.3 FL Neutrophils (%) (Auto) 93.3 % Lymphocytes (%) (Auto) 4.0 % Monocytes (%) (Auto) 0.9 % Eosinophils (%) (Auto) 1.5 % Basophils (%) (Auto) 0.3 % Neutrophils # (Auto) 19.5 TH/MM3 Lymphocytes # (Auto) 0.8 TH/MM3 Monocytes # (Auto) 0.2 TH/MM3 Eosinophils # (Auto) 0.3 TH/MM3 Basophils # (Auto) 0.1 TH/MM3 CBC Comment DIFF FINAL Differential Comment Blood Urea Nitrogen 17 MG/DL Creatinine 0.72 MG/DL Random Glucose 86 MG/DL Total Protein 5.5 GM/DL Albumin 1.2 GM/DL Calcium Level 7.6 MG/DL Phosphorus Level 3.4 MG/DL Magnesium Level 1.5 MG/DL Alkaline Phosphatase 152 U/L Aspartate Amino Transf (AST/SGOT) 30 U/L Alanine Aminotransferase (ALT/SGPT) 12 U/L Total Bilirubin 0.6 MG/DL Sodium Level 137 MEQ/L Potassium Level 2.8 MEQ/L Chloride Level 102 MEQ/L Carbon Dioxide Level 24.6 MEQ/L Anion Gap 10 MEQ/L Estimat Glomerular Filtration Rate 109 ML/MIN Thyroid Stimulating Hormone 3rd Gen 0.638 uIU/ML Random Cortisol 23.9 MCG/DL Culture Results Microbiology Date/Time Source Procedure Growth Status 12/17/17 17:45 Blood Peripheral Aerobic Blood Culture Pending Received 12/17/17 17:45 Blood Peripheral Anaerobic Blood Culture Pending Received 12/17/17 04:05 Blood Peripheral Aerobic Blood Culture Pending Received 12/17/17 04:05 Blood Peripheral Anaerobic Blood Culture Pending Received 12/15/17 22:40 Blood Peripheral Aerobic Blood Culture - Preliminary NO GROWTH IN 2 DAYS Resulted 12/15/17 22:40 Blood Peripheral Anaerobic Blood Culture - Preliminary NO GROWTH IN 2 DAYS Resulted 12/15/17 22:35 Blood Peripheral Aerobic Blood Culture - Preliminary NO GROWTH IN 2 DAYS Resulted 12/15/17 22:35 Blood Peripheral Anaerobic Blood Culture - Preliminary NO GROWTH IN 2 DAYS Resulted 12/17/17 05:35 Stool Stool Stool Occult Blood (LISETTE) - Final HEMOCCULT NEGATIVE Complete 12/16/17 04:45 Urine Catheterized Urine Urine Culture - Preliminary NO GROWTH IN 24 HOURS. Resulted Imaging Studies Last 24 hours Impressions Chest X-Ray 12/17/17 0000 Signed Impressions: Service Date/Time: Sunday, December 17, 2017 04:01 - CONCLUSION: No acute disease. Wali Soto MD Administered Medications Medications (Trade) Dose Ordered Sig/Tiffany Route PRN Reason Start Time Stop Time Status Last Admin Dose Admin Atorvastatin Calcium (Lipitor) 20 mg HS PO 12/16/17 21:00 12/16/17 20:57 Diphenhydramine HCl (Benadryl) 50 mg HS PO 12/16/17 21:00 12/16/17 20:58 Oxycodone HCl (Roxicodone) 5 mg Q6H PRN PO PAIN 12/16/17 00:45 12/17/17 16:44 Tramadol HCl (Ultram) 50 mg Q6H PRN PO PAIN 12/16/17 00:45 12/17/17 09:21 Sodium Chloride 1,000 ml @ 50 mls/hr Q20H IV 12/16/17 00:44 12/17/17 05:00 Sodium Chloride (NS Flush) 2 ml UNSCH PRN IV FLUSH FLUSH AFTER USING IV ACCESS 12/16/17 00:45 12/16/17 01:43 Sodium Chloride (NS Flush) 2 ml BID IV FLUSH 12/16/17 09:00 12/17/17 09:23 Acetaminophen (Tylenol) 650 mg Q6H PRN PO PAIN 1-10 AND/OR FEVER >101F 12/16/17 00:45 12/16/17 08:41 Famotidine (Pepcid) 20 mg Q12HR PO 12/16/17 09:00 12/17/17 08:49 Ondansetron HCl (Zofran Inj) 4 mg Q6H PRN IV PUSH NAUSEA OR VOMITING 12/16/17 00:45 12/17/17 11:52 Enoxaparin Sodium (Lovenox Inj) 30 mg Q24H SQ 12/16/17 00:45 12/17/17 00:41 Miscellaneous Information 1 Q361D XX 12/16/17 00:45 12/16/17 00:45 Chlorhexidine Gluconate (Chlorhexidine 2% Cloth) 3 pack Taper DAILY@04 TOP 12/16/17 04:00 12/12/18 03:59 12/17/17 00:41 Senna/Docusate Sodium (Tina-Colace) 1 tab BID PO 12/16/17 09:00 12/17/17 08:49 Cefepime HCl 2000 mg/Sodium Chloride 100 ml @ 200 mls/hr Q8H IV 12/16/17 08:00 12/17/17 16:06 Insulin Aspart (NovoLOG SUPPLEMENTAL SCALE) 1 ACHS SLIDING SCALE SQ 12/16/17 17:00 12/17/17 07:36 Potassium Chloride 100 ml @ 50 mls/hr Q2H PRN IV For Potassium 2.8 - 3.2 mEq/L 12/16/17 13:30 12/17/17 08:49 Alprazolam (Xanax) 0.25 mg Q8H PRN PO anxiety 12/17/17 13:00 12/17/17 14:34 Objective Remarks GENERAL PHYSICAL APPEARANCE: Mr. Baltazar is a pleasant elderly male. He is laying in bed in the ICU. He appears to be in no acute distress. HEENT: Head is atraumatic, normocephalic. Conjunctivae are pale; sclerae are anicteric. EOMI, PERRLA. Oral exam - No pharyngeal erythema. NECK EXAM: No palpable cervical or supraclavicular lymphadenopathy. RESPIRATORY EXAM: Decreased bibasilar breath sounds, good air movement of the upper and middle lung zones. Prolonged expiratory phase. CARDIOVASCULAR: Regular rate and rhythm. S1-S2. No obvious murmurs, rubs or gallops. ABDOMINAL EXAM: Massively enlarged liver, abdominal distension, free fluid in the abdomen noted, tenderness in the right upper quadrant and right periumbilical area. The hepatic surface is irregular and firm. LOWER EXTREMITIES: Trace pretibial edema. No calf tenderness. [employer]: Generally weak, no focal sensory or motor deficits. SKIN: Generally pale. Some bruising noted. Assessment/Plan Assessment Mr. 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 He is status post one cycle of palliative modified-dose FOLFOX. He comes into the hospital while on his first cycle of FOLFOX with complaints of chills, sweats and fever. He was noted to be increasingly anemic and was admitted to the hospital with sepsis. He required multiple liters of normal saline to stabilize his blood pressure. He has been initiated on broad-spectrum antibiotics including cefepime and vancomycin. Plan 1. Multifocal intrahepatic cholangiocarcinoma: Status post first cycle of palliative systemic chemotherapy with modified dose FOLFOX, treatment was delivered between 12/13 and 12/15/2017. 2. Persistent nausea: I will start him on [id number] Zofran 4 mg IV every 4 hours. 3. On respiratory exam bilateral inspiratory crepitus were noted, expiratory rhonchi were noted: I will start him on [id number] DuoNeb nebulizers every 6 hours. 4. Sepsis: On broad-spectrum antibiotic coverage with vancomycin and cefepime. Blood cultures remain negative. 5. Severe anemia: Etiology not known but I suspect multiple contributed factors such as his oncologic diagnosis and recent chemotherapy. Stool is negative for occult blood. Recent GI workup was negative. Disposition: Continue ongoing supportive care. Encourage by mouth intake. Manage nausea. Supportive transfusions. Will eventually require physical therapy. Beau Harrison MD Dec 17, 2017 18:40
[2017-12-17] MEDS: RESP: ALBUTEROL 2.5 MG/IPRATROPIUM 0.5 MG NEB (SCH) NEB (19:57)
[2017-12-17] MEDS: ONDANSETRON HCL 4 MG/2 ML VIAL IV PUSH SCH ×2 (20:52→23:51)
[2017-12-17] MEDS: diphenhydrAMINE HCL 50 MG CAP PO SCH (20:52)
[2017-12-17] MEDS: ATORVASTATIN 20 MG TAB PO SCH (20:53)
[2017-12-17] MEDS: VANCOMYCIN INJ 1,750 MG in SODIUM CHLORID 0.9% 500 ML INJ 500 ML IV SCH (23:51)
[2017-12-18] VITALS (19 sets, daily range): BP systolic 111–151; BP diastolic 56–83; PULSE 73–95; RESP 12–18; TEMP 97.5–99.5; O2SAT 94–100
[2017-12-18] MEDS: RESP: ALBUTEROL 2.5 MG/IPRATROPIUM 0.5 MG NEB (SCH) NEB ×4 (03:38→20:57)
[2017-12-18] MEDS: CHLORHEXIDINE GLUCONATE 2 % 1 PACK (2 CLOTHS) TOP SCH (04:00)
[2017-12-18] MEDS: ONDANSETRON HCL 4 MG/2 ML VIAL IV PUSH SCH ×5 (04:06→19:28)
[2017-12-18] MEDS ORDERED: PHARMACY ORDERED LAB ONE ×2 (05:45→23:45)
[2017-12-18 06:04] LABS: ALBUMIN 1.2 GM/DL (3.4-5.0); ALT (GPT) 10 U/L (12-78); AST (GOT) 16 U/L (15-37); BICARBONATE 27.6 MEQ/L (21.0-32.0); BLOOD UREA NITROGEN 10 MG/DL (7-18); CALCIUM 7.6 MG/DL (8.5-10.1); CHLORIDE 103 MEQ/L (98-107); CREATININE 0.61 MG/DL (0.60-1.30); GLOMERULAR FILTRATION RATE 132 ML/MIN (>89); GLUCOSE,RANDOM 93 MG/DL (74-106); MAGNESIUM 1.9 MG/DL (1.5-2.5); PHOSPHORUS 2.6 MG/DL (2.5-4.9); SODIUM (NA) 137 MEQ/L (136-145)
[2017-12-18 06:07] LABS: ALKALINE PHOSPHATASE 155 U/L (45-117); TOTAL BILIRUBIN ADULT 0.6 MG/DL (0.2-1.0); TOTAL PROTEIN 5.4 GM/DL (6.4-8.2)
[2017-12-18 06:18] LABS: BASOPHIL % 0.1 % (0.0-2.0); EOSINOPHIL # 0.2 TH/MM3 (0-0.4); HEMATOCRIT 26.5 % (39.0-51.0); HEMOGLOBIN 8.7 GM/DL (13.0-17.0); LYMPH % 3.2 % (9.0-44.0); LYMPHOCYTE # 0.7 TH/MM3 (1.0-4.8); MEAN CORPUSCULAR HEMOGLOBIN 26.8 PG (27.0-34.0); MEAN CORPUSCULAR HGB CONC 32.7 % (32.0-36.0); MEAN PLATELET VOLUME 8.1 FL (7.0-11.0); MONO % 1.9 % (0.0-8.0); MONOCYTE # 0.4 TH/MM3 (0-0.9); NEUT % 93.8 % (16.0-70.0); PLATELET COUNT 156 TH/MM3 (150-450); RED BLOOD COUNT 3.24 MIL/MM3 (4.50-5.90); RED CELL DISTRIBUTION WIDTH 17.2 % (11.6-17.2); WHITE BLOOD COUNT 22.4 TH/MM3 (4.0-11.0)
[2017-12-18] MEDS: POTASSIUM CHLOR 20 MEQ PREMIX 100 ML IV PRN ×3 (06:37→17:45)
[2017-12-18] MEDS: ALPRAZolam 0.25 MG TAB PO PRN (06:56)
[2017-12-18] MEDS: INSULIN ASPART SUPPLEMENTAL SCALE SQ SCH ×4 (07:52→19:58)
[2017-12-18] MEDS: CEFEPIME INJ 2,000 MG in SODIUM CHLORIDE 0.9% INJ 100 ML IV SCH ×2 (07:52→15:38)
[2017-12-18] MEDS: DOCUSATE SODIUM 50 MG/SENNA 8.6 MG TAB PO SCH ×2 (07:53→19:58)
[2017-12-18] MEDS: SODIUM CHLORIDE 0.9% FLUSH 10 ML FLUSH IV FLUSH SCH ×2 (07:53→19:57)
[2017-12-18] MEDS: FAMOTIDINE 20 MG TAB PO SCH ×2 (07:53→20:00)
--- NOTE | 2017-12-18 11:03 | HHI.IDPN ---
Note Infectious Disease Note ID COVERAGE 67-year-old white male recently diagnosed with poorly non-differentiated T-cell adenocarcinoma The patient is felt to likely have cholangiocarcinoma. He had a PICC line inserted on December 13 and chemotherapy was started. The patient developed shaking chills and fever and presented to the emergency department on 12/15. Notes reviewed Complaining of abdominal pain Very poor oral intake due to the nausea and intermittent vomiting Small BM this morning WBC worsening No respiratory complaint Voiding okay Afebrile BP okay Palliative medicine consult reviewed. PAST HISTORY 1. History of hypertension. 2. Hyperlipidemia. 3. Diabetes mellitus type 2. 4. Hemorrhoids . 5. Iron-deficiency anemia. 6. Cancer of the prostate diagnosed in 2011. 7. Prostate biopsy. 8. Vasectomy. 9. Colonoscopy. 10. Radical prostatectomy in 2011. 11. Knee surgery. 12. Recent diagnosis of metastatic carcinoma on liver biopsy November 24, 2017. ALLERGIES No known drug allergies. Current Medications Vancomycin Cefepime Medications (Trade) Dose Ordered Sig/Tiffany Route Start Time Stop Time Status Last Admin (Lipitor) 20 mg HS PO 12/16/17 21:00 12/17/17 20:53 (Benadryl) 50 mg HS PO 12/16/17 21:00 12/17/17 20:52 (Roxicodone) 5 mg Q6H PRN PO 12/16/17 00:45 12/18/17 08:09 (Ultram) 50 mg Q6H PRN PO 12/16/17 00:45 12/17/17 20:52 Sodium Chloride 1,000 ml @ 50 mls/hr Q20H IV 12/16/17 00:44 12/17/17 20:52 (NS Flush) 2 ml UNSCH PRN IV FLUSH 12/16/17 00:45 12/16/17 01:43 (NS Flush) 2 ml BID IV FLUSH 12/16/17 09:00 12/18/17 07:53 (Tylenol) 650 mg Q6H PRN PO 12/16/17 00:45 12/16/17 08:41 (Pepcid) 20 mg Q12HR PO 12/16/17 09:00 12/18/17 07:53 (Lovenox Inj) 30 mg Q24H SQ 12/16/17 00:45 12/17/17 23:50 Miscellaneous Information 1 Q361D XX 12/16/17 00:45 12/16/17 00:45 (Chlorhexidine 2% Cloth) 3 pack Taper DAILY@04 TOP 12/16/17 04:00 12/12/18 03:59 12/18/17 04:00 (Chlorhexidine 2% Cloth) 3 pack UNSCH PRN TOP 12/16/17 00:45 (Tina-Colace) 1 tab BID PO 12/16/17 09:00 12/17/17 08:49 (Milk Of Magnesia Liq) 30 ml Q12H PRN PO 12/16/17 00:45 (Senokot) 17.2 mg Q12H PRN PO 12/16/17 00:45 (Dulcolax Supp) 10 mg DAILY PRN RECTAL 12/16/17 00:45 (Lactulose Liq) 30 ml DAILY PRN PO 12/16/17 00:45 Cefepime HCl 2000 mg/Sodium Chloride 100 ml @ 200 mls/hr Q8H IV 12/16/17 08:00 12/18/17 07:52 Pharmacy Profile Note 0 ml @ 0 mls/hr UNSCH OTHER 12/16/17 01:00 (D50w (Vial) Inj) 50 ml UNSCH PRN IV PUSH 12/16/17 13:30 (Glucagon Inj) 1 mg UNSCH PRN OTHER 12/16/17 13:30 (NovoLOG SUPPLEMENTAL SCALE) 1 ACHS SLIDING SCALE SQ 12/16/17 17:00 12/17/17 07:36 Potassium Chloride 100 ml @ 50 mls/hr Q2H PRN IV 12/16/17 13:30 12/17/17 08:49 Potassium Chloride 100 ml @ 50 mls/hr Q2H PRN IV 12/16/17 13:30 12/18/17 06:37 (K-Lyte Cl Eff) 50 meq UNSCH PRN PO 12/16/17 13:30 Potassium Chloride 100 ml @ 25 mls/hr UNSCH PRN IV 12/16/17 13:30 Potassium Chloride 100 ml @ 50 mls/hr Q2H PRN IV 12/16/17 13:30 Magnesium Sulfate 4 gm/Sodium Chloride 100 ml @ 50 mls/hr UNSCH PRN IV 12/16/17 13:30 (Mag-Ox) 800 mg UNSCH PRN PO 12/16/17 13:30 Magnesium Sulfate 2 gm/Sodium Chloride 100 ml @ 50 mls/hr UNSCH PRN IV 12/16/17 13:30 (K-Phos) 2,000 mg Q4H PRN PO 12/16/17 13:30 Sodium Phosphate 30 mmol/Sodium Chloride 250 ml @ 42 mls/hr UNSCH PRN IV 12/16/17 13:30 (K-Phos) 2,000 mg UNSCH PRN PO/TUBE 12/16/17 13:30 Potassium Phosphate 30 mmol/ Sodium Chloride 260 ml @ 42 mls/hr UNSCH PRN IV 12/16/17 13:30 Vancomycin HCl 1750 mg/Sodium Chloride 517.5 ml @ 250 mls/hr Q12H IV 12/18/17 00:00 12/17/17 23:51 Miscellaneous Information SPECIFIC LAB TO BE DRAWN: VANCO TRO... ONCE ONCE .XX 12/18/17 23:45 12/18/17 23:46 (Xanax) 0.25 mg Q8H PRN PO 12/17/17 13:00 12/18/17 06:56 (Zofran Inj) 4 mg Q4HR IV PUSH 12/17/17 20:00 12/18/17 07:52 (Duoneb Neb) 1 ampule Q6HR NEB NEB 12/17/17 22:00 12/18/17 09:40 IMAGING: Chest X-Ray 12/17/17 0000 Signed Impressions: Service Date/Time: Sunday, December 17, 2017 04:01 - CONCLUSION: No acute disease. Wali Soto MD Abdomen/Pelvis CT 12/16/17 0000 Signed Impressions: Service Date/Time: December 00:34 - CONCLUSION: 1. Worsening of metastatic disease to the liver with mild ascites, increased from November 22. No bowel obstruction or free air. 2. Gallstones in gallbladder. Leonidas Reeder MD PHYSICAL EXAMINATION GENERAL: Awake and alert, NAD HEENT: Head atraumatic. Extraocular movements grossly intact, pupils reactive to light without icterus. Oropharynx - Moist mucosa without lesions. NECK: Supple without adenopathy or swelling. LUNGS: Clear breath sounds. HEART: Regular S1 and S2, without murmurs, rubs or gallops. ABDOMEN: Distended abdomen, bowel sounds are present, with diffuse tenderness. No guarding or rebound. EXTREMITIES: 1+ edema at the feet. No clubbing or cyanosis. SKIN: No rash. Cool and dry NEUROLOGICAL: Grossly nonfocal PSYCHIATRIC: Calm and cooperative. LINE: No evidence of infection IMPRESSION Sepsis on admission. ? source. Leukocytosis. - Up for infection negative so far. - Question due to malignancy Metastatic cholangiocarcinoma. Patient with advanced non resectable intrahepatic cholangiocarcinoma. - Post recent chemo12/15 - 12/16/17 - CT A/P with progression RECOMMENDATIONS Continue vancomycin. Continue cefepime. Follow cultures and adjust antibiotic - If cultures are negative, will start the escalation of the antibiotics Monitor progress Follow temps Explained plan to the patient and son Discussed with Solange Montiel MD Dec 18, 2017 11:03
[2017-12-18] MEDS: MORPHINE SULFATE 2 MG/ML INJ IV PUSH PRN (11:15)
[2017-12-18] MEDS: ACETAMINOPHEN 325 MG TAB PO PRN (11:15)
[2017-12-18] MEDS: VANCOMYCIN INJ 1,750 MG in SODIUM CHLORID 0.9% 500 ML INJ 500 ML IV SCH (11:16)
--- NOTE | 2017-12-18 12:41 | PD.ONC.PN ---
Subjective Subjective Remarks Afebrile overnight. Patient states his breathing has improved, and his chills have improved. States his nausea has also improved. however, he continues to have no appetite, and any time he tries to eat something he vomits it back up. His RUQ abdomen continues to be painful and the tramadol was not effective. this morning he was started on morphine which he states is starting to help with the pain. Objective Data Date Time Temp Pulse Resp B/P (MAP) Pulse Ox O2 Delivery O2 Flow Rate FiO2 12/18/17 10:00 81 15 129/66 (87) 97 12/18/17 10:00 81 12/18/17 09:41 99 Nasal Cannula 2.00 12/18/17 09:00 82 17 111/59 (76) 96 12/18/17 08:00 98.6 80 16 136/79 (98) 97 12/18/17 08:00 76 12/18/17 06:00 82 12/18/17 04:00 85 12/18/17 04:00 97.7 85 13 125/61 (82) 99 12/18/17 02:00 84 12/18/17 00:00 99.5 88 18 124/66 (85) 97 12/18/17 00:00 88 12/17/17 22:00 83 12/17/17 20:03 96 Nasal Cannula 2.00 12/17/17 20:00 98.5 89 10 132/71 (91) 99 12/17/17 20:00 89 12/17/17 18:00 93 12/17/17 16:00 94 12/17/17 16:00 99.0 94 16 121/58 (79) 96 12/17/17 14:00 68 12/18/17 12/18/17 12/18/17 07:00 15:00 23:00 Intake Total 617.5 ml Output Total 1150 ml Balance -532.5 ml Result Diagram: 12/18/17 0500 12/18/17 0500 Laboratory Results Laboratory Tests Test 12/17/17 17:45 12/18/17 05:00 Potassium Level 3.1 MEQ/L 3.2 MEQ/L White Blood Count 22.4 TH/MM3 Red Blood Count 3.24 MIL/MM3 Hemoglobin 8.7 GM/DL Hematocrit 26.5 % Mean Corpuscular Volume 82.0 FL Mean Corpuscular Hemoglobin 26.8 PG Mean Corpuscular Hemoglobin Concent 32.7 % Red Cell Distribution Width 17.2 % Platelet Count 156 TH/MM3 Mean Platelet Volume 8.1 FL Neutrophils (%) (Auto) 93.8 % Lymphocytes (%) (Auto) 3.2 % Monocytes (%) (Auto) 1.9 % Eosinophils (%) (Auto) 1.0 % Basophils (%) (Auto) 0.1 % Neutrophils # (Auto) 21.0 TH/MM3 Lymphocytes # (Auto) 0.7 TH/MM3 Monocytes # (Auto) 0.4 TH/MM3 Eosinophils # (Auto) 0.2 TH/MM3 Basophils # (Auto) 0.0 TH/MM3 CBC Comment DIFF FINAL Differential Comment Blood Urea Nitrogen 10 MG/DL Creatinine 0.61 MG/DL Random Glucose 93 MG/DL Total Protein 5.4 GM/DL Albumin 1.2 GM/DL Calcium Level 7.6 MG/DL Phosphorus Level 2.6 MG/DL Magnesium Level 1.9 MG/DL Alkaline Phosphatase 155 U/L Aspartate Amino Transf (AST/SGOT) 16 U/L Alanine Aminotransferase (ALT/SGPT) 10 U/L Total Bilirubin 0.6 MG/DL Sodium Level 137 MEQ/L Chloride Level 103 MEQ/L Carbon Dioxide Level 27.6 MEQ/L Anion Gap 6 MEQ/L Estimat Glomerular Filtration Rate 132 ML/MIN Culture Results Microbiology Date/Time Source Procedure Growth Status 12/17/17 17:45 Blood Peripheral Aerobic Blood Culture - Preliminary NO GROWTH IN 1 DAY Resulted 12/17/17 17:45 Blood Peripheral Anaerobic Blood Culture - Preliminary NO GROWTH IN 1 DAY Resulted 12/17/17 04:05 Blood Peripheral Aerobic Blood Culture - Preliminary NO GROWTH IN 1 DAY Resulted 12/17/17 04:05 Blood Peripheral Anaerobic Blood Culture - Preliminary NO GROWTH IN 1 DAY Resulted 12/15/17 22:40 Blood Peripheral Aerobic Blood Culture - Preliminary NO GROWTH IN 3 DAYS Resulted 12/15/17 22:40 Blood Peripheral Anaerobic Blood Culture - Preliminary NO GROWTH IN 3 DAYS Resulted 12/15/17 22:35 Blood Peripheral Aerobic Blood Culture - Preliminary NO GROWTH IN 3 DAYS Resulted 12/15/17 22:35 Blood Peripheral Anaerobic Blood Culture - Preliminary NO GROWTH IN 3 DAYS Resulted 12/17/17 05:35 Stool Stool Stool Occult Blood (LISETTE) - Final HEMOCCULT NEGATIVE Complete 12/16/17 04:45 Urine Catheterized Urine Urine Culture - Final NO GROWTH IN 48 HOURS. Complete Administered Medications Medications (Trade) Dose Ordered Sig/Tiffany Route PRN Reason Start Time Stop Time Status Last Admin Dose Admin Atorvastatin Calcium (Lipitor) 20 mg HS PO 12/16/17 21:00 12/17/17 20:53 Diphenhydramine HCl (Benadryl) 50 mg HS PO 12/16/17 21:00 12/17/17 20:52 Oxycodone HCl (Roxicodone) 5 mg Q6H PRN PO PAIN 12/16/17 00:45 12/18/17 08:09 Tramadol HCl (Ultram) 50 mg Q6H PRN PO PAIN 12/16/17 00:45 12/17/17 20:52 Sodium Chloride 1,000 ml @ 50 mls/hr Q20H IV 12/16/17 00:44 12/17/17 20:52 Sodium Chloride (NS Flush) 2 ml UNSCH PRN IV FLUSH FLUSH AFTER USING IV ACCESS 12/16/17 00:45 12/16/17 01:43 Sodium Chloride (NS Flush) 2 ml BID IV FLUSH 12/16/17 09:00 12/18/17 07:53 Acetaminophen (Tylenol) 650 mg Q6H PRN PO PAIN 1-10 AND/OR FEVER >101F 12/16/17 00:45 12/18/17 11:15 Famotidine (Pepcid) 20 mg Q12HR PO 12/16/17 09:00 12/18/17 07:53 Enoxaparin Sodium (Lovenox Inj) 30 mg Q24H SQ 12/16/17 00:45 12/17/17 23:50 Miscellaneous Information 1 Q361D XX 12/16/17 00:45 12/16/17 00:45 Chlorhexidine Gluconate (Chlorhexidine 2% Cloth) 3 pack Taper DAILY@04 TOP 12/16/17 04:00 12/12/18 03:59 12/18/17 04:00 Senna/Docusate Sodium (Tina-Colace) 1 tab BID PO 12/16/17 09:00 12/17/17 08:49 Cefepime HCl 2000 mg/Sodium Chloride 100 ml @ 200 mls/hr Q8H IV 12/16/17 08:00 12/18/17 07:52 Insulin Aspart (NovoLOG SUPPLEMENTAL SCALE) 1 ACHS SLIDING SCALE SQ 12/16/17 17:00 12/17/17 07:36 Potassium Chloride 100 ml @ 50 mls/hr Q2H PRN IV For Potassium 2.8 - 3.2 mEq/L 12/16/17 13:30 12/17/17 08:49 Potassium Chloride 100 ml @ 50 mls/hr Q2H PRN IV For Potassium 2.8 - 3.2 mEq/L 12/16/17 13:30 12/18/17 11:16 Vancomycin HCl 1750 mg/Sodium Chloride 517.5 ml @ 250 mls/hr Q12H IV 12/18/17 00:00 12/18/17 11:16 Alprazolam (Xanax) 0.25 mg Q8H PRN PO anxiety 12/17/17 13:00 12/18/17 06:56 Ondansetron HCl (Zofran Inj) 4 mg Q4HR IV PUSH 12/17/17 20:00 12/18/17 11:15 Albuterol/ Ipratropium (Duoneb Neb) 1 ampule Q6HR NEB NEB 12/17/17 22:00 12/18/17 09:40 Morphine Sulfate (Morphine Inj) 2 mg Q3H PRN IV PUSH breakthrough pain 12/18/17 11:00 12/18/17 11:15 Objective Remarks GENERAL: Middle aged male, lying in bed, on right side. on 2L O2 via NC. He appears mildly lethargic, as he received the morphine shot shortly before my exam. He otherwise appears comfortable. SKIN: Warm and dry. HEAD: Normocephalic. EYES: No injection or drainage. NECK: Supple, trachea midline. CARDIOVASCULAR: Regular rate and rhythm. RESPIRATORY: diminished at bases, anterior cortez clear. GASTROINTESTINAL: Abdomen soft, +ttp, RUQ, nondistended. EXTREMITIES: No cyanosis NEUROLOGICAL: No obvious focal deficit. Awake, alert, and oriented x3. 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 Plan 1. Multifocal intrahepatic cholangiocarcinoma: s/p C1 FOLFOX, 12/13-12/15. 2. Leukocytosis: d/t infection, I reviewed aria and did not see Neulasta given. BC no growth. chills improved since starting Vanco/Cefepime. ID following. continue antibiotics per ID 3. Persistent nausea: Zofran is helpful in controlling the nausea, but he continues to have difficulty advancing his diet. I discussed with the family I believe this will just take time. we will continue scheduled zofran and advance diet as he tolerates it. 4. RUQ Abdominal pain: due to metastatic disease. agree with morphine 2mg IV q 3 hours. will increase as needed. If the pain persists, I will convert to a long acting morphine prior to discharge. 5. will transfer to PSYCHIATRIC oncology once the centrifugal casting machine tender has signed off. Attending Statement The exam, history, and the medical decision-making described in the above note were completed with the assistance of the mid-level provider. I reviewed and agree with the findings presented. I attest that I had a [id number] encounter with the patient on the same day, and personally performed and documented my assessment and findings in the medical record. Complaining of nausea, vomiting And abdominal discomfort. No fever but still has some chills. Poor appetite Continued antibiotic for Infection Abdominal pain improved with morphine Discuss with patient and his RemingtonSilvana ALVAREZ Dec 18, 2017 12:41 Breanna Spencer MD Dec 18, 2017 22:50
--- NOTE | 2017-12-18 13:03 | HHI.CCPN ---
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 No bilious emesis no coffee-ground emesis no hematemesis. No known fever. Patient does have some shortness of breath. 2: Afebrile. Abdominal pain is currently 3-4 out of 10. Transfused [address] abdomen/pelvis revealed small consult by gallstones with enlarging liver carcinoma. 2: Afebrile. Pain controlled. Very poor appetite. Hemodynamically stable. Hemoglobin currently 8.7. Subjective 12/18: Afebrile. Requiring additional morphine sulfate for breakthrough pain. Hemodynamic stable 72 hours. Hemoglobin stable. Positive BM yesterday that was Hemoccult negative. Objective Vital Signs Date Time Temp Pulse Resp B/P (MAP) Pulse Ox O2 Delivery O2 Flow Rate FiO2 12/18/17 10:00 81 15 129/66 (87) 97 12/18/17 09:41 Nasal Cannula 2.00 12/18/17 08:00 98.6 Intake and Output 12/18/17 12/18/17 12/19/17 08:00 16:00 00:00 Intake Total 617.5 ml Output Total 1150 ml Balance -532.5 ml Result Diagram: 12/18/17 0500 12/18/17 0500 Other Results Date/Time Source Procedure Growth Status 12/17/17 17:45 Blood Peripheral Aerobic Blood Culture - Preliminary NO GROWTH IN 1 DAY Resulted 12/17/17 17:45 Blood Peripheral Anaerobic Blood Culture - Preliminary NO GROWTH IN 1 DAY Resulted Imaging Last Impressions Chest X-Ray 12/17/17 0000 Signed Impressions: Service Date/Time: Sunday, December 17, 2017 04:01 - CONCLUSION: No acute disease. Wali Soto MD Abdomen/Pelvis CT 12/16/17 0000 Signed Impressions: Service Date/Time: December 00:34 - CONCLUSION: 1. Worsening of metastatic disease to the liver with mild ascites, increased from November 22. No bowel obstruction or free air. 2. Gallstones in gallbladder. Leonidas Reeder MD Objective Remarks GENERAL: 67-year-old male currently resting in bed in no acute distress SKIN: Warm and dry. Well perfused. No rash HEAD: Normocephalic. EYES: No scleral icterus. No injection or drainage. NECK: Supple, trachea midline. No JVD or lymphadenopathy. CARDIOVASCULAR: Regular rate and rhythm without murmurs, gallops, or rubs. RESPIRATORY: Clear to auscultation bilaterally without wheezes rales or rhonchi GASTROINTESTINAL: Abdomen soft, non-tender, somehow distended. Hypoactive bowel sounds are appreciated. Liver is palpated below the costophrenic margin MUSCULOSKELETAL: 1+ lower extremity edema below the knees.. NEURO EXAM: Cranial nerves II through XII grossly intact. Strength is equal symmetric. Normal sensation Urinary Catheter: No Assessment to: Continue Vascular Central Line Catheter: Yes Assessment to: Continue Date of Insertion: Dec 14, 2017 Line: PICC Side: Right Location: Antecubital A/P Assessment and Plan Neuro/Psych: Chronic pain syndrome Insomnia Home pain medications oxycodone 5 milligrams every 6 hours when necessary Morphine sulfate 2 mg IV every 2 hours when necessary breakthrough pain tramadol 50 mg every 6 hours when necessary pain. Alprazolam 0.25 mg as every 8 hours as needed anxiety Diphenhydramine 50 mg at night when necessary insomnia resumed CV: ASVD History of hypertension Dyslipidemia Lactic acidosis - resolved Currently on atorvastatin 20 mg by mouth daily On normal saline at 50 cc an hour.. We'll discontinue today Currently not on any antihypertensives Resp: Nasal cannula to maintain saturations greater than 92% Incentive spirometry while awake Albuterol/ipratropium aerosols every 6 hours with albuterol aerosols every 2 hours. Dyspnea GI: History of hemorrhoids Hypoalbuminemia CT abdomen/pelvis 12/16 revealed revealed 28.2 cm enlarging liver metastases. Small calcified gallstones in gallbladder. Moderate ascites. Received albumin 1 today for hypotension Heart healthy diet Famotidine 20 mg twice a day Docusate sodium/senna 1 tablet twice a day for bowel regimen Consult gastroenterology/Dr. Nassar and Hemoccult negative. : Hampton catheter in place for accurate I's and O's in a critically ill patient Endo: Diabetes mellitus type 2 Check cortisol level - 21 Sliding-scale insulin with Accu-Cheks before meals/at bedtime to maintain euglycemia Renal: Monitor urine output Accurate I's and Os Recheck BMP in a.m. Heme: Unresectable intrahepatic cholangiocarcinoma History of prostate cancer Leukocytosis Normocytic anemia/history of iron deficiency Oxaliplatin/Leucovorin stop date today per infusion pump. Consultation Dr. Harrison/oncology Transfused 3 units PRBCs on admission Currently on enoxaparin 30 mg every 24 for DVT prophylaxis ID: Currently on vancomycin/cefepime day #3 Infectious disease consultation Blood cultures 2, UA all pending FEN: Hypopotassemia Replace electrolytes as clinically indicated per ICU electrolyte protocol MSK: PT evaluate and treat Access - Right antecubital PICC Prophylaxis - GI - famotidine - DVT - SCD/enoxaparin Level II follow-up Patient is stable from a critical care medicine standpoint. Assign care to hospitalist in a.m. 12/19/17. Okay to transfer to hematology oncology floor. Kota Baldwin MD Dec 18, 2017 13:03
[2017-12-18] MEDS ORDERED: POTASSIUM CHLORIDE 10 MEQ CONTROLLED RELEASE TAB PO ONE (13:15)
[2017-12-18] MEDS: MAGNESIUM SULFATE 1 GM PREMIX 100 ML IV SCH ×2 (13:30→15:33)
[2017-12-18] MEDS: SODIUM CHLOR 0.9% 1000 ML INJ 1,000 ML IV SCH (15:35)
[2017-12-18] MEDS: diphenhydrAMINE HCL 50 MG CAP PO SCH (19:58)
[2017-12-18] MEDS: ATORVASTATIN 20 MG TAB PO SCH (19:58)
[2017-12-19] VITALS (20 sets, daily range): BP systolic 123–148; BP diastolic 75–85; PULSE 71–92; RESP 16–20; TEMP 97.3–98.7; O2SAT 95–99
[2017-12-19] MEDS: ONDANSETRON HCL 4 MG/2 ML VIAL IV PUSH SCH ×6 (00:09→20:21)
[2017-12-19] MEDS: ENOXAPARIN SODIUM 30 MG/0.3 ML SYRINGE SQ SCH (00:09)
[2017-12-19] MEDS: CEFEPIME INJ 2,000 MG in SODIUM CHLORIDE 0.9% INJ 100 ML IV SCH ×3 (00:40→16:40)
[2017-12-19] MEDS: VANCOMYCIN INJ 1,750 MG in SODIUM CHLORID 0.9% 500 ML INJ 500 ML IV SCH ×2 (01:21→12:01)
[2017-12-19] MEDS: RESP: ALBUTEROL 2.5 MG/IPRATROPIUM 0.5 MG NEB (SCH) NEB ×4 (03:44→20:51)
[2017-12-19] MEDS: CHLORHEXIDINE GLUCONATE 2 % 1 PACK (2 CLOTHS) TOP SCH (04:00)
[2017-12-19 06:06] LABS: AUTOMATED NEUTROPHIL # 17.5 TH/MM3 (1.8-7.7); BASOPHIL % 0.2 % (0.0-2.0); EOSINOPHIL # 0.3 TH/MM3 (0-0.4); EOSINOPHIL % 1.6 % (0.0-4.0); HEMATOCRIT 24.9 % (39.0-51.0); HEMOGLOBIN 8.1 GM/DL (13.0-17.0); LYMPH % 4.3 % (9.0-44.0); LYMPHOCYTE # 0.8 TH/MM3 (1.0-4.8); MEAN CELL VOLUME 81.5 FL (80.0-100.0); MEAN CORPUSCULAR HEMOGLOBIN 26.6 PG (27.0-34.0); MEAN CORPUSCULAR HGB CONC 32.7 % (32.0-36.0); MEAN PLATELET VOLUME 7.9 FL (7.0-11.0); MONO % 2.9 % (0.0-8.0); MONOCYTE # 0.6 TH/MM3 (0-0.9); PLATELET COUNT 136 TH/MM3 (150-450); RED BLOOD COUNT 3.06 MIL/MM3 (4.50-5.90); RED CELL DISTRIBUTION WIDTH 17.6 % (11.6-17.2); WHITE BLOOD COUNT 19.3 TH/MM3 (4.0-11.0)
[2017-12-19 07:02] LABS: ALBUMIN 1.1 GM/DL (3.4-5.0); BICARBONATE 26.2 MEQ/L (21.0-32.0); CALCIUM 7.3 MG/DL (8.5-10.1); CALCIUM-PROTEIN CORRECTED 8.3 MG/DL (8.5-10.1); CREATININE 0.5 MG/DL (0.60-1.30); MAGNESIUM 1.9 MG/DL (1.5-2.5); PHOSPHORUS 1.8 MG/DL (2.5-4.9); TOTAL BILIRUBIN ADULT 0.5 MG/DL (0.2-1.0); TOTAL PROTEIN 5.2 GM/DL (6.4-8.2)
[2017-12-19] MEDS: INSULIN ASPART SUPPLEMENTAL SCALE SQ SCH ×4 (08:00→20:38)
[2017-12-19] MEDS: DOCUSATE SODIUM 50 MG/SENNA 8.6 MG TAB PO SCH ×2 (08:03→20:20)
[2017-12-19] MEDS: FAMOTIDINE 20 MG TAB PO SCH ×2 (08:03→20:21)
[2017-12-19] MEDS: SODIUM CHLORIDE 0.9% FLUSH 10 ML FLUSH IV FLUSH SCH ×2 (08:05→20:22)
[2017-12-19] MEDS: MORPHINE SULFATE 2 MG/ML INJ IV PUSH PRN (08:13)
--- NOTE | 2017-12-19 09:26 | HHI.FPPN ---
Subjective Remarks Patient is a 67 y/o male with a history of prostate carcinoma which is currently under treatment with palliative androgen deprivation, who was recently diagnosed with an advanced intrahepatic cholangiocarcinoma which was determined to be nonresectable. He had one dose of palliative systemic therapy on 12/14/17 and 2 days later he presented to the ED for evaluation of shaking chills, generalized weakness, and vomiting. He was admitted to the ICU and was managed by the critical care team. After 3 days, he was deemed stable to be transferred to intermediate care. Family medicine was contacted to take over his care because his PCP is Dr. Rochelle Aburto, one of the family medicine residents. Today, the patient states that he feels terrible. His major issue is abdominal pain and distention. He has no appetite. Food and has tried to drink some water and was able to keep it down. He has had minimal bowel movements. He states that if we can improve his appetite and the abdominal pain, we would have done our job. (Eko,Ariana Bullock MD R2) Objective Vitals Vital Signs Date Time Temp Pulse Resp B/P (MAP) Pulse Ox O2 Delivery O2 Flow Rate FiO2 12/19/17 06:00 86 12/19/17 05:00 92 12/19/17 04:30 98.5 85 16 139/76 (97) 99 12/19/17 04:00 86 12/19/17 04:00 88 12/19/17 03:49 98 Nasal Cannula 2.00 12/19/17 03:00 84 12/19/17 02:00 82 12/19/17 01:00 88 12/19/17 00:05 98.7 87 16 141/85 (103) 95 12/19/17 00:00 82 12/19/17 00:00 85 12/18/17 23:00 92 12/18/17 22:00 91 12/18/17 21:00 97.9 95 16 142/73 (96) 99 12/18/17 20:57 94 Nasal Cannula 2.00 12/18/17 20:00 98.4 90 14 132/62 (85) 98 12/18/17 20:00 90 12/18/17 16:00 97.5 76 14 117/56 (76) 97 12/18/17 16:00 76 12/18/17 15:00 78 12/18/17 14:01 75 2/3/18 14:01 75 13 151/83 (105) 100 12/18/17 14:00 77 12/18/17 14:00 77 13 99 12/18/17 13:00 73 13 134/79 (97) 96 12/18/17 13:00 73 12/18/17 12:00 78 12/18/17 12:00 98.9 78 12 119/63 (81) 94 12/18/17 10:00 81 15 129/66 (87) 97 12/18/17 10:00 81 12/18/17 09:41 99 Nasal Cannula 2.00 I/O 12/18/17 12/18/17 12/18/17 12/19/17 12/19/17 12/19/17 07:00 15:00 23:00 07:00 15:00 23:00 Intake Total 617.5 ml 300 ml 1646.7 ml 600 ml Output Total 1150 ml 350 ml 500 ml Balance -532.5 ml 300 ml 1296.7 ml 100 ml Intake Oral 703 ml IV Total 617.5 ml 300 ml 943.7 ml 600 ml Output Urine Total 1150 ml 350 ml 500 ml # Bowel Movements 1 0 (Eko,Ariana U R2) Result Diagram: 12/19/17 0430 12/19/17 0430 Imaging Last Impressions Chest X-Ray 12/17/17 0000 Signed Impressions: Service Date/Time: Sunday, December 17, 2017 04:01 - CONCLUSION: No acute disease. Wali Soto MD Abdomen/Pelvis CT 12/16/17 0000 Signed Impressions: Service Date/Time: December 00:34 - CONCLUSION: 1. Worsening of metastatic disease to the liver with mild ascites, increased from November 22. No bowel obstruction or free air. 2. Gallstones in gallbladder. Leonidas Reeder MD Objective Remarks GENERAL: Well-developed male currently resting in bed, very uncomfortable, restless SKIN: Warm and dry. Well perfused. No rash HEAD: Normocephalic. EYES: No scleral icterus. No injection or drainage. NECK: Supple, trachea midline. No JVD or lymphadenopathy. CARDIOVASCULAR: Regular rate and rhythm without murmurs, gallops, or rubs. RESPIRATORY: Clear to auscultation bilaterally without wheezes rales or rhonchi GASTROINTESTINAL: Abdomen soft, tender especially in the right upper and lower quadrants, distended. Bowel sounds present but hypoactive. Mild fluid wave. Liver is palpated below the costophrenic margin MUSCULOSKELETAL: 1+ lower extremity edema below the knees. NEURO EXAM: Cranial nerves II through XII grossly intact. Strength is equal symmetric. Normal sensation (Ariana Tenorio MD R2) Date of Insertion: Dec 14, 2017 Line: PICC Side: Right Location: Antecubital (Ariana Tenorio MD R2) A/P Assessment and Plan 67-year-old male with past medical history of resolved prostate cancer and active advanced intrahepatic cholangiocarcinoma presents with abdominal pain and anorexia. Discharge Planning Pending clinical improvement (Ariana Tenorio MD R2) Attending Attestation Case discussed in detail with resident doctor Patient seen and examined with Dr Tenorio Agree with documentation Orders approved (Ramon Bhakta MD) Problem List: (1) Sepsis ICD Codes: A41.9 - Sepsis, unspecified organism Status: Acute Plan: - Continue Cefepime 2g Q8h IV and Vancomycin 1750 mg Q12h IV (12/16/2017 - ) - Repeat blood cultures negative x 2 days - Urine cultures negative x 2 days - Infectious disease on board - appreciate recommendations - De-escalate antibiotics per ID (2) Intrahepatic cholangiocarcinoma ICD Codes: C22.1 - Intrahepatic bile duct carcinoma Plan: -Status post his first cycle of FOLFOX -Hold current immunotherapy -Supportive care -Poor oral intake 2/2 n/v -Start Marinol 2.5mg PO BID 1 hour before meals to increase appetite and reduce nausea and vomiting -Palliative on board - appreciate recommendations -Heme/Onc on board - appreciate recommendations * Changed pain regimen to Oramorph 15mg PO q8 hours with Morphine IR 15mg PO q3 hours for breakthrough pain (3) Right upper quadrant abdominal pain ICD Codes: R10.11 - Right upper quadrant pain Plan: -IR consult for possible ultrasound-guided therapeutic and diagnostic paracentesis paracentesis -Concern for SBP (4) Leukocytosis ICD Codes: D72.829 - Elevated white blood cell count, unspecified Plan: -Suspect secondary to malignancy -Blood and urine cultures negative so far -Monitor temperature (5) Hypokalemia ICD Codes: E87.6 - Hypokalemia Plan: -Potassium 3.3 this a.m. -Schedule effervescent potassium 25 mg by mouth daily (6) Dyslipidemia ICD Codes: E78.5 - Hyperlipidemia, unspecified Plan: Continue Atorvastatin 20 mg by mouth daily (7) History of prostate cancer ICD Codes: Z85.46 - Personal history of malignant neoplasm of prostate Plan: -Resolved per patient -No interventions needed at this time (8) Decrease in appetite ICD Codes: R63.0 - Anorexia Plan: -Start Marinol 2.5 mg by mouth twice a day one hour before meals -Consider Megace per palliative care although this medication is metabolized by the liver (9) Constipation ICD Codes: K59.00 - Constipation, unspecified Plan: -No reasonable bowel movements since admission -Tina-Colace 1 tab by mouth twice a day -Escalate constipation regimen as tolerated (10) Diabetes ICD Codes: E11.9 - Type 2 diabetes mellitus without complications Plan: -Sliding-scale insulin with Accu-Cheks before meals/at bedtime to maintain euglycemia (11) Anemia ICD Codes: D64.9 - Anemia, unspecified Plan: -Received 3 units PRBCs on admission -Transfuse to maintain hemoglobin at or above 7.5 mg/dl (12) Anxiety ICD Codes: F41.9 - Anxiety disorder, unspecified Plan: -Alprazolam 0.25 mg as every 8 hours as needed anxiety (13) FEN/DVT PPX/GI PPX/Nursing Orders Plan: -Heart healthy diet -Teds/SCDs -Lovenox subcutaneous for DVT prophylaxis -Famotidine 20 mg twice a day -Nasal cannula to maintain saturations greater than 92% -Incentive spirometry while awake -Albuterol/ipratropium aerosols every 6 hours with albuterol aerosols every 2 hours -Physical therapy consulted to assist with strengthening exercises (Ariana Tenorio MD R2) Problem Qualifiers (1) Sepsis: Qualified Codes: A41.9 - Sepsis, unspecified organism Ariana Tenorio MD R2 Dec 19, 2017 09:26 Ramon Bhakta MD Dec 20, 2017 22:21
--- NOTE | 2017-12-19 09:33 | PD.ONC.PN ---
Subjective Subjective Remarks Afebrile overnight. Patient still having pain in right upper quadrant of abdomen. Pain improved with oxycodone and morphine. Nausea still present but improved. was able to eat some pudding yesterday and keep it down. Objective Data Date Time Temp Pulse Resp B/P (MAP) Pulse Ox O2 Delivery O2 Flow Rate FiO2 12/19/17 06:00 86 12/19/17 05:00 92 12/19/17 04:30 98.5 85 16 139/76 (97) 99 12/19/17 04:00 86 12/19/17 04:00 88 12/19/17 03:49 98 Nasal Cannula 2.00 12/19/17 03:00 84 12/19/17 02:00 82 12/19/17 01:00 88 12/19/17 00:05 98.7 87 16 141/85 (103) 95 12/19/17 00:00 82 12/19/17 00:00 85 12/18/17 23:00 92 12/18/17 22:00 91 12/18/17 21:00 97.9 95 16 142/73 (96) 99 12/18/17 20:57 94 Nasal Cannula 2.00 12/18/17 20:00 98.4 90 14 132/62 (85) 98 12/18/17 20:00 90 12/18/17 16:00 97.5 76 14 117/56 (76) 97 12/18/17 16:00 76 12/18/17 15:00 78 12/18/17 14:01 75 12/18/17 14:01 75 13 151/83 (105) 100 12/18/17 14:00 77 12/18/17 14:00 77 13 99 12/18/17 13:00 73 13 134/79 (97) 96 12/18/17 13:00 73 12/18/17 12:00 78 12/18/17 12:00 98.9 78 12 119/63 (81) 94 12/18/17 10:00 81 15 129/66 (87) 97 12/18/17 10:00 81 12/18/17 09:41 99 Nasal Cannula 2.00 12/19/17 12/19/17 12/19/17 07:00 15:00 23:00 Intake Total 600 ml Output Total 500 ml Balance 100 ml Result Diagram: 12/19/17 0430 12/19/17 0430 Laboratory Results Laboratory Tests Test 12/18/17 23:59 12/19/17 04:30 Vancomycin Level Trough 19.9 MCG/ML White Blood Count 19.3 TH/MM3 Red Blood Count 3.06 MIL/MM3 Hemoglobin 8.1 GM/DL Hematocrit 24.9 % Mean Corpuscular Volume 81.5 FL Mean Corpuscular Hemoglobin 26.6 PG Mean Corpuscular Hemoglobin Concent 32.7 % Red Cell Distribution Width 17.6 % Platelet Count 136 TH/MM3 Mean Platelet Volume 7.9 FL Neutrophils (%) (Auto) 91.0 % Lymphocytes (%) (Auto) 4.3 % Monocytes (%) (Auto) 2.9 % Eosinophils (%) (Auto) 1.6 % Basophils (%) (Auto) 0.2 % Neutrophils # (Auto) 17.5 TH/MM3 Lymphocytes # (Auto) 0.8 TH/MM3 Monocytes # (Auto) 0.6 TH/MM3 Eosinophils # (Auto) 0.3 TH/MM3 Basophils # (Auto) 0.0 TH/MM3 CBC Comment DIFF FINAL Differential Comment Blood Urea Nitrogen 8 MG/DL Creatinine 0.50 MG/DL Random Glucose 93 MG/DL Total Protein 5.2 GM/DL Albumin 1.1 GM/DL Calcium Level 7.3 MG/DL Phosphorus Level 1.8 MG/DL Magnesium Level 1.9 MG/DL Alkaline Phosphatase 161 U/L Aspartate Amino Transf (AST/SGOT) 15 U/L Alanine Aminotransferase (ALT/SGPT) 11 U/L Total Bilirubin 0.5 MG/DL Sodium Level 136 MEQ/L Potassium Level 3.3 MEQ/L Chloride Level 103 MEQ/L Carbon Dioxide Level 26.2 MEQ/L Anion Gap 7 MEQ/L Estimat Glomerular Filtration Rate 166 ML/MIN Protein Corrected Calcium 8.3 MG/DL Culture Results Microbiology Date/Time Source Procedure Growth Status 12/17/17 17:45 Blood Peripheral Aerobic Blood Culture - Preliminary NO GROWTH IN 1 DAY Resulted 12/17/17 17:45 Blood Peripheral Anaerobic Blood Culture - Preliminary NO GROWTH IN 1 DAY Resulted 12/17/17 04:05 Blood Peripheral Aerobic Blood Culture - Preliminary NO GROWTH IN 1 DAY Resulted 12/17/17 04:05 Blood Peripheral Anaerobic Blood Culture - Preliminary NO GROWTH IN 1 DAY Resulted 12/17/17 05:35 Stool Stool Stool Occult Blood (LISETTE) - Final HEMOCCULT NEGATIVE Complete Administered Medications Medications (Trade) Dose Ordered Sig/Tiffany Route PRN Reason Start Time Stop Time Status Last Admin Dose Admin Atorvastatin Calcium (Lipitor) 20 mg HS PO 12/16/17 21:00 12/18/17 19:58 Diphenhydramine HCl (Benadryl) 50 mg HS PO 12/16/17 21:00 12/18/17 19:58 Oxycodone HCl (Roxicodone) 5 mg Q6H PRN PO PAIN 12/16/17 00:45 12/19/17 01:28 Tramadol HCl (Ultram) 50 mg Q6H PRN PO PAIN 12/16/17 00:45 12/17/17 20:52 Sodium Chloride 1,000 ml @ 50 mls/hr Q20H IV 12/16/17 00:44 12/18/17 15:35 Sodium Chloride (NS Flush) 2 ml UNSCH PRN IV FLUSH FLUSH AFTER USING IV ACCESS 12/16/17 00:45 12/16/17 01:43 Sodium Chloride (NS Flush) 2 ml BID IV FLUSH 12/16/17 09:00 12/19/17 08:05 Acetaminophen (Tylenol) 650 mg Q6H PRN PO FEVER >101F 12/16/17 00:45 12/18/17 11:15 Famotidine (Pepcid) 20 mg Q12HR PO 12/16/17 09:00 12/19/17 08:03 Enoxaparin Sodium (Lovenox Inj) 30 mg Q24H SQ 12/16/17 00:45 12/19/17 00:09 Miscellaneous Information 1 Q361D XX 12/16/17 00:45 12/16/17 00:45 Chlorhexidine Gluconate (Chlorhexidine 2% Cloth) 3 pack Taper DAILY@04 TOP 12/16/17 04:00 12/12/18 03:59 12/19/17 04:00 Senna/Docusate Sodium (Tina-Colace) 1 tab BID PO 12/16/17 09:00 12/19/17 08:03 Cefepime HCl 2000 mg/Sodium Chloride 100 ml @ 200 mls/hr Q8H IV 12/16/17 08:00 12/19/17 00:40 Insulin Aspart (NovoLOG SUPPLEMENTAL SCALE) 1 ACHS SLIDING SCALE SQ 12/16/17 17:00 12/17/17 07:36 Potassium Chloride 100 ml @ 50 mls/hr Q2H PRN IV For Potassium 2.8 - 3.2 mEq/L 12/16/17 13:30 12/17/17 08:49 Potassium Chloride 100 ml @ 50 mls/hr Q2H PRN IV For Potassium 2.8 - 3.2 mEq/L 12/16/17 13:30 12/18/17 17:45 Vancomycin HCl 1750 mg/Sodium Chloride 517.5 ml @ 250 mls/hr Q12H IV 12/18/17 00:00 12/19/17 01:21 Alprazolam (Xanax) 0.25 mg Q8H PRN PO anxiety 12/17/17 13:00 12/18/17 06:56 Ondansetron HCl (Zofran Inj) 4 mg Q4HR IV PUSH 12/17/17 20:00 12/19/17 08:04 Albuterol/ Ipratropium (Duoneb Neb) 1 ampule Q6HR NEB NEB 12/17/17 22:00 12/19/17 03:44 Morphine Sulfate (Morphine Inj) 2 mg Q3H PRN IV PUSH breakthrough pain 12/18/17 11:00 12/19/17 08:13 Objective Remarks GENERAL: Middle aged male, lying on right side in bed. SKIN: Warm and dry. HEAD: Normocephalic. EYES: No injection or drainage. NECK: Supple, trachea midline. CARDIOVASCULAR: Regular rate and rhythm. RESPIRATORY: diminished at bases, anterior cortez clear. GASTROINTESTINAL: Abdomen soft, RUQ tender to palpation. no tenderness elsewhere. no rebound tenderness. + ascites. EXTREMITIES: No cyanosis NEUROLOGICAL: awake and alert, normal speech. moving all extremities. 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 Plan 1. Multifocal intrahepatic cholangiocarcinoma: s/p C1 FOLFOX, 12/13-12/15. 2. Leukocytosis: d/t infection. BC no growth. continue Vanco/Cefepime per ID following. 3. Persistent nausea: continue scheduled zofran and advance diet as tolerated. 4. RUQ Abdominal pain: due to metastatic disease. will start scheduled oramorph 15mg PO q 8 hours with Morphine IR 15mg PO q 3 hours for breakthrough pain. Attending Statement The exam, history, and the medical decision-making described in the above note were completed with the assistance of the mid-level provider. I reviewed and agree with the findings presented. I attest that I had a [id number] encounter with the patient on the same day, and personally performed and documented my assessment and findings in the medical record. abd pain is better with morphine still has nausea but under control. Leucocytosis is improving with the antibiotics, Abd US = not enough fluid for tap. continue present plan. Silvana Macedo Dec 19, 2017 09:33 Breanna Spencer MD Dec 19, 2017 15:59
--- NOTE | 2017-12-19 11:05 | RADRPT ---
EXAM DATE/TIME: 12/19/2017 09:54 This report includes an Addendum and supersedes previous reports for this exam. [facility] COMPARISON: No previous studies available for comparison. INDICATIONS : Ascities. MEDICAL HISTORY : Hypercholesterolemia. Hypertension. SURGICAL HISTORY : Prostate surgery. Right knee surgery. ENCOUNTER: Initial ACUITY: 1 month PAIN SCORE: 2/10 LOCATION: Abdomen. AREA EVALUATED: Abdomen. FINDINGS: Imaging of the abdomen and pelvis was performed to evaluate for ascites for possible paracentesis. Mi nimal fluid noted within the right upper, right lower and midline pelvis. Minimal fluid in the left u pper quadrant also seen CONCLUSION: No significant fluid for therapeutic paracentesis. If needed for diagnostic purposes then a small joseline unt of fluid could be aspirated. Joseph Petty MD on December 19, 2017 at 11:02 Board Certified Radiologist. This report was verified electronically. ADDENDUM: This examination was reviewed for possible diagnostic paracentesis. Unfortunately, there is not enoug h ascites to safely tap for diagnostic paracentesis. Dennis Swan MD on December 20, 2017 at 10:47 Board Certified Radiologist. This report was verified electronically.
[2017-12-19] MEDS ORDERED: POTASSIUM CHLORIDE 25 MEQ EFFERVESCENT TAB NG SCH (11:30)
[2017-12-19] MEDS: DRONABINOL 2.5 MG CAP PO SCH ×2 (12:02→16:41)
[2017-12-19] MEDS: MORPHINE SULFATE 15 MG CONTROLLED RELEASE TAB PO SCH ×2 (13:47→21:10)
[2017-12-19 14:18] LABS: INTERNATIONAL NORMALIZED RATIO 1.6 RATIO; PROTHROMBIN TIME - PATIENT 15.8 SEC (9.8-11.6)
[2017-12-19] MEDS: SODIUM CHLOR 0.9% 1000 ML INJ 1,000 ML IV SCH (16:44)
[2017-12-19] MEDS: POTASSIUM CHLORIDE 10 MEQ CONTROLLED RELEASE TAB PO SCH (16:56)
[2017-12-19] MEDS: diphenhydrAMINE HCL 50 MG CAP PO SCH (20:21)
[2017-12-19] MEDS: ATORVASTATIN 20 MG TAB PO SCH (20:21)
[2017-12-20] VITALS (23 sets, daily range): BP systolic 112–152; BP diastolic 64–93; PULSE 81–106; RESP 16–20; TEMP 98–98.5; O2SAT 93–98
[2017-12-20] MEDS: CEFEPIME INJ 2,000 MG in SODIUM CHLORIDE 0.9% INJ 100 ML IV SCH ×2 (00:21→09:57)
[2017-12-20] MEDS: ONDANSETRON HCL 4 MG/2 ML VIAL IV PUSH SCH ×6 (00:27→20:15)
[2017-12-20] MEDS: ENOXAPARIN SODIUM 30 MG/0.3 ML SYRINGE SQ SCH (00:28)
[2017-12-20] MEDS: VANCOMYCIN INJ 1,750 MG in SODIUM CHLORID 0.9% 500 ML INJ 500 ML IV SCH ×2 (00:52→12:58)
[2017-12-20] MEDS: RESP: ALBUTEROL 2.5 MG/IPRATROPIUM 0.5 MG NEB (SCH) NEB ×4 (02:52→21:03)
[2017-12-20] MEDS: CHLORHEXIDINE GLUCONATE 2 % 1 PACK (2 CLOTHS) TOP SCH (03:22)
[2017-12-20] MEDS: SODIUM CHLORIDE 0.9% FLUSH 10 ML FLUSH IV FLUSH PRN (03:47)
[2017-12-20] MEDS: ALPRAZolam 0.25 MG TAB PO PRN (03:49)
[2017-12-20 04:37] LABS: AUTOMATED NEUTROPHIL # 21.9 TH/MM3 (1.8-7.7); BASOPHIL # 0.1 TH/MM3 (0-0.2); BASOPHIL % 0.2 % (0.0-2.0); EOSINOPHIL # 0.3 TH/MM3 (0-0.4); EOSINOPHIL % 1.3 % (0.0-4.0); LYMPH % 3.8 % (9.0-44.0); LYMPHOCYTE # 0.9 TH/MM3 (1.0-4.8); MEAN CELL VOLUME 82.3 FL (80.0-100.0); MEAN CORPUSCULAR HEMOGLOBIN 26.4 PG (27.0-34.0); MEAN CORPUSCULAR HGB CONC 32.1 % (32.0-36.0); MEAN PLATELET VOLUME 8.2 FL (7.0-11.0); MONO % 3.5 % (0.0-8.0); MONOCYTE # 0.8 TH/MM3 (0-0.9); NEUT % 91.2 % (16.0-70.0); PLATELET COUNT 135 TH/MM3 (150-450); RED CELL DISTRIBUTION WIDTH 17.2 % (11.6-17.2)
[2017-12-20 04:45] LABS: INTERNATIONAL NORMALIZED RATIO 1.6 RATIO; PROTHROMBIN TIME - PATIENT 15.7 SEC (9.8-11.6)
[2017-12-20 05:11] LABS: ALBUMIN 1.2 GM/DL (3.4-5.0); ALKALINE PHOSPHATASE 194 U/L (45-117); ALT (GPT) 7 U/L (12-78); AST (GOT) 16 U/L (15-37); BICARBONATE 24.9 MEQ/L (21.0-32.0); BLOOD UREA NITROGEN 8 MG/DL (7-18); CALCIUM 8.2 MG/DL (8.5-10.1); CHLORIDE 102 MEQ/L (98-107); CREATININE 0.55 MG/DL (0.60-1.30); GLOMERULAR FILTRATION RATE 149 ML/MIN (>89); GLUCOSE,RANDOM 73 MG/DL (74-106); SODIUM (NA) 136 MEQ/L (136-145); TOTAL BILIRUBIN ADULT 0.6 MG/DL (0.2-1.0); TOTAL PROTEIN 5.5 GM/DL (6.4-8.2)
[2017-12-20] MEDS: MORPHINE SULFATE 15 MG CONTROLLED RELEASE TAB PO SCH ×3 (06:22→22:18)
[2017-12-20] MEDS: INSULIN ASPART SUPPLEMENTAL SCALE SQ SCH ×4 (08:00→20:10)
--- NOTE | 2017-12-20 08:11 | PD.ONC.PN ---
Subjective Subjective Remarks Patient seen and examined, vital signs, labs, medications and imaging studies reviewed. Major events over the weekend were also reviewed. The patient has been transferred out of the critical care unit and he is now on the oncology unit. Subjectively: He reports symptoms of persistent nausea, minimal oral intake of both liquids and some solids. He tells me his abdomen continues to feel distended and bloated. He denies fevers or chills and denies pain. Objective Data Date Time Temp Pulse Resp B/P (MAP) Pulse Ox O2 Delivery O2 Flow Rate FiO2 12/20/17 06:03 95 12/20/17 05:06 95 12/20/17 04:00 101 12/20/17 03:23 98.3 106 18 152/93 (112) 96 12/20/17 03:03 91 12/20/17 02:03 88 12/20/17 01:04 90 12/20/17 00:29 98.0 86 16 136/82 (100) 93 12/20/17 00:00 88 12/19/17 23:05 85 12/19/17 22:01 91 12/19/17 21:01 89 12/19/17 20:51 Nasal Cannula 2.00 12/19/17 20:08 98.3 84 18 123/75 (91) 98 12/19/17 20:03 88 12/19/17 19:18 85 12/19/17 16:38 97.3 71 18 148/81 (103) 97 12/19/17 12:05 97.9 78 20 137/79 (98) 95 12/19/17 10:12 Nasal Cannula 2.00 12/20/17 12/20/17 12/20/17 07:00 15:00 23:00 Intake Total 360 ml Output Total 950 ml Balance -590 ml Result Diagram: 12/20/17 0340 12/20/17 0340 Laboratory Results Laboratory Tests Test 12/19/17 13:50 12/20/17 03:40 Prothrombin Time 15.8 SEC 15.7 SEC Prothromb Time International Ratio 1.6 RATIO 1.6 RATIO Activated Partial Thromboplast Time 37.5 SEC White Blood Count 24.0 TH/MM3 Red Blood Count 3.40 MIL/MM3 Hemoglobin 9.0 GM/DL Hematocrit 28.0 % Mean Corpuscular Volume 82.3 FL Mean Corpuscular Hemoglobin 26.4 PG Mean Corpuscular Hemoglobin Concent 32.1 % Red Cell Distribution Width 17.2 % Platelet Count 135 TH/MM3 Mean Platelet Volume 8.2 FL Neutrophils (%) (Auto) 91.2 % Lymphocytes (%) (Auto) 3.8 % Monocytes (%) (Auto) 3.5 % Eosinophils (%) (Auto) 1.3 % Basophils (%) (Auto) 0.2 % Neutrophils # (Auto) 21.9 TH/MM3 Lymphocytes # (Auto) 0.9 TH/MM3 Monocytes # (Auto) 0.8 TH/MM3 Eosinophils # (Auto) 0.3 TH/MM3 Basophils # (Auto) 0.1 TH/MM3 CBC Comment DIFF FINAL Differential Comment Blood Urea Nitrogen 8 MG/DL Creatinine 0.55 MG/DL Random Glucose 73 MG/DL Total Protein 5.5 GM/DL Albumin 1.2 GM/DL Calcium Level 8.2 MG/DL Alkaline Phosphatase 194 U/L Aspartate Amino Transf (AST/SGOT) 16 U/L Alanine Aminotransferase (ALT/SGPT) 7 U/L Total Bilirubin 0.6 MG/DL Sodium Level 136 MEQ/L Potassium Level 3.2 MEQ/L Chloride Level 102 MEQ/L Carbon Dioxide Level 24.9 MEQ/L Anion Gap 9 MEQ/L Estimat Glomerular Filtration Rate 149 ML/MIN Culture Results Microbiology Date/Time Source Procedure Growth Status 12/17/17 17:45 Blood Peripheral Aerobic Blood Culture - Preliminary NO GROWTH IN 2 DAYS Resulted 12/17/17 17:45 Blood Peripheral Anaerobic Blood Culture - Preliminary NO GROWTH IN 2 DAYS Resulted Administered Medications Medications (Trade) Dose Ordered Sig/Tiffany Route PRN Reason Start Time Stop Time Status Last Admin Dose Admin Atorvastatin Calcium (Lipitor) 20 mg HS PO 12/16/17 21:00 12/19/17 20:21 Diphenhydramine HCl (Benadryl) 50 mg HS PO 12/16/17 21:00 12/19/17 20:21 Sodium Chloride 1,000 ml @ 50 mls/hr Q20H IV 12/16/17 00:44 12/19/17 16:44 Sodium Chloride (NS Flush) 2 ml UNSCH PRN IV FLUSH FLUSH AFTER USING IV ACCESS 12/16/17 00:45 12/20/17 03:47 Sodium Chloride (NS Flush) 2 ml BID IV FLUSH 12/16/17 09:00 12/19/17 20:22 Acetaminophen (Tylenol) 650 mg Q6H PRN PO FEVER >101F 12/16/17 00:45 12/18/17 11:15 Famotidine (Pepcid) 20 mg Q12HR PO 12/16/17 09:00 12/19/17 20:21 Enoxaparin Sodium (Lovenox Inj) 30 mg Q24H SQ 12/16/17 00:45 12/20/17 00:28 Miscellaneous Information 1 Q361D XX 12/16/17 00:45 12/16/17 00:45 Chlorhexidine Gluconate (Chlorhexidine 2% Cloth) 3 pack Taper DAILY@04 TOP 12/16/17 04:00 12/12/18 03:59 12/20/17 03:22 Senna/Docusate Sodium (Tina-Colace) 1 tab BID PO 12/16/17 09:00 12/19/17 20:20 Cefepime HCl 2000 mg/Sodium Chloride 100 ml @ 200 mls/hr Q8H IV 12/16/17 08:00 12/20/17 00:21 Insulin Aspart (NovoLOG SUPPLEMENTAL SCALE) 1 ACHS SLIDING SCALE SQ 12/16/17 17:00 12/17/17 07:36 Vancomycin HCl 1750 mg/Sodium Chloride 517.5 ml @ 250 mls/hr Q12H IV 12/18/17 00:00 12/20/17 00:52 Alprazolam (Xanax) 0.25 mg Q8H PRN PO anxiety 12/17/17 13:00 12/20/17 03:49 Ondansetron HCl (Zofran Inj) 4 mg Q4HR IV PUSH 12/17/17 20:00 12/20/17 03:46 Albuterol/ Ipratropium (Duoneb Neb) 1 ampule Q6HR NEB NEB 12/17/17 22:00 12/20/17 02:52 Morphine Sulfate (Morphine Inj) 2 mg Q3H PRN IV PUSH PAIN SCALE 9 TO 10 12/18/17 11:00 12/19/17 08:13 Dronabinol (Marinol) 2.5 mg BID@11,16 PO 12/19/17 11:00 12/19/17 16:41 Morphine Sulfate (Oramorph Sr) 15 mg Q8HR PO 12/19/17 14:00 12/20/17 06:22 Potassium Chloride (KCl) 30 meq DAILY PO 12/19/17 16:30 12/19/17 16:56 Objective Remarks GENERAL PHYSICAL APPEARANCE: Mr. Baltazar is a pleasant elderly male. He is laying in bed. He appears to be in no acute distress. HEENT: Head is atraumatic, normocephalic. Conjunctivae are pale; sclerae are anicteric. EOMI, PERRLA. Oral exam - No pharyngeal erythema. NECK EXAM: No palpable cervical or supraclavicular lymphadenopathy. RESPIRATORY EXAM: Decreased bibasilar breath sounds, good air movement of the upper and middle lung zones. Prolonged expiratory phase. CARDIOVASCULAR: Regular rate and rhythm. S1-S2. No obvious murmurs, rubs or gallops. ABDOMINAL EXAM: Massively enlarged liver, abdominal distension, free fluid in the abdomen noted, tenderness in the right upper quadrant and right periumbilical area. The hepatic surface is irregular and firm. LOWER EXTREMITIES: Trace pretibial edema. No calf tenderness. [employer]: Generally weak, no focal sensory or motor deficits. SKIN: Generally pale. Some bruising noted. He appears that generalized anasarca. 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 Plan 1. Multifocal intrahepatic cholangiocarcinoma: s/p C1 FOLFOX, 12/13-12/15. 2. Leukocytosis: d/t infection. BC no growth. continue Vanco/Cefepime per ID following. 3. Persistent nausea: continue scheduled zofran and advance diet as tolerated. 4. RUQ Abdominal pain: due to metastatic disease. Now on oral Oramorph 15mg PO q 8 hours with Morphine IR 15mg PO q 3 hours for breakthrough pain this seems to have helped. 5. Protein calorie malnutrition: Due to lack of oral intake closely by his underlying malignancy. I did encourage oral intake today and have advised him to assess for his antinausea medications prior to his trach coming up. This doesn't work I have advised him to consider having a temporary feeding tube placed such as a Dobbhoff tube for delivery of tube feeding. Continue ongoing care. Emphasis on improving nutritional intake.. Work with physical therapy. Beau Harrison MD Dec 20, 2017 08:11
[2017-12-20] MEDS: FAMOTIDINE 20 MG TAB PO SCH ×2 (09:05→20:15)
[2017-12-20] MEDS: DOCUSATE SODIUM 50 MG/SENNA 8.6 MG TAB PO SCH ×2 (09:05→20:19)
[2017-12-20] MEDS: SODIUM CHLORIDE 0.9% FLUSH 10 ML FLUSH IV FLUSH SCH ×2 (09:06→20:17)
[2017-12-20] MEDS: POTASSIUM CHLORIDE 10 MEQ CONTROLLED RELEASE TAB PO SCH (09:07)
[2017-12-20] MEDS: DRONABINOL 2.5 MG CAP PO SCH ×2 (12:21→17:13)
--- NOTE | 2017-12-20 12:43 | HHI.IDPN ---
Note Infectious Disease Note Patient complains of nausea. Abdominal pain relieved with meds. Denies chills. Afebrile. Cultures negative. 67-year-old white male recently diagnosed with poorly non-differentiated T-cell adenocarcinoma The patient is felt to likely have cholangiocarcinoma. He had a PICC line inserted on December 13 and chemotherapy was started. The patient developed shaking chills and fever and presented to the emergency department on 12/15. PAST MEDICAL HISTORY 1. History of hypertension. 2. Hyperlipidemia. 3. Diabetes mellitus type 2. 4. Hemorrhoids . 5. Iron-deficiency anemia. 6. Cancer of the prostate diagnosed in 2011. 7. Prostate biopsy. 8. Vasectomy. 9. Colonoscopy. 10. Radical prostatectomy in 2011. 11. Knee surgery. 12. Recent diagnosis of metastatic carcinoma on liver biopsy November 24, 2017. ALLERGIES No known drug allergies. MEDICATIONS 1. Vancomycin. 2. Cefepime. OBJECTIVE: Vital Signs Date Time Temp Pulse Resp B/P (MAP) Pulse Ox O2 Delivery O2 Flow Rate FiO2 12/20/17 12:15 92 18 117/64 (81) 98 12/20/17 10:14 97 Nasal Cannula 2.00 12/20/17 09:07 98.5 92 16 152/74 (100) 98 12/20/17 06:03 95 12/20/17 05:06 95 12/20/17 04:00 101 12/20/17 03:23 98.3 106 18 152/93 (112) 96 12/20/17 03:03 91 12/20/17 02:03 88 12/20/17 01:04 90 12/20/17 00:29 98.0 86 16 136/82 (100) 93 12/20/17 00:00 88 12/19/17 23:05 85 12/19/17 22:01 91 12/19/17 21:01 89 12/19/17 20:51 Nasal Cannula 2.00 12/19/17 20:08 98.3 84 18 123/75 (91) 98 12/19/17 20:03 88 12/19/17 19:18 85 12/19/17 16:38 97.3 71 18 148/81 (103) 97 Laboratory Tests Test 12/19/17 04:30 12/20/17 03:40 White Blood Count 19.3 TH/MM3 24.0 TH/MM3 Red Blood Count 3.06 MIL/MM3 3.40 MIL/MM3 Hemoglobin 8.1 GM/DL 9.0 GM/DL Hematocrit 24.9 % 28.0 % Mean Corpuscular Volume 81.5 FL 82.3 FL Mean Corpuscular Hemoglobin 26.6 PG 26.4 PG Mean Corpuscular Hemoglobin Concent 32.7 % 32.1 % Red Cell Distribution Width 17.6 % 17.2 % Platelet Count 136 TH/MM3 135 TH/MM3 Mean Platelet Volume 7.9 FL 8.2 FL Neutrophils (%) (Auto) 91.0 % 91.2 % Lymphocytes (%) (Auto) 4.3 % 3.8 % Monocytes (%) (Auto) 2.9 % 3.5 % Eosinophils (%) (Auto) 1.6 % 1.3 % Basophils (%) (Auto) 0.2 % 0.2 % Neutrophils # (Auto) 17.5 TH/MM3 21.9 TH/MM3 Lymphocytes # (Auto) 0.8 TH/MM3 0.9 TH/MM3 Monocytes # (Auto) 0.6 TH/MM3 0.8 TH/MM3 Eosinophils # (Auto) 0.3 TH/MM3 0.3 TH/MM3 Basophils # (Auto) 0.0 TH/MM3 0.1 TH/MM3 CBC Comment DIFF FINAL DIFF FINAL Differential Comment Laboratory Tests Test 12/19/17 04:30 12/20/17 03:40 Blood Urea Nitrogen 8 MG/DL 8 MG/DL Creatinine 0.50 MG/DL 0.55 MG/DL Random Glucose 93 MG/DL 73 MG/DL Total Protein 5.2 GM/DL 5.5 GM/DL Albumin 1.1 GM/DL 1.2 GM/DL Calcium Level 7.3 MG/DL 8.2 MG/DL Phosphorus Level 1.8 MG/DL Magnesium Level 1.9 MG/DL Alkaline Phosphatase 161 U/L 194 U/L Aspartate Amino Transf (AST/SGOT) 15 U/L 16 U/L Alanine Aminotransferase (ALT/SGPT) 11 U/L 7 U/L Total Bilirubin 0.5 MG/DL 0.6 MG/DL Sodium Level 136 MEQ/L 136 MEQ/L Potassium Level 3.3 MEQ/L 3.2 MEQ/L Chloride Level 103 MEQ/L 102 MEQ/L Carbon Dioxide Level 26.2 MEQ/L 24.9 MEQ/L Anion Gap 7 MEQ/L 9 MEQ/L Estimat Glomerular Filtration Rate 166 ML/MIN 149 ML/MIN Protein Corrected Calcium 8.3 MG/DL Microbiology Date/Time Source Procedure Growth Status 12/17/17 17:45 Blood Peripheral Aerobic Blood Culture - Preliminary NO GROWTH IN 3 DAYS Resulted 12/17/17 17:45 Blood Peripheral Anaerobic Blood Culture - Preliminary NO GROWTH IN 3 DAYS Resulted IMAGING: Abdomen Ultrasound 12/19/17 0000 Signed Impressions: Service Date/Time: Tuesday, December 19, 2017 09:54 - CONCLUSION: No significant fluid for therapeutic paracentesis. If needed for diagnostic purposes then a small amount of fluid could be aspirated. Joseph Petty MD ADDENDUM: This examination was reviewed for possible diagnostic paracentesis. Unfortunately, there is not enough ascites to safely tap for diagnostic paracentesis. Dennis Swan MD Chest X-Ray 12/17/17 0000 Signed Impressions: Service Date/Time: Sunday, December 17, 2017 04:01 - CONCLUSION: No acute disease. Wali Soto MD Abdomen/Pelvis CT 12/16/17 0000 Signed Impressions: Service Date/Time: December 00:34 - CONCLUSION: 1. Worsening of metastatic disease to the liver with mild ascites, increased from November 22. No bowel obstruction or free air. 2. Gallstones in gallbladder. Leonidas Reeder MD PHYSICAL EXAMINATION GENERAL: Awake and alert. No acute distress. HEENT: Head atraumatic. Extraocular movements grossly intact, pupils reactive to light without icterus. Oropharynx - Moist mucosa without lesions. NECK: Supple , No adenopathy or swelling. LUNGS: Clear breath sounds. HEART: Regular S1 and S2, without murmurs, rubs or gallops. ABDOMEN: Obese, soft. Positive bowel sounds, nontender. EXTREMITIES: 1+ edema at the feet. No clubbing or cyanosis. SKIN: No rash. NEUROLOGICAL: No gross focal findings. PSYCHIATRIC: Calm and cooperative. IMPRESSION 1. Sepsis on admission. ? source. Negative cultures and afebrile. 2. Leukocytosis. May be reactive. 3. Metastatic carcinoma. Patient with advanced non resectable intrahepatic cholangiocarcinoma. Post recent chemo12/15 - 12/16/17 RECOMMENDATIONS 1. Stop vancomycin. 2. Stop cefepime. 3. Follow the white blood cell count. 4. Monitor the temperature and clinical status. Dontfraid,Luis F MD Dec 20, 2017 12:43
--- NOTE | 2017-12-20 13:56 | HHI.FPPN ---
Subjective Remarks Patient feeling "OK." Reports persistent nausea and vomiting. Trying to advance diet. Drank glass of OJ without difficulty. Still having RUQ pain and fullness. Denies fevers. Denies skin lesion or rashes, denies cough, denies SOB, denies sore throat or nasal congestion, denies back pain, denies dysuria. Objective Vitals Vital Signs Date Time Temp Pulse Resp B/P (MAP) Pulse Ox O2 Delivery O2 Flow Rate FiO2 12/20/17 12:15 92 18 117/64 (81) 98 12/20/17 10:14 97 Nasal Cannula 2.00 12/20/17 09:07 98.5 92 16 152/74 (100) 98 12/20/17 06:03 95 12/20/17 05:06 95 12/20/17 04:00 101 12/20/17 03:23 98.3 106 18 152/93 (112) 96 12/20/17 03:03 91 12/20/17 02:03 88 12/20/17 01:04 90 12/20/17 00:29 98.0 86 16 136/82 (100) 93 12/20/17 00:00 88 12/19/17 23:05 85 12/19/17 22:01 91 12/19/17 21:01 89 12/19/17 20:51 Nasal Cannula 2.00 12/19/17 20:08 98.3 84 18 123/75 (91) 98 12/19/17 20:03 88 12/19/17 19:18 85 12/19/17 16:38 97.3 71 18 148/81 (103) 97 I/O 12/19/17 12/19/17 12/19/17 12/20/17 12/20/17 12/20/17 07:00 15:00 23:00 07:00 15:00 23:00 Intake Total 600 ml 617 ml 2272 ml 360 ml Output Total 500 ml 800 ml 950 ml Balance 100 ml 617 ml 1472 ml -590 ml Intake Oral 960 ml 360 ml IV Total 600 ml 617 ml 1312 ml Output Urine Total 500 ml 800 ml 950 ml # Bowel Movements 1 1 1 Result Diagram: 12/20/17 0340 12/20/17 0340 Objective Remarks GENERAL: Well-developed male currently resting in bed, very uncomfortable, restless SKIN: Warm and dry. Well perfused. No rash HEAD: Normocephalic. EYES: No scleral icterus. No injection or drainage. NECK: Supple, trachea midline. No JVD or lymphadenopathy. CARDIOVASCULAR: Regular rate and rhythm without murmurs, gallops, or rubs. RESPIRATORY: Clear to auscultation bilaterally without wheezes rales or rhonchi GASTROINTESTINAL: Abdomen soft, tender especially in the right upper and lower quadrants, distended. Bowel sounds present but hypoactive. Mild fluid wave. Liver is palpated below the costophrenic margin MUSCULOSKELETAL: 1+ lower extremity edema below the knees. NEURO EXAM: Cranial nerves II through XII grossly intact. Strength is equal symmetric. Normal sensation Date of Insertion: Dec 14, 2017 Line: PICC Side: Right Location: Antecubital A/P Assessment and Plan 67-year-old male with past medical history of resolved prostate cancer and active advanced intrahepatic cholangiocarcinoma presents with abdominal pain and anorexia. Discharge Planning Pending clinical improvement Problem List: (1) Sepsis ICD Codes: A41.9 - Sepsis, unspecified organism Status: Acute Plan: - Continue Cefepime 2g Q8h IV and Vancomycin 1750 mg Q12h IV (12/16/2017 - ) - Repeat blood cultures negative x 2 days - Urine cultures negative x 2 days - Infectious disease on board - appreciate recommendations. - De-escalate antibiotics per ID. (2) Intrahepatic cholangiocarcinoma ICD Codes: C22.1 - Intrahepatic bile duct carcinoma Plan: -Status post his first cycle of FOLFOX -Hold current immunotherapy -Supportive care -Poor oral intake 2/2 n/v -Start Marinol 2.5mg PO BID 1 hour before meals to increase appetite and reduce nausea and vomiting -Palliative on board - appreciate recommendations -Heme/Onc on board - appreciate recommendations * Changed pain regimen to Oramorph 15mg PO q8 hours with Morphine IR 15mg PO q3 hours for breakthrough pain (3) Right upper quadrant abdominal pain ICD Codes: R10.11 - Right upper quadrant pain Plan: -IR consult for possible ultrasound-guided therapeutic and diagnostic paracentesis paracentesis. -US showed "No significant fluid for therapeutic paracentesis." -Concern for SBP (4) Leukocytosis ICD Codes: D72.829 - Elevated white blood cell count, unspecified Plan: -Suspect secondary to malignancy -Blood and urine cultures negative so far -Monitor temperature (5) Hypokalemia ICD Codes: E87.6 - Hypokalemia Plan: -Potassium 3.2 this a.m. -Schedule KCL 30 mEq daily. (6) Dyslipidemia ICD Codes: E78.5 - Hyperlipidemia, unspecified Plan: Continue Atorvastatin 20 mg by mouth daily (7) History of prostate cancer ICD Codes: Z85.46 - Personal history of malignant neoplasm of prostate Plan: -Resolved per patient -No interventions needed at this time (8) Decrease in appetite ICD Codes: R63.0 - Anorexia Plan: -Start Marinol 2.5 mg by mouth twice a day one hour before meals -Consider Megace per palliative care although this medication is metabolized by the liver (9) Constipation ICD Codes: K59.00 - Constipation, unspecified Plan: -No reasonable bowel movements since admission -Tina-Colace 1 tab by mouth twice a day -Escalate constipation regimen as tolerated (10) Diabetes ICD Codes: E11.9 - Type 2 diabetes mellitus without complications Plan: -Sliding-scale insulin with Accu-Cheks before meals/at bedtime to maintain euglycemia (11) Anemia ICD Codes: D64.9 - Anemia, unspecified Plan: -Received 3 units PRBCs on admission -Transfuse to maintain hemoglobin at or above 7.5 mg/dl (12) Anxiety ICD Codes: F41.9 - Anxiety disorder, unspecified Plan: -Alprazolam 0.25 mg as every 8 hours as needed anxiety (13) FEN/DVT PPX/GI PPX/Nursing Orders Plan: -Heart healthy diet -Teds/SCDs -Lovenox subcutaneous for DVT prophylaxis -Famotidine 20 mg twice a day -Nasal cannula to maintain saturations greater than 92% -Incentive spirometry while awake -Albuterol/ipratropium aerosols every 6 hours with albuterol aerosols every 2 hours -Physical therapy consulted to assist with strengthening exercises SDW Dr. Leggett. Problem Qualifiers (1) Sepsis: Qualified Codes: A41.9 - Sepsis, unspecified organism Brian Guzman MD, R3 Dec 20, 2017 13:56
--- NOTE | 2017-12-20 14:37 | HHI.HCPN ---
Reason for visit a. To assist with evaluation and management of symptoms including: nausea, pain, constipation, anxiety, debility b. To assist medical decision maker(s) with: better understanding of current medical conditions; weighing benefits/burdens of medical treatment options; making medical treatment decisions. . Subjective/Interval History Follow up visit for symptom management and clarification of medical treatment goals. Patient seen and assessed in room 240. He presents lying in bed, awake but lethargic. Patient reporting abdominal pain is adequately managed on current medication regimen, although he continues to complain of abdominal "fullness" and distention. Abdominal ultrasound on 12/19/2017 showed no significant fluid for therapeutic paracentesis. Oramorph 15mg PO q8 hours was started yesterday . MSIR and IV morphine are also available PRN. No PRN morphine was utilized in the past 24 hours. Patient having persistent nausea with limited oral intake. Receiving Zofran 4mg IV q4 hours ATC; Marinol 2.5 mg PO 2 times daily was started on 12/19/2017. PRN alprazolam may be used for anxiety/anticipatory nausea prior to meals. Encouraged patient to attempt to increase nutritional intake, possibly an sitter temporary [place] secondary to protein calorie malnutrition. Total protein: 5.5; albumin 1.2. He was able to drink some juice this morning. Afebrile. Blood and urine cultures remain negative to date. Ongoing leukocytosis may be reactive; WBC: 24.0 today. Infectious disease following - discontinued vancomycin and cefepime. Continue to follow lab work and monitor her clinical status. Oncology (Dr. Harrison) following patient with metastatic intrahepatic cholangiocarcinoma s/p his first cycle of FOLFOX. Dr. Harrison discussed symptom management and treatment associated adverse affects with the patient as well as supportive care for management of other issues such as symptomatic anemia, sepsis,etc. Attempting to increase nutritional intake to improve overall performance status; patient working with physical therapy. Advance Directives Living Will: Completed, but not made available Health Care Surrogate: Copy in medical record Durable Power of Janitorial Services Supervisor: Completed, but not made available Advance Directive Specifics Date completed: 12/16/2017 . Health Care Surrogate(s): Patient's (Daisy Baltazar) is designated as the healthcare surrogate decision maker. His 2 children (Neda Lang and Kevyn Baltazar) have been designated as the alternate health care surrogate. . Documented care wishes: Patient's states written advanced directives have been completed but are at home in [place]. Healthcare surrogate form was completed here today on 2017. Living will information was provided to the patient and his . . Objective Vital Signs Date Time Temp Pulse Resp B/P (MAP) Pulse Ox O2 Delivery O2 Flow Rate FiO2 12/20/17 12:15 92 18 117/64 (81) 98 12/20/17 10:14 97 Nasal Cannula 2.00 12/20/17 09:07 98.5 92 16 152/74 (100) 98 12/20/17 06:03 95 12/20/17 05:06 95 12/20/17 04:00 101 12/20/17 03:23 98.3 106 18 152/93 (112) 96 12/20/17 03:03 91 12/20/17 02:03 88 12/20/17 01:04 90 12/20/17 00:29 98.0 86 16 136/82 (100) 93 12/20/17 00:00 88 12/19/17 23:05 85 12/19/17 22:01 91 12/19/17 21:01 89 12/19/17 20:51 Nasal Cannula 2.00 12/19/17 20:08 98.3 84 18 123/75 (91) 98 12/19/17 20:03 88 12/19/17 19:18 85 12/19/17 16:38 97.3 71 18 148/81 (103) 97 Intake & Output 12/20/17 12/20/17 07:00 19:00 Intake Total 650 ml Output Total 950 ml Balance -300 ml Intake Oral 360 ml IV Total 290 ml Output Urine Total 950 ml # Bowel Movements 1 Physical Exam CONSTITUTIONAL/GENERAL: This is a frail male patient, in no apparent distress. TUBES/LINES/DRAINS: PICC, PIV x 2 SKIN: No jaundice, rashes, or lesions. Ecchymoses on upper extremities. Skin temperature appropriate. Not diaphoretic. HEAD: Atraumatic. Normocephalic. EYES: Pupils equal and round and reactive. Extraocular motions intact. No scleral icterus. No injection or drainage. Fundi not examined. ENT: Hearing grossly normal. Nose without bleeding or purulent drainage. NECK: Trachea midline. CARDIOVASCULAR: Regular rate and rhythm without murmurs, gallops, or rubs. RESPIRATORY/CHEST: Respirations unlabored. Breath sounds equal bilaterally. No wheezes, rales, or rhonchi. GASTROINTESTINAL: Abdomen soft, non-tender, slightly distended. Hypoactive bowel sounds appreciated. GENITOURINARY: Without palpable bladder distension. MUSCULOSKELETAL: Extremities without clubbing, cyanosis or mottling. 1+ edema in feet bilaterally. LYMPHATICS: No palpable cervical or supraclavicular adenopathy. NEUROLOGICAL: Awake, Lethargic. Answers questions; follow commands. PSYCHIATRIC: No obvious anxiety/depression. no apparent hallucinations or other psychotic thought process. . . Diagnostic Tests Laboratory Laboratory Tests Test 12/17/17 17:45 12/18/17 05:00 12/18/17 23:59 12/19/17 04:30 Potassium Level 3.1 MEQ/L (3.5-5.1) 3.2 MEQ/L (3.5-5.1) 3.3 MEQ/L (3.5-5.1) White Blood Count 22.4 TH/MM3 (4.0-11.0) 19.3 TH/MM3 (4.0-11.0) Red Blood Count 3.24 MIL/MM3 (4.50-5.90) 3.06 MIL/MM3 (4.50-5.90) Hemoglobin 8.7 GM/DL (13.0-17.0) 8.1 GM/DL (13.0-17.0) Hematocrit 26.5 % (39.0-51.0) 24.9 % (39.0-51.0) Mean Corpuscular Volume 82.0 FL (80.0-100.0) 81.5 FL (80.0-100.0) Mean Corpuscular Hemoglobin 26.8 PG (27.0-34.0) 26.6 PG (27.0-34.0) Mean Corpuscular Hemoglobin Concent 32.7 % (32.0-36.0) 32.7 % (32.0-36.0) Red Cell Distribution Width 17.2 % (11.6-17.2) 17.6 % (11.6-17.2) Platelet Count 156 TH/MM3 (150-450) 136 TH/MM3 (150-450) Mean Platelet Volume 8.1 FL (7.0-11.0) 7.9 FL (7.0-11.0) Neutrophils (%) (Auto) 93.8 % (16.0-70.0) 91.0 % (16.0-70.0) Lymphocytes (%) (Auto) 3.2 % (9.0-44.0) 4.3 % (9.0-44.0) Monocytes (%) (Auto) 1.9 % (0.0-8.0) 2.9 % (0.0-8.0) Eosinophils (%) (Auto) 1.0 % (0.0-4.0) 1.6 % (0.0-4.0) Basophils (%) (Auto) 0.1 % (0.0-2.0) 0.2 % (0.0-2.0) Neutrophils # (Auto) 21.0 TH/MM3 (1.8-7.7) 17.5 TH/MM3 (1.8-7.7) Lymphocytes # (Auto) 0.7 TH/MM3 (1.0-4.8) 0.8 TH/MM3 (1.0-4.8) Monocytes # (Auto) 0.4 TH/MM3 (0-0.9) 0.6 TH/MM3 (0-0.9) Eosinophils # (Auto) 0.2 TH/MM3 (0-0.4) 0.3 TH/MM3 (0-0.4) Basophils # (Auto) 0.0 TH/MM3 (0-0.2) 0.0 TH/MM3 (0-0.2) CBC Comment DIFF FINAL DIFF FINAL Differential Comment Blood Urea Nitrogen 10 MG/DL (7-18) 8 MG/DL (7-18) Creatinine 0.61 MG/DL (0.60-1.30) 0.50 MG/DL (0.60-1.30) Random Glucose 93 MG/DL (74-106) 93 MG/DL (74-106) Total Protein 5.4 GM/DL (6.4-8.2) 5.2 GM/DL (6.4-8.2) Albumin 1.2 GM/DL (3.4-5.0) 1.1 GM/DL (3.4-5.0) Calcium Level 7.6 MG/DL (8.5-10.1) 7.3 MG/DL (8.5-10.1) Phosphorus Level 2.6 MG/DL (2.5-4.9) 1.8 MG/DL (2.5-4.9) Magnesium Level 1.9 MG/DL (1.5-2.5) 1.9 MG/DL (1.5-2.5) Alkaline Phosphatase 155 U/L (45-117) 161 U/L (45-117) Aspartate Amino Transf (AST/SGOT) 16 U/L (15-37) 15 U/L (15-37) Alanine Aminotransferase (ALT/SGPT) 10 U/L (12-78) 11 U/L (12-78) Total Bilirubin 0.6 MG/DL (0.2-1.0) 0.5 MG/DL (0.2-1.0) Sodium Level 137 MEQ/L (136-145) 136 MEQ/L (136-145) Chloride Level 103 MEQ/L (98-107) 103 MEQ/L (98-107) Carbon Dioxide Level 27.6 MEQ/L (21.0-32.0) 26.2 MEQ/L (21.0-32.0) Anion Gap 6 MEQ/L (5-15) 7 MEQ/L (5-15) Estimat Glomerular Filtration Rate 132 ML/MIN (>89) 166 ML/MIN (>89) Vancomycin Level Trough 19.9 MCG/ML (5.0-10.0) Protein Corrected Calcium 8.3 MG/DL (8.5-10.1) Test 12/19/17 13:50 12/20/17 03:40 Prothrombin Time 15.8 SEC (9.8-11.6) 15.7 SEC (9.8-11.6) Prothromb Time International Ratio 1.6 RATIO 1.6 RATIO Activated Partial Thromboplast Time 37.5 SEC (24.3-30.1) White Blood Count 24.0 TH/MM3 (4.0-11.0) Red Blood Count 3.40 MIL/MM3 (4.50-5.90) Hemoglobin 9.0 GM/DL (13.0-17.0) Hematocrit 28.0 % (39.0-51.0) Mean Corpuscular Volume 82.3 FL (80.0-100.0) Mean Corpuscular Hemoglobin 26.4 PG (27.0-34.0) Mean Corpuscular Hemoglobin Concent 32.1 % (32.0-36.0) Red Cell Distribution Width 17.2 % (11.6-17.2) Platelet Count 135 TH/MM3 (150-450) Mean Platelet Volume 8.2 FL (7.0-11.0) Neutrophils (%) (Auto) 91.2 % (16.0-70.0) Lymphocytes (%) (Auto) 3.8 % (9.0-44.0) Monocytes (%) (Auto) 3.5 % (0.0-8.0) Eosinophils (%) (Auto) 1.3 % (0.0-4.0) Basophils (%) (Auto) 0.2 % (0.0-2.0) Neutrophils # (Auto) 21.9 TH/MM3 (1.8-7.7) Lymphocytes # (Auto) 0.9 TH/MM3 (1.0-4.8) Monocytes # (Auto) 0.8 TH/MM3 (0-0.9) Eosinophils # (Auto) 0.3 TH/MM3 (0-0.4) Basophils # (Auto) 0.1 TH/MM3 (0-0.2) CBC Comment DIFF FINAL Differential Comment Blood Urea Nitrogen 8 MG/DL (7-18) Creatinine 0.55 MG/DL (0.60-1.30) Random Glucose 73 MG/DL (74-106) Total Protein 5.5 GM/DL (6.4-8.2) Albumin 1.2 GM/DL (3.4-5.0) Calcium Level 8.2 MG/DL (8.5-10.1) Alkaline Phosphatase 194 U/L (45-117) Aspartate Amino Transf (AST/SGOT) 16 U/L (15-37) Alanine Aminotransferase (ALT/SGPT) 7 U/L (12-78) Total Bilirubin 0.6 MG/DL (0.2-1.0) Sodium Level 136 MEQ/L (136-145) Potassium Level 3.2 MEQ/L (3.5-5.1) Chloride Level 102 MEQ/L (98-107) Carbon Dioxide Level 24.9 MEQ/L (21.0-32.0) Anion Gap 9 MEQ/L (5-15) Estimat Glomerular Filtration Rate 149 ML/MIN (>89) . Result Diagram: 12/20/17 0340 12/20/17 0340 Microbiology Microbiology Date/Time Source Procedure Growth Status 12/17/17 17:45 Blood Peripheral Aerobic Blood Culture - Preliminary NO GROWTH IN 3 DAYS Resulted 12/17/17 17:45 Blood Peripheral Anaerobic Blood Culture - Preliminary NO GROWTH IN 3 DAYS Resulted Imaging Last 72 hours Impressions Abdomen Ultrasound 12/19/17 0000 Signed Impressions: Service Date/Time: Tuesday, December 19, 2017 09:54 - CONCLUSION: No significant fluid for therapeutic paracentesis. If needed for diagnostic purposes then a small amount of fluid could be aspirated. Joseph Petty MD ADDENDUM: This examination was reviewed for possible diagnostic paracentesis. Unfortunately, there is not enough ascites to safely tap for diagnostic paracentesis. Dennis Swan MD . Assessment and Plan Disease Oriented Problem List: (1) Intrahepatic cholangiocarcinoma (2) Hypertension (3) Hemorrhoids (4) Hypoalbuminemia (5) Normocytic anemia (6) Leukocytosis (7) History of prostate cancer (8) Sepsis Symptom Scale: (1) Pain 0-10 Scale: 4 (2) Nausea 0-10 Scale: Unable to quantify (3) Constipation 0-10 Scale: Unable to quantify (4) Debility Pertinent Non-Medical Issues Psychosocial: Mr. Baltazar is from [facility]. He and his spend the winter months in [facility]. He has 2 adult children, one daughter and one son. His son lives locally in [place], and his daughter lives in [place]. 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 He is a of the [employer] and was stationed on any relationship [place] the [place]. Spiritual: Shinto pan Legal: Patient's (Daisy Baltazar) is designated as the healthcare surrogate decision maker. His 2 children (Neda Lang and Kevyn Baltazar) have been designated as the alternate health care surrogate. Ethical issues impacting care: No known ethical issues impacting care at this time . Important Contacts Daisy Baltazar, spouse: [phone] Kevyn Baltazar, son: [phone] Neda, daughter: [phone] . Prognosis Patient with a history of prostate cancer; recently diagnosed new onset, nonresectable intrahepatic cholangiocarcinoma who has been declining over the past several months. Currently hospitalized with sepsis. Given patient's multiple comorbid conditions including recently diagnosed nonresectable CA in addition to his overall deconditioned functional status. His overall prognosis would be poor. Patient would be hospice appropriate if/when his medical treatment goals become comfort oriented. . Code Status: Full Code Plan * FULL CODE * Patient's states written advanced directives have been completed but are at home in [place]. Healthcare surrogate form was completed here today on 2017. Living will information was provided to the patient and his . * Decision-making: Patient currently demonstrates appropriate insight and judgment related to his current medical conditions. Patient's (Daisy Baltazar) is designated as the healthcare surrogate decision maker. His 2 children (Neda Lang and Kevyn Baltazar) have been designated as the alternate health care surrogate. * Discussed patient with bedside nurse (Jennifer). * Aggressive GOALS * Symptom management: == Pain: Multi factorial. Patient with a history of prostate cancer , now with newly diagnosed intrahepatic cholangiocarcinoma. Additional contributing factors include edema, abdominal distention, hemorrhoids, invasive lines. Patient reporting abdominal pain is adequately managed on current medication regimen, although he continues to complain of abdominal "fullness" and distention. Abdominal ultrasound on 12/19/2017 showed no significant fluid for therapeutic paracentesis. Oramorph 15mg PO q8 hours was started yesterday 12/19/2017. MSIR and IV morphine are also available PRN. No PRN morphine was utilized in the past 24 hours. Dexamethasone may also assist in management of pain and provide overall sense of well-being. == Nausea: Patient reporting intermittent nausea with associated abdominal pain. Possible contributing factors could include abdominal distention, intrahepatic cholangiocarcinoma, anxiety, electrolyte disturbances, hepatomegaly etc. Patient having persistent nausea with limited oral intake. Receiving Zofran 4mg IV q4 hours ATC; Marinol 2.5 mg PO 2 times daily was started on 12/19/2017. PRN alprazolam may be used for anxiety/anticipatory nausea prior to meals. If nausea persists, may initiating dexamethasone 2mg PO/IV daily. Dexamethasone may also assist in management of pain and provide overall sense of well-being. == Constipation: Risk for constipation secondary to reduced mobility , inadequate fluid/dietary fiber intake, possible tumor impingement and increasing narcotic requirements. Current orders for Senokot, Dulcolax and lactulose PRN. LBM: 12/20/17-moderate, brown, liquid. == Anxiety: Likely multifactorial. Contributing factors include uncontrolled pain, nausea and recently diagnosed nonresectable intrahepatic cholangiocarcinoma. Alprazolam 0.25 mg q8 hour PO was ordered 12/17/2017 == Debility: Patient becoming more weak, lethargic. Attempting to increase nutritional intake to improve overall performance status; patient working with physical therapy. * Palliative care contact information provided to patient and family. * Palliative care will continue to follow this patient throughout his hospitalization to establish trust, assist with symptom management and clarification of medical treatment goals. Attestation To help prompt me to consider important information that might be impacting today's encounter and assessment, information from prior notes written by myself or my colleagues may have been "brought forward" into today's note. My signature on this note, however, is an attestation that I personally performed the exam, history, and/or decision-making noted today, and, unless otherwise indicated, the interactions with patient, family, and staff as well as the review of records all occurred today. I also attest that the listed assessment and stated plan reflect my best clinical judgment today based on the combination of historical information, prior notes, and today's exam/ interactions. When time spent is documented, it refers only to time spent today by the signer, or if indicated, combined time spent today by collaborating physician/nurse practitioner. . Mai Drummond Dec 20, 2017 14:37
[2017-12-20] MEDS: SODIUM CHLOR 0.9% 1000 ML INJ 1,000 ML IV SCH (19:22)
[2017-12-20] MEDS: ATORVASTATIN 20 MG TAB PO SCH (20:15)
[2017-12-20] MEDS: diphenhydrAMINE HCL 50 MG CAP PO SCH (20:19)
[2017-12-20] MEDS: ENOXAPARIN SODIUM 40 MG/0.4 ML SYRINGE SQ SCH (22:18)
[2017-12-21] VITALS (29 sets, daily range): BP systolic 112–130; BP diastolic 59–74; PULSE 76–106; RESP 18; TEMP 97.4–99.5; O2SAT 92–95
[2017-12-21] MEDS: CHLORHEXIDINE GLUCONATE 2 % 1 PACK (2 CLOTHS) TOP SCH ×2 (00:11→22:36)
[2017-12-21] MEDS: SODIUM CHLOR 0.9% 1000 ML INJ 1,000 ML IV SCH (00:12)
[2017-12-21] MEDS: ONDANSETRON HCL 4 MG/2 ML VIAL IV PUSH SCH ×6 (00:16→20:35)
[2017-12-21] MEDS: RESP: ALBUTEROL 2.5 MG/IPRATROPIUM 0.5 MG NEB (SCH) NEB ×4 (03:37→20:48)
[2017-12-21] MEDS: SODIUM CHLORIDE 0.9% FLUSH 10 ML FLUSH IV FLUSH PRN ×2 (04:00→04:41)
[2017-12-21] MEDS: ALPRAZolam 0.25 MG TAB PO PRN (04:39)
[2017-12-21] MEDS: MORPHINE SULFATE 15 MG CONTROLLED RELEASE TAB PO SCH ×3 (06:15→21:37)
[2017-12-21 06:48] LABS: AUTOMATED NEUTROPHIL # 22.4 TH/MM3 (1.8-7.7); BASOPHIL # 0.1 TH/MM3 (0-0.2); BASOPHIL % 0.2 % (0.0-2.0); EOSINOPHIL # 0.3 TH/MM3 (0-0.4); EOSINOPHIL % 1.3 % (0.0-4.0); HEMOGLOBIN 8.3 GM/DL (13.0-17.0); LYMPH % 2.8 % (9.0-44.0); LYMPHOCYTE # 0.7 TH/MM3 (1.0-4.8); MEAN CELL VOLUME 82.4 FL (80.0-100.0); MEAN CORPUSCULAR HEMOGLOBIN 26.3 PG (27.0-34.0); MEAN CORPUSCULAR HGB CONC 31.9 % (32.0-36.0); MEAN PLATELET VOLUME 8.5 FL (7.0-11.0); MONO % 4.7 % (0.0-8.0); MONOCYTE # 1.2 TH/MM3 (0-0.9); PLATELET COUNT 136 TH/MM3 (150-450); RED BLOOD COUNT 3.16 MIL/MM3 (4.50-5.90); RED CELL DISTRIBUTION WIDTH 17.4 % (11.6-17.2); WHITE BLOOD COUNT 24.7 TH/MM3 (4.0-11.0)
[2017-12-21 07:14] LABS: ALBUMIN 1.2 GM/DL (3.4-5.0); ALT (GPT) 9 U/L (12-78); AST (GOT) 18 U/L (15-37); BICARBONATE 25.6 MEQ/L (21.0-32.0); BLOOD UREA NITROGEN 9 MG/DL (7-18); CALCIUM 7.6 MG/DL (8.5-10.1); CHLORIDE 102 MEQ/L (98-107); CREATININE 0.57 MG/DL (0.60-1.30); GLOMERULAR FILTRATION RATE 143 ML/MIN (>89); GLUCOSE,RANDOM 72 MG/DL (74-106); SODIUM (NA) 137 MEQ/L (136-145)
[2017-12-21 07:16] LABS: ALKALINE PHOSPHATASE 255 U/L (45-117); TOTAL BILIRUBIN ADULT 0.5 MG/DL (0.2-1.0); TOTAL PROTEIN 5.2 GM/DL (6.4-8.2)
--- NOTE | 2017-12-21 07:25 | HHI.FPPN ---
Subjective Remarks Patient feeling well this morning. Abdominal discomfort is improved. Ate a tuna fish sandwich yesterday and immediately through it up. Understands the plan today for -Shaun feeding tube and dietary consult. Patient remains afebrile while off of antibiotics. Reports not taking tolerating PO potassium supplementation. (Brian Guzman MD, R3) Objective Vitals Vital Signs Date Time Temp Pulse Resp B/P (MAP) Pulse Ox O2 Delivery O2 Flow Rate FiO2 12/21/17 06:00 94 12/21/17 05:03 103 12/21/17 04:03 103 12/21/17 04:02 99.5 96 18 112/59 (76) 94 12/21/17 03:41 93 21 12/21/17 02:04 96 12/21/17 01:00 79 12/21/17 00:17 18 12/21/17 00:00 88 12/20/17 23:04 98.1 82 18 124/68 (86) 96 12/20/17 23:04 82 12/20/17 22:02 82 12/20/17 21:02 81 12/20/17 20:58 95 Nasal Cannula 3.00 12/20/17 20:10 98.0 85 20 130/75 (93) 97 12/20/17 20:03 81 12/20/17 19:08 86 12/20/17 17:20 88 18 112/68 (83) 96 12/20/17 16:00 94 12/20/17 12:15 92 18 117/64 (81) 98 12/20/17 12:00 91 12/20/17 10:14 97 Nasal Cannula 2.00 12/20/17 09:07 98.5 92 16 152/74 (100) 98 12/20/17 08:00 95 I/O 12/20/17 12/20/17 12/20/17 12/21/17 12/21/17 12/21/17 07:00 15:00 23:00 07:00 15:00 23:00 Intake Total 360 ml 480 ml Output Total 950 ml 800 ml Balance -590 ml -320 ml Intake Oral 360 ml 480 ml Output Urine Total 950 ml 800 ml # Bowel Movements 1 1 (Brian Guzman MD, R3) Result Diagram: 12/21/17 0440 12/21/17 0440 Imaging Last 72 hours Impressions Abdomen Ultrasound 12/19/17 0000 Signed Impressions: Service Date/Time: Tuesday, December 19, 2017 09:54 - CONCLUSION: No significant fluid for therapeutic paracentesis. If needed for diagnostic purposes then a small amount of fluid could be aspirated. Joseph Petty MD ADDENDUM: This examination was reviewed for possible diagnostic paracentesis. Unfortunately, there is not enough ascites to safely tap for diagnostic paracentesis. Dennis Swan MD Objective Remarks GENERAL: Well-developed male currently resting in bed, very uncomfortable, restless SKIN: Warm and dry. Well perfused. No rash HEAD: Normocephalic. EYES: No scleral icterus. No injection or drainage. NECK: Supple, trachea midline. No JVD or lymphadenopathy. CARDIOVASCULAR: Regular rate and rhythm without murmurs, gallops, or rubs. RESPIRATORY: Clear to auscultation bilaterally without wheezes rales or rhonchi GASTROINTESTINAL: Abdomen soft, tender especially in the right upper and lower quadrants, distended. Bowel sounds present but hypoactive. Mild fluid wave. Liver is palpated below the costophrenic margin MUSCULOSKELETAL: 1+ lower extremity edema below the knees. NEURO EXAM: Cranial nerves II through XII grossly intact. Strength is equal symmetric. Normal sensation (Brian Guzman MD, R3) Date of Insertion: Dec 14, 2017 Line: PICC Side: Right Location: Antecubital (Brian Guzman MD, R3) A/P Assessment and Plan 67-year-old male with past medical history of resolved prostate cancer and active advanced intrahepatic cholangiocarcinoma presents with abdominal pain and anorexia. Discharge Planning Pending clinical improvement (Brian Guzman MD, R3) Attending Attestation Patient seen and examined. Discussed with Dr. Guzman. Agree with assessment and plan as documented. (Prevatte,Marko Douglass Jr., MD) Problem List: (1) Sepsis ICD Codes: A41.9 - Sepsis, unspecified organism Status: Acute Plan: Resolved. ID has dsicontinued broad spectrum ABX. Leukocytosis likely from underlying malignancy. Will continue to monitor for signs of infection and restart ABX if present. -Previously on: Cefepime 2g Q8h IV and Vancomycin 1750 mg Q12h IV (12/16/2017 -12/20) - Repeat blood cultures negative x 3 days - Urine cultures negative x 3 days - Infectious disease on board - appreciate recommendations. (2) Intrahepatic cholangiocarcinoma ICD Codes: C22.1 - Intrahepatic bile duct carcinoma Plan: -Status post his first cycle of FOLFOX -Hold current immunotherapy -Supportive care -Poor oral intake 2/2 n/v v- will require feeding tube while hospitalized. Dietary consult as guided by Dr. Harrison. -Start Marinol 2.5mg PO BID 1 hour before meals to increase appetite and reduce nausea and vomiting -Palliative on board - appreciate recommendations -Heme/Onc on board - appreciate recommendations * Changed pain regimen to Oramorph 15mg PO q8 hours with Morphine IR 15mg PO q3 hours for breakthrough pain (3) Right upper quadrant abdominal pain ICD Codes: R10.11 - Right upper quadrant pain Plan: -IR consult for possible ultrasound-guided therapeutic and diagnostic paracentesis paracentesis. -US showed "No significant fluid for therapeutic paracentesis." However still with abdominal distension. -IV lasix 20 mg BID, with IV K+ replacement. F/u BMP. (4) Leukocytosis ICD Codes: D72.829 - Elevated white blood cell count, unspecified Plan: -Suspect secondary to malignancy -Blood and urine cultures negative so far -Monitor temperature (5) Hypokalemia ICD Codes: E87.6 - Hypokalemia Plan: -Potassium 3.0 this a.m. Replete with IV potassium. 20 meq x 2 bags. (6) Dyslipidemia ICD Codes: E78.5 - Hyperlipidemia, unspecified Plan: Continue Atorvastatin 20 mg by mouth daily (7) History of prostate cancer ICD Codes: Z85.46 - Personal history of malignant neoplasm of prostate Plan: -Resolved per patient -No interventions needed at this time (8) Decrease in appetite ICD Codes: R63.0 - Anorexia Plan: -Start Marinol 2.5 mg by mouth twice a day one hour before meals -Consider Megace per palliative care although this medication is metabolized by the liver (9) Constipation ICD Codes: K59.00 - Constipation, unspecified Status: Resolved Plan: -No reasonable bowel movements since admission -Tina-Colace 1 tab by mouth twice a day -Escalate constipation regimen as tolerated (10) Diabetes ICD Codes: E11.9 - Type 2 diabetes mellitus without complications Plan: -Sliding-scale insulin with Accu-Cheks before meals/at bedtime to maintain euglycemia (11) Anemia ICD Codes: D64.9 - Anemia, unspecified Plan: -Received 3 units PRBCs on admission -Transfuse to maintain hemoglobin at or above 7.5 mg/dl (12) Anxiety ICD Codes: F41.9 - Anxiety disorder, unspecified Plan: -Alprazolam 0.25 mg as every 8 hours as needed anxiety (13) FEN/DVT PPX/GI PPX/Nursing Orders Plan: -Heart healthy diet -Teds/SCDs -Lovenox subcutaneous for DVT prophylaxis -Famotidine 20 mg twice a day -Nasal cannula to maintain saturations greater than 92% -Incentive spirometry while awake -Albuterol/ipratropium aerosols every 6 hours with albuterol aerosols every 2 hours -Physical therapy consulted to assist with strengthening exercises [facility] Dr. Leggett. (Brian Guzman MD, R3) Problem Qualifiers (1) Sepsis: Qualified Codes: A41.9 - Sepsis, unspecified organism Brian Guzman MD, R3 Dec 21, 2017 07:25 Marko Leggett Jr., MD Dec 21, 2017 13:18
--- NOTE | 2017-12-21 07:46 | PD.ONC.PN ---
Subjective Subjective Remarks Patient seen and examined, vital signs, labs, medications were reviewed. Subjectively; the patient reports attempting an oral diet yesterday, he had a few slices of apples, some Jell-O and he try to drink some broth. All in all he was able to get a few bites in the course of the day. At nighttime he tried to eat some tuna salad but vomited. Overall he feels his abdomen is more distended and tighter. The patient reports having difficulty getting up out of bed and needs significant assistance to help lift himself up. He does report having difficulty breathing with minimal exertion but denies chest pain. He denies fevers or chills. He tells me he is prepared to have a temporary nasogastric feeding tube placed to help supplement his nutritional intake. Objective Data Date Time Temp Pulse Resp B/P (MAP) Pulse Ox O2 Delivery O2 Flow Rate FiO2 12/21/17 06:00 94 12/21/17 05:03 103 12/21/17 04:03 103 12/21/17 04:02 99.5 96 18 112/59 (76) 94 12/21/17 03:41 93 21 12/21/17 02:04 96 12/21/17 01:00 79 12/21/17 00:17 18 12/21/17 00:00 88 12/20/17 23:04 98.1 82 18 124/68 (86) 96 12/20/17 23:04 82 12/20/17 22:02 82 12/20/17 21:02 81 12/20/17 20:58 95 Nasal Cannula 3.00 12/20/17 20:10 98.0 85 20 130/75 (93) 97 12/20/17 20:03 81 12/20/17 19:08 86 12/20/17 17:20 88 18 112/68 (83) 96 12/20/17 16:00 94 12/20/17 12:15 92 18 117/64 (81) 98 12/20/17 12:00 91 12/20/17 10:14 97 Nasal Cannula 2.00 12/20/17 09:07 98.5 92 16 152/74 (100) 98 12/20/17 08:00 95 12/21/17 12/21/17 12/21/17 07:00 15:00 23:00 Intake Total 480 ml Output Total 800 ml Balance -320 ml Result Diagram: 12/21/17 0440 12/21/17 0440 Laboratory Results Laboratory Tests Test 12/21/17 04:40 White Blood Count 24.7 TH/MM3 Red Blood Count 3.16 MIL/MM3 Hemoglobin 8.3 GM/DL Hematocrit 26.0 % Mean Corpuscular Volume 82.4 FL Mean Corpuscular Hemoglobin 26.3 PG Mean Corpuscular Hemoglobin Concent 31.9 % Red Cell Distribution Width 17.4 % Platelet Count 136 TH/MM3 Mean Platelet Volume 8.5 FL Neutrophils (%) (Auto) 91.0 % Lymphocytes (%) (Auto) 2.8 % Monocytes (%) (Auto) 4.7 % Eosinophils (%) (Auto) 1.3 % Basophils (%) (Auto) 0.2 % Neutrophils # (Auto) 22.4 TH/MM3 Lymphocytes # (Auto) 0.7 TH/MM3 Monocytes # (Auto) 1.2 TH/MM3 Eosinophils # (Auto) 0.3 TH/MM3 Basophils # (Auto) 0.1 TH/MM3 CBC Comment DIFF FINAL Differential Comment Blood Urea Nitrogen 9 MG/DL Creatinine 0.57 MG/DL Random Glucose 72 MG/DL Total Protein 5.2 GM/DL Albumin 1.2 GM/DL Calcium Level 7.6 MG/DL Alkaline Phosphatase 255 U/L Aspartate Amino Transf (AST/SGOT) 18 U/L Alanine Aminotransferase (ALT/SGPT) 9 U/L Total Bilirubin 0.5 MG/DL Sodium Level 137 MEQ/L Potassium Level 3.0 MEQ/L Chloride Level 102 MEQ/L Carbon Dioxide Level 25.6 MEQ/L Anion Gap 9 MEQ/L Estimat Glomerular Filtration Rate 143 ML/MIN Administered Medications Medications (Trade) Dose Ordered Sig/Tiffany Route PRN Reason Start Time Stop Time Status Last Admin Dose Admin Atorvastatin Calcium (Lipitor) 20 mg HS PO 12/16/17 21:00 12/20/17 20:15 Diphenhydramine HCl (Benadryl) 50 mg HS PO 12/16/17 21:00 12/20/17 20:19 Sodium Chloride 1,000 ml @ 50 mls/hr Q20H IV 12/16/17 00:44 12/20/17 19:22 Sodium Chloride (NS Flush) 2 ml UNSCH PRN IV FLUSH FLUSH AFTER USING IV ACCESS 12/16/17 00:45 12/21/17 04:41 Sodium Chloride (NS Flush) 2 ml BID IV FLUSH 12/16/17 09:00 12/20/17 20:17 Acetaminophen (Tylenol) 650 mg Q6H PRN PO FEVER >101F 12/16/17 00:45 12/18/17 11:15 Famotidine (Pepcid) 20 mg Q12HR PO 12/16/17 09:00 12/20/17 20:15 Miscellaneous Information 1 Q361D XX 12/16/17 00:45 12/16/17 00:45 Chlorhexidine Gluconate (Chlorhexidine 2% Cloth) Taper DAILY@04 TOP 12/16/17 04:00 12/12/18 03:59 12/20/17 03:22 Senna/Docusate Sodium (Tina-Colace) 1 tab BID PO 12/16/17 09:00 12/20/17 09:05 Insulin Aspart (NovoLOG SUPPLEMENTAL SCALE) 1 ACHS SLIDING SCALE SQ 12/16/17 17:00 12/17/17 07:36 Alprazolam (Xanax) 0.25 mg Q8H PRN PO anxiety 12/17/17 13:00 12/21/17 04:39 Ondansetron HCl (Zofran Inj) 4 mg Q4HR IV PUSH 12/17/17 20:00 12/21/17 04:00 Albuterol/ Ipratropium (Duoneb Neb) 1 ampule Q6HR NEB NEB 12/17/17 22:00 12/21/17 03:37 Morphine Sulfate (Morphine Inj) 2 mg Q3H PRN IV PUSH PAIN SCALE 9 TO 10 12/18/17 11:00 12/19/17 08:13 Dronabinol (Marinol) 2.5 mg BID@11,16 PO 12/19/17 11:00 12/20/17 17:13 Morphine Sulfate (Oramorph Sr) 15 mg Q8HR PO 12/19/17 14:00 12/21/17 06:15 Potassium Chloride (KCl) 30 meq DAILY PO 12/19/17 16:30 12/20/17 09:07 Enoxaparin Sodium (Lovenox Inj) 40 mg Q24H SQ 12/20/17 23:00 12/20/17 22:18 Objective Remarks GENERAL PHYSICAL APPEARANCE: Mr. Baltazar is a pleasant elderly male. He is laying in bed. He appears to be in no acute distress. HEENT: Head is atraumatic, normocephalic. Conjunctivae are pale; sclerae are anicteric. EOMI, PERRLA. Oral exam - No pharyngeal erythema. NECK EXAM: No palpable cervical or supraclavicular lymphadenopathy. RESPIRATORY EXAM: Decreased bibasilar breath sounds, good air movement of the upper and middle lung zones. Prolonged expiratory phase. CARDIOVASCULAR: Regular rate and rhythm. S1-S2. No obvious murmurs, rubs or gallops. ABDOMINAL EXAM: Massively enlarged liver, abdominal distension, free fluid in the abdomen noted, tenderness in the right upper quadrant and right periumbilical area. The hepatic surface is irregular and firm. LOWER EXTREMITIES: Trace pretibial edema. No calf tenderness. 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 SKIN: Generally pale. Some bruising noted. He appears that generalized anasarca. 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 Plan 1. Multifocal intrahepatic cholangiocarcinoma: s/p C1 FOLFOX, 12/13-12/15. 2. Leukocytosis: d/t infection. BC no growth. IV antibiotics have been discontinued. 3. Persistent nausea: continue scheduled zofran and advance diet as tolerated. Nutritional intake has been minimal. 4. RUQ Abdominal pain: due to metastatic disease. Now on oral Oramorph 15mg PO q 8 hours with Morphine IR 15mg PO q 3 hours for breakthrough pain this seems to have helped. 5. Protein calorie malnutrition: Interventional radiology consult it for Dobbhoff tube placement. I've also requested a dietary consultation to make specific recommendations for tube feeding. 6. Physical therapy to help determine if this patient will require placement to a short-term rehabilitation post discharge. 7. Anasarca: Initiate Lasix 20 mg IV every 12 hours, he has also been started on potassium chloride 20 mEq IV every 12 hours. Disposition: Dobbhoff tube placement today. Dietary consultation. Request case management to help initiate the process of placement to a longterm facility because I'm not confident this patient will be able to care for himself at home. Beau Harrison MD Dec 21, 2017 07:46
[2017-12-21] MEDS: INSULIN ASPART SUPPLEMENTAL SCALE SQ SCH ×4 (08:00→20:52)
[2017-12-21] MEDS: POTASSIUM CHLOR 20 MEQ PREMIX 100 ML IV SCH ×2 (08:53→13:23)
[2017-12-21] MEDS: FUROSEMIDE 20 MG/2 ML VIAL IV PUSH SCH ×2 (08:54→16:59)
[2017-12-21] MEDS: POTASSIUM CHLORIDE 10 MEQ CONTROLLED RELEASE TAB PO SCH (08:55)
[2017-12-21] MEDS: SODIUM CHLORIDE 0.9% FLUSH 10 ML FLUSH IV FLUSH SCH ×2 (08:55→20:35)
[2017-12-21] MEDS: FAMOTIDINE 20 MG TAB PO SCH ×2 (08:55→20:40)
[2017-12-21] MEDS: DOCUSATE SODIUM 50 MG/SENNA 8.6 MG TAB PO SCH ×2 (08:55→20:53)
[2017-12-21] MEDS: MORPHINE SULFATE 15 MG TAB PO PRN (08:55)
[2017-12-21] MEDS ORDERED: PHARMACY ORDERED LAB ONE (11:45)
[2017-12-21] MEDS: DRONABINOL 2.5 MG CAP PO SCH ×2 (12:06→17:00)
--- NOTE | 2017-12-21 15:26 | HHI.HCPN ---
Reason for visit a. To assist with evaluation and management of symptoms including: nausea, pain, debility b. To assist medical decision maker(s) with: better understanding of current medical conditions; weighing benefits/burdens of medical treatment options; making medical treatment decisions. . Subjective/Interval History Follow-up visit for symptom management and clarification of medical treatment goals. Patient seen and assessed in room 240, also present patient's . Patient previously reporting RUQ abdominal pain likely secondary to metastatic disease. He is now on Oramorph 15mg PO q8 hours ATC and MSIR 15mg PO q3 hours PRN for breakthrough pain. Patient states his abdomen feels "tighter" and more distended , but overall he feels his pain is currently well controlled. He has required no PRN medication for pain in the past 24 hours. Persistent leukocytosis-may be reactive. Patient remain afebrile off antibiotics x 1 day. All cultures remain negative to date. Infectious disease following. He continues to have persistent nausea and vomiting. Patient was able to tolerate a few bites of food yesterday but vomited last night after eating some tuna salad. He appears malnourished and is becoming progressively more weak daily. Total protein: 5.2, albumin 1.2. Patient is amenable to temporary NGT basement to supplement his nutritional intake. IR consulted for Dobbhoff tube placement, and dietary was consulted for specific recommendations regarding tube feeds. Patient is motivated to "get stronger." He was able to ambulate approximately 25 feet today with steady gait; oxygen saturation 99% on room air. [facility] consulted for inpatient rehabilitation, although patient may not meet their requirements. Patient has verbalized preference for [facility]. Family/friend interactions Patient's at bedside during exam. Questions answered to the best of my ability. . 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 Health Care Surrogate(s): Patient's (Daisy Baltazar) is designated as the healthcare surrogate decision maker. His 2 children (Neda Lang and Kevyn Baltazar) have been designated as the alternate health care surrogate. . Documented care wishes: Patient's states written advanced directives have been completed but are at home in [place]. Healthcare surrogate form was completed here today on 2017. Living will information was provided to the patient and his . . Objective Vital Signs Date Time Temp Pulse Resp B/P (MAP) Pulse Ox O2 Delivery O2 Flow Rate FiO2 12/21/17 12:15 97.8 76 18 130/67 (88) 94 12/21/17 10:04 95 21 12/21/17 08:40 96 12/21/17 08:00 97.4 83 18 116/74 (88) 93 12/21/17 06:00 94 12/21/17 05:03 103 12/21/17 04:03 103 12/21/17 04:02 99.5 96 18 112/59 (76) 94 12/21/17 03:41 93 21 12/21/17 02:04 96 12/21/17 01:00 79 12/21/17 00:17 18 12/21/17 00:00 88 12/20/17 23:04 98.1 82 18 124/68 (86) 96 12/20/17 23:04 82 12/20/17 22:02 82 12/20/17 21:02 81 12/20/17 20:58 95 Nasal Cannula 3.00 12/20/17 20:10 98.0 85 20 130/75 (93) 97 12/20/17 20:03 81 12/20/17 19:08 86 12/20/17 17:20 88 18 112/68 (83) 96 12/20/17 16:00 94 Intake & Output 12/21/17 12/21/17 06:59 18:59 Intake Total 480 ml Output Total 800 ml Balance -320 ml Intake Oral 480 ml Output Urine Total 800 ml # Bowel Movements 1 Physical Exam CONSTITUTIONAL/GENERAL: This is a frail male patient, in no apparent distress. TUBES/LINES/DRAINS: PICC, PIV x 2 SKIN: No jaundice, rashes, or lesions. Ecchymoses on upper extremities. Skin temperature appropriate. Not diaphoretic. HEAD: Atraumatic. Normocephalic. EYES: Pupils equal and round and reactive. Extraocular motions intact. No scleral icterus. No injection or drainage. Fundi not examined. ENT: Hearing grossly normal. Nose without bleeding or purulent drainage. NECK: Trachea midline. CARDIOVASCULAR: Regular rate and rhythm without murmurs, gallops, or rubs. RESPIRATORY/CHEST: Respirations unlabored. Breath sounds equal bilaterally. No wheezes, rales, or rhonchi. GASTROINTESTINAL: Abdomen soft, non-tender, slightly distended. Hypoactive bowel sounds appreciated. GENITOURINARY: Without palpable bladder distension. MUSCULOSKELETAL: Extremities without clubbing, cyanosis or mottling. 1+ edema in feet bilaterally. LYMPHATICS: No palpable cervical or supraclavicular adenopathy. NEUROLOGICAL: Awake, Lethargic. Answers questions; follow commands. PSYCHIATRIC: No obvious anxiety/depression. no apparent hallucinations or other psychotic thought process. . . Diagnostic Tests Laboratory Laboratory Tests Test 12/18/17 23:59 12/19/17 04:30 12/19/17 13:50 12/20/17 03:40 Vancomycin Level Trough 19.9 MCG/ML (5.0-10.0) White Blood Count 19.3 TH/MM3 (4.0-11.0) 24.0 TH/MM3 (4.0-11.0) Red Blood Count 3.06 MIL/MM3 (4.50-5.90) 3.40 MIL/MM3 (4.50-5.90) Hemoglobin 8.1 GM/DL (13.0-17.0) 9.0 GM/DL (13.0-17.0) Hematocrit 24.9 % (39.0-51.0) 28.0 % (39.0-51.0) Mean Corpuscular Volume 81.5 FL (80.0-100.0) 82.3 FL (80.0-100.0) Mean Corpuscular Hemoglobin 26.6 PG (27.0-34.0) 26.4 PG (27.0-34.0) Mean Corpuscular Hemoglobin Concent 32.7 % (32.0-36.0) 32.1 % (32.0-36.0) Red Cell Distribution Width 17.6 % (11.6-17.2) 17.2 % (11.6-17.2) Platelet Count 136 TH/MM3 (150-450) 135 TH/MM3 (150-450) Mean Platelet Volume 7.9 FL (7.0-11.0) 8.2 FL (7.0-11.0) Neutrophils (%) (Auto) 91.0 % (16.0-70.0) 91.2 % (16.0-70.0) Lymphocytes (%) (Auto) 4.3 % (9.0-44.0) 3.8 % (9.0-44.0) Monocytes (%) (Auto) 2.9 % (0.0-8.0) 3.5 % (0.0-8.0) Eosinophils (%) (Auto) 1.6 % (0.0-4.0) 1.3 % (0.0-4.0) Basophils (%) (Auto) 0.2 % (0.0-2.0) 0.2 % (0.0-2.0) Neutrophils # (Auto) 17.5 TH/MM3 (1.8-7.7) 21.9 TH/MM3 (1.8-7.7) Lymphocytes # (Auto) 0.8 TH/MM3 (1.0-4.8) 0.9 TH/MM3 (1.0-4.8) Monocytes # (Auto) 0.6 TH/MM3 (0-0.9) 0.8 TH/MM3 (0-0.9) Eosinophils # (Auto) 0.3 TH/MM3 (0-0.4) 0.3 TH/MM3 (0-0.4) Basophils # (Auto) 0.0 TH/MM3 (0-0.2) 0.1 TH/MM3 (0-0.2) CBC Comment DIFF FINAL DIFF FINAL Differential Comment Blood Urea Nitrogen 8 MG/DL (7-18) 8 MG/DL (7-18) Creatinine 0.50 MG/DL (0.60-1.30) 0.55 MG/DL (0.60-1.30) Random Glucose 93 MG/DL (74-106) 73 MG/DL (74-106) Total Protein 5.2 GM/DL (6.4-8.2) 5.5 GM/DL (6.4-8.2) Albumin 1.1 GM/DL (3.4-5.0) 1.2 GM/DL (3.4-5.0) Calcium Level 7.3 MG/DL (8.5-10.1) 8.2 MG/DL (8.5-10.1) Phosphorus Level 1.8 MG/DL (2.5-4.9) Magnesium Level 1.9 MG/DL (1.5-2.5) Alkaline Phosphatase 161 U/L (45-117) 194 U/L (45-117) Aspartate Amino Transf (AST/SGOT) 15 U/L (15-37) 16 U/L (15-37) Alanine Aminotransferase (ALT/SGPT) 11 U/L (12-78) 7 U/L (12-78) Total Bilirubin 0.5 MG/DL (0.2-1.0) 0.6 MG/DL (0.2-1.0) Sodium Level 136 MEQ/L (136-145) 136 MEQ/L (136-145) Potassium Level 3.3 MEQ/L (3.5-5.1) 3.2 MEQ/L (3.5-5.1) Chloride Level 103 MEQ/L (98-107) 102 MEQ/L (98-107) Carbon Dioxide Level 26.2 MEQ/L (21.0-32.0) 24.9 MEQ/L (21.0-32.0) Anion Gap 7 MEQ/L (5-15) 9 MEQ/L (5-15) Estimat Glomerular Filtration Rate 166 ML/MIN (>89) 149 ML/MIN (>89) Protein Corrected Calcium 8.3 MG/DL (8.5-10.1) Prothrombin Time 15.8 SEC (9.8-11.6) 15.7 SEC (9.8-11.6) Prothromb Time International Ratio 1.6 RATIO 1.6 RATIO Activated Partial Thromboplast Time 37.5 SEC (24.3-30.1) Test 12/21/17 04:40 White Blood Count 24.7 TH/MM3 (4.0-11.0) Red Blood Count 3.16 MIL/MM3 (4.50-5.90) Hemoglobin 8.3 GM/DL (13.0-17.0) Hematocrit 26.0 % (39.0-51.0) Mean Corpuscular Volume 82.4 FL (80.0-100.0) Mean Corpuscular Hemoglobin 26.3 PG (27.0-34.0) Mean Corpuscular Hemoglobin Concent 31.9 % (32.0-36.0) Red Cell Distribution Width 17.4 % (11.6-17.2) Platelet Count 136 TH/MM3 (150-450) Mean Platelet Volume 8.5 FL (7.0-11.0) Neutrophils (%) (Auto) 91.0 % (16.0-70.0) Lymphocytes (%) (Auto) 2.8 % (9.0-44.0) Monocytes (%) (Auto) 4.7 % (0.0-8.0) Eosinophils (%) (Auto) 1.3 % (0.0-4.0) Basophils (%) (Auto) 0.2 % (0.0-2.0) Neutrophils # (Auto) 22.4 TH/MM3 (1.8-7.7) Lymphocytes # (Auto) 0.7 TH/MM3 (1.0-4.8) Monocytes # (Auto) 1.2 TH/MM3 (0-0.9) Eosinophils # (Auto) 0.3 TH/MM3 (0-0.4) Basophils # (Auto) 0.1 TH/MM3 (0-0.2) CBC Comment DIFF FINAL Differential Comment Blood Urea Nitrogen 9 MG/DL (7-18) Creatinine 0.57 MG/DL (0.60-1.30) Random Glucose 72 MG/DL (74-106) Total Protein 5.2 GM/DL (6.4-8.2) Albumin 1.2 GM/DL (3.4-5.0) Calcium Level 7.6 MG/DL (8.5-10.1) Alkaline Phosphatase 255 U/L (45-117) Aspartate Amino Transf (AST/SGOT) 18 U/L (15-37) Alanine Aminotransferase (ALT/SGPT) 9 U/L (12-78) Total Bilirubin 0.5 MG/DL (0.2-1.0) Sodium Level 137 MEQ/L (136-145) Potassium Level 3.0 MEQ/L (3.5-5.1) Chloride Level 102 MEQ/L (98-107) Carbon Dioxide Level 25.6 MEQ/L (21.0-32.0) Anion Gap 9 MEQ/L (5-15) Estimat Glomerular Filtration Rate 143 ML/MIN (>89) Result Diagram: 12/21/1743912/21/17439 Assessment and Plan Disease Oriented Problem List: (1) Intrahepatic cholangiocarcinoma (2) Hypertension (3) Hemorrhoids (4) Hypoalbuminemia (5) Normocytic anemia (6) Leukocytosis (7) History of prostate cancer (8) Sepsis Symptom Scale: (1) Pain 0-10 Scale: 4 (2) Nausea 0-10 Scale: Unable to quantify (3) Debility Pertinent Non-Medical Issues Psychosocial: Mr. Baltazar is from [facility]. He and his spend the winter months in [facility]. He has 2 adult children, one daughter and one son. His son lives locally in [place], and his daughter lives in [place]. 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 He is a of the [employer] and was stationed on any relationship [place] the [place] the [place]. Spiritual: Taoism pan Legal: Patient's (Daisy Baltazar) is designated as the healthcare surrogate decision maker. His 2 children (Neda Lang and Kevyn Baltazar) have been designated as the alternate health care surrogate. Ethical issues impacting care: No known ethical issues impacting care at this time . Important Contacts Daisy Baltazar, spouse: [phone] Kevyn Baltazar, son: [phone] Neda, daughter: [phone] . Prognosis Patient with a history of prostate cancer; recently diagnosed new onset, nonresectable intrahepatic cholangiocarcinoma who has been declining over the past several months. Currently hospitalized with sepsis. Given patient's multiple comorbid conditions including recently diagnosed nonresectable CA in addition to his overall deconditioned functional status. His overall prognosis would be poor. Patient would be hospice appropriate if/when his medical treatment goals become comfort oriented. . Code Status: Full Code Plan * FULL CODE * Patient's states written advanced directives have been completed but are at home in [place]. Healthcare surrogate form was completed here today on 2017. Living will information was provided to the patient and his . * Decision-making: Patient currently demonstrates appropriate insight and judgment related to his current medical conditions. Patient's (Daisy Baltazar) is designated as the healthcare surrogate decision maker. His 2 children (Neda Lang and Kevyn Baltazar) have been designated as the alternate health care surrogate. * Discussed patient with bedside nurse (Krissy). * Aggressive GOALS * Symptom management: == Pain: Multi factorial. Patient with a history of prostate cancer , now with newly diagnosed intrahepatic cholangiocarcinoma. Additional contributing factors include edema, abdominal distention, hemorrhoids, invasive lines. Patient previously reporting RUQ abdominal pain likely secondary to metastatic disease. He is now on Oramorph 15mg PO q8 hours ATC and MSIR 15mg PO q3 hours PRN for breakthrough pain. Patient states his abdomen feels "tighter" and more distended, but overall he feels his pain is currently well controlled. He has required no PRN medication for pain in the past 24 hours. Dexamethasone may also assist in management of pain and provide overall sense of well-being. == Nausea: Pt. having persistent nausea and vomiting with limited oral intake. Patient was able to tolerate a few bites of food yesterday but vomited last night after eating some tuna salad. Patient is amenable to temporary NGT basement to supplement his nutritional intake. IR consulted for Dobbhoff tube placement. Possible contributing factors could include abdominal distention, intrahepatic cholangiocarcinoma, anxiety, electrolyte disturbances, hepatomegaly. Receiving Zofran 4mg IV q4 hours ATC; Marinol 2.5 mg PO 2 times daily was started on 12/19/2017. PRN alprazolam may be used for anxiety/anticipatory nausea prior to meals. If nausea persists, may initiating dexamethasone 2mg PO/IV daily. Dexamethasone may also assist in management of pain and provide overall sense of well-being. == Constipation: Risk for constipation secondary to reduced mobility , inadequate fluid/dietary fiber intake, possible tumor impingement and increasing narcotic requirements. Current orders for Senokot, Dulcolax and lactulose PRN. LBM: 12/20/17-moderate, brown, liquid. == Debility: Patient becoming more weak, lethargic. Attempting to increase nutritional intake to improve overall performance status; patient working with physical therapy. Patient is motivated to "get stronger." He was able to ambulate approximately 25 feet today with steady gait; oxygen saturation 99% on room air. [facility] consulted for inpatient rehabilitation, although patient may not meet their requirements. Patient has verbalized preference for [facility]. * Palliative care will continue to follow this patient throughout his hospitalization to establish trust, assist with symptom management and clarification of medical treatment goals. Attestation To help prompt me to consider important information that might be impacting today's encounter and assessment, information from prior notes written by myself or my colleagues may have been "brought forward" into today's note. My signature on this note, however, is an attestation that I personally performed the exam, history, and/or decision-making noted today, and, unless otherwise indicated, the interactions with patient, family, and staff as well as the review of records all occurred today. I also attest that the listed assessment and stated plan reflect my best clinical judgment today based on the combination of historical information, prior notes, and today's exam/ interactions. When time spent is documented, it refers only to time spent today by the signer, or if indicated, combined time spent today by collaborating physician/nurse practitioner. . Mai Drummond Dec 21, 2017 15:26
--- NOTE | 2017-12-21 15:37 | PD.RAD ---
Post Procedure Progress Note Pre Procedure Diagnosis: (1) Decrease in appetite Post Procedure Diagnosis: (1) Decrease in appetite Procedure Date: Dec 21, 2017 Supervising Radiologist: Mata Jaeger Proceduralist/Assist: Alia Segundo, RT(R)(CV), RT Poly(R) Plan of Activity Patient to Unit: Nursing Unit Patient Condition: Good See PACS Report for procedural detail/treatment Feeding Tube Dobhoff Placement Mata Jaeger MD Dec 21, 2017 15:37
[2017-12-21] MEDS ORDERED: IOHEXOL 350 MG/ML 50 ML BTL (for RAD DIAG) NG ONE (15:46)
--- NOTE | 2017-12-21 17:09 | RADRPT ---
EXAM DATE/TIME: 12/21/2017 15:08 [facility] COMPARISON: No previous studies available for comparison. INDICATIONS : Patient with intrahepatic cholangiocarcinoma in need of NG tube placement for nutrition. MEDICAL HISTORY : Prostate cancer, Adenocarcinoma with extensive hepatic involvement, HTN, HLD, Diabetes, Anemia SURGICAL HISTORY : Prostate biopsy, Colonoscopy, Liver mass biopsy, EGD, Prostatectomy ENCOUNTER: Initial ACUITY: 1 week PAIN SCORE: 0/10 FLUORO TIME: 4.2 minutes IMAGE SERIES: 0 CONTRAST: 15 cc Omnipaque (iohexol) 350 DEVICE(S): 1.) [id number] Nasogastric feeding tube PROCEDURE : 1. Fluoroscopically guided enteric feeding tube placement. The risks, benefits and alternatives to the procedure were explained and verbal and written consent w as obtained. With fluoroscopic guidance a weighted enteric feeding tube was passed through the nasal cavity into the stomach. The stomach was partially insufflated with air and the tube was navigated through the pyloric channel into the duodenum. Injection of positive contrast demonstrates good posi tion of catheter within the duodenum. CONCLUSION: Uncomplicated Dobbhoff tube placement as above. Mata Jaeger MD on December 21, 2017 at 17:07 Board Certified Radiologist. This report was verified electronically.
[2017-12-21] MEDS: diphenhydrAMINE HCL 50 MG CAP PO SCH (20:40)
[2017-12-21] MEDS: ATORVASTATIN 20 MG TAB PO SCH (20:40)
[2017-12-21] MEDS: ENOXAPARIN SODIUM 40 MG/0.4 ML SYRINGE SQ SCH (21:36)
[2017-12-22] VITALS (19 sets, daily range): BP systolic 108–140; BP diastolic 65–89; PULSE 80–116; RESP 16–18; TEMP 98–99.3; O2SAT 94–98
[2017-12-22] MEDS: SODIUM CHLOR 0.9% 1000 ML INJ 1,000 ML IV SCH ×2 (00:18→21:11)
[2017-12-22] MEDS: ONDANSETRON HCL 4 MG/2 ML VIAL IV PUSH SCH ×6 (00:18→21:10)
[2017-12-22] MEDS: SODIUM CHLORIDE 0.9% FLUSH 10 ML FLUSH IV FLUSH PRN (04:42)
[2017-12-22 05:29] LABS: AUTOMATED NEUTROPHIL # 19.8 TH/MM3 (1.8-7.7); BASOPHIL # 0.1 TH/MM3 (0-0.2); BASOPHIL % 0.4 % (0.0-2.0); EOSINOPHIL # 0.3 TH/MM3 (0-0.4); EOSINOPHIL % 1.1 % (0.0-4.0); HEMATOCRIT 24.3 % (39.0-51.0); HEMOGLOBIN 7.9 GM/DL (13.0-17.0); LYMPH % 3.9 % (9.0-44.0); LYMPHOCYTE # 0.9 TH/MM3 (1.0-4.8); MEAN CELL VOLUME 81.9 FL (80.0-100.0); MEAN CORPUSCULAR HEMOGLOBIN 26.5 PG (27.0-34.0); MEAN CORPUSCULAR HGB CONC 32.3 % (32.0-36.0); MEAN PLATELET VOLUME 8.1 FL (7.0-11.0); MONO % 6.1 % (0.0-8.0); MONOCYTE # 1.4 TH/MM3 (0-0.9); NEUT % 88.5 % (16.0-70.0); PLATELET COUNT 126 TH/MM3 (150-450); RED BLOOD COUNT 2.97 MIL/MM3 (4.50-5.90); RED CELL DISTRIBUTION WIDTH 17.5 % (11.6-17.2); WHITE BLOOD COUNT 22.4 TH/MM3 (4.0-11.0)
[2017-12-22 05:58] LABS: ALBUMIN 1.1 GM/DL (3.4-5.0); BICARBONATE 26.9 MEQ/L (21.0-32.0); CALCIUM 7.4 MG/DL (8.5-10.1); CALCIUM-PROTEIN CORRECTED 8.5 MG/DL (8.5-10.1); CREATININE 0.83 MG/DL (0.60-1.30); TOTAL BILIRUBIN ADULT 0.4 MG/DL (0.2-1.0); TOTAL PROTEIN 5.1 GM/DL (6.4-8.2)
[2017-12-22] MEDS: MORPHINE SULFATE 15 MG CONTROLLED RELEASE TAB PO SCH ×3 (06:37→21:11)
--- NOTE | 2017-12-22 07:38 | PD.ONC.PN ---
Subjective Subjective Remarks Patient seen and examined, vital signs, labs and imaging studies reviewed. Yesterday evening the patient had a Dobbhoff tube placed, tube feedings has since then been initiated at a constant rate of 40 mL per hour. Overall, Mr. Baltazar reports feeling improved today, specifically with reference to his abdominal pain. He tells me he was able to ambulate in his room and in the hallway with the help of physical therapy yesterday. He tells me him and his did speak to the dependency case manager regarding possible placement to a short-term rehabilitation facility yesterday. They're expecting to speak with case management again today. He noticed increased urine output yesterday with increased dosing of Lasix, overall he had 2450 mL urine output yesterday. Overall his fluid balance is 10 kg positive since he resented to the hospital. Objective Data Date Time Temp Pulse Resp B/P (MAP) Pulse Ox O2 Delivery O2 Flow Rate FiO2 12/22/17 06:01 97 12/22/17 05:06 96 12/22/17 04:44 98.9 92 18 136/80 (98) 94 12/22/17 03:59 93 12/22/17 03:02 100 12/22/17 02:01 95 12/22/17 01:03 94 12/22/17 00:20 99.3 97 18 133/79 (97) 94 12/22/17 00:02 93 12/21/17 23:02 102 12/21/17 22:01 100 12/21/17 21:08 97 12/21/17 20:36 99.3 89 116/60 (78) 94 12/21/17 20:02 92 12/21/17 19:09 98 12/21/17 18:00 106 12/21/17 17:00 96 12/21/17 16:50 98.2 77 18 128/66 (86) 95 12/21/17 16:23 92 21 12/21/17 13:00 90 12/21/17 12:15 97.8 76 18 130/67 (88) 94 12/21/17 12:00 84 12/21/17 11:00 84 12/21/17 10:04 95 21 12/21/17 10:00 88 12/21/17 09:00 92 12/21/17 08:40 96 12/21/17 08:00 94 12/21/17 08:00 97.4 83 18 116/74 (88) 93 12/22/17 12/22/17 12/22/17 07:00 15:00 23:00 Intake Total 745 ml 120 ml Output Total 350 ml 100 ml Balance 395 ml 20 ml Result Diagram: 12/22/17 0445 12/22/17 0445 Laboratory Results Laboratory Tests Test 12/22/17 04:45 White Blood Count 22.4 TH/MM3 Red Blood Count 2.97 MIL/MM3 Hemoglobin 7.9 GM/DL Hematocrit 24.3 % Mean Corpuscular Volume 81.9 FL Mean Corpuscular Hemoglobin 26.5 PG Mean Corpuscular Hemoglobin Concent 32.3 % Red Cell Distribution Width 17.5 % Platelet Count 126 TH/MM3 Mean Platelet Volume 8.1 FL Neutrophils (%) (Auto) 88.5 % Lymphocytes (%) (Auto) 3.9 % Monocytes (%) (Auto) 6.1 % Eosinophils (%) (Auto) 1.1 % Basophils (%) (Auto) 0.4 % Neutrophils # (Auto) 19.8 TH/MM3 Lymphocytes # (Auto) 0.9 TH/MM3 Monocytes # (Auto) 1.4 TH/MM3 Eosinophils # (Auto) 0.3 TH/MM3 Basophils # (Auto) 0.1 TH/MM3 CBC Comment DIFF FINAL Differential Comment Blood Urea Nitrogen 13 MG/DL Creatinine 0.83 MG/DL Random Glucose 121 MG/DL Total Protein 5.1 GM/DL Albumin 1.1 GM/DL Calcium Level 7.4 MG/DL Alkaline Phosphatase 186 U/L Aspartate Amino Transf (AST/SGOT) 21 U/L Alanine Aminotransferase (ALT/SGPT) 7 U/L Total Bilirubin 0.4 MG/DL Sodium Level 134 MEQ/L Potassium Level 3.0 MEQ/L Chloride Level 100 MEQ/L Carbon Dioxide Level 26.9 MEQ/L Anion Gap 7 MEQ/L Estimat Glomerular Filtration Rate 93 ML/MIN Protein Corrected Calcium 8.5 MG/DL Administered Medications Medications (Trade) Dose Ordered Sig/Tiffany Route PRN Reason Start Time Stop Time Status Last Admin Dose Admin Atorvastatin Calcium (Lipitor) 20 mg HS PO 12/16/17 21:00 12/21/17 20:40 Diphenhydramine HCl (Benadryl) 50 mg HS PO 12/16/17 21:00 12/21/17 20:40 Sodium Chloride 1,000 ml @ 50 mls/hr Q20H IV 12/16/17 00:44 12/22/17 00:18 Sodium Chloride (NS Flush) 2 ml UNSCH PRN IV FLUSH FLUSH AFTER USING IV ACCESS 12/16/17 00:45 12/22/17 04:42 Sodium Chloride (NS Flush) 2 ml BID IV FLUSH 12/16/17 09:00 12/21/17 20:35 Acetaminophen (Tylenol) 650 mg Q6H PRN PO FEVER >101F 12/16/17 00:45 12/18/17 11:15 Famotidine (Pepcid) 20 mg Q12HR PO 12/16/17 09:00 12/21/17 20:40 Miscellaneous Information 1 Q361D XX 12/16/17 00:45 12/16/17 00:45 Chlorhexidine Gluconate (Chlorhexidine 2% Cloth) Taper DAILY@04 TOP 12/16/17 04:00 12/12/18 03:59 12/20/17 03:22 Senna/Docusate Sodium (Tina-Colace) 1 tab BID PO 12/16/17 09:00 12/21/17 08:55 Insulin Aspart (NovoLOG SUPPLEMENTAL SCALE) 1 ACHS SLIDING SCALE SQ 12/16/17 17:00 12/17/17 07:36 Alprazolam (Xanax) 0.25 mg Q8H PRN PO anxiety 12/17/17 13:00 12/21/17 04:39 Ondansetron HCl (Zofran Inj) 4 mg Q4HR IV PUSH 12/17/17 20:00 12/22/17 04:42 Morphine Sulfate (Morphine Inj) 2 mg Q3H PRN IV PUSH PAIN SCALE 9 TO 10 12/18/17 11:00 12/19/17 08:13 Dronabinol (Marinol) 2.5 mg BID@11,16 PO 12/19/17 11:00 12/21/17 17:00 Morphine Sulfate (Oramorph Sr) 15 mg Q8HR PO 12/19/17 14:00 12/22/17 06:37 Morphine Sulfate (Msir) 15 mg Q3H PRN PO pain1-8 12/19/17 09:30 12/21/17 08:55 Potassium Chloride (KCl) 30 meq DAILY PO 12/19/17 16:30 12/20/17 09:07 Enoxaparin Sodium (Lovenox Inj) 40 mg Q24H SQ 12/20/17 23:00 12/21/17 21:36 Furosemide (Lasix Inj) 20 mg BID@18 IV PUSH 12/21/17 09:00 12/21/17 16:59 Objective Remarks GENERAL PHYSICAL APPEARANCE: Mr. Baltazar is a pleasant elderly male. He is laying in bed. He appears to be in no acute distress. HEENT: Head is atraumatic, normocephalic. Conjunctivae are pale; sclerae are anicteric. EOMI, PERRLA. Oral exam - No pharyngeal erythema. NECK EXAM: No palpable cervical or supraclavicular lymphadenopathy. RESPIRATORY EXAM: Decreased bibasilar breath sounds, good air movement of the upper and middle lung zones. Prolonged expiratory phase. CARDIOVASCULAR: Regular rate and rhythm. S1-S2. No obvious murmurs, rubs or gallops. ABDOMINAL EXAM: Massively enlarged liver, abdominal distension, free fluid in the abdomen noted, tenderness in the right upper quadrant and right periumbilical area. The hepatic surface is irregular and firm. LOWER EXTREMITIES: Trace pretibial edema. No calf tenderness. CAR CARDER: Generally weak, no focal sensory or motor deficits. SKIN: Generally pale. Some bruising noted. He appears that generalized anasarca. 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 Plan 1. Multifocal intrahepatic cholangiocarcinoma: s/p C1 FOLFOX, 12/13-12/15. I will plan additional cycles of palliative systemic chemotherapy upon his discharge from [facility]. I'm hopeful to deliver the second cycle of chemotherapy as an outpatient. 2. Leukocytosis: d/t infection. BC no growth. IV antibiotics have been discontinued. 3. Persistent nausea: continue scheduled zofran and advance diet as tolerated. Nutritional intake has been minimal. 4. RUQ Abdominal pain: due to metastatic disease. Now on oral Oramorph 15mg PO q 8 hours with Morphine IR 15mg PO q 3 hours for breakthrough pain this seems to have helped. 5. Protein calorie malnutrition: Dobbhoff tube placed yesterday, now on tube feeds at a rate of 40 mL per hour. I've asked the patient's nurse to talk to the dietitian so with the tube feeds delivery rate can be optimized according to the patient's needs. 6. Physical therapy to help determine if this patient will require placement to a short-term rehabilitation post discharge. 7. Anasarca: Continue Lasix 20 mg IV every 12 hours, he has also been started on potassium chloride 20 mEq IV every 12 hours. Disposition: Optimize nutritional intake via tube feeding and oral nutritional supplements. Physical therapy and possible placement to a care home facility/short- term rehabilitation. Transfuse 1 unit packed red blood cells for hemoglobin of 7.9 g/dL. Beau Harrison MD Dec 22, 2017 07:38
[2017-12-22] MEDS ORDERED: diphenhydrAMINE HCL 25 MG CAP PO PRN (08:00)
[2017-12-22] MEDS ORDERED: SODIUM CHLOR 0.9% 250 ML INJ 250 ML IV ONE (08:00)
[2017-12-22] MEDS: INSULIN ASPART SUPPLEMENTAL SCALE SQ SCH ×4 (08:00→21:33)
[2017-12-22] MEDS ORDERED: ACETAMINOPHEN 325 MG TAB PO PRN (08:00)
[2017-12-22] MEDS: DOCUSATE SODIUM 50 MG/SENNA 8.6 MG TAB PO SCH ×2 (08:56→21:10)
[2017-12-22] MEDS: FAMOTIDINE 20 MG TAB PO SCH ×2 (08:56→21:10)
[2017-12-22] MEDS: POTASSIUM CHLORIDE 10 MEQ CONTROLLED RELEASE TAB PO SCH (08:57)
[2017-12-22] MEDS: FUROSEMIDE 20 MG/2 ML VIAL IV PUSH SCH ×2 (08:58→17:48)
[2017-12-22] MEDS: SODIUM CHLORIDE 0.9% FLUSH 10 ML FLUSH IV FLUSH SCH ×2 (09:00→21:00)
[2017-12-22] MEDS: MORPHINE SULFATE 2 MG/ML INJ IV PUSH PRN (10:07)
[2017-12-22] MEDS: DRONABINOL 2.5 MG CAP PO SCH ×2 (11:00→16:00)
--- NOTE | 2017-12-22 11:20 | HHI.FPPN ---
Subjective Remarks Patient still with 8/10 RUQ abdominal pain. Tolerating dobhoff tube feeds relatively well. Tried swallowing pain medications and he reports that they got stuck in his throat. Denies SOB, chest pain, or fevers. (Brian Guzman MD, R3) Objective Vitals Vital Signs Date Time Temp Pulse Resp B/P (MAP) Pulse Ox O2 Delivery O2 Flow Rate FiO2 12/22/17 10:12 18 12/22/17 07:37 18 12/22/17 06:01 97 12/22/17 05:06 96 12/22/17 04:44 98.9 92 18 136/80 (98) 94 12/22/17 03:59 93 12/22/17 03:02 100 12/22/17 02:01 95 12/22/17 01:03 94 12/22/17 00:20 99.3 97 18 133/79 (97) 94 12/22/17 00:02 93 12/21/17 23:02 102 12/21/17 22:01 100 12/21/17 21:08 97 12/21/17 20:36 99.3 89 116/60 (78) 94 12/21/17 20:02 92 12/21/17 19:09 98 12/21/17 18:00 106 12/21/17 17:00 96 12/21/17 16:50 98.2 77 18 128/66 (86) 95 12/21/17 16:23 92 21 12/21/17 13:00 90 12/21/17 12:15 97.8 76 18 130/67 (88) 94 12/21/17 12:00 84 I/O 12/21/17 12/21/17 12/21/17 12/22/17 12/22/17 12/22/17 07:00 15:00 23:00 07:00 15:00 23:00 Intake Total 480 ml 960 ml 745 ml 120 ml Output Total 800 ml 2075 ml 350 ml 100 ml Balance -320 ml -1115 ml 395 ml 20 ml Intake Oral 480 ml 960 ml 360 ml 120 ml Tube Feeding 265 ml Other 120 ml Output Urine Total 800 ml 2075 ml 350 ml 100 ml # Bowel Movements 1 (Brian Guzman MD, R3) Result Diagram: 12/22/1744412/22/17444 Objective Remarks GENERAL: Well-developed male currently resting in bed, very uncomfortable, restless SKIN: Warm and dry. Well perfused. No rash HEAD: Normocephalic. EYES: No scleral icterus. No injection or drainage. NECK: Supple, trachea midline. No JVD or lymphadenopathy. CARDIOVASCULAR: Regular rate and rhythm without murmurs, gallops, or rubs. RESPIRATORY: Clear to auscultation bilaterally without wheezes rales or rhonchi GASTROINTESTINAL: Abdomen soft, tender especially in the right upper and lower quadrants, distended. Bowel sounds present but hypoactive. Mild fluid wave. Liver is palpated below the costophrenic margin MUSCULOSKELETAL: 1+ lower extremity edema below the knees. NEURO EXAM: Cranial nerves II through XII grossly intact. Strength is equal symmetric. Normal sensation (Brian Guzman MD, R3) Date of Insertion: Dec 14, 2017 Line: PICC Side: Right Location: Antecubital (Brian Guzman MD, R3) A/P Assessment and Plan 67-year-old male with past medical history of resolved prostate cancer and active advanced intrahepatic cholangiocarcinoma presents with abdominal pain and anorexia. Discharge Planning Pending clinical improvement (Brian Guzman MD, R3) Attending Attestation I examined the patient at 8:30 this morning. He was awake and alert with his daughter at the bedside. The patient stated that he was feeling somewhat better with less abdominal discomfort. I have discussed the case with Dr. Guzman and I agree with the assessment and plan as documented. (Prevatte,Marko Douglass Jr., MD) Problem List: (1) Sepsis ICD Codes: A41.9 - Sepsis, unspecified organism Status: Acute Plan: Resolved. ID has dsicontinued broad spectrum ABX. Leukocytosis likely from underlying malignancy. Will continue to monitor for signs of infection and restart ABX if present. -Previously on: Cefepime 2g Q8h IV and Vancomycin 1750 mg Q12h IV (12/16/2017 -12/20) - Repeat blood cultures negative x 3 days - Urine cultures negative x 3 days - Infectious disease on board - appreciate recommendations. (2) Intrahepatic cholangiocarcinoma ICD Codes: C22.1 - Intrahepatic bile duct carcinoma Plan: -Status post his first cycle of FOLFOX -Hold current immunotherapy -Supportive care -Poor oral intake 2/2 n/v v- will require feeding tube while hospitalized. Dietary consult as guided by Dr. Harrison. -Start Marinol 2.5mg PO BID 1 hour before meals to increase appetite and reduce nausea and vomiting -Palliative on board - appreciate recommendations -Heme/Onc on board - appreciate recommendations * Changed pain regimen to Oramorph 15mg PO q8 hours with Morphine IR 15mg PO q3 hours for breakthrough pain (3) Right upper quadrant abdominal pain ICD Codes: R10.11 - Right upper quadrant pain Plan: -IR consult for possible ultrasound-guided therapeutic and diagnostic paracentesis paracentesis. -US showed "No significant fluid for therapeutic paracentesis." However still with abdominal distension. -IV lasix 20 mg BID, with IV K+ replacement. F/u BMP. (4) Leukocytosis ICD Codes: D72.829 - Elevated white blood cell count, unspecified Plan: -Suspect secondary to malignancy -Blood and urine cultures negative so far -Monitor temperature (5) Hypokalemia ICD Codes: E87.6 - Hypokalemia Plan: -Potassium 3.0 this a.m. Replete with IV potassium. 20 meq x 2 bags. (6) Dyslipidemia ICD Codes: E78.5 - Hyperlipidemia, unspecified Plan: Continue Atorvastatin 20 mg by mouth daily (7) History of prostate cancer ICD Codes: Z85.46 - Personal history of malignant neoplasm of prostate Plan: -Resolved per patient -No interventions needed at this time (8) Decrease in appetite ICD Codes: R63.0 - Anorexia Plan: -Start Marinol 2.5 mg by mouth twice a day one hour before meals -Consider Megace per palliative care although this medication is metabolized by the liver (9) Constipation ICD Codes: K59.00 - Constipation, unspecified Status: Resolved Plan: -No reasonable bowel movements since admission -Tina-Colace 1 tab by mouth twice a day -Escalate constipation regimen as tolerated (10) Diabetes ICD Codes: E11.9 - Type 2 diabetes mellitus without complications Plan: -Sliding-scale insulin with Accu-Cheks before meals/at bedtime to maintain euglycemia (11) Anemia ICD Codes: D64.9 - Anemia, unspecified Plan: -Received 3 units PRBCs on admission -Transfuse to maintain hemoglobin at or above 7.5 mg/dl (12) Anxiety ICD Codes: F41.9 - Anxiety disorder, unspecified Plan: -Alprazolam 0.25 mg as every 8 hours as needed anxiety (13) FEN/DVT PPX/GI PPX/Nursing Orders Plan: -Heart healthy diet -Teds/SCDs -Lovenox subcutaneous for DVT prophylaxis -Famotidine 20 mg twice a day -Nasal cannula to maintain saturations greater than 92% -Incentive spirometry while awake -Albuterol/ipratropium aerosols every 6 hours with albuterol aerosols every 2 hours -Physical therapy consulted to assist with strengthening exercises [facility] Dr. Leggett. (Brian Guzman MD, R3) Problem Qualifiers (1) Sepsis: Qualified Codes: A41.9 - Sepsis, unspecified organism Brian Guzman MD, R3 Dec 22, 2017 11:19 Marko Leggett Jr., MD Dec 22, 2017 17:04
[2017-12-22] MEDS: POTASSIUM CHLOR 20 MEQ PREMIX 100 ML IV SCH (13:00)
--- NOTE | 2017-12-22 16:37 | HHI.HCPN ---
Reason for visit a. To assist with evaluation and management of symptoms including: decreased intake, pain, debility b. To assist medical decision maker(s) with: better understanding of current medical conditions; weighing benefits/burdens of medical treatment options; making medical treatment decisions. . Subjective/Interval History Follow-up visit for symptom management and clarification of medical treatment goals. Patient seen and assessed in room 240, also present patient's daughter and family friend. Patient presents lying in bed awake and alert but also lethargic. Previously reporting RUQ abdominal pain likely secondary to metastatic disease; patient denies pain at the time of exam. Currently on Oramorph 15mg PO q8 hours ATC and MSIR 15mg PO q3 hours PRN for breakthrough pain. Patient states his abdomen feels "tighter" and more distended, but overall he feels his pain is currently well controlled. He has required no PRN medication for pain in the past 24 hours. Persistent leukocytosis-may be reactive. WBC of 22.4 today 12/22/17. Previously on cefepime and vancomycin (12/16/17 through 12/20/2017 All cultures remain negative to date. Patient tolerating artificial nutrition at 40ml/hour s/p Dobbhoff placement 2017. Patient reporting minimal nausea today. He appears malnourished and is becoming progressively more weak daily. Total protein: 5.2, albumin 1.2. On Marinol for appetite stimulation. Dietary recommending vital 1.5 with a goal rate of 65ml/hour ATC which will provide 100% of the patient's nutritional requirements. Family/friend interactions Patient's daughter was at bedside and had many questions about current medical treatment goals, since clinical condition and discharge planning. Collaborated with case management; transient to the best of my ability. Palliative will likely meet with the entire family later this week per her daughter's request. . Advance Directives Living Will: Completed, but not made available Health Care Surrogate: Copy in medical record Durable Power of Improvement Director: Completed, but not made available Advance Directive Specifics Date completed: 12/16/2017 . Health Care Surrogate(s): Patient's (Daisy Baltazar) is designated as the healthcare surrogate decision maker. His 2 children (Neda Lang and Kevyn Baltazar) have been designated as the alternate health care surrogate. . Documented care wishes: Patient's states written advanced directives have been completed but are at home in [place]. Healthcare surrogate form was completed here today on 2017. Living will information was provided to the patient and his . . Objective Vital Signs Date Time Temp Pulse Resp B/P (MAP) Pulse Ox O2 Delivery O2 Flow Rate FiO2 12/22/17 12:00 88 12/22/17 10:12 18 12/22/17 08:00 98.0 89 18 140/89 (106) 94 12/22/17 08:00 88 12/22/17 07:37 18 12/22/17 06:01 97 12/22/17 05:06 96 12/22/17 04:44 98.9 92 18 136/80 (98) 94 12/22/17 03:59 93 12/22/17 03:02 100 12/22/17 02:01 95 12/22/17 01:03 94 12/22/17 00:20 99.3 97 18 133/79 (97) 94 12/22/17 00:02 93 12/21/17 23:02 102 12/21/17 22:01 100 12/21/17 21:08 97 12/21/17 20:36 99.3 89 116/60 (78) 94 12/21/17 20:02 92 12/21/17 19:09 98 12/21/17 18:00 106 12/21/17 17:00 96 12/21/17 16:50 98.2 77 18 128/66 (86) 95 12/21/17 16:23 92 21 Intake & Output 12/22/17 12/22/17 07:00 19:00 Intake Total 745 ml 120 ml Output Total 650 ml 1000 ml Balance 95 ml -880 ml Intake Oral 360 ml 120 ml Tube Feeding 265 ml Other 120 ml Output Urine Total 650 ml 1000 ml Physical Exam CONSTITUTIONAL/GENERAL: This is a frail male patient, in no apparent distress. TUBES/LINES/DRAINS: PICC, PIV x 2, Dobbhoff SKIN: No jaundice, rashes, or lesions. Ecchymoses on upper extremities. Skin temperature appropriate. Not diaphoretic. HEAD: Atraumatic. Normocephalic. EYES: Pupils equal and round and reactive. Extraocular motions intact. No scleral icterus. No injection or drainage. Fundi not examined. ENT: Hearing grossly normal. Nose without bleeding or purulent drainage. NECK: Trachea midline. CARDIOVASCULAR: Regular rate and rhythm without murmurs, gallops, or rubs. RESPIRATORY/CHEST: Respirations unlabored. Breath sounds equal bilaterally. No wheezes, rales, or rhonchi. GASTROINTESTINAL: Abdomen soft, non-tender, slightly distended. Dobbhoff in place, tolerating artificial nutrition GENITOURINARY: Without palpable bladder distension. MUSCULOSKELETAL: Extremities without clubbing, cyanosis or mottling. 1+ edema in feet bilaterally. LYMPHATICS: No palpable cervical or supraclavicular adenopathy. NEUROLOGICAL: Awake, Lethargic. Answers questions; follow commands. PSYCHIATRIC: No obvious anxiety/depression. no apparent hallucinations or other psychotic thought process. . . Diagnostic Tests Laboratory Laboratory Tests Test 12/20/17 03:40 12/21/17 04:40 12/22/17 04:45 White Blood Count 24.0 TH/MM3 (4.0-11.0) 24.7 TH/MM3 (4.0-11.0) 22.4 TH/MM3 (4.0-11.0) Red Blood Count 3.40 MIL/MM3 (4.50-5.90) 3.16 MIL/MM3 (4.50-5.90) 2.97 MIL/MM3 (4.50-5.90) Hemoglobin 9.0 GM/DL (13.0-17.0) 8.3 GM/DL (13.0-17.0) 7.9 GM/DL (13.0-17.0) Hematocrit 28.0 % (39.0-51.0) 26.0 % (39.0-51.0) 24.3 % (39.0-51.0) Mean Corpuscular Volume 82.3 FL (80.0-100.0) 82.4 FL (80.0-100.0) 81.9 FL (80.0-100.0) Mean Corpuscular Hemoglobin 26.4 PG (27.0-34.0) 26.3 PG (27.0-34.0) 26.5 PG (27.0-34.0) Mean Corpuscular Hemoglobin Concent 32.1 % (32.0-36.0) 31.9 % (32.0-36.0) 32.3 % (32.0-36.0) Red Cell Distribution Width 17.2 % (11.6-17.2) 17.4 % (11.6-17.2) 17.5 % (11.6-17.2) Platelet Count 135 TH/MM3 (150-450) 136 TH/MM3 (150-450) 126 TH/MM3 (150-450) Mean Platelet Volume 8.2 FL (7.0-11.0) 8.5 FL (7.0-11.0) 8.1 FL (7.0-11.0) Neutrophils (%) (Auto) 91.2 % (16.0-70.0) 91.0 % (16.0-70.0) 88.5 % (16.0-70.0) Lymphocytes (%) (Auto) 3.8 % (9.0-44.0) 2.8 % (9.0-44.0) 3.9 % (9.0-44.0) Monocytes (%) (Auto) 3.5 % (0.0-8.0) 4.7 % (0.0-8.0) 6.1 % (0.0-8.0) Eosinophils (%) (Auto) 1.3 % (0.0-4.0) 1.3 % (0.0-4.0) 1.1 % (0.0-4.0) Basophils (%) (Auto) 0.2 % (0.0-2.0) 0.2 % (0.0-2.0) 0.4 % (0.0-2.0) Neutrophils # (Auto) 21.9 TH/MM3 (1.8-7.7) 22.4 TH/MM3 (1.8-7.7) 19.8 TH/MM3 (1.8-7.7) Lymphocytes # (Auto) 0.9 TH/MM3 (1.0-4.8) 0.7 TH/MM3 (1.0-4.8) 0.9 TH/MM3 (1.0-4.8) Monocytes # (Auto) 0.8 TH/MM3 (0-0.9) 1.2 TH/MM3 (0-0.9) 1.4 TH/MM3 (0-0.9) Eosinophils # (Auto) 0.3 TH/MM3 (0-0.4) 0.3 TH/MM3 (0-0.4) 0.3 TH/MM3 (0-0.4) Basophils # (Auto) 0.1 TH/MM3 (0-0.2) 0.1 TH/MM3 (0-0.2) 0.1 TH/MM3 (0-0.2) CBC Comment DIFF FINAL DIFF FINAL DIFF FINAL Differential Comment Prothrombin Time 15.7 SEC (9.8-11.6) Prothromb Time International Ratio 1.6 RATIO Blood Urea Nitrogen 8 MG/DL (7-18) 9 MG/DL (7-18) 13 MG/DL (7-18) Creatinine 0.55 MG/DL (0.60-1.30) 0.57 MG/DL (0.60-1.30) 0.83 MG/DL (0.60-1.30) Random Glucose 73 MG/DL (74-106) 72 MG/DL (74-106) 121 MG/DL (74-106) Total Protein 5.5 GM/DL (6.4-8.2) 5.2 GM/DL (6.4-8.2) 5.1 GM/DL (6.4-8.2) Albumin 1.2 GM/DL (3.4-5.0) 1.2 GM/DL (3.4-5.0) 1.1 GM/DL (3.4-5.0) Calcium Level 8.2 MG/DL (8.5-10.1) 7.6 MG/DL (8.5-10.1) 7.4 MG/DL (8.5-10.1) Alkaline Phosphatase 194 U/L (45-117) 255 U/L (45-117) 186 U/L (45-117) Aspartate Amino Transf (AST/SGOT) 16 U/L (15-37) 18 U/L (15-37) 21 U/L (15-37) Alanine Aminotransferase (ALT/SGPT) 7 U/L (12-78) 9 U/L (12-78) 7 U/L (12-78) Total Bilirubin 0.6 MG/DL (0.2-1.0) 0.5 MG/DL (0.2-1.0) 0.4 MG/DL (0.2-1.0) Sodium Level 136 MEQ/L (136-145) 137 MEQ/L (136-145) 134 MEQ/L (136-145) Potassium Level 3.2 MEQ/L (3.5-5.1) 3.0 MEQ/L (3.5-5.1) 3.0 MEQ/L (3.5-5.1) Chloride Level 102 MEQ/L (98-107) 102 MEQ/L (98-107) 100 MEQ/L (98-107) Carbon Dioxide Level 24.9 MEQ/L (21.0-32.0) 25.6 MEQ/L (21.0-32.0) 26.9 MEQ/L (21.0-32.0) Anion Gap 9 MEQ/L (5-15) 9 MEQ/L (5-15) 7 MEQ/L (5-15) Estimat Glomerular Filtration Rate 149 ML/MIN (>89) 143 ML/MIN (>89) 93 ML/MIN (>89) Protein Corrected Calcium 8.5 MG/DL (8.5-10.1) . Result Diagram: 12/22/17 0445 12/22/17 0445 Microbiology Microbiology Date/Time Source Procedure Growth Status 12/17/17 17:45 Blood Peripheral Aerobic Blood Culture - Final NO GROWTH IN 5 DAYS Complete 12/17/17 17:45 Blood Peripheral Anaerobic Blood Culture - Final NO GROWTH IN 5 DAYS Complete 12/17/17 05:35 Stool Stool Stool Occult Blood (LISETTE) - Final HEMOCCULT NEGATIVE Complete 12/16/17 04:45 Urine Catheterized Urine Urine Culture - Final NO GROWTH IN 48 HOURS. Complete . Imaging Last 72 hours Impressions Abdomen Fluoroscopy 12/21/17 0000 Signed Impressions: Service Date/Time: Thursday, December 21, 2017 15:08 - CONCLUSION: Uncomplicated Dobbhoff tube placement as above. Mata Jaeger MD . Assessment and Plan Disease Oriented Problem List: (1) Intrahepatic cholangiocarcinoma (2) Hypertension (3) Hemorrhoids (4) Hypoalbuminemia (5) Normocytic anemia (6) Leukocytosis (7) History of prostate cancer (8) Sepsis Symptom Scale: (1) Pain 0-10 Scale: 4 (2) Debility (3) Decreased oral intake Pertinent Non-Medical Issues Psychosocial: Mr. Baltazar is from [facility]. He and his spend the winter months in [facility]. He has 2 adult children, one daughter and one son. His son lives locally in [place], and his daughter lives in [place]. 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 He is a of the [employer] and was stationed on any relationship [place] the [place]. Spiritual: [employer] Legal: Patient's (Daisy Baltazar) is designated as the healthcare surrogate decision maker. His 2 children (Neda Lang and Kevyn Baltazar) have been designated as the alternate health care surrogate. Ethical issues impacting care: No known ethical issues impacting care at this time . Important Contacts Daisy Baltazar, spouse: [phone] Kevyn Baltzaar, son: [phone] Neda, daughter: [phone] . Prognosis Patient with a history of prostate cancer; recently diagnosed new onset, nonresectable intrahepatic cholangiocarcinoma who has been declining over the past several months. Currently hospitalized with sepsis. Given patient's multiple comorbid conditions including recently diagnosed nonresectable CA in addition to his overall deconditioned functional status. His overall prognosis would be poor. Patient would be hospice appropriate if/when his medical treatment goals become comfort oriented. . Code Status: Full Code Plan * FULL CODE * Patient's states written advanced directives have been completed but are at home in [place]. Healthcare surrogate form was completed here today on 2017. Living will information was provided to the patient and his . * Decision-making: Patient currently demonstrates appropriate insight and judgment related to his current medical conditions. Patient's (Daisy Baltazar) is designated as the healthcare surrogate decision maker. His 2 children (Neda Lang and Kevyn Baltazar) have been designated as the alternate health care surrogate. * Discussed patient with bedside nurse (Krissy). * Aggressive GOALS * Symptom management: == Pain: Multi factorial. Patient with a history of prostate cancer , now with newly diagnosed intrahepatic cholangiocarcinoma. Additional contributing factors include edema, abdominal distention, hemorrhoids, invasive lines. Patient previously reporting RUQ abdominal pain likely secondary to metastatic disease. He is now on Oramorph 15mg PO q8 hours ATC and MSIR 15mg PO q3 hours PRN for breakthrough pain. Previously reporting RUQ abdominal pain likely secondary to metastatic disease; patient denies pain at the time of exam. Currently on Oramorph 15mg PO q8 hours ATC and MSIR 15mg PO q3 hours PRN for breakthrough pain. Patient states his abdomen feels "tighter" and more distended, but overall he feels his pain is currently well controlled. He has required no PRN medication for pain in the past 24 hours. == Decreased intake: Patient tolerating artificial nutrition at 40ml/ hour s/p Dobbhoff placement 12/21/2017. Patient reporting minimal nausea today. He appears malnourished and is becoming progressively more weak daily. Total protein: 5.2, albumin 1.2. On Marinol for appetite stimulation. Dietary recommending vital 1.5 with a goal rate of 65ml/hour ATC which will provide 100% of the patient's nutritional requirements. Possible contributing factors could include abdominal distention, intrahepatic cholangiocarcinoma, anxiety, electrolyte disturbances, hepatomegaly. == Debility: Patient becoming more weak, lethargic. Attempting to increase nutritional intake to improve overall performance status; patient working with physical therapy. Patient is motivated to "get stronger." * Palliative care will continue to follow this patient throughout his hospitalization to establish trust, assist with symptom management and clarification of medical treatment goals. Attestation To help prompt me to consider important information that might be impacting today's encounter and assessment, information from prior notes written by myself or my colleagues may have been "brought forward" into today's note. My signature on this note, however, is an attestation that I personally performed the exam, history, and/or decision-making noted today, and, unless otherwise indicated, the interactions with patient, family, and staff as well as the review of records all occurred today. I also attest that the listed assessment and stated plan reflect my best clinical judgment today based on the combination of historical information, prior notes, and today's exam/ interactions. When time spent is documented, it refers only to time spent today by the signer, or if indicated, combined time spent today by collaborating physician/nurse practitioner. . Mai Drummond Dec 22, 2017 16:37
[2017-12-22] MEDS: ATORVASTATIN 20 MG TAB PO SCH (21:10)
[2017-12-22] MEDS: diphenhydrAMINE HCL 50 MG CAP PO SCH (21:10)
[2017-12-23] VITALS (19 sets, daily range): BP systolic 109–144; BP diastolic 56–79; PULSE 86–108; RESP 16–20; TEMP 97–98.4; O2SAT 92–99
[2017-12-23] MEDS: POTASSIUM CHLOR 20 MEQ PREMIX 100 ML IV SCH ×2 (00:16→12:54)
[2017-12-23] MEDS: ENOXAPARIN SODIUM 40 MG/0.4 ML SYRINGE SQ SCH (00:17)
[2017-12-23] MEDS: ONDANSETRON HCL 4 MG/2 ML VIAL IV PUSH SCH ×6 (00:17→20:32)
[2017-12-23] MEDS: CHLORHEXIDINE GLUCONATE 2 % 1 PACK (2 CLOTHS) TOP SCH (04:00)
[2017-12-23 05:58] LABS: AUTOMATED NEUTROPHIL # 22.4 TH/MM3 (1.8-7.7); BASOPHIL % 0.2 % (0.0-2.0); EOSINOPHIL # 0.3 TH/MM3 (0-0.4); EOSINOPHIL % 1.3 % (0.0-4.0); HEMATOCRIT 24.1 % (39.0-51.0); HEMOGLOBIN 7.9 GM/DL (13.0-17.0); LYMPH % 4.4 % (9.0-44.0); LYMPHOCYTE # 1.1 TH/MM3 (1.0-4.8); MEAN CELL VOLUME 82.6 FL (80.0-100.0); MEAN CORPUSCULAR HEMOGLOBIN 27.2 PG (27.0-34.0); MEAN CORPUSCULAR HGB CONC 32.9 % (32.0-36.0); MEAN PLATELET VOLUME 7.9 FL (7.0-11.0); MONO % 5.7 % (0.0-8.0); MONOCYTE # 1.4 TH/MM3 (0-0.9); NEUT % 88.4 % (16.0-70.0); PLATELET COUNT 112 TH/MM3 (150-450); RED BLOOD COUNT 2.92 MIL/MM3 (4.50-5.90); RED CELL DISTRIBUTION WIDTH 17.7 % (11.6-17.2); WHITE BLOOD COUNT 25.3 TH/MM3 (4.0-11.0)
[2017-12-23 06:19] LABS: ALBUMIN 1.1 GM/DL (3.4-5.0); ALKALINE PHOSPHATASE 204 U/L (45-117); ALT (GPT) LESS THAN 6 U/L (12-78); AST (GOT) 18 U/L (15-37); BICARBONATE 28.6 MEQ/L (21.0-32.0); BLOOD UREA NITROGEN 15 MG/DL (7-18); CALCIUM 7.6 MG/DL (8.5-10.1); CHLORIDE 101 MEQ/L (98-107); CREATININE 1.03 MG/DL (0.60-1.30); GLOMERULAR FILTRATION RATE 72 ML/MIN (>89); GLUCOSE,RANDOM 140 MG/DL (74-106); SODIUM (NA) 136 MEQ/L (136-145); TOTAL BILIRUBIN ADULT 0.6 MG/DL (0.2-1.0)
[2017-12-23] MEDS: MORPHINE SULFATE 15 MG CONTROLLED RELEASE TAB PO SCH (06:22)
--- NOTE | 2017-12-23 07:08 | HHI.FPPN ---
Subjective Remarks Sitting up on side of bed with DobHoff NG-tube capped. Pain is a 3/10 this AM localized to RUQ. Still no BM. Passed swallow evaluation yesterday. Still no appetite. requesting synthetic THC for appetite enhancement. He does report SOB this AM and is requesting breathing treatment. and family hoping for in-patient rehabilitation especially given tube feeds and weakness. (Brian Guzman MD, R3) Objective Vitals Vital Signs Date Time Temp Pulse Resp B/P (MAP) Pulse Ox O2 Delivery O2 Flow Rate FiO2 12/23/17 04:47 98.4 93 16 136/75 (95) 93 12/23/17 04:00 94 12/23/17 01:00 104 12/23/17 00:13 97.0 104 16 119/56 (77) 92 12/23/17 00:00 107 12/23/17 00:00 106 12/22/17 23:00 106 12/22/17 22:00 116 12/22/17 21:00 102 12/22/17 20:55 99.3 102 16 138/89 97 12/22/17 20:00 97 12/22/17 20:00 94 12/22/17 19:00 90 12/22/17 17:05 98.4 80 18 136/73 98 12/22/17 16:00 98.0 96 18 108/65 (79) 94 12/22/17 16:00 88 12/22/17 15:00 17 12/22/17 12:00 88 12/22/17 10:12 18 12/22/17 08:00 98.0 89 18 140/89 (106) 94 12/22/17 08:00 88 I/O 12/22/17 12/22/17 12/22/17 12/23/17 12/23/17 12/23/17 07:00 15:00 23:00 07:00 15:00 23:00 Intake Total 745 ml 120 ml 780 ml 560 ml Output Total 350 ml 100 ml 2500.0 ml 510.0 ml Balance 395 ml 20 ml -1720.0 ml 50.0 ml Intake Oral 360 ml 120 ml 480 ml IV Total 100 ml Tube Feeding 265 ml 400 ml Packed Cells 300 ml Other 120 ml 60 ml Output Urine Total 350 ml 100 ml 2400 ml 150 ml Emesis 250 ml Tube Feeding Residual Discard 100.0 ml 110.0 ml (Brian Guzman MD, R3) Result Diagram: 12/23/1745412/23/17454 Objective Remarks GENERAL: Well-developed male currently resting in bed, very uncomfortable, restless SKIN: Warm and dry. Well perfused. No rash HEAD: Normocephalic. EYES: No scleral icterus. No injection or drainage. NECK: Supple, trachea midline. No JVD or lymphadenopathy. CARDIOVASCULAR: Regular rate and rhythm without murmurs, gallops, or rubs. RESPIRATORY: Clear to auscultation bilaterally without wheezes rales or rhonchi GASTROINTESTINAL: Abdomen soft, tender especially in the right upper and lower quadrants, distended. Bowel sounds present but hypoactive. Mild fluid wave. Liver is palpated below the costophrenic margin MUSCULOSKELETAL: 1+ lower extremity edema below the knees. NEURO EXAM: Cranial nerves II through XII grossly intact. Strength is equal symmetric. Normal sensation (Brian Guzman MD, R3) Date of Insertion: Dec 14, 2017 Line: PICC Side: Right Location: Antecubital (Brian Guzman MD, R3) A/P Assessment and Plan 67-year-old male with past medical history of resolved prostate cancer and active advanced intrahepatic cholangiocarcinoma presents with abdominal pain and anorexia. Discharge Planning Pending clinical improvement (Brian Guzman MD, R3) Attending Attestation I examined the patient at 1225 today. His was at the bedside. He was feeling somewhat better but oral intake remained low. I have discussed the case with Dr. Guzman and agree with the assessment and plan as documented by Dr. Guzman. (Prevatte,Marko Douglass Jr., MD) Problem List: (1) Sepsis ICD Codes: A41.9 - Sepsis, unspecified organism Status: Acute Plan: Resolved. ID has discontinued broad spectrum ABX. Leukocytosis likely from underlying malignancy. Will continue to monitor for signs of infection and restart ABX if present. -Previously on: Cefepime 2g Q8h IV and Vancomycin 1750 mg Q12h IV (12/16/2017 -12/20) - Repeat blood cultures negative x 5 days - Urine cultures negative x 5 days - Infectious disease on board - appreciate recommendations. (2) Intrahepatic cholangiocarcinoma ICD Codes: C22.1 - Intrahepatic bile duct carcinoma Plan: -Status post his first cycle of FOLFOX -Hold current immunotherapy -Supportive care -Poor oral intake 2/2 n/v v- will require feeding tube while hospitalized. Dietary consult. -Start Marinol 2.5mg PO BID 1 hour before meals to increase appetite and reduce nausea and vomiting. -Palliative on board - appreciate recommendations. -Heme/Onc on board - appreciate recommendations. * Morphine IR 15mg PO q3 hours Pain 1-8, IV Morphine 2 mg q 3 hours PRN pain 9, 10, with Methadone 5 mg PO q 12 scheduled. (3) Right upper quadrant abdominal pain ICD Codes: R10.11 - Right upper quadrant pain Plan: -IR consult for possible ultrasound-guided therapeutic and diagnostic paracentesis paracentesis. -US 12/19/17 showed "No significant fluid for therapeutic paracentesis." However still with abdominal distension. -IV lasix 20 mg BID, with IV K+ replacement. F/u BMP. (4) Leukocytosis ICD Codes: D72.829 - Elevated white blood cell count, unspecified Plan: -Suspect secondary to malignancy -Blood and urine cultures negative so far -Monitor temperature (5) Hypokalemia ICD Codes: E87.6 - Hypokalemia Plan: -Potassium 2.9 this a.m. Replete with IV potassium. 20 meq x BID and KCL 40 mEq PO today. (6) Dyslipidemia ICD Codes: E78.5 - Hyperlipidemia, unspecified Plan: Continue Atorvastatin 20 mg by mouth daily (7) History of prostate cancer ICD Codes: Z85.46 - Personal history of malignant neoplasm of prostate Plan: -Resolved per patient -No interventions needed at this time (8) Decrease in appetite ICD Codes: R63.0 - Anorexia Plan: -Start Marinol 2.5 mg by mouth twice a day one hour before meals -Consider Megace per palliative care although this medication is metabolized by the liver (9) Constipation ICD Codes: K59.00 - Constipation, unspecified Status: Resolved Plan: -No reasonable bowel movements since admission -Tina-Colace 1 tab by mouth twice a day -Escalate constipation regimen as tolerated. May try dulcolax suppository 12/23 if still no BM. (10) Diabetes ICD Codes: E11.9 - Type 2 diabetes mellitus without complications Plan: -Sliding-scale insulin with Accu-Cheks before meals/at bedtime to maintain euglycemia (11) Anemia ICD Codes: D64.9 - Anemia, unspecified Plan: Has received 4 units of packed RBCs since admission. Last transfusion was on 12/22/2017. Hgb stable = 7.9. (12) Anxiety ICD Codes: F41.9 - Anxiety disorder, unspecified Plan: -Alprazolam 0.25 mg as every 8 hours as needed anxiety (13) FEN/DVT PPX/GI PPX/Nursing Orders Plan: -Regular diet. -Teds/SCDs -Lovenox subcutaneous for DVT prophylaxis -Famotidine 20 mg twice a day -Nasal cannula to maintain saturations greater than 92% -Incentive spirometry while awake -Albuterol/ipratropium aerosols every 6 hours with albuterol aerosols every 2 hours -Physical therapy consulted to assist with strengthening exercises. Given his malnutrion and general weakness, I agree with oncology that this patient will require extensive care that may not be best suited for the home (i.e. in- patient rehabilitation). This was described by Dr. Harrison: "Disposition: Optimize nutritional intake via tube feeding and oral nutritional supplements. As far as discharge disposition, I would favor placement to a short-term rehabilitation/[place] [facility] facility because I do not see his or his family being able to care for him at home. Especially since he is on a combination of intravenous and oral medications and also because his input and output needs to monitored quite closely." Will continue to follow and make arrangements. [facility]DW Dr. Leggett. (Brian Guzman MD, R3) Problem Qualifiers (1) Sepsis: Qualified Codes: A41.9 - Sepsis, unspecified organism Brian Guzman MD, R3 Dec 23, 2017 07:08 Marko Leggett Jr., MD Dec 23, 2017 14:48
[2017-12-23] MEDS: INSULIN ASPART SUPPLEMENTAL SCALE SQ SCH ×4 (08:00→20:36)
--- NOTE | 2017-12-23 08:38 | PD.ONC.PN ---
Subjective Subjective Remarks Patient seen and examined, vital signs, labs, medications were reviewed. Patient 's and sister were both the bedside during this examination and encounter. Subjectively; patient reports having had varying degrees of pain in his abdomen with past 24 hours. He tells me he is having difficulty swallowing slow release morphine tablets because he feels are getting stuck. Overall he had no oral intake other than a few teaspoons of applesauce. He has been on tube feeds via his Dobbhoff tube. Patient tells me his Dobbhoff tube required some adjustment yesterday. He tells me him and his met with design cell engineer's and talked about potential [place] [facility] [place] facilities/rehabilitation facilities yesterday. Overall, the patient tells me he requires assistance with adding up out of bed and ambulating, he spent a very limited amount of time out of bed yesterday. Objective Data Date Time Temp Pulse Resp B/P (MAP) Pulse Ox O2 Delivery O2 Flow Rate FiO2 12/23/17 06:00 92 12/23/17 05:00 88 12/23/17 04:47 98.4 93 16 136/75 (95) 93 12/23/17 04:00 94 12/23/17 03:00 96 12/23/17 02:00 100 12/23/17 01:00 104 12/23/17 00:13 97.0 104 16 119/56 (77) 92 12/23/17 00:00 107 12/23/17 00:00 106 12/22/17 23:00 106 12/22/17 22:00 116 12/22/17 21:00 102 12/22/17 20:55 99.3 102 16 138/89 97 12/22/17 20:00 97 12/22/17 20:00 94 12/22/17 19:00 90 12/22/17 17:05 98.4 80 18 136/73 98 12/22/17 16:00 98.0 96 18 108/65 (79) 94 12/22/17 16:00 88 12/22/17 15:00 17 12/22/17 12:00 88 12/22/17 10:12 18 12/23/17 12/23/17 12/23/17 07:00 15:00 23:00 Intake Total 560 ml Output Total 510.0 ml Balance 50.0 ml Result Diagram: 2/8/18 0455 12/23/17 0455 Laboratory Results Laboratory Tests Test 12/23/17 04:55 White Blood Count 25.3 TH/MM3 Red Blood Count 2.92 MIL/MM3 Hemoglobin 7.9 GM/DL Hematocrit 24.1 % Mean Corpuscular Volume 82.6 FL Mean Corpuscular Hemoglobin 27.2 PG Mean Corpuscular Hemoglobin Concent 32.9 % Red Cell Distribution Width 17.7 % Platelet Count 112 TH/MM3 Mean Platelet Volume 7.9 FL Neutrophils (%) (Auto) 88.4 % Lymphocytes (%) (Auto) 4.4 % Monocytes (%) (Auto) 5.7 % Eosinophils (%) (Auto) 1.3 % Basophils (%) (Auto) 0.2 % Neutrophils # (Auto) 22.4 TH/MM3 Lymphocytes # (Auto) 1.1 TH/MM3 Monocytes # (Auto) 1.4 TH/MM3 Eosinophils # (Auto) 0.3 TH/MM3 Basophils # (Auto) 0.0 TH/MM3 CBC Comment DIFF FINAL Differential Comment Blood Urea Nitrogen 15 MG/DL Creatinine 1.03 MG/DL Random Glucose 140 MG/DL Total Protein 5.0 GM/DL Albumin 1.1 GM/DL Calcium Level 7.6 MG/DL Alkaline Phosphatase 204 U/L Aspartate Amino Transf (AST/SGOT) 18 U/L Alanine Aminotransferase (ALT/SGPT) LESS THAN 6 U/L Total Bilirubin 0.6 MG/DL Sodium Level 136 MEQ/L Potassium Level 2.9 MEQ/L Chloride Level 101 MEQ/L Carbon Dioxide Level 28.6 MEQ/L Anion Gap 6 MEQ/L Estimat Glomerular Filtration Rate 72 ML/MIN Administered Medications Medications (Trade) Dose Ordered Sig/Tiffany Route PRN Reason Start Time Stop Time Status Last Admin Dose Admin Atorvastatin Calcium (Lipitor) 20 mg HS PO 12/16/17 21:00 12/22/17 21:10 Diphenhydramine HCl (Benadryl) 50 mg HS PO 12/16/17 21:00 12/22/17 21:10 Sodium Chloride 1,000 ml @ 50 mls/hr Q20H IV 12/16/17 00:44 Future hold 12/22/17 21:11 Sodium Chloride (NS Flush) 2 ml UNSCH PRN IV FLUSH FLUSH AFTER USING IV ACCESS 12/16/17 00:45 2/7/18 04:42 Sodium Chloride (NS Flush) 2 ml BID IV FLUSH 12/16/17 09:00 12/22/17 09:00 Acetaminophen (Tylenol) 650 mg Q6H PRN PO FEVER >101F 12/16/17 00:45 12/18/17 11:15 Famotidine (Pepcid) 20 mg Q12HR PO 12/16/17 09:00 12/22/17 21:10 Miscellaneous Information 1 Q361D XX 12/16/17 00:45 12/16/17 00:45 Chlorhexidine Gluconate (Chlorhexidine 2% Cloth) Taper DAILY@04 TOP 12/16/17 04:00 12/12/18 03:59 12/20/17 03:22 Senna/Docusate Sodium (Tina-Colace) 1 tab BID PO 12/16/17 09:00 12/22/17 21:10 Insulin Aspart (NovoLOG SUPPLEMENTAL SCALE) 1 ACHS SLIDING SCALE SQ 12/16/17 17:00 12/17/17 07:36 Alprazolam (Xanax) 0.25 mg Q8H PRN PO anxiety 12/17/17 13:00 12/21/17 04:39 Ondansetron HCl (Zofran Inj) 4 mg Q4HR IV PUSH 12/17/17 20:00 12/23/17 04:50 Morphine Sulfate (Morphine Inj) 2 mg Q3H PRN IV PUSH PAIN SCALE 9 TO 10 12/18/17 11:00 12/22/17 10:07 Dronabinol (Marinol) 2.5 mg BID@11,16 PO 12/19/17 11:00 12/21/17 17:00 Morphine Sulfate (Msir) 15 mg Q3H PRN PO pain1-8 12/19/17 09:30 12/21/17 08:55 Enoxaparin Sodium (Lovenox Inj) 40 mg Q24H SQ 12/20/17 23:00 12/23/17 00:17 Furosemide (Lasix Inj) 20 mg BID@,18 IV PUSH 12/21/17 09:00 12/22/17 17:48 Potassium Chloride 100 ml @ 50 mls/hr Q12H IV 12/22/17 13:00 12/23/17 00:16 Objective Remarks GENERAL PHYSICAL APPEARANCE: Mr. Baltazar is a pleasant elderly male. He is laying in bed. He appears to be in no acute distress. HEENT: Head is atraumatic, normocephalic. Conjunctivae are pale; sclerae are anicteric. EOMI, PERRLA. Oral exam - No pharyngeal erythema. NECK EXAM: No palpable cervical or supraclavicular lymphadenopathy. RESPIRATORY EXAM: Decreased bibasilar breath sounds, good air movement of the upper and middle lung zones. Prolonged expiratory phase. CARDIOVASCULAR: Regular rate and rhythm. S1-S2. No obvious murmurs, rubs or gallops. ABDOMINAL EXAM: Massively enlarged liver, abdominal distension, free fluid in the abdomen noted, tenderness in the right upper quadrant and right periumbilical area. The hepatic surface is irregular and firm. LOWER EXTREMITIES: Trace pretibial edema. No calf tenderness. HOSE TESTER: Generally weak, no focal sensory or motor deficits. SKIN: Generally pale. Some bruising noted. He appears that generalized anasarca. 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 Plan 1. Multifocal intrahepatic cholangiocarcinoma: s/p C1 FOLFOX, 12/13-12/15. I will plan additional cycles of palliative systemic chemotherapy upon his discharge from [facility]. I'm hopeful to deliver the second cycle of chemotherapy as an outpatient. 2. Leukocytosis: d/t infection. BC no growth. IV antibiotics have been discontinued. 3. Persistent nausea: continue scheduled zofran and advance diet as tolerated. Nutritional intake has been minimal. 4. RUQ Abdominal pain: due to metastatic disease. He is having difficulty swallowing the long-acting morphine tablets. I have therefore discontinued these and start him on liquid methadone 5 mg by mouth every 12 hours. Continue short acting morphine which is a smaller tablet and easier to swallow. 5. Protein calorie malnutrition: Dobbhoff tube placed on 12/21/2017, now on tube feeds at a rate of 40 mL per hour. I've asked the patient's nurse to talk to the dietitian so with the tube feeds delivery rate can be optimized according to the patient's needs. 6. Physical therapy to help determine if this patient will require placement to a short-term rehabilitation post discharge. 7. Anasarca: Continue Lasix 20 mg IV every 12 hours, he has also been started on potassium chloride 20 mEq IV every 12 hours. 8. Hypokalemia: I have written for 1 extra dose of potassium chloride 40 mEq powder mixed in water to be delivered via Dobbhoff tube. 9. Anemia: Hemoglobin hematocrit stable despite 1 unit packed red blood cell transfusion on 12/22/2017. Disposition: Optimize nutritional intake via tube feeding and oral nutritional supplements. As far as discharge disposition, I would favor placement to a short-term rehabilitation/[place] [facility] [place] facility because I do not see his or his family being able to care for him at home. Especially since he is on a combination of intravenous and oral medications and also because his input and output needs to monitored quite closely. Beau Harrison MD Dec 23, 2017 08:38
[2017-12-23] MEDS ORDERED: POTASSIUM CHLORIDE 20 MEQ PWD PACKET PO ONE (08:45)
[2017-12-23] MEDS: METHADONE HCL 10 MG/10 ML ORAL SOLUTION PO SCH ×2 (09:00→20:35)
[2017-12-23] MEDS: BISACODYL 10 MG SUPP RECTAL ONE ×2 (09:00→09:49)
[2017-12-23] MEDS: FAMOTIDINE 20 MG TAB PO SCH ×2 (09:49→20:34)
[2017-12-23] MEDS: FUROSEMIDE 20 MG/2 ML VIAL IV PUSH SCH ×2 (09:49→17:58)
[2017-12-23] MEDS: DOCUSATE SODIUM 50 MG/SENNA 8.6 MG TAB PO SCH ×2 (09:49→20:34)
[2017-12-23] MEDS: SODIUM CHLORIDE 0.9% FLUSH 10 ML FLUSH IV FLUSH SCH ×2 (09:49→20:35)
[2017-12-23] MEDS: RESP: ALBUTEROL 2.5 MG/3 ML NEB (PRN) NEB ×2 (09:52→20:51)
--- NOTE | 2017-12-23 11:53 | RADRPT ---
EXAM DATE/TIME: 12/23/2017 10:08 [place] COMPARISON: ABDOMEN KUB ONLY, November 30, 2017, 13:39. INDICATIONS : Post NG tube placement. MEDICAL HISTORY : Hypercholesterolemia. Hypertension SURGICAL HISTORY : Prostate surgery. Right knee surgery. ENCOUNTER: Subsequent ACUITY: 1 week PAIN SCORE: 7/10 LOCATION: Right lower quadrant FINDINGS: Supine view of the abdomen was performed. Dobbhoff tube has its tip coiled in the stomach. The abdom inal bowel gas pattern is normal. No abnormal masses, calcifications, or organomegaly is seen. Degen erative changes and scoliosis of the lumbar spine are noted. CONCLUSION: Dobbhoff tube tip is coiled in the stomach. Dennis Swan MD on December 23, 2017 at 11:48 Board Certified Radiologist. This report was verified electronically.
[2017-12-23] MEDS: DRONABINOL 2.5 MG CAP PO SCH ×2 (12:53→17:59)
[2017-12-23] MEDS: MORPHINE SULFATE 2 MG/ML INJ IV PUSH PRN (14:19)
[2017-12-23] MEDS: MORPHINE SULFATE 15 MG TAB PO PRN (18:08)
[2017-12-23] MEDS: diphenhydrAMINE HCL 50 MG CAP PO SCH (20:34)
[2017-12-23] MEDS: ATORVASTATIN 20 MG TAB PO SCH (20:35)
[2017-12-23] MEDS: SODIUM CHLOR 0.9% 1000 ML INJ 1,000 ML IV SCH (20:35)
[2017-12-24] VITALS (14 sets, daily range): BP systolic 116–126; BP diastolic 64–77; PULSE 84–100; RESP 16–20; TEMP 97.2–98.6; O2SAT 89–96
[2017-12-24] MEDS: ENOXAPARIN SODIUM 40 MG/0.4 ML SYRINGE SQ SCH (00:23)
[2017-12-24] MEDS: POTASSIUM CHLOR 20 MEQ PREMIX 100 ML IV SCH ×2 (00:23→16:16)
[2017-12-24] MEDS: ONDANSETRON HCL 4 MG/2 ML VIAL IV PUSH SCH ×6 (00:23→20:27)
[2017-12-24] MEDS: CHLORHEXIDINE GLUCONATE 2 % 1 PACK (2 CLOTHS) TOP SCH (03:51)
[2017-12-24 06:34] LABS: AUTOMATED NEUTROPHIL # 21.6 TH/MM3 (1.8-7.7); BASOPHIL # 0.1 TH/MM3 (0-0.2); BASOPHIL % 0.2 % (0.0-2.0); EOSINOPHIL # 0.3 TH/MM3 (0-0.4); EOSINOPHIL % 1.1 % (0.0-4.0); LYMPH % 3.3 % (9.0-44.0); LYMPHOCYTE # 0.8 TH/MM3 (1.0-4.8); MEAN CORPUSCULAR HEMOGLOBIN 26.7 PG (27.0-34.0); MEAN CORPUSCULAR HGB CONC 32.2 % (32.0-36.0); MEAN PLATELET VOLUME 8.6 FL (7.0-11.0); MONO % 5.3 % (0.0-8.0); MONOCYTE # 1.3 TH/MM3 (0-0.9); NEUT % 90.1 % (16.0-70.0); PLATELET COUNT 134 TH/MM3 (150-450); RED BLOOD COUNT 3.01 MIL/MM3 (4.50-5.90); WHITE BLOOD COUNT 23.9 TH/MM3 (4.0-11.0)
[2017-12-24 07:14] LABS: ALBUMIN 1.1 GM/DL (3.4-5.0); ALKALINE PHOSPHATASE 209 U/L (45-117); ALT (GPT) LESS THAN 6 U/L (12-78); AST (GOT) 18 U/L (15-37); BICARBONATE 29.2 MEQ/L (21.0-32.0); BLOOD UREA NITROGEN 15 MG/DL (7-18); CALCIUM 8.1 MG/DL (8.5-10.1); CHLORIDE 99 MEQ/L (98-107); CREATININE 0.96 MG/DL (0.60-1.30); GLOMERULAR FILTRATION RATE 78 ML/MIN (>89); GLUCOSE,RANDOM 74 MG/DL (74-106); SODIUM (NA) 138 MEQ/L (136-145); TOTAL BILIRUBIN ADULT 0.6 MG/DL (0.2-1.0); TOTAL PROTEIN 4.9 GM/DL (6.4-8.2)
[2017-12-24] MEDS: INSULIN ASPART SUPPLEMENTAL SCALE SQ SCH ×4 (08:00→20:27)
[2017-12-24] MEDS: FUROSEMIDE 20 MG/2 ML VIAL IV PUSH SCH ×2 (08:47→18:37)
[2017-12-24] MEDS: METHADONE HCL 10 MG/10 ML ORAL SOLUTION PO SCH ×2 (08:48→20:28)
[2017-12-24] MEDS: SODIUM CHLORIDE 0.9% FLUSH 10 ML FLUSH IV FLUSH SCH ×2 (08:49→20:29)
[2017-12-24] MEDS: DOCUSATE SODIUM 50 MG/SENNA 8.6 MG TAB PO SCH ×2 (08:49→20:28)
[2017-12-24] MEDS: FAMOTIDINE 20 MG TAB PO SCH ×2 (08:49→20:28)
--- NOTE | 2017-12-24 09:43 | HHI.FPPN ---
Subjective Remarks Doing well today. Requesting breakfast. Pain is better controlled with oral methadone BID and morphine IR. Had a normal formed BM this AM and this has helped with his abdominal distension. He denies any fevers or chills or SOB. Requesting anxiety medication prior to going to interventional radiology for eval of NG tube. Objective Vitals Vital Signs Date Time Temp Pulse Resp B/P (MAP) Pulse Ox O2 Delivery O2 Flow Rate FiO2 12/24/17 04:40 98.2 94 17 116/64 (81) 92 12/24/17 04:15 94 12/24/17 04:00 94 12/24/17 02:00 92 12/24/17 01:00 90 12/24/17 00:16 98.6 84 16 125/75 (92) 89 12/24/17 00:00 97 12/23/17 23:00 90 12/23/17 22:00 92 12/23/17 20:24 97.9 96 17 113/60 (77) 94 12/23/17 20:00 94 12/23/17 18:19 97.6 97 20 144/79 (100) 99 12/23/17 17:43 93 21 12/23/17 15:00 86 12/23/17 12:47 97.9 90 20 109/58 (75) 92 12/23/17 10:05 97.7 108 18 126/77 (93) 93 I/O 12/23/17 12/23/17 12/23/17 12/24/17 12/24/17 12/24/17 07:00 15:00 23:00 07:00 15:00 23:00 Intake Total 560 ml 944 ml 720 ml 300 ml Output Total 510.0 ml 1275 ml 950 ml Balance 50.0 ml 944 ml -555 ml -650 ml Intake Oral 720 ml 300 ml IV Total 100 ml 944 ml Tube Feeding 400 ml Other 60 ml Output Urine Total 150 ml 1275 ml 950 ml Emesis 250 ml Tube Feeding Residual Discard 110.0 ml # Bowel Movements 0 Result Diagram: 12/24/17 0440 12/24/17 0440 Imaging Last 72 hours Impressions Abdomen X-Ray 12/23/17 0000 Signed Impressions: Service Date/Time: December 10:08 - CONCLUSION: Dobbhoff tube tip is coiled in the stomach. Dennis Swan MD Objective Remarks GENERAL: Well-developed male currently resting in bed, very uncomfortable, restless SKIN: Warm and dry. Well perfused. No rash HEAD: Normocephalic. EYES: No scleral icterus. No injection or drainage. NECK: Supple, trachea midline. No JVD or lymphadenopathy. CARDIOVASCULAR: Regular rate and rhythm without murmurs, gallops, or rubs. RESPIRATORY: Clear to auscultation bilaterally without wheezes rales or rhonchi GASTROINTESTINAL: Abdomen soft, tender especially in the right upper and lower quadrants, distended. Bowel sounds present but hypoactive. Mild fluid wave. Liver is palpated below the costophrenic margin MUSCULOSKELETAL: 1+ lower extremity edema below the knees. NEURO EXAM: Cranial nerves II through XII grossly intact. Strength is equal symmetric. Normal sensation Date of Insertion: Dec 14, 2017 Line: PICC Side: Right Location: Antecubital A/P Assessment and Plan 67-year-old male with past medical history of resolved prostate cancer and active advanced intrahepatic cholangiocarcinoma presents with abdominal pain and anorexia. Discharge Planning Medically stable for d/c today 12/24/2017. Problem List: (1) Intrahepatic cholangiocarcinoma ICD Codes: C22.1 - Intrahepatic bile duct carcinoma Plan: -Status post his first cycle of FOLFOX -Hold current immunotherapy -Supportive care -Poor oral intake 2/2 n/v v- will require feeding tube while hospitalized. Dietary consult. -Start Marinol 2.5mg PO BID 1 hour before meals to increase appetite and reduce nausea and vomiting. -Palliative on board - appreciate recommendations. -Heme/Onc on board - appreciate recommendations. * Morphine IR 15mg PO q3 hours Pain 1-8, IV Morphine 2 mg q 3 hours PRN pain 9, 10, with Methadone 5 mg PO q 12 scheduled. (2) Right upper quadrant abdominal pain ICD Codes: R10.11 - Right upper quadrant pain Plan: -IR consult for possible ultrasound-guided therapeutic and diagnostic paracentesis paracentesis. -US 12/19/17 showed "No significant fluid for therapeutic paracentesis." However still with abdominal distension. -IV lasix 20 mg BID, with IV K+ replacement. (3) Sepsis ICD Codes: A41.9 - Sepsis, unspecified organism Status: Acute Plan: Resolved. ID has discontinued broad spectrum ABX. Leukocytosis likely from underlying malignancy. Will continue to monitor for signs of infection and restart ABX if present. -Previously on: Cefepime 2g Q8h IV and Vancomycin 1750 mg Q12h IV (12/16/2017 -12/20) - Repeat blood cultures negative x 5 days - Urine cultures negative x 5 days - Infectious disease on board - appreciate recommendations. (4) Leukocytosis ICD Codes: D72.829 - Elevated white blood cell count, unspecified Plan: -Suspect secondary to malignancy -Blood and urine cultures negative so far -Monitor temperature (5) Hypokalemia ICD Codes: E87.6 - Hypokalemia Plan: -Potassium 2.9 this a.m. Replete with IV potassium. 20 meq x BID and KCL 20 mEq IV bolus x 1 today. (6) Dyslipidemia ICD Codes: E78.5 - Hyperlipidemia, unspecified Plan: Continue Atorvastatin 20 mg by mouth daily (7) History of prostate cancer ICD Codes: Z85.46 - Personal history of malignant neoplasm of prostate Plan: -Resolved per patient -No interventions needed at this time (8) Decrease in appetite ICD Codes: R63.0 - Anorexia Plan: -Start Marinol 2.5 mg by mouth twice a day one hour before meals -Consider Megace per palliative care although this medication is metabolized by the liver (9) Constipation ICD Codes: K59.00 - Constipation, unspecified Status: Resolved Plan: Resolved. -Continue with Tina-Colace 1 tab by mouth twice a day (10) Diabetes ICD Codes: E11.9 - Type 2 diabetes mellitus without complications Plan: -Sliding-scale insulin with Accu-Cheks before meals/at bedtime to maintain euglycemia (11) Anemia ICD Codes: D64.9 - Anemia, unspecified Plan: Has received 4 units of packed RBCs since admission. Last transfusion was on 12/22/2017. Hgb stable = 8.0. (12) Anxiety ICD Codes: F41.9 - Anxiety disorder, unspecified Plan: -Alprazolam 0.25 mg as every 8 hours as needed anxiety (13) FEN/DVT PPX/GI PPX/Nursing Orders Plan: -Regular diet. -Teds/SCDs -Lovenox subcutaneous for DVT prophylaxis -Famotidine 20 mg twice a day -Nasal cannula to maintain saturations greater than 92% -Incentive spirometry while awake -Albuterol/ipratropium aerosols every 6 hours with albuterol aerosols every 2 hours -Physical therapy consulted to assist with strengthening exercises. Given his malnutrion and general weakness, I agree with oncology that this patient will require extensive care that may not be best suited for the home (i.e. in- patient rehabilitation). This was described by Dr. Harrison: "Disposition: Optimize nutritional intake via tube feeding and oral nutritional supplements. As far as discharge disposition, I would favor placement to a short-term rehabilitation/intermediate facility because I do not see his or his family being able to care for him at home. Especially since he is on a combination of intravenous and oral medications and also because his input and output needs to monitored quite closely." Will continue to follow and make arrangements. [facility]DW Dr. Leggett. Problem Qualifiers (1) Sepsis: Qualified Codes: A41.9 - Sepsis, unspecified organism Brian Guzman MD, R3 Dec 24, 2017 09:43
[2017-12-24] MEDS ORDERED: POTASSIUM CHLOR 20 MEQ PREMIX 100 ML IV ONE (09:45)
[2017-12-24] MEDS: ALPRAZolam 0.25 MG TAB PO PRN (11:42)
[2017-12-24] MEDS: DRONABINOL 2.5 MG CAP PO SCH ×2 (11:42→17:29)
--- NOTE | 2017-12-24 12:55 | PD.ONC.PN ---
Subjective Subjective Remarks Afebrile overnight. Patient resting in bed. Ate some peaches this AM without vomiting. States nausea is controlled at the moment. Tube feeding has been off for >24 hours d/t vomiting. patient states pain is well controlled. family still deciding which SNF they would prefer. Objective Data Date Time Temp Pulse Resp B/P (MAP) Pulse Ox O2 Delivery O2 Flow Rate FiO2 12/24/17 08:37 97.4 98 18 125/77 (93) 96 12/24/17 04:40 98.2 94 17 116/64 (81) 92 12/24/17 04:15 94 12/24/17 04:00 94 12/24/17 02:00 92 12/24/17 01:00 90 12/24/17 00:16 98.6 84 16 125/75 (92) 89 12/24/17 00:00 97 12/23/17 23:00 90 12/23/17 22:00 92 12/23/17 20:24 97.9 96 17 113/60 (77) 94 12/23/17 20:00 94 12/23/17 18:19 97.6 97 20 144/79 (100) 99 12/23/17 17:43 93 21 12/23/17 15:00 86 12/24/17 12/24/17 12/24/17 07:00 15:00 23:00 Intake Total 300 ml Output Total 950 ml Balance -650 ml Result Diagram: 12/24/1743912/24/17439 Laboratory Results Laboratory Tests Test 12/24/17 04:40 White Blood Count 23.9 TH/MM3 Red Blood Count 3.01 MIL/MM3 Hemoglobin 8.0 GM/DL Hematocrit 25.0 % Mean Corpuscular Volume 83.0 FL Mean Corpuscular Hemoglobin 26.7 PG Mean Corpuscular Hemoglobin Concent 32.2 % Red Cell Distribution Width 18.0 % Platelet Count 134 TH/MM3 Mean Platelet Volume 8.6 FL Neutrophils (%) (Auto) 90.1 % Lymphocytes (%) (Auto) 3.3 % Monocytes (%) (Auto) 5.3 % Eosinophils (%) (Auto) 1.1 % Basophils (%) (Auto) 0.2 % Neutrophils # (Auto) 21.6 TH/MM3 Lymphocytes # (Auto) 0.8 TH/MM3 Monocytes # (Auto) 1.3 TH/MM3 Eosinophils # (Auto) 0.3 TH/MM3 Basophils # (Auto) 0.1 TH/MM3 CBC Comment DIFF FINAL Differential Comment Blood Urea Nitrogen 15 MG/DL Creatinine 0.96 MG/DL Random Glucose 74 MG/DL Total Protein 4.9 GM/DL Albumin 1.1 GM/DL Calcium Level 8.1 MG/DL Alkaline Phosphatase 209 U/L Aspartate Amino Transf (AST/SGOT) 18 U/L Alanine Aminotransferase (ALT/SGPT) LESS THAN 6 U/L Total Bilirubin 0.6 MG/DL Sodium Level 138 MEQ/L Potassium Level 2.9 MEQ/L Chloride Level 99 MEQ/L Carbon Dioxide Level 29.2 MEQ/L Anion Gap 10 MEQ/L Estimat Glomerular Filtration Rate 78 ML/MIN Administered Medications Medications (Trade) Dose Ordered Sig/Tiffany Route PRN Reason Start Time Stop Time Status Last Admin Dose Admin Atorvastatin Calcium (Lipitor) 20 mg HS PO 12/16/17 21:00 12/23/17 20:35 Diphenhydramine HCl (Benadryl) 50 mg HS PO 12/16/17 21:00 12/23/17 20:34 Sodium Chloride 1,000 ml @ 50 mls/hr Q20H IV 12/16/17 00:44 Future hold 12/23/17 20:35 Sodium Chloride (NS Flush) 2 ml UNSCH PRN IV FLUSH FLUSH AFTER USING IV ACCESS 12/16/17 00:45 12/22/17 04:42 Sodium Chloride (NS Flush) 2 ml BID IV FLUSH 12/16/17 09:00 12/24/17 08:49 Acetaminophen (Tylenol) 650 mg Q6H PRN PO FEVER >101F 12/16/17 00:45 12/18/17 11:15 Famotidine (Pepcid) 20 mg Q12HR PO 12/16/17 09:00 12/24/17 08:49 Miscellaneous Information 1 Q361D XX 12/16/17 00:45 12/16/17 00:45 Chlorhexidine Gluconate (Chlorhexidine 2% Cloth) Taper DAILY@04 TOP 12/16/17 04:00 12/12/18 03:59 12/20/17 03:22 Senna/Docusate Sodium (Tina-Colace) 1 tab BID PO 12/16/17 09:00 12/24/17 08:49 Insulin Aspart (NovoLOG SUPPLEMENTAL SCALE) 1 ACHS SLIDING SCALE SQ 12/16/17 17:00 12/17/17 07:36 Alprazolam (Xanax) 0.25 mg Q8H PRN PO anxiety 12/17/17 13:00 12/24/17 11:42 Ondansetron HCl (Zofran Inj) 4 mg Q4HR IV PUSH 12/17/17 20:00 12/24/17 11:42 Morphine Sulfate (Morphine Inj) 2 mg Q3H PRN IV PUSH PAIN SCALE 9 TO 10 12/18/17 11:00 12/23/17 14:19 Albuterol Sulfate (Albuterol Neb) 2.5 mg Q2HR NEB PRN NEB dyspnea 12/18/17 13:15 12/23/17 20:51 Dronabinol (Marinol) 2.5 mg BID@11,16 PO 12/19/17 11:00 12/24/17 11:42 Morphine Sulfate (Msir) 15 mg Q3H PRN PO pain1-8 12/19/17 09:30 12/23/17 18:08 Enoxaparin Sodium (Lovenox Inj) 40 mg Q24H SQ 12/20/17 23:00 12/24/17 00:23 Furosemide (Lasix Inj) 20 mg BID@,18 IV PUSH 12/21/17 09:00 12/24/17 08:47 Potassium Chloride 100 ml @ 50 mls/hr Q12H IV 12/22/17 13:00 12/24/17 00:23 Methadone HCl (Methadone Liq) 5 mg Q12HR PO 12/23/17 09:00 12/24/17 08:48 Objective Remarks GENERAL: Pleasant middle aged male, lying supine in bed resting. SKIN: Warm and dry. HEAD: Normocephalic. EYES: No injection or drainage. NECK: Supple, trachea midline. CARDIOVASCULAR: Regular rate and rhythm RESPIRATORY: Breath sounds equal bilaterally. No accessory muscle use. GASTROINTESTINAL: Abdomen distended EXTREMITIES: No cyanosis NEUROLOGICAL: awake and alert, normal speech. moving all extremities. 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 Plan 1. Multifocal intrahepatic cholangiocarcinoma: s/p C1 FOLFOX, 12/13-12/15. second cycle FOLFOX we plan to give outpatient. 2. Leukocytosis: remains persistent, d/t inflammation/tumor. BC no growth. remains afebrile. 3. Persistent nausea: continue TIFFANY Zofran. I've consulted invasive radiology to address the coiled Dobhoff tube. 4. RUQ Abdominal pain: due to metastatic disease. He is having difficulty swallowing the long-acting morphine tablets. doing well on liquid methadone 5 mg by mouth every 12 hours w/ MSIR for breakthrough. 5. Protein calorie malnutrition: Dobbhoff tube placed on 12/21. TF currently on old d/t nausea. IR to address coiled DHT. 6. Anasarca: Continue Lasix 20 mg IV q12. 7. Hypokalemia: continue replacement. 8. Anemia: monitor and transfuse as needed. Silvana Macedo Dec 24, 2017 12:55
[2017-12-24] MEDS: MORPHINE SULFATE 15 MG TAB PO PRN (16:15)
--- NOTE | 2017-12-24 17:20 | HHI.HCPN ---
Reason for visit a. To assist with evaluation and management of symptoms including: decreased intake, pain, debility b. To assist medical decision maker(s) with: better understanding of current medical conditions; weighing benefits/burdens of medical treatment options; making medical treatment decisions. . Subjective/Interval History Follow-up visit for symptom management and clarification of medical treatment goals. Patient seen and assessed in room 240. Patient presents lying in bed awake and alert but also lethargic. Previously reporting RUQ abdominal pain likely secondary to metastatic disease; patient denies pain at the time of exam. Patient unable to tolerate Oramorph. Now on methadone liquid 5 mg PO q8 hours ; MSIR 15 mg q3 hours PRN for pain rated 1-8 and 2 mg IV morphine every 3 hours PRN for pain rated 9-10. 24-hour PRN requirements= MSIR 15mg x 1 Patient states he feels his pain is currently well controlled. Afebrile. Persistent leukocytosis-may be reactive. WBC of 23.9 today 12/24/17 ID following, discontinued broad-spectrum antibiotics. Artificial nutrition was discontinued secondary to nausea and vomiting. KUB on showed the Dobbhoff hospice tip was coiled in the stomach. Patient was able to tolerate some peaches this morning without vomiting; denied nausea at the time of exam. IR consulted to address coiled Dobbhoff tube. Physical therapy and occupational therapy continue to follow. Case management continues to work toward discharge, possibly [facility]. . Advance Directives Living Will: Completed, but not made available Health Care Surrogate: Copy in medical record Durable Power of Crusher: Completed, but not made available Advance Directive Specifics Date completed: 12/16/2017 . Health Care Surrogate(s): Patient's (Daisy Baltazar) is designated as the healthcare surrogate decision maker. His 2 children (Neda Lang and Kevyn Baltazar) have been designated as the alternate health care surrogate. . Documented care wishes: Patient's states written advanced directives have been completed but are at home in [place]. Healthcare surrogate form was completed here today on 2017. Living will information was provided to the patient and his . . Objective Vital Signs Date Time Temp Pulse Resp B/P (MAP) Pulse Ox O2 Delivery O2 Flow Rate FiO2 12/24/17 08:37 97.4 98 18 125/77 (93) 96 12/24/17 04:40 98.2 94 17 116/64 (81) 92 12/24/17 04:15 94 12/24/17 04:00 94 12/24/17 02:00 92 12/24/17 01:00 90 12/24/17 00:16 98.6 84 16 125/75 (92) 89 12/24/17 00:00 97 12/23/17 23:00 90 12/23/17 22:00 92 12/23/17 20:24 97.9 96 17 113/60 (77) 94 12/23/17 20:00 94 12/23/17 18:19 97.6 97 20 144/79 (100) 99 12/23/17 17:43 93 21 Intake & Output 12/24/17 12/24/17 07:00 19:00 Intake Total 300 ml Output Total 950 ml Balance -650 ml Intake Oral 300 ml Output Urine Total 950 ml . Physical Exam CONSTITUTIONAL/GENERAL: This is a frail male patient, in no apparent distress. TUBES/LINES/DRAINS: PICC, PIV x 2, Dobbhoff SKIN: No jaundice, rashes, or lesions. Ecchymoses on upper extremities. Skin temperature appropriate. Not diaphoretic. HEAD: Atraumatic. Normocephalic. EYES: Pupils equal and round and reactive. Extraocular motions intact. No scleral icterus. No injection or drainage. Fundi not examined. ENT: Hearing grossly normal. Nose without bleeding or purulent drainage. NECK: Trachea midline. CARDIOVASCULAR: Regular rate and rhythm without murmurs, gallops, or rubs. RESPIRATORY/CHEST: Respirations unlabored. Breath sounds equal bilaterally. No wheezes, rales, or rhonchi. GASTROINTESTINAL: Abdomen soft, non-tender, slightly distended. Dobbhoff in place, tolerating artificial nutrition GENITOURINARY: Without palpable bladder distension. MUSCULOSKELETAL: Extremities without clubbing, cyanosis or mottling. 1+ edema in feet bilaterally. LYMPHATICS: No palpable cervical or supraclavicular adenopathy. NEUROLOGICAL: Awake, Lethargic. Answers questions; follow commands. PSYCHIATRIC: No obvious anxiety/depression. no apparent hallucinations or other psychotic thought process. . . Diagnostic Tests Laboratory Laboratory Tests Test 12/22/17 04:45 12/23/17 04:55 12/24/17 04:40 White Blood Count 22.4 TH/MM3 (4.0-11.0) 25.3 TH/MM3 (4.0-11.0) 23.9 TH/MM3 (4.0-11.0) Red Blood Count 2.97 MIL/MM3 (4.50-5.90) 2.92 MIL/MM3 (4.50-5.90) 3.01 MIL/MM3 (4.50-5.90) Hemoglobin 7.9 GM/DL (13.0-17.0) 7.9 GM/DL (13.0-17.0) 8.0 GM/DL (13.0-17.0) Hematocrit 24.3 % (39.0-51.0) 24.1 % (39.0-51.0) 25.0 % (39.0-51.0) Mean Corpuscular Volume 81.9 FL (80.0-100.0) 82.6 FL (80.0-100.0) 83.0 FL (80.0-100.0) Mean Corpuscular Hemoglobin 26.5 PG (27.0-34.0) 27.2 PG (27.0-34.0) 26.7 PG (27.0-34.0) Mean Corpuscular Hemoglobin Concent 32.3 % (32.0-36.0) 32.9 % (32.0-36.0) 32.2 % (32.0-36.0) Red Cell Distribution Width 17.5 % (11.6-17.2) 17.7 % (11.6-17.2) 18.0 % (11.6-17.2) Platelet Count 126 TH/MM3 (150-450) 112 TH/MM3 (150-450) 134 TH/MM3 (150-450) Mean Platelet Volume 8.1 FL (7.0-11.0) 7.9 FL (7.0-11.0) 8.6 FL (7.0-11.0) Neutrophils (%) (Auto) 88.5 % (16.0-70.0) 88.4 % (16.0-70.0) 90.1 % (16.0-70.0) Lymphocytes (%) (Auto) 3.9 % (9.0-44.0) 4.4 % (9.0-44.0) 3.3 % (9.0-44.0) Monocytes (%) (Auto) 6.1 % (0.0-8.0) 5.7 % (0.0-8.0) 5.3 % (0.0-8.0) Eosinophils (%) (Auto) 1.1 % (0.0-4.0) 1.3 % (0.0-4.0) 1.1 % (0.0-4.0) Basophils (%) (Auto) 0.4 % (0.0-2.0) 0.2 % (0.0-2.0) 0.2 % (0.0-2.0) Neutrophils # (Auto) 19.8 TH/MM3 (1.8-7.7) 22.4 TH/MM3 (1.8-7.7) 21.6 TH/MM3 (1.8-7.7) Lymphocytes # (Auto) 0.9 TH/MM3 (1.0-4.8) 1.1 TH/MM3 (1.0-4.8) 0.8 TH/MM3 (1.0-4.8) Monocytes # (Auto) 1.4 TH/MM3 (0-0.9) 1.4 TH/MM3 (0-0.9) 1.3 TH/MM3 (0-0.9) Eosinophils # (Auto) 0.3 TH/MM3 (0-0.4) 0.3 TH/MM3 (0-0.4) 0.3 TH/MM3 (0-0.4) Basophils # (Auto) 0.1 TH/MM3 (0-0.2) 0.0 TH/MM3 (0-0.2) 0.1 TH/MM3 (0-0.2) CBC Comment DIFF FINAL DIFF FINAL DIFF FINAL Differential Comment Blood Urea Nitrogen 13 MG/DL (7-18) 15 MG/DL (7-18) 15 MG/DL (7-18) Creatinine 0.83 MG/DL (0.60-1.30) 1.03 MG/DL (0.60-1.30) 0.96 MG/DL (0.60-1.30) Random Glucose 121 MG/DL (74-106) 140 MG/DL (74-106) 74 MG/DL (74-106) Total Protein 5.1 GM/DL (6.4-8.2) 5.0 GM/DL (6.4-8.2) 4.9 GM/DL (6.4-8.2) Albumin 1.1 GM/DL (3.4-5.0) 1.1 GM/DL (3.4-5.0) 1.1 GM/DL (3.4-5.0) Calcium Level 7.4 MG/DL (8.5-10.1) 7.6 MG/DL (8.5-10.1) 8.1 MG/DL (8.5-10.1) Alkaline Phosphatase 186 U/L (45-117) 204 U/L (45-117) 209 U/L (45-117) Aspartate Amino Transf (AST/SGOT) 21 U/L (15-37) 18 U/L (15-37) 18 U/L (15-37) Alanine Aminotransferase (ALT/SGPT) 7 U/L (12-78) LESS THAN 6 U/L (12-78) LESS THAN 6 U/L (12-78) Total Bilirubin 0.4 MG/DL (0.2-1.0) 0.6 MG/DL (0.2-1.0) 0.6 MG/DL (0.2-1.0) Sodium Level 134 MEQ/L (136-145) 136 MEQ/L (136-145) 138 MEQ/L (136-145) Potassium Level 3.0 MEQ/L (3.5-5.1) 2.9 MEQ/L (3.5-5.1) 2.9 MEQ/L (3.5-5.1) Chloride Level 100 MEQ/L (98-107) 101 MEQ/L (98-107) 99 MEQ/L (98-107) Carbon Dioxide Level 26.9 MEQ/L (21.0-32.0) 28.6 MEQ/L (21.0-32.0) 29.2 MEQ/L (21.0-32.0) Anion Gap 7 MEQ/L (5-15) 6 MEQ/L (5-15) 10 MEQ/L (5-15) Estimat Glomerular Filtration Rate 93 ML/MIN (>89) 72 ML/MIN (>89) 78 ML/MIN (>89) Protein Corrected Calcium 8.5 MG/DL (8.5-10.1) Result Diagram: 12/24/1743912/24/17439 Assessment and Plan Disease Oriented Problem List: (1) Intrahepatic cholangiocarcinoma (2) Hypertension (3) Hemorrhoids (4) Hypoalbuminemia (5) Normocytic anemia (6) Leukocytosis (7) History of prostate cancer (8) Sepsis Symptom Scale: (1) Pain 0-10 Scale: 4 (2) Debility (3) Decreased oral intake Pertinent Non-Medical Issues Psychosocial: Mr. Baltazar is from [facility]. He and his spend the winter months in [facility]. He has 2 adult children, one daughter and one son. His son lives locally in [place], and his daughter lives in [place]. 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 He is a of the [email or web address] and was stationed on any relationship off the coast of [place] during the [place] era. Spiritual: [employer] Legal: Patient's (Daisy Baltazar) is designated as the healthcare surrogate decision maker. His 2 children (Neda Lang and Kevyn Baltazar) have been designated as the alternate health care surrogate. Ethical issues impacting care: No known ethical issues impacting care at this time . Important Contacts Daisy Baltazar, spouse: [phone] Kevyn Baltazar, son: [phone] Neda, daughter: [phone] . Prognosis Patient with a history of prostate cancer; recently diagnosed new onset, nonresectable intrahepatic cholangiocarcinoma who has been declining over the past several months. Currently hospitalized with sepsis. Given patient's multiple comorbid conditions including recently diagnosed nonresectable CA in addition to his overall deconditioned functional status. His overall prognosis would be poor. Patient would be hospice appropriate if/when his medical treatment goals become comfort oriented. . Code Status: Full Code Plan * FULL CODE * Patient's states written advanced directives have been completed but are at home in [place]. Healthcare surrogate form was completed here today on 2017. Living will information was provided to the patient and his . * Decision-making: Patient currently demonstrates appropriate insight and judgment related to his current medical conditions. Patient's (Daisy Baltazar) is designated as the healthcare surrogate decision maker. His 2 children (Neda Lang and Kevyn Baltazar) have been designated as the alternate health care surrogate. * Discussed patient with bedside nurse (Krissy). * Aggressive GOALS * Symptom management: == Pain: Multi factorial. Patient with a history of prostate cancer , now with newly diagnosed intrahepatic cholangiocarcinoma. Previously reporting RUQ abdominal pain likely secondary to metastatic disease; patient denies pain at the time of exam. Patient unable to tolerate Oramorph. Now on methadone liquid 5 mg PO q8 hours; MSIR 15 mg q3 hours PRN for pain rated 1- 8 and 2 mg IV morphine every 3 hours PRN for pain rated 9-10. 24-hour PRN requirements= MSIR 15mg x 1. Patient states he feels his pain is currently well controlled. == Decreased intake: Artificial nutrition was discontinued secondary to nausea and vomiting. KUB on 01/02/2018 showed the Dobbhoff hospice tip was coiled in the stomach. Patient was able to tolerate some peaches this morning without vomiting; denied nausea at the time of exam. IR consulted to address coiled Dobbhoff tube. Total protein: 5.2, albumin 1.2. On Marinol for appetite stimulation. Dietary recommending vital 1.5 with a goal rate of 65ml/hour ATC which will provide 100% of the patient's nutritional requirements. == Debility: Patient becoming more weak, lethargic. Attempting to increase nutritional intake to improve overall performance status; patient working with physical therapy. Patient is motivated to "get stronger." * Palliative care will continue to follow this patient throughout his hospitalization to establish trust, assist with symptom management and clarification of medical treatment goals. Attestation To help prompt me to consider important information that might be impacting today's encounter and assessment, information from prior notes written by myself or my colleagues may have been "brought forward" into today's note. My signature on this note, however, is an attestation that I personally performed the exam, history, and/or decision-making noted today, and, unless otherwise indicated, the interactions with patient, family, and staff as well as the review of records all occurred today. I also attest that the listed assessment and stated plan reflect my best clinical judgment today based on the combination of historical information, prior notes, and today's exam/ interactions. When time spent is documented, it refers only to time spent today by the signer, or if indicated, combined time spent today by collaborating physician/nurse practitioner.. . Mai Drummond Dec 24, 2017 17:20
[2017-12-24] MEDS: ATORVASTATIN 20 MG TAB PO SCH (20:28)
[2017-12-24] MEDS: diphenhydrAMINE HCL 50 MG CAP PO SCH (20:29)
[2017-12-24] MEDS: SODIUM CHLOR 0.9% 1000 ML INJ 1,000 ML IV SCH (20:29)
[2017-12-25] VITALS (29 sets, daily range): BP systolic 98–131; BP diastolic 54–79; PULSE 79–114; RESP 16–21; TEMP 97.6–100; O2SAT 92–97
[2017-12-25] MEDS: ENOXAPARIN SODIUM 40 MG/0.4 ML SYRINGE SQ SCH ×2 (00:25→21:44)
[2017-12-25] MEDS: POTASSIUM CHLOR 20 MEQ PREMIX 100 ML IV SCH ×2 (00:26→12:49)
[2017-12-25] MEDS: ONDANSETRON HCL 4 MG/2 ML VIAL IV PUSH SCH ×6 (00:26→21:12)
[2017-12-25] MEDS: CHLORHEXIDINE GLUCONATE 2 % 1 PACK (2 CLOTHS) TOP SCH (04:00)
[2017-12-25] MEDS: MORPHINE SULFATE 2 MG/ML INJ IV PUSH PRN (05:19)
[2017-12-25] MEDS: MORPHINE SULFATE 15 MG TAB PO PRN ×4 (05:28→17:52)
--- NOTE | 2017-12-25 07:34 | HHI.FPPN ---
Subjective Remarks Mr. Baltazar is doing "good." He reports that the NG tube is more comfortable after being repositioned by interventional radiology. He denies any fevers or chills. His breathing is comfortable. He is still having mild to moderate abdominal pain, that is relieved with the by mouth medications. He tells me that he feels "safe" in the hospital. He does not want to go home, because he feels like a burden on his family/. Objective Vitals Vital Signs Date Time Temp Pulse Resp B/P (MAP) Pulse Ox O2 Delivery O2 Flow Rate FiO2 12/25/17 06:13 18 12/25/17 06:00 100 12/25/17 05:26 18 12/25/17 05:20 99.1 104 21 119/77 (91) 97 12/25/17 05:00 102 12/25/17 04:07 99 12/25/17 03:00 100 12/25/17 02:00 100 12/25/17 01:00 96 12/25/17 00:24 100.0 79 16 123/75 (91) 97 12/25/17 00:01 95 12/24/17 23:00 100 12/24/17 22:00 94 12/24/17 21:28 16 12/24/17 21:04 98 12/24/17 20:17 98.5 97 18 116/65 (82) 94 12/24/17 16:10 97.2 86 20 126/77 (93) 96 12/24/17 12:00 98.3 85 20 125/72 (89) 95 12/24/17 08:37 97.4 98 18 125/77 (93) 96 I/O 12/24/17 12/24/17 12/24/17 12/25/17 12/25/17 12/25/17 07:00 15:00 23:00 07:00 15:00 23:00 Intake Total 300 ml 360 ml 480 ml Output Total 950 ml 500 ml 950 ml Balance -650 ml -140 ml -470 ml Intake Oral 300 ml 360 ml 480 ml Output Urine Total 950 ml 500 ml 950 ml # Voids 1 # Bowel Movements 1 Result Diagram: 12/24/1743912/24/17439 Objective Remarks GENERAL: Well-developed male currently resting in bed, very uncomfortable, restless SKIN: Warm and dry. Well perfused. No rash HEAD: Normocephalic. EYES: No scleral icterus. No injection or drainage. NECK: Supple, trachea midline. No JVD or lymphadenopathy. CARDIOVASCULAR: Regular rate and rhythm without murmurs, gallops, or rubs. RESPIRATORY: Clear to auscultation bilaterally without wheezes rales or rhonchi GASTROINTESTINAL: Abdomen soft, tender especially in the right upper and lower quadrants, distended. Bowel sounds present but hypoactive. Mild fluid wave. Liver is palpated below the costophrenic margin MUSCULOSKELETAL: 1+ lower extremity edema below the knees. NEURO EXAM: Cranial nerves II through XII grossly intact. Strength is equal symmetric. Normal sensation Date of Insertion: Dec 14, 2017 Line: PICC Side: Right Location: Antecubital A/P Assessment and Plan 67-year-old male with past medical history of resolved prostate cancer and active advanced intrahepatic cholangiocarcinoma presents with abdominal pain and anorexia. Discharge Planning Medically stable for d/c today 12/24/2017. Problem List: (1) Intrahepatic cholangiocarcinoma ICD Codes: C22.1 - Intrahepatic bile duct carcinoma Plan: -Status post his first cycle of FOLFOX -Hold current immunotherapy -Supportive care -Poor oral intake 2/ n/v v- will require feeding tube while hospitalized. Dietary consult. -Start Marinol 2.5mg PO BID 1 hour before meals to increase appetite and reduce nausea and vomiting. -Palliative on board - appreciate recommendations. -Heme/Onc on board - appreciate recommendations. * Morphine IR 15mg PO q3 hours Pain 1-8, IV Morphine 2 mg q 3 hours PRN pain 9, 10, with Methadone 5 mg PO q 12 scheduled. (2) Right upper quadrant abdominal pain ICD Codes: R10.11 - Right upper quadrant pain Plan: -IR consult for possible ultrasound-guided therapeutic and diagnostic paracentesis paracentesis. -US 12/19/17 showed "No significant fluid for therapeutic paracentesis." However still with abdominal distension. -IV lasix 20 mg BID, with IV K+ replacement. (3) Sepsis ICD Codes: A41.9 - Sepsis, unspecified organism Status: Acute Plan: Resolved. ID has discontinued broad spectrum ABX. Leukocytosis likely from underlying malignancy. Will continue to monitor for signs of infection and restart ABX if present. -Previously on: Cefepime 2g Q8h IV and Vancomycin 1750 mg Q12h IV (12/16/2017 -12/20) - Repeat blood cultures negative - Urine cultures negative - Infectious disease on board - appreciate recommendations. (4) Leukocytosis ICD Codes: D72.829 - Elevated white blood cell count, unspecified Plan: -Suspect secondary to malignancy -Blood and urine cultures negative so far -Monitor temperature (5) Hypokalemia ICD Codes: E87.6 - Hypokalemia Plan: -Potassium 2.9 on 12/24/2017. Replete with IV potassium. 20 meq x BID and KCL 20 mEq IV bolus x 1 today. (6) Dyslipidemia ICD Codes: E78.5 - Hyperlipidemia, unspecified Plan: Continue Atorvastatin 20 mg by mouth daily (7) History of prostate cancer ICD Codes: Z85.46 - Personal history of malignant neoplasm of prostate Plan: -Resolved per patient -No interventions needed at this time (8) Decrease in appetite ICD Codes: R63.0 - Anorexia Plan: -Start Marinol 2.5 mg by mouth twice a day one hour before meals -Consider Megace per palliative care although this medication is metabolized by the liver (9) Constipation ICD Codes: K59.00 - Constipation, unspecified Status: Resolved Plan: Resolved. -Continue with Tina-Colace 1 tab by mouth twice a day (10) Diabetes ICD Codes: E11.9 - Type 2 diabetes mellitus without complications Plan: -Sliding-scale insulin with Accu-Cheks before meals/at bedtime to maintain euglycemia (11) Anemia ICD Codes: D64.9 - Anemia, unspecified Plan: Has received 4 units of packed RBCs since admission. Last transfusion was on 12/22/2017. Hgb stable = 8.0. (12) Anxiety ICD Codes: F41.9 - Anxiety disorder, unspecified Plan: -Alprazolam 0.25 mg as every 8 hours as needed anxiety (13) FEN/DVT PPX/GI PPX/Nursing Orders Plan: -Regular diet. -Teds/SCDs -Lovenox subcutaneous for DVT prophylaxis -Famotidine 20 mg twice a day -Nasal cannula to maintain saturations greater than 92% -Incentive spirometry while awake -Albuterol/ipratropium aerosols every 6 hours with albuterol aerosols every 2 hours -Physical therapy consulted to assist with strengthening exercises. Given his malnutrion and general weakness, I agree with oncology that this patient will require extensive care that may not be best suited for the home (i.e. in- patient rehabilitation). This was described by Dr. Harrison: "Disposition: Optimize nutritional intake via tube feeding and oral nutritional supplements. As far as discharge disposition, I would favor placement to a short-term rehabilitation/jail facility because I do not see his or his family being able to care for him at home. Especially since he is on a combination of intravenous and oral medications and also because his input and output needs to monitored quite closely." Will continue to follow and make arrangements. [facility]DW Dr. Leggett. Problem Qualifiers (1) Sepsis: Qualified Codes: A41.9 - Sepsis, unspecified organism Brian Guzman MD, R3 Dec 25, 2017 07:34
[2017-12-25] MEDS: SODIUM CHLOR 0.9% 1000 ML INJ 1,000 ML IV SCH (07:39)
[2017-12-25] MEDS: INSULIN ASPART SUPPLEMENTAL SCALE SQ SCH ×4 (08:00→21:00)
[2017-12-25] MEDS: FUROSEMIDE 20 MG/2 ML VIAL IV PUSH SCH ×2 (09:15→17:53)
[2017-12-25] MEDS: METHADONE HCL 10 MG/10 ML ORAL SOLUTION PO SCH ×2 (09:15→21:24)
[2017-12-25] MEDS: DOCUSATE SODIUM 50 MG/SENNA 8.6 MG TAB PO SCH ×2 (09:15→21:11)
[2017-12-25] MEDS: SODIUM CHLORIDE 0.9% FLUSH 10 ML FLUSH IV FLUSH SCH ×2 (09:16→21:12)
[2017-12-25] MEDS: FAMOTIDINE 20 MG TAB PO SCH ×2 (09:16→21:12)
--- NOTE | 2017-12-25 10:10 | PD.ONC.PN ---
Subjective Subjective Remarks Tmax 100.4 overnight Patient sitting up on side of bed with at bedside Reports he is waiting on tube feed States his Dobbhoff tube feels much better with the placement Objective Data Date Time Temp Pulse Resp B/P (MAP) Pulse Ox O2 Delivery O2 Flow Rate FiO2 12/25/17 08:11 98.0 93 20 119/54 (75) 97 12/25/17 06:13 18 12/25/17 06:00 100 12/25/17 05:26 18 12/25/17 05:20 99.1 104 21 119/77 (91) 97 12/25/17 05:00 102 12/25/17 04:07 99 12/25/17 03:00 100 12/25/17 02:00 100 12/25/17 01:00 96 12/25/17 00:24 100.0 79 16 123/75 (91) 97 12/25/17 00:01 95 12/24/17 23:00 100 12/24/17 22:00 94 12/24/17 21:28 16 12/24/17 21:04 98 12/24/17 20:17 98.5 97 18 116/65 (82) 94 12/24/17 16:10 97.2 86 20 126/77 (93) 96 12/24/17 12:00 98.3 85 20 125/72 (89) 95 12/25/17 12/25/17 12/25/17 07:00 15:00 23:00 Intake Total 480 ml Output Total 950 ml Balance -470 ml Result Diagram: 12/24/1743912/24/17 0440 Administered Medications Medications (Trade) Dose Ordered Sig/Tiffany Route PRN Reason Start Time Stop Time Status Last Admin Dose Admin Atorvastatin Calcium (Lipitor) 20 mg HS PO 12/16/17 21:00 12/24/17 20:28 Diphenhydramine HCl (Benadryl) 50 mg HS PO 12/16/17 21:00 12/24/17 20:29 Sodium Chloride 1,000 ml @ 50 mls/hr Q20H IV 12/16/17 00:44 Future hold 12/24/17 20:29 Sodium Chloride (NS Flush) 2 ml UNSCH PRN IV FLUSH FLUSH AFTER USING IV ACCESS 12/16/17 00:45 12/22/17 04:42 Sodium Chloride (NS Flush) 2 ml BID IV FLUSH 12/16/17 09:00 12/25/17 09:16 Acetaminophen (Tylenol) 650 mg Q6H PRN PO FEVER >101F 12/16/17 00:45 12/18/17 11:15 Famotidine (Pepcid) 20 mg Q12HR PO 12/16/17 09:00 12/25/17 09:16 Miscellaneous Information 1 Q361D XX 12/16/17 00:45 12/16/17 00:45 Chlorhexidine Gluconate (Chlorhexidine 2% Cloth) Taper DAILY@04 TOP 12/16/17 04:00 12/12/18 03:59 12/20/17 03:22 Senna/Docusate Sodium (Tina-Colace) 1 tab BID PO 12/16/17 09:00 12/25/17 09:15 Insulin Aspart (NovoLOG SUPPLEMENTAL SCALE) 1 ACHS SLIDING SCALE SQ 12/16/17 17:00 12/17/17 07:36 Alprazolam (Xanax) 0.25 mg Q8H PRN PO anxiety 12/17/17 13:00 12/24/17 11:42 Ondansetron HCl (Zofran Inj) 4 mg Q4HR IV PUSH 12/17/17 20:00 12/25/17 09:16 Morphine Sulfate (Morphine Inj) 2 mg Q3H PRN IV PUSH PAIN SCALE 9 TO 10 12/18/17 11:00 12/25/17 05:19 Albuterol Sulfate (Albuterol Neb) 2.5 mg Q2HR NEB PRN NEB dyspnea 12/18/17 13:15 12/23/17 20:51 Dronabinol (Marinol) 2.5 mg BID@11,16 PO 12/19/17 11:00 12/24/17 17:29 Morphine Sulfate (Msir) 15 mg Q3H PRN PO pain1-8 12/19/17 09:30 12/25/17 09:16 Enoxaparin Sodium (Lovenox Inj) 40 mg Q24H SQ 12/20/17 23:00 12/25/17 00:25 Furosemide (Lasix Inj) 20 mg BID@18 IV PUSH 12/21/17 09:00 12/25/17 09:15 Potassium Chloride 100 ml @ 50 mls/hr Q12H IV 12/22/17 13:00 12/25/17 00:26 Methadone HCl (Methadone Liq) 5 mg Q12HR PO 12/23/17 09:00 12/25/17 09:15 Objective Remarks GENERAL: Pleasant middle aged male sitting up in bed in no obvious distress SKIN: Warm and dry. HEAD: Normocephalic. EYES: No injection or drainage. NECK: Supple, trachea midline. CARDIOVASCULAR: Regular rate and rhythm RESPIRATORY: Breath sounds equal bilaterally. No accessory muscle use. GASTROINTESTINAL: Abdomen distended. Mildly tender to palpation EXTREMITIES: No cyanosis. Generalized edema bilateral lower extremities NEUROLOGICAL: No obvious focal deficit. Alert and oriented 3 Assessment/Plan Assessment 67y/o male with h/o prostate cancer and new diagnosis of multifocal nonresectable and bulky intrahepatic cholangiocarcinoma. Plan 1. Multifocal intrahepatic cholangiocarcinoma: Patient had cycle 1 of FOLFOX chemotherapy on the through 15 of December 2. Leukocytosis likely due to inflammation and tumor. Continue to monitor CBC 3. Persistent nausea: continue TIFFANY Zofran. Nausea improved since Dobbhoff tube has been adjusted 4. RUQ Abdominal pain: doing well on liquid methadone 5 mg by mouth every 12 hours w/ MSIR for breakthrough. 5. Protein calorie malnutrition: Awaiting tube feed to be hung and resumed since nausea improved and Dobbhoff tube has been adjusted Attending Statement The exam, history, and the medical decision-making described in the above note were completed with the assistance of the mid-level provider. I reviewed and agree with the findings presented. I attest that I had a [id number] encounter with the patient on the same day, and personally performed and documented my assessment and findings in the medical record. Abdominal pain better since chemo. Had DHT placement, await to start tube feeding. Continue supportive care. Cristina Valladares Dec 25, 2017 10:10 Pacheco Najera MD Dec 25, 2017 12:43
[2017-12-25] MEDS ORDERED: POTASSIUM PHOSPHATE INJ 30 MMOL in SODIUM CHLOR 0.9% 250 ML INJ 250 ML IV ONE (12:00)
[2017-12-25] MEDS: DRONABINOL 2.5 MG CAP PO SCH ×2 (12:49→17:52)
[2017-12-25 12:53] LABS: AUTOMATED NEUTROPHIL # 19.1 TH/MM3 (1.8-7.7); BASOPHIL # 0.1 TH/MM3 (0-0.2); BASOPHIL % 0.3 % (0.0-2.0); EOSINOPHIL # 0.2 TH/MM3 (0-0.4); EOSINOPHIL % 0.9 % (0.0-4.0); HEMATOCRIT 26.8 % (39.0-51.0); HEMOGLOBIN 8.6 GM/DL (13.0-17.0); LYMPH % 4.6 % (9.0-44.0); MEAN CELL VOLUME 83.1 FL (80.0-100.0); MEAN CORPUSCULAR HEMOGLOBIN 26.7 PG (27.0-34.0); MEAN CORPUSCULAR HGB CONC 32.1 % (32.0-36.0); MEAN PLATELET VOLUME 8.2 FL (7.0-11.0); MONO % 7.2 % (0.0-8.0); MONOCYTE # 1.6 TH/MM3 (0-0.9); PLATELET COUNT 140 TH/MM3 (150-450); RED BLOOD COUNT 3.22 MIL/MM3 (4.50-5.90); RED CELL DISTRIBUTION WIDTH 18.6 % (11.6-17.2); WHITE BLOOD COUNT 21.9 TH/MM3 (4.0-11.0)
[2017-12-25 13:13] LABS: BICARBONATE 30.4 MEQ/L (21.0-32.0); CREATININE 1.07 MG/DL (0.60-1.30); MAGNESIUM 1.7 MG/DL (1.5-2.5)
[2017-12-25] MEDS: ATORVASTATIN 20 MG TAB PO SCH (21:11)
[2017-12-25] MEDS: diphenhydrAMINE HCL 50 MG CAP PO SCH (21:20)
[2017-12-26] VITALS (23 sets, daily range): BP systolic 107–127; BP diastolic 60–80; PULSE 88–120; RESP 17–24; TEMP 97.6–99.9; O2SAT 92–96
[2017-12-26] MEDS: ONDANSETRON HCL 4 MG/2 ML VIAL IV PUSH SCH ×6 (00:25→21:18)
[2017-12-26] MEDS: POTASSIUM CHLOR 20 MEQ PREMIX 100 ML IV SCH ×2 (00:26→12:42)
[2017-12-26] MEDS: CHLORHEXIDINE GLUCONATE 2 % 1 PACK (2 CLOTHS) TOP SCH (04:00)
[2017-12-26] MEDS: SODIUM CHLOR 0.9% 1000 ML INJ 1,000 ML IV SCH (05:06)
[2017-12-26] MEDS: MORPHINE SULFATE 15 MG TAB PO PRN ×4 (05:11→18:29)
[2017-12-26 06:50] LABS: AUTOMATED NEUTROPHIL # 14.3 TH/MM3 (1.8-7.7); BASOPHIL # 0.1 TH/MM3 (0-0.2); BASOPHIL % 0.5 % (0.0-2.0); EOSINOPHIL # 0.3 TH/MM3 (0-0.4); EOSINOPHIL % 1.7 % (0.0-4.0); HEMATOCRIT 25.2 % (39.0-51.0); LYMPH % 6.3 % (9.0-44.0); LYMPHOCYTE # 1.1 TH/MM3 (1.0-4.8); MEAN CELL VOLUME 83.9 FL (80.0-100.0); MEAN CORPUSCULAR HEMOGLOBIN 26.8 PG (27.0-34.0); MEAN CORPUSCULAR HGB CONC 31.9 % (32.0-36.0); MEAN PLATELET VOLUME 8.3 FL (7.0-11.0); MONO % 7.8 % (0.0-8.0); MONOCYTE # 1.3 TH/MM3 (0-0.9); NEUT % 83.7 % (16.0-70.0); PLATELET COUNT 115 TH/MM3 (150-450); RED CELL DISTRIBUTION WIDTH 18.6 % (11.6-17.2); WHITE BLOOD COUNT 17.1 TH/MM3 (4.0-11.0)
--- NOTE | 2017-12-26 06:55 | HHI.FPPN ---
Subjective Remarks Mr. Baltazar is feeling "good." He slept "good" last night. His abdominal pain is well managed. He is breathing without difficulty. He is worried about increased lower extremity swelling, more so in his right leg and ankle. He denies any fevers or chills. He denies feeling nauseated since started the Tube feeds last night 12/25/2017. Awaiting placement into SNF. Family has chosen [facility] vs [facility]. They want to make sure that the facility can transport him to dialysis and make those arrangements. I spoke with Theresa BRAY) yesterday, and they were waiting to here back from [facility] and insurance approval. Objective Vitals Vital Signs Date Time Temp Pulse Resp B/P (MAP) Pulse Ox O2 Delivery O2 Flow Rate FiO2 12/26/17 05:04 97.6 101 17 111/72 (85) 92 12/26/17 04:30 99 12/26/17 03:00 94 12/26/17 02:00 100 12/26/17 01:00 102 12/26/17 00:24 97.6 105 18 114/73 (87) 92 12/26/17 00:00 106 12/25/17 23:00 104 12/25/17 22:00 108 12/25/17 21:41 129/79 (96) 12/25/17 21:00 114 12/25/17 20:52 97.6 111 16 98/69 (79) 92 12/25/17 20:00 110 12/25/17 19:00 106 12/25/17 16:30 97.8 84 18 115/67 (83) 95 12/25/17 16:00 87 12/25/17 15:00 86 12/25/17 14:00 93 12/25/17 13:00 84 12/25/17 12:54 97.7 86 18 131/77 (95) 95 12/25/17 12:00 87 12/25/17 11:00 89 12/25/17 10:00 95 12/25/17 09:00 83 12/25/17 08:11 98.0 93 20 119/54 (75) 97 12/25/17 08:00 87 12/25/17 07:00 93 I/O 12/25/17 12/25/17 12/25/17 12/26/1711/18 2/11/18 07:00 15:00 23:00 07:00 15:00 23:00 Intake Total 480 ml 480 ml Output Total 950 ml Balance -470 ml 480 ml Intake Oral 480 ml 480 ml Output Urine Total 950 ml # Voids 1 Result Diagram: 12/26/17 0510 12/25/17 1140 Objective Remarks GENERAL: Well-developed male currently resting in bed, very uncomfortable, restless SKIN: Warm and dry. Well perfused. No rash HEAD: Normocephalic. EYES: No scleral icterus. No injection or drainage. NECK: Supple, trachea midline. No JVD or lymphadenopathy. CARDIOVASCULAR: Regular rate and rhythm without murmurs, gallops, or rubs. RESPIRATORY: Clear to auscultation bilaterally without wheezes rales or rhonchi GASTROINTESTINAL: Abdomen soft, tender especially in the right upper and lower quadrants, distended. Bowel sounds present but hypoactive. Mild fluid wave. Liver is palpated below the costophrenic margin MUSCULOSKELETAL: 1+ lower extremity edema below the knees. NEURO EXAM: Cranial nerves II through XII grossly intact. Strength is equal symmetric. Normal sensation. Date of Insertion: Dec 14, 2017 Line: PICC Side: Right Location: Antecubital A/P Assessment and Plan 67-year-old male with past medical history of resolved prostate cancer and active advanced intrahepatic cholangiocarcinoma presents with abdominal pain and anorexia. Discharge Planning Medically stable for d/c today 12/24/2017. Problem List: (1) Intrahepatic cholangiocarcinoma ICD Codes: C22.1 - Intrahepatic bile duct carcinoma Plan: -Status post his first cycle of FOLFOX -Hold current immunotherapy -Supportive care -Poor oral intake 2/2 n/v v- will require feeding tube while hospitalized. Dietary consult. -Start Marinol 2.5mg PO BID 1 hour before meals to increase appetite and reduce nausea and vomiting. -Palliative on board - appreciate recommendations. -Heme/Onc on board - appreciate recommendations. * Morphine IR 15mg PO q3 hours Pain 1-8, IV Morphine 2 mg q 3 hours PRN pain 9, 10, with Methadone 5 mg PO q 12 scheduled. (2) Swelling of lower extremity ICD Codes: M79.89 - Other specified soft tissue disorders Plan: B/L 2+ pitting edema to the knees. IVF stopped on 12/25/2017. Will check for DVT with bilateral doppler. On lovenox 40 mg daily however still possible. (3) Right upper quadrant abdominal pain ICD Codes: R10.11 - Right upper quadrant pain Plan: -IR consult for possible ultrasound-guided therapeutic and diagnostic paracentesis paracentesis. -US 12/19/17 showed "No significant fluid for therapeutic paracentesis." However still with abdominal distension. -IV lasix 20 mg BID, with IV K+ replacement. (4) Sepsis ICD Codes: A41.9 - Sepsis, unspecified organism Status: Acute Plan: Resolved. ID has discontinued broad spectrum ABX. Leukocytosis likely from underlying malignancy. Will continue to monitor for signs of infection and restart ABX if present. -Previously on: Cefepime 2g Q8h IV and Vancomycin 1750 mg Q12h IV (12/16/2017 -12/20) - Repeat blood cultures negative - Urine cultures negative - Infectious disease on board - appreciate recommendations. (5) Leukocytosis ICD Codes: D72.829 - Elevated white blood cell count, unspecified Plan: -Suspect secondary to malignancy -Blood and urine cultures negative so far -Monitor temperature (6) Hypokalemia ICD Codes: E87.6 - Hypokalemia Plan: -Potassium 3.1 on 12/25/2017. Replete with IV potassium. 20 meq x BID and KCL 40 mEq IV bolus x 1 today. (7) Dyslipidemia ICD Codes: E78.5 - Hyperlipidemia, unspecified Plan: Continue Atorvastatin 20 mg by mouth daily (8) History of prostate cancer ICD Codes: Z85.46 - Personal history of malignant neoplasm of prostate Plan: -Resolved per patient -No interventions needed at this time (9) Decrease in appetite ICD Codes: R63.0 - Anorexia Plan: -Start Marinol 2.5 mg by mouth twice a day one hour before meals -Consider Megace per palliative care although this medication is metabolized by the liver (10) Constipation ICD Codes: K59.00 - Constipation, unspecified Status: Resolved Plan: Resolved. -Continue with Tina-Colace 1 tab by mouth twice a day (11) Diabetes ICD Codes: E11.9 - Type 2 diabetes mellitus without complications Plan: -Sliding-scale insulin with Accu-Cheks before meals/at bedtime to maintain euglycemia (12) Anemia ICD Codes: D64.9 - Anemia, unspecified Plan: Has received 4 units of packed RBCs since admission. Last transfusion was on 12/22/2017. Hgb stable = 8.0. (13) Anxiety ICD Codes: F41.9 - Anxiety disorder, unspecified Plan: -Alprazolam 0.25 mg as every 8 hours as needed anxiety (14) FEN/DVT PPX/GI PPX/Nursing Orders Plan: -Regular diet. -Teds/SCDs -Lovenox subcutaneous for DVT prophylaxis -Famotidine 20 mg twice a day -Nasal cannula to maintain saturations greater than 92% -Incentive spirometry while awake -Albuterol/ipratropium aerosols every 6 hours with albuterol aerosols every 2 hours -Physical therapy consulted to assist with strengthening exercises. Given his malnutrion and general weakness, I agree with oncology that this patient will require extensive care that may not be best suited for the home (i.e. in- patient rehabilitation). This was described by Dr. Harrison: "Disposition: Optimize nutritional intake via tube feeding and oral nutritional supplements. As far as discharge disposition, I would favor placement to a short-term rehabilitation/longterm facility because I do not see his or his family being able to care for him at home. Especially since he is on a combination of intravenous and oral medications and also because his input and output needs to monitored quite closely." Will continue to follow and make arrangements. WDW Dr. Leggett. Problem Qualifiers (1) Sepsis: Qualified Codes: A41.9 - Sepsis, unspecified organism Brian Guzman MD, R3 Dec 26, 2017 06:55
[2017-12-26 07:25] LABS: ALBUMIN 1.2 GM/DL (3.4-5.0); BICARBONATE 29.7 MEQ/L (21.0-32.0); CALCIUM 7.4 MG/DL (8.5-10.1); CALCIUM-PROTEIN CORRECTED 8.5 MG/DL (8.5-10.1); CREATININE 1.49 MG/DL (0.60-1.30); MAGNESIUM 1.7 MG/DL (1.5-2.5); TOTAL BILIRUBIN ADULT 0.5 MG/DL (0.2-1.0); TOTAL PROTEIN 5.1 GM/DL (6.4-8.2)
[2017-12-26] MEDS: FUROSEMIDE 20 MG/2 ML VIAL IV PUSH SCH ×2 (09:05→18:00)
[2017-12-26] MEDS: DOCUSATE SODIUM 50 MG/SENNA 8.6 MG TAB PO SCH ×2 (09:05→21:03)
[2017-12-26] MEDS: METHADONE HCL 10 MG/10 ML ORAL SOLUTION PO SCH ×2 (09:06→21:04)
[2017-12-26] MEDS: FAMOTIDINE 20 MG TAB PO SCH ×2 (09:06→21:03)
[2017-12-26] MEDS: INSULIN ASPART SUPPLEMENTAL SCALE SQ SCH ×4 (09:09→21:21)
[2017-12-26] MEDS: SODIUM CHLORIDE 0.9% FLUSH 10 ML FLUSH IV FLUSH SCH ×2 (09:10→21:10)
[2017-12-26] MEDS ORDERED: POTASSIUM CHLOR 20 MEQ PREMIX 100 ML IV SCH (09:15)
[2017-12-26] MEDS ORDERED: POTA-163 PO (11:09)
[2017-12-26] MEDS ORDERED: FAMO20TA2 PO (11:09)
[2017-12-26] MEDS ORDERED: Furosemide IV PUSH (11:09)
[2017-12-26] MEDS ORDERED: BISA10R RECTAL (11:09)
--- NOTE | 2017-12-26 11:10 | HHI.DCPOC ---
Discharge Care Plan Diagnosis: (1) Leukocytosis (2) Normocytic anemia (3) Hypoalbuminemia (4) Hypertension (5) Hemorrhoids (6) Anemia Goals to Promote Your Health * To prevent worsening of your condition and complications * To maintain your health at the optimal level Directions to Meet Your Goals Take your medications as prescribed Follow your dietary instruction Follow activity as directed Keep your appointments as scheduled Take your immunizations and boosters as scheduled If your symptoms worsen call your PCP, if no PCP go to Urgent Care Center or Emergency Room Smoking is Dangerous to Your Health. Avoid second hand smoke Call the 24-hour hour crisis hotline for domestic abuse at Brian Guzman MD, R3 Dec 26, 2017 11:10
--- NOTE | 2017-12-26 11:18 | RADRPT ---
EXAM DATE/TIME: 12/26/2017 10:37 [facility] COMPARISON: CT ABDOMEN & PELVIS W CONTRAST, December 16, 2017, 0:34. US LEG BILATERAL VENOUS DOPPLER, November, 16:47. INDICATIONS : Emboli. MEDICAL HISTORY : Hypercholesterolemia. Hypertension. SURGICAL HISTORY : Prostate surgery. Right knee surgery. ENCOUNTER: Subsequent ACUITY: 1 day PAIN SCORE: 0/10 LOCATION: Bilateral leg. TECHNIQUE: Venous ultrasound of the left and right leg was performed from the inguinal ligament to the proximal calf. Real-time, color Doppler and spectral tracing, compression and augmentation techniques were us ed. FINDINGS: RIGHT LEG: There is normal compressibility of the deep venous system from the inguinal region to the proximal ca lf. No echogenic clot is seen in the lumen of the common femoral, femoral, popliteal, and posterior tibial veins. There is a normal response of the venous system to proximal and distal augmentation an d respiration. There is no subcutaneous edema identified in the mid to distal thigh and calf area. LEFT LEG: There is normal compressibility of the deep venous system from the inguinal region to the proximal ca lf. No echogenic clot is seen in the lumen of the common femoral, femoral, popliteal, and posterior tibial veins. There is a normal response of the venous system to proximal and distal augmentation an d respiration. There is moderate subcutaneous edema identified in the distal thigh and calf. There i s a thick walled fluid collection identified within the posterior medial popliteal fossa measuring 11 .0 x 4.7 x 1.6 cm. This appears mildly increased in size as compared to the prior exam. CONCLUSION: No evidence of DVT within either extremity. Enlarged Emery's cyst identified within the left poplitea l fossa which appear slightly increased in size as compared to the prior exam. This may be true incre ase in size versus incomplete measurement on the prior exam. There is bilateral subcutaneous edema pr esent. Marilee Mitchell MD on December 26, 2017 at 11:11 Board Certified Radiologist. This report was verified electronically.
[2017-12-26] MEDS: DRONABINOL 2.5 MG CAP PO SCH ×2 (12:42→18:29)
[2017-12-26] MEDS: SODIUM CHLORIDE 0.9% FLUSH 10 ML FLUSH IV FLUSH PRN (12:43)
[2017-12-26] MEDS: RESP: ALBUTEROL 2.5 MG/3 ML NEB (PRN) NEB (18:42)
--- NOTE | 2017-12-26 19:39 | HHI.PR ---
Addendum to Inpatient Note Addendum Reason: Additional Documentation Additional Information Evaluated patient for continued nausea and respiratory congestion. Patient has baseline mild tachycardia of high 90s to low 100s, but now with HR into the upper 110s to lower 120s on telemetry. Temperature of 99.9. Vomited prior to MD assessment. Vomitus was NBNB. At bedside patient reports difficulty catching breath, intermittent cough, continued nausea. Objective VS as noted in chart. Gen: thin, chronically ill-appearing adult male sitting up in bed looking tired but comfortable, in NAD Resp: CTAB, no crackles or wheezes. Normal rate, very slight use of accessory muscles (subcostals). Able to speak in full sentences without stopping for breath. CV: Tachycardic with normal rhythm MSK: No cyanosis or edema Neuro: Awake and alert. Grossly nonfocal. Oriented x3. A/P 67 yo male with prostate CA admitted for abdominal pain due to newly diagnosed cholangiocarcinoma with persistent nausea despite Zofran, worsened tachycardia, low-grade fever, and mild SOB. 1. SOB - most likely related to atelectasis, though patient high risk for PE. DVT ruled out by U/S today. SOB currently mild. If worsening SOB or worsened tachycardia or new hypoxia, check stat CTA chest. Otherwise continue to monitor. 2. N/V - Give one time dose Phenergan IM 3. Fever, tachycardia - temperature low-grade. Leukocytosis improving with no Abx since 12/20. Also fits atelectasis picture. Advised incentive spirometry. Continue to monitor. If T > 101 will draw stat blood culture and resume vanc, cefepime. Ulices Butt MD Dec 26, 2017 19:39
[2017-12-26] MEDS: PROMETHAZINE INJ 25 MG/ML VIAL IM ONE ×2 (19:45→21:11)
[2017-12-26] MEDS: diphenhydrAMINE HCL 50 MG CAP PO SCH (21:00)
[2017-12-26] MEDS: ATORVASTATIN 20 MG TAB PO SCH (21:04)
[2017-12-27] VITALS (10 sets, daily range): BP systolic 101–125; BP diastolic 55–71; PULSE 92–104; RESP 16–20; TEMP 97.2–98.8; O2SAT 94–96
[2017-12-27] MEDS: ONDANSETRON HCL 4 MG/2 ML VIAL IV PUSH SCH ×5 (00:11→16:05)
[2017-12-27] MEDS: ENOXAPARIN SODIUM 40 MG/0.4 ML SYRINGE SQ SCH (00:11)
[2017-12-27] MEDS: POTASSIUM CHLOR 20 MEQ PREMIX 100 ML IV SCH (00:12)
[2017-12-27] MEDS: CHLORHEXIDINE GLUCONATE 2 % 1 PACK (2 CLOTHS) TOP SCH (04:00)
[2017-12-27 06:28] LABS: AUTOMATED NEUTROPHIL # 11.8 TH/MM3 (1.8-7.7); BASOPHIL # 0.1 TH/MM3 (0-0.2); BASOPHIL % 0.4 % (0.0-2.0); EOSINOPHIL # 0.3 TH/MM3 (0-0.4); EOSINOPHIL % 1.9 % (0.0-4.0); HEMATOCRIT 23.7 % (39.0-51.0); HEMOGLOBIN 7.6 GM/DL (13.0-17.0); LYMPH % 6.3 % (9.0-44.0); LYMPHOCYTE # 0.9 TH/MM3 (1.0-4.8); MEAN CORPUSCULAR HEMOGLOBIN 26.8 PG (27.0-34.0); MEAN CORPUSCULAR HGB CONC 31.9 % (32.0-36.0); MEAN PLATELET VOLUME 8.5 FL (7.0-11.0); MONO % 9.3 % (0.0-8.0); MONOCYTE # 1.3 TH/MM3 (0-0.9); NEUT % 82.1 % (16.0-70.0); PLATELET COUNT 102 TH/MM3 (150-450); RED BLOOD COUNT 2.82 MIL/MM3 (4.50-5.90); RED CELL DISTRIBUTION WIDTH 18.5 % (11.6-17.2); WHITE BLOOD COUNT 14.4 TH/MM3 (4.0-11.0)
[2017-12-27 06:50] LABS: BICARBONATE 28.9 MEQ/L (21.0-32.0); CALCIUM 7.6 MG/DL (8.5-10.1); CREATININE 1.84 MG/DL (0.60-1.30)
--- NOTE | 2017-12-27 07:08 | HHI.FPPN ---
Subjective Remarks Patient more confused today. Asking his what name of the nurse was on the red disposable/trash bin. Pain is well controlled per patient. Had nausea and vomiting last night. Mainly bile per at bedside. No nausea this AM. He is complaining about increased pain in both of his feet. We had an extensive conversation with his , Hildarrius ALVAREZ, Dr. Harrison, case management and nursing. The thinks that he would be most comfortable at home with nursing or hospice availability to help with specific needs. (Brian Guzman MD, R3) Remarks Tolerating Banana, apple sauce,yesterday and this morning, in addition to Dobhoff feeds. Emesis x1 last night suspected d/t "overfilled". (Skye Reyes MD) Objective Vitals Vital Signs Date Time Temp Pulse Resp B/P (MAP) Pulse Ox O2 Delivery O2 Flow Rate FiO2 12/27/17 04:00 100 12/27/17 04:00 98.4 100 20 105/67 (80) 95 12/27/17 00:00 98.8 99 18 125/71 (89) 95 12/27/17 00:00 98 12/26/17 22:00 21 12/26/17 20:00 118 12/26/17 20:00 98.6 111 18 107/60 (76) 96 12/26/17 18:00 99.9 119 24 113/73 (86) 95 12/26/17 16:00 98 12/26/17 15:00 98 12/26/17 14:00 102 12/26/17 13:00 120 12/26/17 12:00 98.6 105 20 127/80 (96) 95 12/26/17 12:00 110 12/26/17 11:00 100 12/26/17 10:00 92 12/26/17 09:00 90 12/26/17 08:03 97.6 93 20 118/66 (83) 12/26/17 08:00 90 I/O 12/26/17 12/26/17 12/26/17 12/27/17 12/27/17 12/27/17 07:00 15:00 23:00 07:00 15:00 23:00 Intake Total 480 ml 480 ml 480 ml Output Total 50 ml Balance 480 ml 480 ml 430 ml Intake Oral 480 ml 480 ml 480 ml Output Urine Total 50 ml # Voids 100 # Bowel Movements 1 (Brian Guzman MD, R3) Result Diagram: 12/27/17 0500 12/27/17 0500 Imaging Last 72 hours Impressions Lower Extremity Ultrasound 12/26/17 0000 Signed Impressions: Service Date/Time: Tuesday, December 26, 2017 10:37 - CONCLUSION: No evidence of DVT within either extremity. Enlarged Emery's cyst identified within the left popliteal fossa which appear slightly increased in size as compared to the prior exam. This may be true increase in size versus incomplete measurement on the prior exam. There is bilateral subcutaneous edema present. Marilee Mitchell MD Objective Remarks GENERAL: Well-developed male currently resting in bed, very uncomfortable, restless SKIN: Warm and dry. Well perfused. No rash HEAD: Normocephalic. EYES: No scleral icterus. No injection or drainage. NECK: Supple, trachea midline. No JVD or lymphadenopathy. CARDIOVASCULAR: Regular rate and rhythm without murmurs, gallops, or rubs. RESPIRATORY: Clear to auscultation bilaterally without wheezes rales or rhonchi GASTROINTESTINAL: Abdomen soft, tender especially in the right upper and lower quadrants, distended. Bowel sounds present but hypoactive. Mild fluid wave. Liver is palpated below the costophrenic margin MUSCULOSKELETAL: 1+ lower extremity edema below the knees. NEURO EXAM: Cranial nerves II through XII grossly intact. Strength is equal symmetric. Normal sensation. (Brian Guzman MD, R3) Date of Insertion: Dec 14, 2017 Line: PICC Side: Right Location: Antecubital (Brian Guzman MD, R3) A/P Assessment and Plan 67-year-old male with past medical history of resolved prostate cancer and active advanced intrahepatic cholangiocarcinoma presents with abdominal pain and anorexia. Discharge Planning In AM on 12/28/2017, after BMP recheck and d/c DobHoff tube. (Brian Guzman MD, R3) Attending Attestation Patient seen and examined case discussed with Dr. Brian Guzman. Extensive discussions with patient and , along with case management and medical oncology. Patient and spouse opted to transition to hospice, [facility]. (Skye Reyes MD) Problem List: (1) Intrahepatic cholangiocarcinoma ICD Codes: C22.1 - Intrahepatic bile duct carcinoma Plan: -Spoke with hospice care team. Decision made [facility] Status post his first cycle of FOLFOX -Hold current immunotherapy. -Supportive care -Poor oral intake. Because he will not be pursuing chemotherapy, he can be transitioned to PO intake. Tolerated basic diet yesterday ncluding bananas. WIll decrease tube feeds from 30 cc/hr to 15 cc/hr and -Start Marinol 2.5mg PO BID 1 hour before meals to increase appetite and reduce nausea and vomiting. -Palliative on board - appreciate recommendations. -Heme/Onc on board - appreciate recommendations. * Morphine IR 15mg PO q3 hours Pain 1-8, IV Morphine 2 mg q 3 hours PRN pain 9, 10, with Methadone 5 mg PO q 12 scheduled. (2) Swelling of lower extremity ICD Codes: M79.89 - Other specified soft tissue disorders Plan: B/L 2+ pitting edema to the knees. IVF stopped on 12/25/2017. Will check for DVT with bilateral doppler. On lovenox 40 mg daily however still possible. (3) Right upper quadrant abdominal pain ICD Codes: R10.11 - Right upper quadrant pain Plan: -IR consult for possible ultrasound-guided therapeutic and diagnostic paracentesis paracentesis. -US 12/19/17 showed "No significant fluid for therapeutic paracentesis." However still with abdominal distension. -IV lasix 20 mg BID, with IV K+ replacement. (4) Sepsis ICD Codes: A41.9 - Sepsis, unspecified organism Status: Acute Plan: Resolved. ID has discontinued broad spectrum ABX. Leukocytosis likely from underlying malignancy. Will continue to monitor for signs of infection and restart ABX if present. -Previously on: Cefepime 2g Q8h IV and Vancomycin 1750 mg Q12h IV (12/16/2017 -12/20) - Repeat blood cultures negative - Urine cultures negative - Infectious disease on board - appreciate recommendations. (5) Leukocytosis ICD Codes: D72.829 - Elevated white blood cell count, unspecified Plan: -Suspect secondary to malignancy -Blood and urine cultures negative so far -Monitor temperature (6) Hypokalemia ICD Codes: E87.6 - Hypokalemia Plan: -Potassium 3.1 on 12/25/2017. Replete with IV potassium. 20 meq x BID and KCL 40 mEq IV bolus x 1 today. (7) Dyslipidemia ICD Codes: E78.5 - Hyperlipidemia, unspecified Plan: Continue Atorvastatin 20 mg by mouth daily (8) History of prostate cancer ICD Codes: Z85.46 - Personal history of malignant neoplasm of prostate Plan: -Resolved per patient -No interventions needed at this time (9) Decrease in appetite ICD Codes: R63.0 - Anorexia Plan: -Start Marinol 2.5 mg by mouth twice a day one hour before meals -Consider Megace per palliative care although this medication is metabolized by the liver (10) Constipation ICD Codes: K59.00 - Constipation, unspecified Status: Resolved Plan: Resolved. -Continue with Tina-Colace 1 tab by mouth twice a day (11) Diabetes ICD Codes: E11.9 - Type 2 diabetes mellitus without complications Plan: -Sliding-scale insulin with Accu-Cheks before meals/at bedtime to maintain euglycemia (12) Anemia ICD Codes: D64.9 - Anemia, unspecified Plan: Has received 4 units of packed RBCs since admission. Last transfusion was on 12/22/2017. Hgb stable = 8.0. (13) Anxiety ICD Codes: F41.9 - Anxiety disorder, unspecified Plan: -Alprazolam 0.25 mg as every 8 hours as needed anxiety (14) FEN/DVT PPX/GI PPX/Nursing Orders Plan: -Regular diet. D/c doboff tube today. -Teds/SCDs -Lovenox subcutaneous for DVT prophylaxis -Famotidine 20 mg twice a day -Nasal cannula to maintain saturations greater than 92% -Incentive spirometry while awake -Albuterol/ipratropium aerosols every 6 hours with albuterol aerosols every 2 hours -Physical therapy consulted to assist with strengthening exercises. Given his malnutrion and general weakness, I agree with oncology that this patient will require extensive care that may not be best suited for the home (i.e. in- patient rehabilitation). This was described by Dr. Harrison: "Disposition: Optimize nutritional intake via tube feeding and oral nutritional supplements. As far as discharge disposition, I would favor placement to a short-term rehabilitation/halfway facility because I do not see his or his family being able to care for him at home. Especially since he is on a combination of intravenous and oral medications and also because his input and output needs to monitored quite closely." Will continue to follow and make arrangements. SDW. Dr. Reyes. (MadisonBrian MD, R3) Problem List: (1) Intrahepatic cholangiocarcinoma ICD Codes: C22.1 - Intrahepatic bile duct carcinoma Plan: -Spoke with hospice care team. Decision made [facility]. Status post his first cycle of FOLFOX -Hold current immunotherapy. -Supportive care -Poor oral intake. Because he will not be pursuing chemotherapy, he can be transitioned to PO intake. Tolerated basic diet yesterday ncluding bananas. WIll decrease tube feeds from 30 cc/hr to 15 cc/hr and -Start Marinol 2.5mg PO BID 1 hour before meals to increase appetite and reduce nausea and vomiting. -Palliative on board - appreciate recommendations. -Heme/Onc on board - appreciate recommendations. * Morphine IR 15mg PO q3 hours Pain 1-8, IV Morphine 2 mg q 3 hours PRN pain 9, 10, with Methadone 5 mg PO q 12 scheduled. (2) Swelling of lower extremity ICD Codes: M79.89 - Other specified soft tissue disorders Plan: Multifactorial with underlying anemia, malignancy and intra-abdominal mass effect BLE Doppler negative for DVT. Worsening renal function with IV Lasix and no improvement in BLE. DC Lasix, BLE teds if tolerated (3) Right upper quadrant abdominal pain ICD Codes: R10.11 - Right upper quadrant pain Plan: -IR consult for possible ultrasound-guided therapeutic and diagnostic paracentesis. -US 12/19/17 showed "No significant fluid for therapeutic paracentesis." However still with abdominal distension. -IV lasix 20 mg BID, with IV K+ replacemen, discontinued as noted above (4) Sepsis ICD Codes: A41.9 - Sepsis, unspecified organism Status: Acute Plan: Resolved. ID has discontinued broad spectrum ABX. Leukocytosis likely from underlying malignancy. Will continue to monitor for signs of infection and restart ABX if present. -Previously on: Cefepime 2g Q8h IV and Vancomycin 1750 mg Q12h IV (12/16/2017 -12/20) - Repeat blood cultures negative - Urine cultures negative - Infectious disease assisted, appreciate recommendations. (5) Leukocytosis ICD Codes: D72.829 - Elevated white blood cell count, unspecified Plan: -Suspect secondary to malignancy -Blood and urine cultures negative so far (6) Hypokalemia ICD Codes: E87.6 - Hypokalemia Plan: -Potassium 3.1 on 12/25/2017. Repleted with IV potassium. (7) Dyslipidemia ICD Codes: E78.5 - Hyperlipidemia, unspecified Plan: Continue Atorvastatin 20 mg by mouth daily (8) History of prostate cancer ICD Codes: Z85.46 - Personal history of malignant neoplasm of prostate Plan: -Resolved per patient -No interventions needed at this time (9) Decrease in appetite ICD Codes: R63.0 - Anorexia Plan: -Start Marinol 2.5 mg by mouth twice a day one hour before meals -Trial Megace per palliative care, precaution hepatic clearance (10) Constipation ICD Codes: K59.00 - Constipation, unspecified Status: Resolved Plan: Resolved. -Continue with Tina-Colace 1 tab by mouth twice a day (11) Diabetes ICD Codes: E11.9 - Type 2 diabetes mellitus without complications Plan: -Low-dose SSI prn, sporadic nutritional status anticipated now that Dobbhoff discontinued (12) Anemia ICD Codes: D64.9 - Anemia, unspecified Plan: Has received 4 units of packed RBCs since admission. Last transfusion was on 12/22/2017. Hgb stable = 8.0. (13) Anxiety ICD Codes: F41.9 - Anxiety disorder, unspecified Plan: -Alprazolam helped, defer to hospice at this time (14) FEN/DVT PPX/GI PPX/Nursing Orders Plan: -Regular diet. D/c doboff tube today. -Teds/ s/p SCDs -Lovenox subcutaneous for DVT prophylaxis -Famotidine 20 mg twice a day SDW. Dr. Reyes. (Skye Reyes MD) Problem Qualifiers (1) Sepsis: Qualified Codes: A41.9 - Sepsis, unspecified organism Brian Guzman MD, R3 Dec 27, 2017 07:08 Skye Reyes MD Dec 27, 2017 18:10
--- NOTE | 2017-12-27 07:59 | PD.ONC.PN ---
Subjective Subjective Remarks Patient seen and examined, vital signs, labs, medications and imaging studies reviewed. Events of the past weekend were reviewed as well. Subjectively; Mr. Baltazar reports feeling generally weak, he reports having had an episode of bilious vomiting last night but following administration of promethazine his symptoms of nausea improved. He tells me he needs help to get up out of bed and has little to no appetite. He denies fevers or chills. Abdomen remains tender and distended. Objective Data Date Time Temp Pulse Resp B/P (MAP) Pulse Ox O2 Delivery O2 Flow Rate FiO2 12/27/17 04:00 100 12/27/17 04:00 98.4 100 20 105/67 (80) 95 12/27/17 00:00 98.8 99 18 125/71 (89) 95 12/27/17 00:00 98 12/26/17 22:00 21 12/26/17 20:00 118 12/26/17 20:00 98.6 111 18 107/60 (76) 96 12/26/17 18:00 99.9 119 24 113/73 (86) 95 12/26/17 16:00 98 12/26/17 15:00 98 12/26/17 14:00 102 12/26/17 13:00 120 12/26/17 12:00 98.6 105 20 127/80 (96) 95 12/26/17 12:00 110 12/26/17 11:00 100 12/26/17 10:00 92 12/26/17 09:00 90 12/26/17 08:03 97.6 93 20 118/66 (83) 12/26/17 08:00 90 12/27/17 12/27/17 12/27/17 07:00 15:00 23:00 Intake Total 480 ml Output Total 50 ml Balance 430 ml Result Diagram: 12/27/17 0500 12/27/17 0500 Laboratory Results Laboratory Tests Test 12/27/17 05:00 White Blood Count 14.4 TH/MM3 Red Blood Count 2.82 MIL/MM3 Hemoglobin 7.6 GM/DL Hematocrit 23.7 % Mean Corpuscular Volume 84.0 FL Mean Corpuscular Hemoglobin 26.8 PG Mean Corpuscular Hemoglobin Concent 31.9 % Red Cell Distribution Width 18.5 % Platelet Count 102 TH/MM3 Mean Platelet Volume 8.5 FL Neutrophils (%) (Auto) 82.1 % Lymphocytes (%) (Auto) 6.3 % Monocytes (%) (Auto) 9.3 % Eosinophils (%) (Auto) 1.9 % Basophils (%) (Auto) 0.4 % Neutrophils # (Auto) 11.8 TH/MM3 Lymphocytes # (Auto) 0.9 TH/MM3 Monocytes # (Auto) 1.3 TH/MM3 Eosinophils # (Auto) 0.3 TH/MM3 Basophils # (Auto) 0.1 TH/MM3 CBC Comment DIFF FINAL Differential Comment Blood Urea Nitrogen 24 MG/DL Creatinine 1.84 MG/DL Random Glucose 99 MG/DL Calcium Level 7.6 MG/DL Sodium Level 136 MEQ/L Potassium Level 3.6 MEQ/L Chloride Level 98 MEQ/L Carbon Dioxide Level 28.9 MEQ/L Anion Gap 9 MEQ/L Estimat Glomerular Filtration Rate 37 ML/MIN Administered Medications Medications (Trade) Dose Ordered Sig/Tiffany Route PRN Reason Start Time Stop Time Status Last Admin Dose Admin Atorvastatin Calcium (Lipitor) 20 mg HS PO 12/16/17 21:00 12/26/17 21:04 Diphenhydramine HCl (Benadryl) 50 mg HS PO 12/16/17 21:00 12/26/17 21:00 Sodium Chloride 1,000 ml @ 50 mls/hr Q20H IV 12/16/17 00:44 Future hold 12/26/17 05:06 Sodium Chloride (NS Flush) 2 ml UNSCH PRN IV FLUSH FLUSH AFTER USING IV ACCESS 12/16/17 00:45 12/26/17 12:43 Sodium Chloride (NS Flush) 2 ml BID IV FLUSH 12/16/17 09:00 12/26/17 21:10 Acetaminophen (Tylenol) 650 mg Q6H PRN PO FEVER >101F 12/16/17 00:45 12/18/17 11:15 Famotidine (Pepcid) 20 mg Q12HR PO 12/16/17 09:00 12/26/17 21:03 Miscellaneous Information 1 Q361D XX 12/16/17 00:45 12/16/17 00:45 Chlorhexidine Gluconate (Chlorhexidine 2% Cloth) Taper DAILY@04 TOP 12/16/17 04:00 12/12/18 03:59 12/20/17 03:22 Senna/Docusate Sodium (Tina-Colace) 1 tab BID PO 12/16/17 09:00 12/26/17 21:03 Insulin Aspart (NovoLOG SUPPLEMENTAL SCALE) 1 ACHS SLIDING SCALE SQ 12/16/17 17:00 12/26/17 21:21 Alprazolam (Xanax) 0.25 mg Q8H PRN PO anxiety 12/17/17 13:00 12/24/17 11:42 Ondansetron HCl (Zofran Inj) 4 mg Q4HR IV PUSH 12/17/17 20:00 12/27/17 04:50 Morphine Sulfate (Morphine Inj) 2 mg Q3H PRN IV PUSH PAIN SCALE 9 TO 10 12/18/17 11:00 12/25/17 05:19 Albuterol Sulfate (Albuterol Neb) 2.5 mg Q2HR NEB PRN NEB dyspnea 12/18/17 13:15 12/26/17 18:42 Dronabinol (Marinol) 2.5 mg BID@11,16 PO 12/19/17 11:00 12/26/17 18:29 Morphine Sulfate (Msir) 15 mg Q3H PRN PO pain1-8 12/19/17 09:30 12/26/17 18:29 Enoxaparin Sodium (Lovenox Inj) 40 mg Q24H SQ 12/20/17 23:00 12/27/17 00:11 Furosemide (Lasix Inj) 20 mg BID@,18 IV PUSH 12/21/17 09:00 12/26/17 18:00 Potassium Chloride 100 ml @ 50 mls/hr Q12H IV 12/22/17 13:00 12/27/17 00:12 Methadone HCl (Methadone Liq) 5 mg Q12HR PO 12/23/17 09:00 12/26/17 21:04 Objective Remarks GENERAL PHYSICAL APPEARANCE: Mr. Baltazar is a pleasant elderly male. He is laying in bed. He appears to be in no acute distress. HEENT: Head is atraumatic, normocephalic. Conjunctivae are pale; sclerae are anicteric. EOMI, PERRLA. Oral exam - No pharyngeal erythema. NECK EXAM: No palpable cervical or supraclavicular lymphadenopathy. RESPIRATORY EXAM: Decreased bibasilar breath sounds, good air movement of the upper and middle lung zones. Prolonged expiratory phase. CARDIOVASCULAR: Regular rate and rhythm. S1-S2. No obvious murmurs, rubs or gallops. ABDOMINAL EXAM: Massively enlarged liver, abdominal distension, free fluid in the abdomen noted, tenderness in the right upper quadrant and right periumbilical area. The hepatic surface is irregular and firm. LOWER EXTREMITIES: Trace pretibial edema. No calf tenderness. IMAGING SPECIALIST: Generally weak, no focal sensory or motor deficits. SKIN: Generally pale. Some bruising noted. He appears that generalized anasarca. 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 Plan 1. Multifocal intrahepatic cholangiocarcinoma: Patient had cycle 1 of FOLFOX chemotherapy on the through 15 of December. Clinically there is no evidence of improvement. 2. Leukocytosis likely due to inflammation and tumor. Continue to monitor CBC 3. Persistent nausea: continue TIFFANY Zofran if added on when necessary promethazine liquid via Dobbhoff tube every 6 hours. Dobbhoff tube was also repositioned as it was coiled in the stomach. 4. RUQ Abdominal pain: doing well on liquid methadone 5 mg by mouth every 12 hours w/ MSIR for breakthrough. Current Pain regimen seems to be working well for him. 5. Progressive renal failure: Urine analysis ordered to assess for glomerular casts to assess for acute tubular necrosis. I suspect there may be an element of dehydration/loss of intravascular volume. He may benefit from increase in IV fluid infusion rate. Disposition: I anticipate he will be placed at a rehabilitation facility/nursing home facility. He was scheduled to receive cycle #2 palliative systemic chemotherapy this week but I will postpone cycle #2 and reevaluate him early next week for possible treatment. Beau Harrison MD Dec 27, 2017 07:59
[2017-12-27] MEDS: INSULIN ASPART SUPPLEMENTAL SCALE SQ SCH ×2 (08:00→12:00)
[2017-12-27] MEDS ORDERED: PROMETHAZINE HCL SYRUP 6.25 MG/5 ML CUP OG-TUBE PRN (08:00)
[2017-12-27] MEDS ORDERED: MULTIVITAMIN/IRON DROPS (FE=10 MG/ML) 50 ML BTL PO SCH (09:00)
[2017-12-27] MEDS ORDERED: MULTIVITAMIN TAB PO SCH (09:00)
[2017-12-27] MEDS: SODIUM CHLORIDE 0.9% FLUSH 10 ML FLUSH IV FLUSH SCH (09:00)
[2017-12-27] MEDS: FAMOTIDINE 20 MG TAB PO SCH (10:02)
[2017-12-27] MEDS: METHADONE HCL 10 MG/10 ML ORAL SOLUTION PO SCH (10:02)
[2017-12-27] MEDS: DOCUSATE SODIUM 50 MG/SENNA 8.6 MG TAB PO SCH (10:02)
[2017-12-27] MEDS: DRONABINOL 2.5 MG CAP PO SCH (12:46)
[2017-12-27] MEDS: MORPHINE SULFATE 15 MG TAB PO PRN (12:46)
--- NOTE | 2017-12-27 13:29 | HHI.DS ---
Discharge Summary Admission Date Dec 16, 2017 at 00:06 Admitting Diagnosis sepsis; intrahepatic cholangiocarcinoma (1) Intrahepatic cholangiocarcinoma Plan: -Spoke with hospice care team. Decision made to transfer care to [facility]ospice [facility] center. Status post his first cycle of FOLFOX -Hold current immunotherapy. -Supportive care -Poor oral intake. Because he will not be pursuing chemotherapy, he can be transitioned to PO intake. Tolerated basic diet yesterday ncluding bananas. WIll decrease tube feeds from 30 cc/hr to 15 cc/hr and -Start Marinol 2.5mg PO BID 1 hour before meals to increase appetite and reduce nausea and vomiting. -Palliative on board - appreciate recommendations. -Heme/Onc on board - appreciate recommendations. * Morphine IR 15mg PO q3 hours Pain 1-8, IV Morphine 2 mg q 3 hours PRN pain 9, 10, with Methadone 5 mg PO q 12 scheduled. ICD Codes: C22.1 - Intrahepatic bile duct carcinoma (2) Swelling of lower extremity Plan: B/L 2+ pitting edema to the knees. IVF stopped on 12/25/2017. Will check for DVT with bilateral doppler. On lovenox 40 mg daily however still possible. ICD Codes: M79.89 - Other specified soft tissue disorders (3) Right upper quadrant abdominal pain Plan: -IR consult for possible ultrasound-guided therapeutic and diagnostic paracentesis paracentesis. -US 12/19/17 showed "No significant fluid for therapeutic paracentesis." However still with abdominal distension. -IV lasix 20 mg BID, with IV K+ replacement. ICD Codes: R10.11 - Right upper quadrant pain (4) Sepsis Plan: Resolved. ID has discontinued broad spectrum ABX. Leukocytosis likely from underlying malignancy. Will continue to monitor for signs of infection and restart ABX if present. -Previously on: Cefepime 2g Q8h IV and Vancomycin 1750 mg Q12h IV (12/16/2017 -12/20) - Repeat blood cultures negative - Urine cultures negative - Infectious disease on board - appreciate recommendations. ICD Codes: A41.9 - Sepsis, unspecified organism Status: Acute (5) Leukocytosis Plan: -Suspect secondary to malignancy -Blood and urine cultures negative so far -Monitor temperature ICD Codes: D72.829 - Elevated white blood cell count, unspecified (6) Hypokalemia Plan: -Potassium 3.1 on 12/25/2017. Replete with IV potassium. 20 meq x BID and KCL 40 mEq IV bolus x 1 today. ICD Codes: E87.6 - Hypokalemia (7) Dyslipidemia Plan: Continue Atorvastatin 20 mg by mouth daily ICD Codes: E78.5 - Hyperlipidemia, unspecified (8) History of prostate cancer Plan: -Resolved per patient -No interventions needed at this time ICD Codes: Z85.46 - Personal history of malignant neoplasm of prostate (9) Decrease in appetite Plan: -Start Marinol 2.5 mg by mouth twice a day one hour before meals -Consider Megace per palliative care although this medication is metabolized by the liver ICD Codes: R63.0 - Anorexia (10) Constipation Plan: Resolved. -Continue with Tina-Colace 1 tab by mouth twice a day ICD Codes: K59.00 - Constipation, unspecified Status: Resolved (11) Diabetes Plan: -Sliding-scale insulin with Accu-Cheks before meals/at bedtime to maintain euglycemia ICD Codes: E11.9 - Type 2 diabetes mellitus without complications (12) Anemia Plan: Has received 4 units of packed RBCs since admission. Last transfusion was on 12/22/2017. Hgb stable = 8.0. ICD Codes: D64.9 - Anemia, unspecified (13) Anxiety Plan: -Alprazolam 0.25 mg as every 8 hours as needed anxiety ICD Codes: F41.9 - Anxiety disorder, unspecified (14) FEN/DVT PPX/GI PPX/Nursing Orders Plan: -Regular diet. D/c doboff tube today. -Teds/SCDs -Lovenox subcutaneous for DVT prophylaxis -Famotidine 20 mg twice a day -Nasal cannula to maintain saturations greater than 92% -Incentive spirometry while awake -Albuterol/ipratropium aerosols every 6 hours with albuterol aerosols every 2 hours -Physical therapy consulted to assist with strengthening exercises. Given his malnutrion and general weakness, I agree with oncology that this patient will require extensive care that may not be best suited for the home (i.e. in- patient rehabilitation). This was described by Dr. Harrison: "Disposition: Optimize nutritional intake via tube feeding and oral nutritional supplements. As far as discharge disposition, I would favor placement to a short-term rehabilitation/correction facility because I do not see his or his family being able to care for him at home. Especially since he is on a combination of intravenous and oral medications and also because his input and output needs to monitored quite closely." Will continue to follow and make arrangements. SDW. Dr. Reyes. CBC/BMP: 12/27/17 0500 12/27/17 0500 Significant Findings Laboratory Tests Test 12/25/17 11:40 12/26/17 05:10 12/27/17 05:00 White Blood Count 21.9 TH/MM3 (4.0-11.0) 17.1 TH/MM3 (4.0-11.0) 14.4 TH/MM3 (4.0-11.0) Red Blood Count 3.22 MIL/MM3 (4.50-5.90) 3.00 MIL/MM3 (4.50-5.90) 2.82 MIL/MM3 (4.50-5.90) Hemoglobin 8.6 GM/DL (13.0-17.0) 8.0 GM/DL (13.0-17.0) 7.6 GM/DL (13.0-17.0) Hematocrit 26.8 % (39.0-51.0) 25.2 % (39.0-51.0) 23.7 % (39.0-51.0) Mean Corpuscular Hemoglobin 26.7 PG (27.0-34.0) 26.8 PG (27.0-34.0) 26.8 PG (27.0-34.0) Red Cell Distribution Width 18.6 % (11.6-17.2) 18.6 % (11.6-17.2) 18.5 % (11.6-17.2) Platelet Count 140 TH/MM3 (150-450) 115 TH/MM3 (150-450) 102 TH/MM3 (150-450) Neutrophils (%) (Auto) 87.0 % (16.0-70.0) 83.7 % (16.0-70.0) 82.1 % (16.0-70.0) Lymphocytes (%) (Auto) 4.6 % (9.0-44.0) 6.3 % (9.0-44.0) 6.3 % (9.0-44.0) Neutrophils # (Auto) 19.1 TH/MM3 (1.8-7.7) 14.3 TH/MM3 (1.8-7.7) 11.8 TH/MM3 (1.8-7.7) Monocytes # (Auto) 1.6 TH/MM3 (0-0.9) 1.3 TH/MM3 (0-0.9) 1.3 TH/MM3 (0-0.9) Calcium Level 8.0 MG/DL (8.5-10.1) 7.4 MG/DL (8.5-10.1) 7.6 MG/DL (8.5-10.1) Potassium Level 3.1 MEQ/L (3.5-5.1) Estimat Glomerular Filtration Rate 69 ML/MIN (>89) 47 ML/MIN (>89) 37 ML/MIN (>89) Mean Corpuscular Hemoglobin Concent 31.9 % (32.0-36.0) 31.9 % (32.0-36.0) Blood Urea Nitrogen 21 MG/DL (7-18) 24 MG/DL (7-18) Creatinine 1.49 MG/DL (0.60-1.30) 1.84 MG/DL (0.60-1.30) Random Glucose 150 MG/DL (74-106) Total Protein 5.1 GM/DL (6.4-8.2) Albumin 1.2 GM/DL (3.4-5.0) Alkaline Phosphatase 223 U/L (45-117) Aspartate Amino Transf (AST/SGOT) 40 U/L (15-37) Alanine Aminotransferase (ALT/SGPT) 10 U/L (12-78) Monocytes (%) (Auto) 9.3 % (0.0-8.0) Lymphocytes # (Auto) 0.9 TH/MM3 (1.0-4.8) PE at Discharge GENERAL: Well-developed male currently resting in bed, very uncomfortable, restless SKIN: Warm and dry. Well perfused. No rash HEAD: Normocephalic. EYES: No scleral icterus. No injection or drainage. NECK: Supple, trachea midline. No JVD or lymphadenopathy. CARDIOVASCULAR: Regular rate and rhythm without murmurs, gallops, or rubs. RESPIRATORY: Clear to auscultation bilaterally without wheezes rales or rhonchi GASTROINTESTINAL: Abdomen soft, tender especially in the right upper and lower quadrants, distended. Bowel sounds present but hypoactive. Mild fluid wave. Liver is palpated below the costophrenic margin MUSCULOSKELETAL: 1+ lower extremity edema below the knees. NEURO EXAM: Cranial nerves II through XII grossly intact. Strength is equal symmetric. Normal sensation. Hospital Course Mr. Baltazar is a very pleasant 67-year-old male, who presented with persistent nausea and vomiting after a round of chemotherapy. He was found to have a cholangiocarcinoma. During his hospitalization, he was noted to have a leukocytosis of 25,000, tachycardia, and was thought to have sepsis. He was started on broad-spectrum antibiotics. This was discontinued on day 2 of hospitalization. He remained afebrile since that point. He also was noted to have a distended abdomen. An ultrasound showed no drainable collection of fluid , however was notable for a 26 cm tumor on his liver. He was given IV Lasix in order to help with his lower extremity edema as well as his abdominal ascites. This causes him to become slightly dehydrated, and he suffered an acute kidney injury. He was given NG tube, for continuous feeds, in order to increase his nutritional status in preparation for chemotherapy. He did not do well with this feeding, and was nauseated throughout. Occupational and physical therapy, did not recommend any particular inpatient rehabilitation. Initially, the family was in agreement to go to a correction facility, however the patient said that "I do not want to go to a home." They met with hospice on 10/2018, and decided to go to the hospice care center. Care was coordinated by Dr. Harrison, Dr. Skye Reyes, [facility], and myself. He was discharged in guarded position. Pt Condition on Discharge: Guarded Discharge Disposition: Hospice/Med Facility Discharge Instructions DIET: Follow Instructions for: As Tolerated, No Restrictions Speech Therapy-Diet Recommends: Regular Activities you can perform: Regular-No Restrictions Other Activity Instructions: As tolerated. New Medications: Potassium Chloride ER (Potassium Chloride ER) 20 Meq Tab 20 MEQ PO BID for Electrolyte Replacement, #60 TAB 0 Refills Bisacodyl Supp (Bisac-Evac Supp) 10 Mg Supp 10 MG RECTAL DAILY PRN for SEVERE CONSITIPATION/ IF NPO, #30 SUPP 1 Refill Famotidine (Famotidine) 20 Mg Tab 20 MG PO Q12HR, #45 TAB 0 Refills [Furosemide] () 10 MG/ML INJ 20 MG IV PUSH BID@09,18, INJECTION Continued Medications: Alprazolam (Alprazolam) 0.25 Mg Tab 0.25 MG PO ONCE PRN for SLEEP for 10 Days, #30 TAB 0 Refills Atorvastatin (Atorvastatin) 20 Mg Tab 20 MG PO HS for Cholesterol Management, #30 TAB 0 Refills Hydrocortisone-Pramoxine Rectal (Proctofoam Hc Rectal) 1-1% Foam 1 APPLIC RECTAL Q8H PRN for hemorrhods, #90 UNIT Leucovorin (Leucovorin) 5 Mg Tab Unknown Dose Ondansetron (Zofran) 4 Mg Tab 4 MG PO Q8HR PRN for NAUSEA OR VOMITING for 5 Days, TAB 0 Refills Oxaliplatin Inj (Oxaliplatin Inj) 50 Mg/10 Ml (5 Mg/Ml) Inj Unknown Dose Oxycodone (Oxycodone) 5 Mg Cap 5 MG PO Q6H PRN for PAIN for 3 Days, #30 CAP 0 Refills [Ritters Cream] () Discontinued Medications: Diphenhydramine HCl (Diphenhydramine HCl) 50 Mg Cap 50 MG PO HS for Insomnia Brian Guzman MD, R3 Dec 27, 2017 13:29
--- NOTE | 2017-12-30 09:11 | RADRPT ---
EXAM DATE/TIME: 12/24/2017 00:00 [facility] COMPARISON: ABDOMEN KUB ONLY, December 23, 2017, 10:08. INDICATIONS : Patient with intrahepatic cholangiocarcinoma in need of NG tube reposition. MEDICAL HISTORY : Adenocarcinoma with extensive hepatic involvement (Suspected intrahepatic cholangiocarcinoma.) Carcinoma of the Prostate (Initially diagnosed in 2011.) Cardiovascular Disease Diabetes Type II Hemorrhoids Hepatic Cirrhosis Hyperlipidemia Hypertension Iron Deficiency Anemia Personal history of heavy alcohol consumption Pneumonia in 2009 SURGICAL HISTORY : Prostate biopsy Vasectomy Colonoscopy in 2017 CT-guided biopsy of hepatic mass in 2017 EGD in 2017 Radical Prostatectomy in 2011 Knee surgery in 2010 ENCOUNTER: Subsequent ACUITY: 2 days PAIN SCORE: 0/10 FLUORO TIME: 2.1 minutes IMAGE SERIES: DEVICE(S): 1.) Dobbhoff tube PROCEDURE : 1. Fluoroscopically guided enteric feeding tube placement. The risks, benefits and alternatives to the procedure were explained and verbal and written consent w as obtained. With fluoroscopic guidance a weighted enteric feeding tube was passed through the nasal cavity into the stomach. The stomach was partially insufflated with air and the tube was navigated through the pyloric channel into the duodenum. The catheter was inserted to its full length and weigh sunshine tip just reached the ligament of Treitz region. The catheter was secured at the nose, flushed and capped. CONCLUSION: Uncomplicated fluoroscopic guided Dobbhoff tube placement as above. Vijay Martínez MD on December 30, 2017 at 9:08 Board Certified Radiologist. This report was verified electronically.
== END 2017-12-27 16:09 | disposition hospice, inpatient (51) | DRG 815 ==
LOC: NEPC 22:16 → NEDA 12-16 00:06 → HIME 12-16 01:10 → HCIN 12-18 20:44
PROVIDERS: ADMIT Family Medicine; ATTEND Family Medicine
PROC: 02HV33Z Insertion of Infusion Device into Superior Vena Cava, Percutaneous Approach (ICD-10-PCS; 2017-12-13)
PROC: 30233N1 Transfusion of Nonautologous Red Blood Cells into Peripheral Vein, Percutaneous Approach (ICD-10-PCS; principal; 2017-12-16)
PROC: 0DH67UZ Insertion of Feeding Device into Stomach, Via Natural or Artificial Opening (ICD-10-PCS; 2017-12-21)
DX: D72.828 Other elevated white blood cell count (principal); E46 Unspecified protein-calorie malnutrition; N17.9 Acute kidney failure, unspecified; E87.2 Acidosis; C78.7 Secondary malignant neoplasm of liver and intrahepatic bile duct; R18.8 Other ascites; K74.60 Unspecified cirrhosis of liver; E83.51 Hypocalcemia; J98.11 Atelectasis; R11.2 Nausea with vomiting, unspecified; T45.1X5A Adverse effect of antineoplastic and immunosuppressive drugs, initial encounter; E86.0 Dehydration; I10 Essential (primary) hypertension; K57.90 Diverticulosis of intestine, part unspecified, without perforation or abscess without bleeding; K80.20 Calculus of gallbladder without cholecystitis without obstruction; E11.9 Type 2 diabetes mellitus without complications; E78.5 Hyperlipidemia, unspecified; I25.10 Atherosclerotic heart disease of native coronary artery without angina pectoris; Z96.651 Presence of right artificial knee joint; G47.00 Insomnia, unspecified; Z51.5 Encounter for palliative care; K59.00 Constipation, unspecified; F41.9 Anxiety disorder, unspecified; K44.9 Diaphragmatic hernia without obstruction or gangrene; K29.70 Gastritis, unspecified, without bleeding; F17.290 Nicotine dependence, other tobacco product, uncomplicated; G89.4 Chronic pain syndrome; E87.6 Hypokalemia; D50.9 Iron deficiency anemia, unspecified; G89.3 Neoplasm related pain (acute) (chronic); R13.10 Dysphagia, unspecified; Z85.46 Personal history of malignant neoplasm of prostate; Z80.1 Family history of malignant neoplasm of trachea, bronchus and lung; Z79.899 Other long term (current) drug therapy
CPT/HCPCS: 36430; 43752; 71045; 74018; 74177; 76705; 80048; 80053; 80202; 81001; 82272; 82533; 82550; 82948; 83605; 83735; 83880; 84100; 84132; 84443; 84484; 85007; 85025; 85027; 85610; 85730; 86850; 86900; 86901; 86920; 87040; 87086; 87641; 93005; 93970; 94150; 94640; 96365; 96375; C1769; J0692; J1650; J1815; J1940; J2270; J2405; J2550; J2997; J3370; J3475; J3480; J7030; J7040; J7050; J7613; P9016; Q0163; Q0167; Q9967